=== PATIENT | female | born 1955 | race Caucasian/White ===

== ENCOUNTER → 2016-07-28 | Outpatient (CLI) | payer BC ==
[~2016-07-28] MED LIST: MULTCAP PO; VITA200038 PO; ZOME4INJ IV; [UNRECOGNIZED DRUG - OTHER] PO
--- NOTE | 2016-07-28 09:26 | REPMRS ---
Patient History The patient states she had a clinical breast exam in January 2016. Patient is postmenopausal. Family history of colorectal cancer in maternal grandmother at age 58. Digital Mammo Screening Bilat: July 28, 2016 - Exam #: [id number] Bilateral CC and MLO view(s) were taken. Technologist: Eileen Mcneil, Technologist Prior study comparison: July 26, 2015, bilateral digital mammo screening bilat performed at [facility]. July 22, 2014, bilateral digital mammo screening bilat performed at [facility]. FINDINGS: There are scattered fibroglandular densities. There has been no change in the appearance of the mammogram from the prior studies. There is a mild amount of residual fibroglandular tissue which is fairly symmetric. There is no interval development of dominant mass, architectural distortion, or clustered microcalcification suggestive of malignancy. ASSESSMENT: BI-RADS/ACR category 1 mammogram. Negative. Recommendation Routine screening mammogram in 1 year (for women over age 40). This mammogram was interpreted with the aid of an FDA-approved computer-aided dectection system. Electronically Signed By: Michael Arreguin MD 07/28/16 0926
== END ==
LOC: M RAD 07:53
PROVIDERS: ATTEND Nurse Practitioner Women's Health
DX: Z12.31 Encounter for screening mammogram for malignant neoplasm of breast (principal); Z78.0 Asymptomatic menopausal state

== ENCOUNTER → 2016-08-10 | Outpatient (CLI) | payer BC ==
[~2016-08-10] MED LIST changes: +GASTROGRAFIN SOLUTION 30ML (Q9963) As Ordered ONE; +ISOVUE-370 76% 100ML VIAL (Q9967) As Ordered ONE
--- NOTE | 2016-08-11 05:56 | REP ---
Clinical: Non-small cell lung cancer. Technique: Axial contrast enhanced images from the thoracic inlet to the upper abdomen using 100 ml Isovue 370 intravenous contrast material with coronal and sagittal re-formations. Comparison: 04/03/2016. Findings: Subpleural anterolateral right upper lobe lesion (image 35) currently measures 2.4 cm maximal diameter and previously measured 1.7 cm maximal diameter. Anterior subpleural lesion (image 46) currently measures 1.5 cm maximal diameter and previously measured 0.9 cm maximal diameter. Basilar right lower lobe lesion (image 76) currently measures 1.9 cm diameter and previously measured 1.2 cm diameter. Further similar appearing right-sided subpleural metastatic foci are also identified and are similar or mildly increased in size when compared to prior examination. The left hemithorax is well-aerated and essentially clear without evidence for metastatic lesions. No pleural effusion/reaction. No pneumothorax. Tracheobronchial tree is patent. Mediastinum including heart/pericardium and thoracic aorta appear normal. Musculoskeletal structures are intact without focal osseous abnormality. Limited evaluation of the upper abdomen demonstrates normal bilateral adrenal glands. Impression: Right-sided and predominantly subpleural metastatic foci have mildly increased in size from prior examination as detailed above. Left hemithorax appears well aerated and clear. Signed by Billy Lundy MD 08/11/2016 05:48 A
--- NOTE | 2016-08-11 06:06 | REP ---
Clinical: Non-small cell lung cancer for follow up. Technique: Axial contrast enhanced images from the lung bases to the pubic symphysis using oral and 100 ml Isovue 370 intravenous contrast material with precontrast and delayed images of the abdomen as well as coronal and sagittal re-formations. Comparison: 09/29/2013. Findings: Lung bases demonstrate multiple subpleural metastatic foci measuring up to approximately 2 cm maximal diameter. Visualized heart and pericardium appear normal. Liver, spleen, pancreas, gallbladder, bilateral adrenal glands and kidneys are normal. Marked fecal stasis and constipation noted throughout the colon causing moderate distension. The small bowel is unremarkable. Pelvis demonstrates normal bladder and age-appropriate uterus/adnexa. No pelvic fluid/ascites. No obvious adenopathy. No obvious intra-abdominal mass lesion is appreciated although evaluation is limited. No free air. Vasculature normal skeletal structures demonstrate few scattered sclerotic lesions predominant within multiple vertebral bodies and within the sacrum and left iliac bone consistent with metastatic disease. Impression: 1. Pulmonary and osseous metastatic disease. 2. Marked fecal stasis and constipation causing abdominal distension. Signed by Billy Lundy MD 08/11/2016 05:58 A
== END ==
LOC: M RAD 11:05
PROVIDERS: ATTEND Internal Medicine Medical Oncology
DX: C79.51 Secondary malignant neoplasm of bone (principal); C34.90 Malignant neoplasm of unspecified part of unspecified bronchus or lung
CPT/HCPCS: 71260; 74178; Q9963; Q9967

== ENCOUNTER → 2016-08-15 | Outpatient (REF) | payer BC ==
[~2016-08-15] MED LIST changes: -GASTROGRAFIN SOLUTION 30ML (Q9963) As Ordered ONE; -ISOVUE-370 76% 100ML VIAL (Q9967) As Ordered ONE
[2016-08-15 17:54] LABS: INR 0.91
== END ==
LOC: M LAB REF 16:22
PROVIDERS: ATTEND Internal Medicine Medical Oncology
DX: C34.90 Malignant neoplasm of unspecified part of unspecified bronchus or lung (principal); Z79.899 Other long term (current) drug therapy; C78.01 Secondary malignant neoplasm of right lung; C79.31 Secondary malignant neoplasm of brain; C79.51 Secondary malignant neoplasm of bone; C78.2 Secondary malignant neoplasm of pleura

== ENCOUNTER → 2016-08-16 | Outpatient (CLI) | payer BC ==
[~2016-08-16] MED LIST changes: +LIDOCAINE 1% MDV 20ML VIAL As Ordered ONE
--- NOTE | 2016-08-16 13:52 | REP ---
CHEST X-RAY: Single view. HISTORY: Post CT guided needle biopsy for right upper lobe nodule. Comparison chest x-ray March 30, 2015. FINDINGS: There is some right apical pleural thickening and several nodular densities are seen in the right lung including the biopsy target in the right upper lung zone. There is no evidence of pneumothorax or other complication. IMPRESSION: No complication identified. Multiple right lung nodules seen. Signed by Vidal Gold MD 08/16/2016 06:37 P
--- NOTE | 2016-08-16 16:56 | REP ---
CT GUIDED RIGHT UPPER LOBE LUNG BIOPSY: The procedure was performed under the direct supervision of Dr. Gold. The patient has a history of a 2.4 cm subpleural anterolateral right upper lobe lung lesion seen on a previous CAT scan dated 08/10/2016. The risks and benefits of the procedure were explained to the patient and informed consent was obtained. The right lobe lung lesion was localized using CT guidance. The skin was prepped and draped in a sterile fashion. 1% Lidocaine was used as a local anesthetic. Using CT guidance a 19/20-gauge coaxial needle biopsy system was inserted and advanced into the mass. 7 core biopsy samples were obtained and sent to the lab. The patient tolerated the procedure well and there were no immediate complications. After the appropriate amount of monitored convalescence the patient was discharged from the department. Reviewed by DIANE Herman 08/17/2016 04:33 PEdited and Signed by Vidal Gold MD 08/17/2016 04:51 P
== END ==
LOC: M RADPRO 12:16
PROVIDERS: ATTEND Internal Medicine Medical Oncology
DX: C34.90 Malignant neoplasm of unspecified part of unspecified bronchus or lung (principal); C78.01 Secondary malignant neoplasm of right lung; C79.31 Secondary malignant neoplasm of brain; C78.2 Secondary malignant neoplasm of pleura; C79.51 Secondary malignant neoplasm of bone; K59.00 Constipation, unspecified; R23.3 Spontaneous ecchymoses; Z78.0 Asymptomatic menopausal state; Z92.21 Personal history of antineoplastic chemotherapy; Z92.3 Personal history of irradiation; Z87.891 Personal history of nicotine dependence; Z79.899 Other long term (current) drug therapy

== ENCOUNTER → 2016-08-28 | Outpatient (REF) | payer BC ==
[~2016-08-28] MED LIST changes: -LIDOCAINE 1% MDV 20ML VIAL As Ordered ONE
== END | disposition home or self-care (01) ==
LOC: M LAB REF 09:45
PROVIDERS: ATTEND Internal Medicine Medical Oncology
DX: C78.01 Secondary malignant neoplasm of right lung (principal); C79.31 Secondary malignant neoplasm of brain; C79.51 Secondary malignant neoplasm of bone; C78.2 Secondary malignant neoplasm of pleura; C34.11 Malignant neoplasm of upper lobe, right bronchus or lung

== ENCOUNTER → 2016-09-18 | Outpatient (REF) | payer BC ==
[2016-09-18 14:06] LABS: AMYLASE 32 U/L (25-115)
== END ==
LOC: M LAB REF 13:13
PROVIDERS: ATTEND Internal Medicine Medical Oncology
DX: C34.90 Malignant neoplasm of unspecified part of unspecified bronchus or lung (principal)

== ENCOUNTER → 2016-09-25 | Outpatient (REF) | payer BC ==
[2016-09-25 18:39] LABS: AMYLASE 38 U/L (25-115)
== END ==
LOC: M LAB REF 16:59
PROVIDERS: ATTEND Internal Medicine Medical Oncology
DX: C34.90 Malignant neoplasm of unspecified part of unspecified bronchus or lung (principal)

== ENCOUNTER → 2016-10-02 | Outpatient (REF) | payer BC ==
[2016-10-02 14:20] LABS: AMYLASE 47 U/L (25-115)
== END ==
LOC: M LAB REF 13:20
PROVIDERS: ATTEND Internal Medicine Medical Oncology
DX: C34.90 Malignant neoplasm of unspecified part of unspecified bronchus or lung (principal)

== ENCOUNTER → 2016-10-11 | Outpatient (REF) | payer BC ==
[2016-10-11 16:44] LABS: AMYLASE 45 U/L (25-115)
== END ==
LOC: M LAB REF 16:09
PROVIDERS: ATTEND Internal Medicine Medical Oncology
DX: C34.90 Malignant neoplasm of unspecified part of unspecified bronchus or lung (principal)

== ENCOUNTER → 2016-11-08 | Outpatient (REF) | payer BC | LOC: M LAB REF 16:36 | PROVIDERS: ATTEND Internal Medicine Medical Oncology | DX: C34.90 Malignant neoplasm of unspecified part of unspecified bronchus or lung (principal) ==

== ENCOUNTER → 2016-11-13 | Outpatient (CLI) | payer BC ==
[~2016-11-13] MED LIST changes: +ISOVUE-370 76% 100ML VIAL (Q9967) As Ordered ONE
--- NOTE | 2016-11-14 14:25 | REP ---
Clinical: Non-small cell lung cancer status post chemotherapy for follow-up evaluation. Technique: Axial contrast enhanced images from the thoracic inlet to the upper abdomen using 100 ml Isovue 370 intravenous contrast material with coronal and sagittal re-formations. Comparison: 08/10/2016. Findings: Intraparenchymal and subpleural right-sided metastatic lesions are again identified and essentially unchanged when compared to prior examination. As example, an anterior right upper lobe lesion (image 38) currently measures 20.5 mm maximal diameter and previously measuring 20.5 mm maximal diameter. Smaller right upper lobe lesion (image 44) measures 12.6 cm maximal diameter previously measuring 11 mm maximal diameter. Medial right lower lobe lesion in the superior segment (image 42) measures 18.4 mm maximal diameter and previously measured 16 mm maximal diameter. Two adjacent lesions at the diaphragmatic surface in the right lower lobe (image 77) measure 21 mm maximal diameter and previously measuring 21 mm maximal diameter. Further scattered predominately subpleural metastatic lesions are essentially unchanged. The left hemithorax appears clear and without nodule. Chronic biapical scarring and interstitial changes noted. No pleural effusion. No pneumothorax. Tracheobronchial tree is patent. No significant adenopathy identified. Heart/pericardium and thoracic aorta appear normal. Few subtle sclerotic foci in the osseous structures specifically within right seventh and second ribs concerning for osseous metastatic disease. Impression: 1. Intraparenchymal and subpleural metastatic lesions within the right hemithorax are relatively similar to prior examination in both quantity and size although a few scattered lesions may be slightly increased in diameter. 2. Few scattered see sclerotic osseous metastatic lesions specifically noted in the right 7th and 2nd ribs. Signed by Billy Lundy MD 11/14/2016 02:16 P
== END ==
LOC: M RAD 17:46
PROVIDERS: ATTEND Internal Medicine Medical Oncology
DX: C79.51 Secondary malignant neoplasm of bone (principal); C34.90 Malignant neoplasm of unspecified part of unspecified bronchus or lung
CPT/HCPCS: 71260; Q9967

== ENCOUNTER → 2016-12-06 | Outpatient (REF) | payer BC ==
[~2016-12-06] MED LIST changes: -ISOVUE-370 76% 100ML VIAL (Q9967) As Ordered ONE
== END ==
LOC: M LAB REF 16:54
PROVIDERS: ATTEND Internal Medicine Medical Oncology
DX: C34.90 Malignant neoplasm of unspecified part of unspecified bronchus or lung (principal)

== ENCOUNTER → 2017-01-03 | Outpatient (REF) | payer BC | LOC: M LAB REF 17:44 | PROVIDERS: ATTEND Internal Medicine Medical Oncology | DX: C34.90 Malignant neoplasm of unspecified part of unspecified bronchus or lung (principal) ==

== ENCOUNTER → 2017-01-25 | Outpatient (CLI) | payer BC ==
[~2017-01-25] MED LIST changes: +GASTROGRAFIN SOLUTION 30ML (Q9963) As Ordered ONE; +ISOVUE-370 76% 100ML VIAL (Q9967) As Ordered ONE
--- NOTE | 2017-01-25 12:43 | REP ---
Clinical: Lung cancer for follow up. Technique: Axial contrast enhanced images from the lung bases to the pubic symphysis using oral and 100 ml Isovue 370 intravenous contrast material with precontrast and delayed images of the abdomen as well as coronal and sagittal re-formations. Comparison: 08/10/2016. Findings: Multiple lesions at the right lung base appear more prominent and increased in size compared to prior examination. Visualized heart and pericardium normal. Liver, spleen, pancreas, gallbladder, bilateral adrenal glands and kidneys are normal. The enteric system suggests fecal stasis without evidence for bowel obstruction or acute inflammatory process. Pelvis demonstrates partially collapsed normal bladder and age-appropriate uterus/adnexa. No ascites. No free air. No obvious adenopathy. Abdominal aorta and vasculature appears normal. Musculoskeletal structures demonstrate sclerotic metastatic lesions in few right ribs, L3, L4, sacrum, and left italia pelvis - some of which have increased in conspicuity. Impression: 1. Multiple rim enhancing lesions at the right lung base appear slightly more pronounced than prior examination. 2. Osseous metastatic disease at multiple ribs and vertebral bodies as well as sacrum and pelvis are similar to prior examination, but slightly more pronounced. Specifically, lesion at L3 shows considerably increased sclerosis. Signed by Billy Lundy MD 01/25/2017 12:35 P
--- NOTE | 2017-01-25 12:51 | REP ---
Clinical: Lung cancer for follow up. Technique: Axial contrast enhanced images from the thoracic inlet to the upper abdomen using 100 ml Isovue 370 intravenous contrast material with multiplanar re-formations. Comparison: 11/13/2016. Findings: Innumerable rim enhancing pulmonary nodules and mass lesions involving the right hemithorax appears stable in both number and size. No new lesions are identified and no significant growth is appreciated when compared to prior examinations dated 11/13/2016 and 08/10/2016. The left hemithorax appears well aerated and clear. Chronic interstitial changes are again identified. No new consolidation, pleural effusion or pneumothorax. Tracheobronchial tree is patent. No obvious axillary, hilar, or mediastinal adenopathy. Mediastinum demonstrates normal thoracic aorta, heart and pericardium. Skeletal structures are stable including sclerotic focus involving the anterior right second rib and eighth rib. Impression: 1. Stable appearance to the right-sided pulmonary nodules and mass lesions without significant change from prior examination. 2. Stable sclerotic changes to right 2nd and 8th ribs. 3. No obvious new acute mediastinal or pleuroparenchymal process appreciated. Signed by Billy Lundy MD 01/25/2017 12:43 P
== END ==
LOC: M RAD 09:42
PROVIDERS: ATTEND Internal Medicine Medical Oncology
DX: C34.90 Malignant neoplasm of unspecified part of unspecified bronchus or lung (principal)
CPT/HCPCS: 71260; 74178; Q9963; Q9967

== ENCOUNTER → 2017-01-26 | Outpatient (REF) | payer BC ==
[~2017-01-26] MED LIST changes: -GASTROGRAFIN SOLUTION 30ML (Q9963) As Ordered ONE; -ISOVUE-370 76% 100ML VIAL (Q9967) As Ordered ONE
== END ==
LOC: M SFHCWAGY 11:07
PROVIDERS: ATTEND Nurse Practitioner Women's Health
DX: Z12.4 Encounter for screening for malignant neoplasm of cervix (principal)

== ENCOUNTER → 2017-01-30 | Outpatient (REF) | payer BC | LOC: M LAB REF 16:55 | PROVIDERS: ATTEND Internal Medicine Medical Oncology | DX: C34.90 Malignant neoplasm of unspecified part of unspecified bronchus or lung (principal) ==

== ENCOUNTER → 2017-03-27 | Outpatient (REF) | payer BC | LOC: M LAB REF 17:07 | PROVIDERS: ATTEND Internal Medicine Medical Oncology | DX: C34.90 Malignant neoplasm of unspecified part of unspecified bronchus or lung (principal) ==

== ENCOUNTER → 2017-04-27 | Outpatient (CLI) | payer BC ==
[~2017-04-27] MED LIST changes: +ISOVUE-370 76% 100ML VIAL (Q9967) As Ordered ONE
--- NOTE | 2017-04-27 13:02 | REP ---
CT study of the chest with IV contrast: History lung cancer restaging. The most recent comparison chest CT study is from January 25, 2017. November 13, 2016 CT study is also reviewed. CT contrast dose: 75 mL of intravenous Isovue 370. CT findings: There are stable sclerotic metastatic lesions in the sternum, the right anterior second, and right anterior 8th ribs unchanged. There is a subtle area of sclerosis in the anterior end of the 7th rib which is also unchanged. There is also a sclerotic area in the anterior end of the left 3rd rib which is unchanged. No new bony metastatic lesion is seen. Multiple right-sided pulmonary nodules are seen. Most of these are unchanged when compared with prior study. However, there is a new pleural-based nodular density in the right lower lobe posteriorly visible on image 80 of 116 in series 201 of today's study. This measures 10 mm in greatest diameter. There is a 7 mm pleural-based nodular density in the right middle lobe anteriorly which appears a little larger. There is a 13 mm nodular density in the right upper lobe along the minor fissure on image #43. Previously this measured 11 mm. There is a 21 mm peripheral pleural-based nodule in the right upper lobe on image #37 which measured 19 mm on the January 25, 2017 study. Multiple other pleural-based nodules are seen which are unchanged. No new hilar or mediastinal mass is observed. Visualized liver parenchyma is homogeneous. No splenic or adrenal lesion is observed. No extrathoracic mass or adenopathy is seen. Impression: Multiple predominately pleural-based lung nodules in the right hemithorax. Several of these are slightly larger when compared with the most recent prior study of January 25, 2017. Stable skeletal sclerotic metastatic foci are again seen unchanged. Signed by Vidal Gold MD 04/27/2017 03:51 P
== END ==
LOC: M RAD 10:45
PROVIDERS: ATTEND Internal Medicine Medical Oncology
DX: C34.90 Malignant neoplasm of unspecified part of unspecified bronchus or lung (principal)

== ENCOUNTER → 2017-07-30 | Outpatient (CLI) | payer BC ==
[~2017-07-30] MED LIST changes: +GASTROGRAFIN SOLUTION 30ML (Q9963) As Ordered; +ISOVUE-370 76% 100ML VIAL (Q9967) As Ordered; -ISOVUE-370 76% 100ML VIAL (Q9967) As Ordered ONE; -MULTCAP PO; -VITA200038 PO; -ZOME4INJ IV; -[UNRECOGNIZED DRUG - OTHER] PO
== END ==
LOC: M RAD 09:07
DX: C34.90 Malignant neoplasm of unspecified part of unspecified bronchus or lung (principal)
CPT/HCPCS: Q9963

== ENCOUNTER → 2017-08-03 | Outpatient (CLI) | payer BC | LOC: M RAD 09:09 | DX: Z12.31 Encounter for screening mammogram for malignant neoplasm of breast (principal) | CPT/HCPCS: 77067 ==

== ENCOUNTER → 2017-11-21 | Outpatient (CLI) | payer BC ==
[~2017-11-21] MED LIST changes: -GASTROGRAFIN SOLUTION 30ML (Q9963) As Ordered
== END ==
LOC: M RAD 08:27
DX: C34.90 Malignant neoplasm of unspecified part of unspecified bronchus or lung (principal)
CPT/HCPCS: Q9967

== ENCOUNTER → 2018-02-06 | Outpatient (REF) | payer BC ==
[2018-02-12 14:20] LABS: HPV HYBRID CAPTURE II Negative (Negative)
== END ==
LOC: M SFHCWAGY 14:12
DX: Z01.419 Encounter for gynecological examination (general) (routine) without abnormal findings (principal); Z11.51 Encounter for screening for human papillomavirus (HPV); N95.2 Postmenopausal atrophic vaginitis

== ENCOUNTER → 2018-02-19 | Outpatient (CLI) | payer BC ==
[~2018-02-19] MED LIST changes: +GASTROGRAFIN SOLUTION 30ML (Q9963) As Ordered
== END ==
LOC: M RAD 11:14
DX: C34.90 Malignant neoplasm of unspecified part of unspecified bronchus or lung (principal); C79.51 Secondary malignant neoplasm of bone; C78.2 Secondary malignant neoplasm of pleura
CPT/HCPCS: Q9963

== ENCOUNTER → 2018-05-27 | Outpatient (CLI) | payer BC ==
[~2018-05-27] MED LIST changes: -GASTROGRAFIN SOLUTION 30ML (Q9963) As Ordered
== END ==
LOC: M RAD 10:32
DX: C34.11 Malignant neoplasm of upper lobe, right bronchus or lung (principal); C79.51 Secondary malignant neoplasm of bone
CPT/HCPCS: Q9967

== ENCOUNTER → 2018-07-31 | Outpatient (CLI) | payer BC ==
[~2018-07-31] MED LIST changes: +GASTROGRAFIN SOLUTION 30ML (Q9963) As Ordered ONE; -ISOVUE-370 76% 100ML VIAL (Q9967) As Ordered; +ISOVUE-370 76% 100ML VIAL (Q9967) As Ordered ONE; +MULTCAP PO; +TUMS500C PO; +VITA200038 PO; +XGEVINJ SC; +ZOME4INJ IV; +[UNRECOGNIZED DRUG - CODE] PO; +[UNRECOGNIZED DRUG - OTHER] PO
--- NOTE | 2018-08-01 05:43 | REP ---
Clinical: Non-small cell lung cancer. Technique: Axial contrast enhanced images from the lung bases to the pubic symphysis with coronal and sagittal re-formations using 100 ml Isovue 370 intravenous contrast material. Comparison: 05/27/2018, 02/19/2018 . Findings: Irregular heterogeneous enhancing pleural encasement of the right hemithorax by malignant neoplasm along with scattered right-sided peribronchovascular thickening and nodularity as well as scattered fibroatelectatic changes and small partially loculated malignant pleural effusion are unchanged. The left hemithorax again demonstrates a 1.4 cm infrahilar left lower lobe peribronchial lesion (image 72) which remains unchanged, but new left hilar adenopathy including lymph nodes measuring up to 13.5 mm are now identified. Thoracic aorta, pulmonary vasculature and heart/pericardium appear relatively normal and unaffected. The tracheobronchial tree appears patent and relatively normal. Sclerotic metastatic foci within multiple right ribs, sternum and within multiple thoracic and visualized upper lumbar vertebra appear to have increased. Impression: 1. Malignant changes involving the right hemithorax appear relatively stable along with see single 1.4 cm left lower lobe infrahilar lesion. 2. However, new pathologic appearing left hilar lymph nodes are identified and measure up to 13.5 mm. Increased osseous metastatic load is also suggested. Electronically Signed by Billy Lundy MD 08/01/2018 05:34 A
--- NOTE | 2018-08-01 06:05 | REP ---
Clinical: Non-small cell lung cancer. Technique: Axial contrast enhanced images from the lung bases to the pubic symphysis using oral (per protocol) and 100 ml Isovue 370 intravenous contrast material with delayed images of the abdomen as well as coronal and sagittal re-formations. Comparison: 02/19/2018. Findings: Malignant pleuroparenchymal changes involving the right hemithorax as well as 1.4 cm left lower lobe nodule again identified and essentially stable. Liver, spleen, pancreas, gallbladder, bilateral adrenal glands and kidneys are normal. The enteric system demonstrates fecal stasis without obstruction or acute inflammatory process. Pelvis demonstrates normal bladder and age-appropriate uterus/adnexa. No ascites. No intraperitoneal or retroperitoneal adenopathy. No free air. Abdominal aorta and vasculature appears normal. Extensive sclerotic metastatic osseous lesions are identified involving T12 through L5 as well as involving multiple visualized right sided ribs, sacrum, and bilateral iliac bones which has increased when compared to prior examination. Impression: 1. Increased diffuse sclerotic osseous metastatic disease. 2. No obvious acute abdominopelvic pathology or a metastasis. Specifically, no ascites, adenopathy, focal inflammatory stranding or mass lesion. 3. Stable malignant pleuroparenchymal changes involving the right hemithorax and left lower lobe pulmonary nodule. Electronically Signed by Billy Lundy MD 08/01/2018 05:57 A
== END ==
LOC: M RAD 07:54
PROVIDERS: ATTEND Internal Medicine Medical Oncology
DX: C34.11 Malignant neoplasm of upper lobe, right bronchus or lung (principal); C79.51 Secondary malignant neoplasm of bone; C79.31 Secondary malignant neoplasm of brain; C78.01 Secondary malignant neoplasm of right lung; C78.2 Secondary malignant neoplasm of pleura
CPT/HCPCS: 71260; 74177; Q9963; Q9967

== ENCOUNTER → 2018-08-05 | Outpatient (CLI) | payer BC ==
[~2018-08-05] MED LIST changes: -GASTROGRAFIN SOLUTION 30ML (Q9963) As Ordered ONE; -ISOVUE-370 76% 100ML VIAL (Q9967) As Ordered ONE
--- NOTE | 2018-08-05 11:18 | REPMRS ---
Patient History The patient states she had a clinical breast exam in January 2018.Family history of colorectal cancer at age 58 in maternal grandmother. Digital Mammo Screening Bilat: August 05, 2018 - Exam #: [id number] Bilateral CC and MLO view(s) were taken. Technologist: Miroslava Guthrie, Technologist Prior study comparison: August 03, 2017, bilateral digital mammo screening bilat performed at [facility]. July 28, 2016, bilateral digital mammo screening bilat performed at [facility]. July 26, 2015, bilateral digital mammo screening bilat performed at [facility]. FINDINGS: There are scattered fibroglandular densities. There is a small stable superficial nodule in the medial aspect of the left breast unchanged from multiple prior studies. There has been no change in the appearance of the mammogram from the prior studies. There is a mild amount of scattered fibroglandular density which is fairly symmetric. There is no interval development of dominant mass, architectural distortion, or clustered microcalcification suggestive of malignancy. 3-D tomosynthesis shows no additional findings. Assessment: BI-RADS/ACR category 2 mammogram. Benign finding(s). Recommendation Routine screening mammogram of both breasts in 1 year (for women over age 40). This patient's Lifetime Breast Cancer RIsk is estimated at 8.3 %. This mammogram was interpreted with the aid of an FDA-approved computer-aided dectection system. Electronically Signed By: Guillermo Gold MD 08/05/18 [id number]
== END ==
LOC: M RAD 10:14
PROVIDERS: ATTEND Nurse Practitioner Women's Health
DX: Z12.31 Encounter for screening mammogram for malignant neoplasm of breast (principal); Z80.0 Family history of malignant neoplasm of digestive organs

== ENCOUNTER → 2018-08-07 | Outpatient (CLI) | payer BC ==
--- NOTE | 2018-08-07 14:15 | REP ---
Whole body radionuclide bone scan: History: Stage IV non-small cell lung carcinoma. Comparison whole body radionuclide bone scan study is from August 11, 2015. Technique: 21.8 mCi technetium 99m MDP is injected and standard whole body bone scan imaging was acquired. Scintigraphic findings: Today's radionuclide scintigraphy images demonstrate multifocal rather widespread axial skeletal metastatic sites of increased uptake. These are noted in the cervical, thoracic, lumbar spine and sacrum, bilaterally in the pelvis and hips, as well as in multiple anterior and posterior ribs bilaterally. This represents a fairly dramatic change from the August 11, 2015 prior bone scan. There is uptake in bilateral kidneys and in the urinary bladder. Impression: Findings consistent with widespread multifocal metastatic disease involving the axial skeleton as above with numerous new lesions. Electronically Signed by Vidal Gold MD 08/07/2018 07:40 P
== END ==
LOC: M RAD 09:39
PROVIDERS: ATTEND Internal Medicine Medical Oncology
DX: C34.90 Malignant neoplasm of unspecified part of unspecified bronchus or lung (principal); R07.1 Chest pain on breathing
CPT/HCPCS: 78306; A9503

== ENCOUNTER → 2018-08-09 | Outpatient (CLI) | payer BC ==
--- NOTE | 2018-08-13 07:23 | RADONC ---
RADIATION ONCOLOGY CONSULTATION NOTE DATE: 08/09/2018 CHART #: [id number] DIAGNOSIS: Lung cancer. STAGE: IV, metastatic. ECOG PERFORMANCE STATUS: 0. CONSULTATION NOTE: Ms. 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 The patient is now presenting for consideration of palliative radiation therapy for right rib pain and mid back discomfort. A recent bone scan was undertaken on 08/07/2018 which revealed widespread multifocal metastatic disease including in the areas she is now complaining of pain with. REVIEW OF SYSTEMS: The patient's review of systems is positive for bone pain over the back and right lateral and anterior ribs, but is otherwise noncontributory. She denies nausea, vomiting, fevers, chills, night sweats, diplopia, headaches, anxiety or depression, anorexia, weight loss, visual disturbances, chest pain, urinary or bowel difficulties, bone pain, or neurological problems. PHYSICAL EXAMINATION: The patient is a well-developed, well-nourished , 63-year-old female in no acute distress. HEENT exam is normocephalic, atraumatic. Extraocular movements are intact. There is no palpable cervical, supraclavicular, infraclavicular, axillary, or inguinal lymphadenopathy present. Lungs are clear to auscultation and percussion. Heart has a regular rate and rhythm. Abdomen is benign with no hepatosplenomegaly, masses, or tenderness. Skeletal examination does reveal acute tenderness to pressure over her right lateral ribs as well as over her upper and mid back region. There is no other tenderness to pressure or percussion of the bony skeleton. Extremities reveal no clubbing, cyanosis, or edema. Neurologic exam is grossly intact, as is the remainder of the physical examination. ASSESSMENT: Clearly, the patient is a candidate for external beam radiation therapy and I have so informed her. I have discussed with the patient in detail the potential benefits as well as possible acute and chronic sequelae of external beam radiation therapy. We discussed logistics of treatment planning, simulation and subsequent fractionated daily radiation treatments. I have scheduled the patient for the next available simulation slot and radiation treatments will begin subsequently. The patient is scheduled to go to [place] on February 11 and we will attempt to get her treatments initiated and completed prior to that trip. Thank you for allowing us to participate in the care of this delightful woman. If I could be of any further assistance, please feel free to contact me at anytime. As always warm regards. cc: MD Norah Guo MD
== END ==
LOC: M ONCR 12:58
PROVIDERS: ATTEND Radiology Radiation Oncology
DX: C79.51 Secondary malignant neoplasm of bone (principal); C34.11 Malignant neoplasm of upper lobe, right bronchus or lung

== ENCOUNTER 2018-08-21 10:15 | Outpatient (RCR) | payer BC ==
--- NOTE | 2018-08-13 11:23 | RADONC ---
RADIATION ONCOLOGY SIMULATION NOTE DATE: 08/12/2018 CHART #: [id number] Ms. Vance was taken to the CT scan for CT simulation of her spinal field. CT was accomplished without difficulty or discomfort. Radiation treatment planning is underway and radiation treatments will begin subsequently. An immobilization device was created and will be used throughout the course of treatment. It was created without difficulty or discomfort. I was physically present throughout the course of CT simulation. Electron setup of her rib field will be undertaken once spinal radiation is initiated. We will then treated concomitantly with each area.
--- NOTE | 2018-08-16 09:22 | RADONC ---
RADIATION ONCOLOGY SIMULATION NOTE DATE: 08/15/2018 CHART NUMBER: [id number] SIMULATION NOTE: Ms. Rajiv Byrne was taken to the linear accelerator today for clinical setup of her right rib electron field. Setup was accomplished without difficulty or discomfort. Radiation treatment planning is underway and radiation treatments will begin subsequently. An immobilization device was created and will be used throughout the course of treatment. I was physically present throughout the course of clinical setup simulation.
--- NOTE | 2018-08-19 12:20 | RADONC ---
RADIATION ONCOLOGY PROGRESS NOTE DATE: 08/19/2018 CHART NUMBER: [id number] PROGRESS NOTE: Ms. Vance is presently at a dose of 1200 cGy to her spine and is tolerating treatments quite well at this point with no complaints related to her radiation therapy. She continues to have rib pain. REVIEW OF SYSTEMS: The patient's review of systems is noncontributory. Denies nausea, vomiting, fevers, chills, night sweats, diplopia, headaches, anxiety or depression, anorexia, weight loss, visual disturbances, chest pain, urinary or bowel difficulties, bone pain, or neurological problems. PHYSICAL EXAMINATION: The patient continues to have some tenderness over her ribs to pressure. Her skin is in good condition and the remainder of her physical exam is unchanged. Ms. Vance is tolerating treatments quite well and radiation will continue as scheduled.
== END 2018-08-22 ==
LOC: M ONCR 10:15
PROVIDERS: ATTEND Radiology Radiation Oncology
DX: C79.51 Secondary malignant neoplasm of bone (principal)

== ENCOUNTER 2018-08-29 10:09 | Outpatient (RCR) | payer BC ==
--- NOTE | 2018-08-27 09:51 | RADONC ---
RADIATION ONCOLOGY PROGRESS NOTE DATE: 08/26/2018 CHART NUMBER: [id number] Ms. Vance is presently at a dose of 2100 cGy to her spine and 1200 cGy to her right ribs and is tolerating treatments quite well at this point with no complaints related to her radiation therapy. She is having a marked improvement in her discomfort. REVIEW OF SYSTEMS: The patient's review of systems is noncontributory. She denies nausea, vomiting, fevers, chills, night sweats, diplopia, headaches, anxiety or depression, anorexia, weight loss, visual disturbances, chest pain, urinary or bowel difficulties, bone pain, or neurological problems. PHYSICAL EXAMINATION: The patient's skin is in good condition with no evidence of radiation change present. There is no moist or dry desquamation. The remainder of her physical exam remains unchanged. Ms. Vance is tolerating treatments quite well and radiation will continue as scheduled.
--- NOTE | 2018-08-30 15:59 | RADONC ---
RADIATION ONCOLOGY TREATMENT SUMMARY DATE: 08/29/2018 CHART NUMBER: [id number] DIAGNOSIS: Lung cancer. STAGE: Stage IV, metastatic. ECOG PERFORMANCE STATUS: 0 TREATMENT SUMMARY: Ms. 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 We treated the patient to her spine from the levels of T10 through L4 for a dose of 3000 cGy delivered in 10 fractions of 300 cGy each over 15 elapsed days from 08/14/2018 through 08/29/2018. The patient's spine was treated on a linear accelerator utilizing a 15 MV photon beam via single posterior field prescribed to a depth of 6 cm. In addition, we treated the patient to her anterior right ribs for a dose of 2000 cGy delivered in five fractions of 400 cGy each from 08/20/2018 through 08/28/2018. The patient's ribs were treated on the linear accelerator utilizing a 9 MeV electron beam prescribed to the 90% isodose line via a En Face technique. Ms. Vance tolerated her treatments quite well and actually had a marked improvement in her bone pain. The patient and are leaving for a trip to [place] and will be seen by us again in followup when she returns. cc: MD Norah Guo MD Jason White, MD MTDD
== END 2018-09-19 ==
LOC: M ONCR 10:09
PROVIDERS: ATTEND Radiology Radiation Oncology
DX: C79.51 Secondary malignant neoplasm of bone (principal); C34.90 Malignant neoplasm of unspecified part of unspecified bronchus or lung

== ENCOUNTER → 2018-09-18 | Outpatient (CLI) | payer BC ==
[~2018-09-18] MED LIST changes: +LIDOCAINE 1% MDV 20ML VIAL As Ordered ONE
--- NOTE | 2018-09-18 10:32 | REP ---
PA chest x-ray: Single view. History: CT guided needle biopsy performed on the right. Post biopsy assessment. Comparison study: August 16, 2016. Findings: The left lung is essentially clear. On the right there is extensive somewhat nodular pleural thickening and overall volume loss in the right hemithorax. The previously noted nodular opacities are again seen and generally larger. There is no evidence of pneumothorax. There is abnormal sclerosis in the vertebral body consistent with a skeletal metastatic site. Impression: No complication noted. Electronically Signed by Vidal Gold MD 09/18/2018 03:21 P
--- NOTE | 2018-09-19 08:10 | REP ---
CT-GUIDED RIGHT UPPER LOBE LUNG BIOPSY The procedure was performed under the direct supervision of Dr. Gold. The patient has a history of malignant changes involving the right hemithorax seen on a previous CT scan dated 07/31/2018. The patient had a CT-guided right upper lobe lung biopsy performed on 08/16/2016. The patient is referred for rebiopsy for staging and checking for mutation. The risks and benefits of the procedure were explained to the patient and informed consent was obtained. The mass in the right upper lobe was localized using CT guidance. The skin was prepped and draped in a sterile fashion. 1% lidocaine was used as a local anesthetic. Using CT guidance a 19/20 gauge coaxial needle biopsy system was inserted and advanced into the mass. 10 core biopsy samples were obtained and sent to lab. The patient tolerated the procedure well and there were no immediate complications. After the appropriate amount of monitored convalescence the patient was discharged from the department. Reviewed by DIANE Herman 09/18/2018 03:54 P Electronically Signed by Vidal Gold MD 09/19/2018 08:02 A
== END ==
LOC: M RADPRO 08:13
PROVIDERS: ATTEND Internal Medicine Medical Oncology
DX: C34.11 Malignant neoplasm of upper lobe, right bronchus or lung (principal)

== ENCOUNTER → 2018-10-09 | Outpatient (CLI) | payer BC ==
[~2018-10-09] MED LIST changes: -LIDOCAINE 1% MDV 20ML VIAL As Ordered ONE
--- NOTE | 2018-10-10 10:00 | RADONC ---
RADIATION ONCOLOGY FOLLOWUP NOTE DATE: 10/09/2018 CHART #: [id number] DIAGNOSIS: Lung cancer. STAGE: IV, metastatic. ECOG PERFORMANCE STATUS: 0. FOLLOWUP NOTE: Ms. 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 The patient presents today reporting that she is doing quite well with no complaints at this time related to her radiation therapy or disease. She reports a marked improvement in her back pain. She has no new areas of discomfort. REVIEW OF SYSTEMS: The patient's review of systems is noncontributory. Denies nausea, vomiting, fevers, chills, night sweats, diplopia, headaches, anxiety or depression, anorexia, weight loss, visual disturbances, chest pain, urinary or bowel difficulties, bone pain, or neurological problems. PHYSICAL EXAMINATION: The patient is a well-developed, well-nourished, 63-year-old female in no acute distress. HEENT exam is normocephalic, atraumatic. Extraocular movements are intact. There is no palpable cervical, supraclavicular, infraclavicular, axillary, or inguinal lymphadenopathy present. Lungs are clear to auscultation and percussion. Heart has a regular rate and rhythm. Abdomen is benign with no hepatosplenomegaly, masses, or tenderness. Breast examination reveals no masses or discharge bilaterally. Skeletal examination reveals no tenderness to pressure or percussion of the bony skeleton. Extremities reveal no clubbing, cyanosis, or edema. Neurologic exam is grossly intact, as is the remainder of the physical examination. ASSESSMENT: The patient is clinically stable at this point. Since she is being seen by Dr. Angelo, her medical oncologist, on a monthly basis I have discharged her from my followup except on a p.r.n. basis. cc: MD Norah Guo MD Jason White, MD
== END ==
LOC: M ONCR 13:05
PROVIDERS: ATTEND Radiology Radiation Oncology
DX: C79.51 Secondary malignant neoplasm of bone (principal)

== ENCOUNTER 2018-10-21 11:34 | Inpatient (IN) | payer BC ==
[~2018-10-21] VITALS: Ht 167.6 cm; Wt 62.1 kg
[2018-10-21] MEDS ORDERED: PANTOPRAZOLE 40MG INJ (PROTONIX) (C9113) IV ONE (12:00)
[2018-10-21] MEDS ORDERED: TUMS500C PO ×2 (12:24)
[2018-10-21] MEDS ORDERED: [UNRECOGNIZED DRUG - CODE] PO (12:24)
[2018-10-21] MEDS ORDERED: IBUP200T45 PO (12:24)
[2018-10-21 12:39] LABS: INR 0.96; PROTHROMBIN TIME 12.9 SECONDS (12.1-14.4)
[2018-10-21] MEDS: NS 1,000 ML IV SCH ×2 (14:28→20:16)
[2018-10-21 15:33] LABS: BLOOD UREA NITROGEN 13 MG/DL (7-18); CALCIUM LEVEL 8.9 MG/DL (8.8-10.2); CARBON DIOXIDE LEVEL 26 MEQ/L (21-32); CHLORIDE LEVEL 100 MEQ/L (98-107); CREATININE FOR GFR 0.71 MG/DL (0.55-1.30); GLOMERULAR FILTRATION RATE > 60.0 (>45); GLUCOSE, FASTING 104 MG/DL (70-100); POTASSIUM SERUM 4.6 MEQ/L (3.5-5.1); SODIUM LEVEL 135 MEQ/L (136-145)
--- NOTE | 2018-10-21 15:43 | HPE ---
DATE OF ADMISSION: 10/21/2018 This is a 63-year-old female with past medical history of stage IV lung carcinoma (CA) on chemotherapy being seen by Dr. Angelo, medical oncologist, who presents to the emergency room after having abnormal laboratories at Dr. Angelo' office. The patient was going for a routine visit today when her complete blood count (CBC) showed that she had a hemoglobin of 6.2. The patient never came with any complaints but when she found out what her numbers were, she did mention that she has been more fatigued for the past week and a half, more than her usual state of health but denied any chest pain or shortness of breath. In the emergency room (ER), she was type and crossed and transfused two units of packed red blood cells (PRBCs). She was guaiac positive on examination in Dr. Angelo' office but she denies any black tarry stools or any bloody vomitus and her appetite has been well without any nausea. She denies any subjective feeling of fever, aches or chills, and she will be admitted for further management. PAST MEDICAL HISTORY: Stage IV adenocarcinoma of the lung, on chemotherapy. PAST SURGICAL HISTORY: She has a past surgical history of section and bilateral cataract implants. ALLERGIES: She has no known drug allergies. FAMILY HISTORY: Noncontributory. SOCIAL HISTORY: The patient denies tobacco, alcohol or illicit drugs. MEDICATIONS: She takes at home are as follows: - calcium carbonate 500 mg orally daily - cholecalciferol 2000 units orally daily - denosumab 120 mg subcutaneous every two months - ibrutinib 180 mg orally daily - ibuprofen 200 mg orally twice daily as needed - multivitamin one capsule orally daily REVIEW OF SYSTEMS: Negative for all 10 major systems except for what mentioned in the history of present illness (HPI). VITAL SIGNS: Blood pressure is 142/83, heart rate is 80 and regular, respiratory rate 19, temperature 98.4. Head is normocephalic, atraumatic. NECK: Supple with no jugular venous distention (JVD). LUNGS: Clear to auscultation. S1, S2 audible. No murmurs appreciated. ABDOMEN: Soft, positive bowel sounds. No pedal edema. SKIN: Intact. NEUROLOGIC: The patient is awake, alert, and oriented times three. LABORATORY DATA: Pending. IMPRESSION: 1. Gastrointestinal (GI) bleed. 2. Acute blood loss anemia. PLAN: The patient will be admitted to the medical/surgical floor. We will give two units of packed red blood cells (PRBC) and followup posttransfusion complete blood count (CBC). I will have Dr. Fontenot our gastroenterology physician be placed on consult and we will be awaiting his recommendations. I will start the patient on IV Protonix 40 IV every 12 hours and keep her nothing by mouth for now. We will continue following her care on the medical/surgical floor.
[2018-10-21 15:50] VITALS: BP 138/77
[2018-10-21 22:00] VITALS: BP 127/70
[2018-10-22] MEDS: PANTOPRAZOLE 40MG INJ (PROTONIX) (C9113) IV SCH ×2 (02:27→15:10)
[2018-10-22] MEDS: NS 1,000 ML IV SCH ×3 (04:21→19:32)
[2018-10-22 06:00] VITALS: BP 112/71
[2018-10-22] MEDS ORDERED: GOLYTELY SOLN 4000 ML BTL PO ONE (06:00)
[2018-10-22 06:46] LABS: BASO # 0.1 10^3/uL (0.0-0.2); BASO % 0.7 % (0.0-1.0); EOS # 0.1 10^3/uL (0.0-0.50); EOS % 1.1 % (0.0-3.0); HEMATOCRIT 28.4 % (36.0-47.0); HEMOGLOBIN 8.8 g/dl (12.0-15.5); LYMPH # 0.6 10^3/uL (1.5-4.5); LYMPH % 8.6 % (24.0-44.0); MEAN CORPUSCULAR HEMOGLOBIN 26.4 pg (27.0-33.0); MEAN CORPUSCULAR VOLUME 85.3 fl (80.0-96.0); MONO # 0.7 10^3/uL (0.0-0.8); NEUTROPHILS % 80.2 % (36.0-66.0); PLATELET COUNT, AUTOMATED 537 10^3/uL (150-450); RED BLOOD COUNT 3.33 10^6/uL (4.00-5.40); WHITE BLOOD COUNT 7.4 10^3/uL (4.0-10.0)
[2018-10-22 07:09] LABS: BLOOD UREA NITROGEN 8 MG/DL (7-18); CALCIUM LEVEL 8.3 MG/DL (8.8-10.2); CARBON DIOXIDE LEVEL 26 MEQ/L (21-32); CHLORIDE LEVEL 106 MEQ/L (98-107); CREATININE FOR GFR 0.69 MG/DL (0.55-1.30); GLOMERULAR FILTRATION RATE > 60.0 (>45); GLUCOSE, FASTING 89 MG/DL (70-100); POTASSIUM SERUM 3.5 MEQ/L (3.5-5.1); SODIUM LEVEL 138 MEQ/L (136-145)
--- NOTE | 2018-10-22 09:57 | CR ---
DATE OF CONSULTATION: 10/21/2018 This is a 63-year-old white female with a significant past medical history of stage IV lung cancer for at least the last six years who apparently has been somewhat stable. The patient has had directed treatment for her cancer. She has done fairly well over the years. She has been admitted to [facility] ([facility]) for a sudden drop in her hemoglobin to 6.2 which was picked up by her oncologist, Dr. Norah Angelo. She denies any complaints of melena, hematochezia, or bright red blood per rectum. No apparent hematemesis, abdominal pain, or major weight loss. The patient has had some fatigue over the past 4-6 weeks. The patient has not had any previous gastrointestinal (GI) bleed. Her last colonoscopy was at least 10-15 years ago. The patient denies any dysphagia or heartburn. PAST MEDICAL HISTORY: Positive for stage IV adenocarcinoma of the lung, on treatment. PAST SURGICAL HISTORY: Previous history of (C) section and bilateral cataract implant. ALLERGIES: No apparent allergies. FAMILY HISTORY: Noncontributory to the above problem. SOCIAL HISTORY: Noncontributory. MEDICATIONS: Include: - denosumab 120 mg subcutaneously every two months - ibrutinib 180 mg daily - multivitamins - ibuprofen as needed REVIEW OF SYSTEMS: 10-point review of systems is noncontributory. PHYSICAL EXAMINATION: GENERAL APPEARANCE: A well-developed, thin, white female in no obvious acute distress. Appears stated age. CHEST: Clear to auscultation. CARDIOVASCULAR: Examination showed a regular rhythm. No murmurs or gallops. Normal physiological split, S1, S2. ABDOMEN: Soft, nontender. No masses, guarding, rebound, or hepatosplenomegaly. Bowel sounds positive. EXTREMITIES: No cyanosis, clubbing or edema. Ema's negative. LABORATORY STUDIES: On admission shows a blood count of 13.1 and 40.5 on 07/30/2018. The patient's blood count of 09/23/2018 was 10.7 and 34.7 and her blood count on 10/21/2018 showed a hemoglobin of 6.2 and 20.6. The patient denies any active signs of bleeding. The patient's coagulation showed a normal INR. No imaging studies were performed on this admission. ANALYSIS: Sudden onset of anemia in a patient with metastatic stage IV lung cancer. PLAN: Will be to set the patient up for an upper and lower endoscopy, bowel preparation will have to be ordered, to evaluate for any possible sources. The patient does say that she takes Advil for her pains. The patient is being treated for metastatic cancer to her right ribcage and she was taking Advil for that, probably at least two tablets a day for possibly several months. It is possible that the patient may have a nonsteroidal antiinflammatory drug (NSAID) induced gastropathy or possible ulcer or gastritis which may have caused the patient's sudden onset of bleeding or anemia. The patient is on IV proton pump inhibitor (PPI). The plan will be to set the patient up for an upper esophagogastroduodenoscopy (EGD) and colonoscopy for further evaluation.
[2018-10-22 14:00] VITALS: BP 125/76
--- NOTE | 2018-10-22 16:32 | IPNPDOC ---
Subjective Date Seen The patient was seen on 10/22/18. Subjective Chief Complaint/HPI The patient is a 63-year-old female with a history of metastatic breast cancer was sent out of the hospital after outpatient labs revealed hemoglobin 6.2 with patient reporting fatigue/weakness Events since last encounter Patient reports she is feeling a little better after she received the 2 units of packed RBCs overnight. Reports she has been going to the bathroom quite a bit as she is undergoing prep for colonoscopy tomorrow. Denies any abdominal pain. No chest pain or shortness of breath. No nausea or vomiting. No dizziness or lightheadedness. Still has some fatigue with exertion. Objective Physical Examination General Exam: Positive: Alert, Cooperative, No Acute Distress Eye Exam: Positive: PERRLA Chest Exam: Positive: Clear to auscultation, Normal air movement Heart Exam: Positive: Other (S1, S2 heard, no rubs or gallops.) Abdomen Exam: Positive: Normal bowel sounds, Soft Neuro Exam: Positive: Other (awake, alert, oriented 3, answering questions appropriately.) Psych Exam: Positive: Mental status NL Assessment /Plan Assessment Current Medications Home Med (Med Rec Complete!) ASDIRECTED XX ; Start 10/21/18 at 12:30; Stop 10/21/18 at 12:30; Status DC Pantoprazole Sodium (Protonix) 40 mg Q12H IV Last administered on 10/22/18at 15:10; Start 10/22/18 at 02:00 Sodium Chloride 1,000 ml @ 125 mls/hr Q8H IV Last administered on 10/22/18at 13:00; Start 10/21/18 at 14:00 Acute blood loss anemia suspect secondary to gastrointestinal bleed: -Currently on liquid diet -Plan is for EGD and colonoscopy tomorrow -Patient was seen by gastroenterologyappreciate input -Continue PPI -Recheck hemoglobin in a.m. -Patient is status post 2 unit packed RBCs -Avoid blood thinners DVT prophylaxis: -SCDs Disposition: Anticipate possible discharge home within 24-48 hours once he moglobin stabilizes and pending results of EGD/colonoscopy Plan/VTE VTE Prophylaxis Ordered?: Yes VS, I&O, 24H, Fishbone Vital Signs/I&O Vital Signs Date Time Temp Pulse Resp B/P (MAP) Pulse Ox O2 Delivery O2 Flow Rate FiO2 10/22/18 14:00 98.1 80 18 125/76 (92) 99 I&O- Last 24 Hours up to 6 AM 10/22/18 06:00 Intake Total 1245 ml Output Total 1000 ml Balance 245 ml Laboratory Data 24H LABS Laboratory Tests 2 10/22/18 06:36: Immature Granulocyte % (Auto) 0.4, White Blood Count 7.4, Red Blood Count 3.33L, Hemoglobin 8.8L, Hematocrit 28.4L, Mean Corpuscular Volume 85.3, Mean Corpuscular Hemoglobin 26.4L, Mean Corpuscular Hemoglobin Concent 31.0L, Red Cell Distribution Width 17.2H, Platelet Count 537H, Neutrophils (%) (Auto) 80.2H, Lymphocytes (%) (Auto) 8.6L, Monocytes (%) (Auto) 9.0H, Eosinophils (%) (Auto) 1.1, Basophils (%) (Auto) 0.7, Neutrophils # (Auto) 6.0, Lymphocytes # (Auto) 0.6L, Monocytes # (Auto) 0.7, Eosinophils # (Auto) 0.1, Basophils # (Auto) 0.1, Nucleated Red Blood Cells % (auto) 0.0, Anion Gap 6L, Glomerular Filtration Rate > 60.0, Blood Urea Nitrogen 8, Creatinine 0.69, Sodium Level 138, Potassium Level 3.5#, Chloride Level 106, Carbon Dioxide Level 26, Calcium Level 8.3L CBC/BMP Laboratory Tests 10/22/18 06:36 Red Blood Count 3.33 L, Mean Corpuscular Volume 85.3, Mean Corpuscular Hemoglobin 26.4 L, Mean Corpuscular Hemoglobin Concent 31.0 L, Red Cell Distribution Width 17.2 H, Neutrophils (%) (Auto) 80.2 H, Lymphocytes (%) (Auto) 8.6 L, Monocytes (%) (Auto) 9.0 H, Eosinophils (%) (Auto) 1.1, Basophils (%) (Auto) 0.7, Neutrophils # (Auto) 6.0, Lymphocytes # (Auto) 0.6 L, Monocytes # (Auto) 0.7, Eosinophils # (Auto) 0.1, Basophils # (Auto) 0.1, Calcium Level 8.3 L BRIDGETTE LIM MD Oct 22, 2018 16:32
--- NOTE | 2018-10-22 21:48 | ECGEPIP ---
Stationary ECG Study [facility] - ED Test Date: 2018-10-21 Pat Name: ALISON ERICKSON Department: Room: - Gender: F [employer]: : 1955 Requested By: Rosa Will Order Number: [id number] Reading MD: Galo Marcum Measurements Intervals [place] Rate: 80 P: 19 OK: 148 QRS: 7 QRSD: 94 T: 34 QT: 366 QTc: 422 Interpretive Statements SINUS RHYTHM SIMILAR TO 11/04/14 Electronically Signed On 10-22-2018 21:47:46 EDT by Galo Marcum
[2018-10-22 22:00] VITALS: BP 120/76
[2018-10-23] MEDS: PANTOPRAZOLE 40MG INJ (PROTONIX) (C9113) IV SCH ×2 (01:23→16:05)
[2018-10-23] MEDS: NS 1,000 ML IV SCH ×2 (03:34→11:30)
[2018-10-23 06:00] VITALS: BP 134/82
[2018-10-23 06:04] LABS: BASO % 0.5 % (0.0-1.0); EOS # 0.1 10^3/uL (0.0-0.50); EOS % 1.1 % (0.0-3.0); HEMATOCRIT 27.8 % (36.0-47.0); HEMOGLOBIN 8.6 g/dl (12.0-15.5); LYMPH # 0.8 10^3/uL (1.5-4.5); LYMPH % 10.5 % (24.0-44.0); MEAN CORPUSCULAR HEMOGLOBIN 26.5 pg (27.0-33.0); MEAN CORPUSCULAR HGB CONC 30.9 g/dl (32.0-36.5); MEAN CORPUSCULAR VOLUME 85.8 fl (80.0-96.0); MONO # 0.8 10^3/uL (0.0-0.8); MONO % 9.9 % (0.0-5.0); NEUTROPHILS # 5.9 10^3/uL (1.8-7.7); NEUTROPHILS % 77.6 % (36.0-66.0); PLATELET COUNT, AUTOMATED 487 10^3/uL (150-450); RED BLOOD COUNT 3.24 10^6/uL (4.00-5.40); WHITE BLOOD COUNT 7.6 10^3/uL (4.0-10.0)
[2018-10-23 06:31] LABS: BLOOD UREA NITROGEN 3 MG/DL (7-18); CALCIUM LEVEL 7.4 MG/DL (8.8-10.2); CARBON DIOXIDE LEVEL 25 MEQ/L (21-32); CHLORIDE LEVEL 110 MEQ/L (98-107); CREATININE FOR GFR 0.58 MG/DL (0.55-1.30); GLOMERULAR FILTRATION RATE > 60.0 (>45); GLUCOSE, FASTING 91 MG/DL (70-100); MAGNESIUM LEVEL 2.3 MG/DL (1.8-2.4); POTASSIUM SERUM 3.4 MEQ/L (3.5-5.1); SODIUM LEVEL 141 MEQ/L (136-145)
--- NOTE | 2018-10-23 06:33 | ECGEPIP ---
Stationary ECG Study [facility] Test Date: 2018-10-22 Pat Name: ALISON ERICKSON Department: Room: [place] [address] Gender: F [employer] Consultant: [facility] : 1955 Requested By: JEFF FOSTER Order Number: [id number] Reading MD: Pearl Fuentes Measurements Intervals [place] Rate: 71 P: 26 AK: 154 QRS: 8 QRSD: 94 T: 34 QT: 391 QTc: 428 Interpretive Statements SINUS RHYTHM SLIGHTLY DECREASED VOLTAGE C/W 10/21/18 Electronically Signed On 10-23-2018 6:33:27 EDT by Pearl Fuentes
[2018-10-23] MEDS ORDERED: POTASSIUM CHLORIDE 10 MEQ SR TABLET PO ONE (08:00)
[2018-10-23 14:00] VITALS: BP 134/76
[2018-10-23] MEDS ORDERED: PROPOFOL 200 MG/20 ML VIAL As Ordered ONE (14:49)
[2018-10-23] MEDS ORDERED: LIDOCAINE 2% INJ 100 MG/5 ML SDV (FOR ANES.) As Ordered ONE (14:49)
--- NOTE | 2018-10-23 15:09 | ROOR ---
Patient Name: Joanne Vance Procedure Date: 10/23/2018 2:45 PM Date of : 1955 Age: 63 Room: [facility] Gender: Female Note Status: Finalized Procedure: Upper GI endoscopy + Hemoclips Indications: Acute post hemorrhagic anemia, Gastrointestinal bleeding of unknown origin Providers: Kael Fontenot MD Referring MD: Inocencio Escamilla MD Requesting Provider: Medicines: Monitored Anesthesia Care Complications: No immediate complications. Procedure: Pre-Anesthesia Assessment: - The heart rate, respiratory rate, oxygen saturations, blood pressure, adequacy of pulmonary ventilation, and response to care were monitored throughout the procedure. The Endoscope was introduced through the mouth, and advanced to the second part of duodenum. The upper GI endoscopy was accomplished without difficulty. The patient tolerated the procedure well. Findings: The Z-line was regular and was found 35 cm from the incisors. One non-bleeding cratered gastric ulcer with no stigmata of bleeding was found in the gastric fundus. For hemostasis, three hemostatic clips were successfully placed (MR conditional). There was no bleeding at the end of the procedure. One non-bleeding cratered gastric ulcer was found in the gastric antrum. The exam was otherwise without abnormality. Impression: - Z-line regular, 35 cm from the incisors. - Non-bleeding gastric ulcer with no stigmata of bleeding. Clips (MR conditional) were placed. - Non-bleeding gastric ulcer. - The examination was otherwise normal. - No specimens collected. - The examination was otherwise normal. Recommendation: - Patient has a contact number available for emergencies. The signs and symptoms of potential delayed complications were discussed with the patient. Return to normal activities tomorrow. Written discharge instructions were provided to the patient. - Return patient to [facility] for ongoing care. - Continue present medications. - Return to referring physician. - The findings and recommendations were discussed with the patient's family. Kael Fontenot MD Kael Fontenot MD 10/23/2018 3:09:19 PM Electronically signed by Kael Fontenot MD Number of Addenda: 0 Note Initiated On: 10/23/2018 2:45 PM Estimated Blood Loss: Estimated blood loss: none.
--- NOTE | 2018-10-23 15:27 | ROOR ---
Patient Name: Joanne Vance Procedure Date: 10/23/2018 2:47 PM Date of : 1955 Age: 63 Room: [facility] Gender: Female Note Status: Finalized Procedure: Total Colonoscopy to Cecum Indications: Unexplained iron deficiency anemia Providers: Kael Fontenot MD Referring MD: Inocencio Escamilla MD Requesting Provider: Medicines: Monitored Anesthesia Care Complications: No immediate complications. Procedure: Pre-Anesthesia Assessment: - The heart rate, respiratory rate, oxygen saturations, blood pressure, adequacy of pulmonary ventilation, and response to care were monitored throughout the procedure. The Colonoscope was introduced through the anus and advanced to the cecum, identified by appendiceal orifice and ileocecal valve. The colonoscopy was performed without difficulty. The patient tolerated the procedure well. The quality of the bowel preparation was fair. Findings: The perianal and digital rectal examinations were normal. Non-bleeding internal hemorrhoids were found during retroflexion. The hemorrhoids were small and Grade I (internal hemorrhoids that do not prolapse). A moderate amount of stool was found in the entire colon, precluding visualization. The exam was otherwise without abnormality on direct and retroflexion views. Impression: - Preparation of the colon was fair. - Non-bleeding internal hemorrhoids. - Stool in the entire examined colon. - The examination was otherwise normal on direct and retroflexion views. - No specimens collected. - The exam was otherwise normal to the cecum. Recommendation: - Patient has a contact number available for emergencies. The signs and symptoms of potential delayed complications were discussed with the patient. Return to normal activities tomorrow. Written discharge instructions were provided to the patient. - High fiber diet. - Return patient to [facility] for ongoing care. - Continue present medications. - Repeat colonoscopy in 10 years for screening purposes. - Return to referring physician. - The findings and recommendations were discussed with the patient's family. Kael Fontenot MD Kael Fontenot MD 10/23/2018 3:26:50 PM Electronically signed by Kael Fontenot MD Number of Addenda: 0 Note Initiated On: 10/23/2018 2:47 PM Estimated Blood Loss: Estimated blood loss: none.
[2018-10-23 15:55] VITALS: BP 143/72
[2018-10-23] MEDS ORDERED: PANT40TA3 PO (16:34)
--- NOTE | 2018-10-23 19:10 | DS.PDOC ---
Discharge Summary General Date of Admission Oct 21, 2018 at 13:56 Date of Discharge 10/23/2018 Specialist/Consultants Involve: Kael Fontenot Discharge Summary PROCEDURES PERFORMED DURING STAY: EGD, colonoscopy ADMITTING DIAGNOSES: Gastrointestinal bleed, acute blood loss anemia DISCHARGE DIAGNOSES: Acute blood loss anemia suspected to be secondary to gastrointestinal bleed status post EGD and colonoscopy, Nonbleeding grade 1 internal hemorrhoids, nonbleeding gastric ulcer with no stigmata of bleeding status post placement of clips COMPLICATIONS/CHIEF COMPLAINT: Acute Blood Loss Anemia. HISTORY OF PRESENT ILLNESS: The patient is a 63-year-old female with a previous history of stage IV lung cancer with followed by Dr. Angelo from oncology who on routine lab work was found to have a hemoglobin of 6.2. The patient also had been noticing increasing fatigue. She presented to the hospital for further evaluation and management.. HOSPITAL COURSE: Acute blood loss anemia suspect secondary to gastrointestinal bleed: -The patient was admitted to our facility for further evaluation and management. She was seen in consultation from gastroenterology by Dr. Fontenot. The patient initially was on a liquid diet. The patient underwent EGD and colonoscopy. She was noted to have a single gastric ulcer with no bleeding status post placement of clips. She also had grade 1 internal hemorrhoids that were not bleeding. Patient was started on PPI per GI recommendations. The patient did require 2 units packed RBCs for anemia. Thereafter, high hemoglobin did stabilize. It was 8.8 yesterday and 8.6 today. She has not had any obvious bleeding at this time. The patient is tolerating oral intake. Plan is for the patient was discharged home today. Recheck hemoglobin on Sunday. Outpatient follow-up with her primary care provider in one week and with gastroenterology in 2 weeks. Outpatient follow-up with Dr. Angelo per previous appointment.. DISCHARGE MEDICATIONS: Please see below. ALLERGIES: Please see below. PHYSICAL EXAMINATION ON DISCHARGE: VITAL SIGNS: Please see below. GENERAL: Lying in bed. No distress CARDIOVASCULAR EXAMINATION: S1-S2 heard, no rubs or gallops RESPIRATORY EXAMINATION: Clear to respiration bilateral. No wheezes, no crackles ABDOMINAL EXAMINATION: Soft, nontender NEUROLOGICAL EXAMINATION: Awake, alert, answering questions appropriately LABORATORY DATA: Please see below. ACTIVITY: As tolerated. DIET: Regular DISCHARGE PLAN: Patient will be discharged home today as noted. Outpatient recheck of CBC on Sunday and outpatient follow-up with her primary care provider in one week and with gastroenterology in 2 weeks as well as with Dr. Angelo per previous appointment. DISPOSITION: 01 Home, Self-Care. ITEMS TO FOLLOWUP ON ON OUTPATIENT: 1. CBC on Sunday to monitor anemia DISCHARGE CONDITION: Stable. TIME SPENT ON DISCHARGE: 36 minutes. Vital Signs/I&Os Vital Signs Date Time Temp Pulse Resp B/P (MAP) Pulse Ox O2 Delivery O2 Flow Rate FiO2 10/23/18 15:55 97.1 92 20 143/72 (95) 97 I&O- Last 24 Hours up to 6 AM 10/23/18 06:00 Intake Total 3990 ml Output Total 4300 ml Balance -310 ml Laboratory Data Labs 24H Laboratory Tests 2 10/23/18 05:46: Immature Granulocyte % (Auto) 0.4, White Blood Count 7.6, Red Blood Count 3.24L, Hemoglobin 8.6L, Hematocrit 27.8L, Mean Corpuscular Volume 85.8, Mean Corpuscular Hemoglobin 26.5L, Mean Corpuscular Hemoglobin Concent 30.9L, Red Cell Distribution Width 17.2H, Platelet Count 487H, Neutrophils (%) (Auto) 77.6H, Lymphocytes (%) (Auto) 10.5L, Monocytes (%) (Auto) 9.9H, Eosinophils (%) (Auto) 1.1, Basophils (%) (Auto) 0.5, Neutrophils # (Auto) 5.9, Lymphocytes # (Auto) 0.8L, Monocytes # (Auto) 0.8, Eosinophils # (Auto) 0.1, Basophils # (Auto) 0.0, Nucleated Red Blood Cells % (auto) 0.0, Anion Gap 6L, Glomerular Filtration Rate > 60.0, Blood Urea Nitrogen 3#L, Creatinine 0.58, Sodium Level 141, Potassium Level 3.4L, Chloride Level 110H, Carbon Dioxide Level 25, Calcium Level 7.4L, Phosphorus Level 2.0L, Magnesium Level 2.3 CBC/BMP Laboratory Tests 10/23/18 05:46 Red Blood Count 3.24 L, Mean Corpuscular Volume 85.8, Mean Corpuscular Hemoglobin 26.5 L, Mean Corpuscular Hemoglobin Concent 30.9 L, Red Cell Distribution Width 17.2 H, Neutrophils (%) (Auto) 77.6 H, Lymphocytes (%) (Auto) 10.5 L, Monocytes (%) (Auto) 9.9 H, Eosinophils (%) (Auto) 1.1, Basophils (%) (Auto) 0.5, Neutrophils # (Auto) 5.9, Lymphocytes # (Auto) 0.8 L, Monocytes # (Auto) 0.8, Eosinophils # (Auto) 0.1, Basophils # (Auto) 0.0, Calcium Level 7.4 L Discharge Medications Scheduled (Multivitamins) 1 Cap Cap, 1 CAP PO DAILY, (Reported) Brigatinib (Alunbrig) 180 Mg Tab, 180 MG PO DAILY, (Reported) Calcium Carbonate (Tums) 500 Mg Chw, 500 MG PO DAILY, (Reported) Cholecalciferol (Vitamin D-3) 2,000 Unit Tab, 2,000 UNIT PO DAILY, (Reported) Denosumab Injection (Xgeva) 120 Mg/1.7 Ml Inj, 120 MG SC [id number], (Reported) Pantoprazole Sodium (Pantoprazole Sodium) 40 Mg Tab, 40 MG PO DAILY Scheduled PRN Calcium Carbonate (Tums) 500 Mg Chw, 500 MG PO Q6H PRN for HEARTBURN/INDIGESTION, (Reported) Allergies Coded Allergies: vancomycin (Verified Allergy, Severe, 10/21/18) BRIDGETTE LIM MD Oct 23, 2018 19:07
[2018-10-24] MEDS ORDERED: fentaNYL 100 MCG/2 ML INJECTION (J3010) As Ordered ONE (07:00)
== END 2018-10-23 17:35 | disposition home or self-care (01) | DRG 253 ==
LOC: M ED 11:34 → M ED INP 13:56 → M MSPAV 16:00
PROVIDERS: ADMIT Internal Medicine; ATTEND Internal Medicine
PROC: 30233N1 Transfusion of Nonautologous Red Blood Cells into Peripheral Vein, Percutaneous Approach (ICD-10-PCS; principal; 2018-10-21)
PROC: 0DJD8ZZ Inspection of Lower Intestinal Tract, Via Natural or Artificial Opening Endoscopic (ICD-10-PCS; 2018-10-23)
PROC: 0DJ08ZZ Inspection of Upper Intestinal Tract, Via Natural or Artificial Opening Endoscopic (ICD-10-PCS; 2018-10-23)
PROC: 0W3P8ZZ Control Bleeding in Gastrointestinal Tract, Via Natural or Artificial Opening Endoscopic (ICD-10-PCS; 2018-10-23)
DX: K92.2 Gastrointestinal hemorrhage, unspecified (principal); K25.9 Gastric ulcer, unspecified as acute or chronic, without hemorrhage or perforation; K64.8 Other hemorrhoids; Z85.118 Personal history of other malignant neoplasm of bronchus and lung; Z79.899 Other long term (current) drug therapy; Z88.8 Allergy status to other drugs, medicaments and biological substances; D62 Acute posthemorrhagic anemia

== ENCOUNTER → 2018-11-27 | Outpatient (CLI) | payer BC ==
[~2018-11-27] MED LIST changes: +ACET500T15 PO; +IBUP200T45 PO; +ISOVUE-370 76% 100ML VIAL (Q9967) As Ordered ONE; +PANT40TA3 PO
--- NOTE | 2018-11-29 07:38 | REP ---
Clinical: Stage IV non-small cell lung cancer. Technique: Axial contrast enhanced images from the thoracic inlet to the upper abdomen with coronal and sagittal re-formations using 100 ml Isovue 370 intravenous contrast material. Comparison: 07/31/2018. Findings: The irregular circumferential subpleural heterogeneous enhancing soft tissue involving the right hemithorax appears to be somewhat increased from prior examination and specifically increased areas of peribronchial irregular soft tissue are now identified involving the right lower lung zone. A small complex pleural effusion along the periphery of the right lung base is again identified as well. Subtle increase in mediastinal/right hilar adenopathy is also suggested including subcarinal lymph node now measuring approximately 1.8 cm diameter and previously measuring approximately 1.1 cm maximal diameter. Subtle increase in left hilar adenopathy is also suspected. Evaluation of the left hemithorax demonstrates increased left lower lobe lesion now measuring approximately 1.9 cm maximal diameter (previously measuring 1.4 cm maximal diameter along with subtle scattered left sided partially solid nodules measuring up to approximately 7.5 mm. Thoracic aorta, pulmonary vasculature and heart/pericardium appear relatively normal. Limited upper abdomen demonstrates normal bilateral adrenal glands. Sclerotic changes to the visualized thoracolumbar spine and bilateral ribs have increased as well. Impression: 1. Increasing irregular circumferential soft tissue surrounding the right hemithorax with increased basilar soft tissue and stable small complex right pleural effusion. Increased in associated mediastinal and hilar adenopathy as described above. 2. Left lower lobe lesion increased in size from prior examination and new scattered subtle non solid nodules are identified in the left lung measuring up to approximately 7.5 mm. 3. Increased sclerotic metastases throughout the visualized thoracolumbar spine and bilateral ribs. Electronically Signed by Billy Lundy MD 11/29/2018 07:29 A
== END ==
LOC: M RAD 16:01
PROVIDERS: ATTEND Internal Medicine Medical Oncology
DX: C34.90 Malignant neoplasm of unspecified part of unspecified bronchus or lung (principal); C79.51 Secondary malignant neoplasm of bone; J90 Pleural effusion, not elsewhere classified
CPT/HCPCS: 71260; Q9967

== ENCOUNTER 2018-12-03 10:43 | Inpatient (IN) | payer BC ==
[~2018-12-03] VITALS: Ht 167.6 cm; Wt 59.9 kg
[2018-12-03] VITALS (8 sets, daily range): BP systolic 94–109; BP diastolic 55–60
[~2018-12-03 10:43] MED LIST changes: -ACET500T15 PO; -ISOVUE-370 76% 100ML VIAL (Q9967) As Ordered ONE
[2018-12-03 11:25] LABS: INR 1.01; PROTHROMBIN TIME 13.4 SECONDS (12.1-14.4)
[2018-12-03 11:40] LABS: ALBUMIN 2.7 GM/DL (3.2-5.2); ALT/SGPT 21 U/L (12-78); BILIRUBIN,TOTAL 0.2 MG/DL (0.2-1.0); BLOOD UREA NITROGEN 22 MG/DL (7-18); CALCIUM LEVEL 8.2 MG/DL (8.8-10.2); CARBON DIOXIDE LEVEL 30 MEQ/L (21-32); CHLORIDE LEVEL 100 MEQ/L (98-107); CREATININE FOR GFR 0.58 MG/DL (0.55-1.30); GLOMERULAR FILTRATION RATE > 60.0 (>45); GLUCOSE, FASTING 116 MG/DL (70-100); POTASSIUM SERUM 4.1 MEQ/L (3.5-5.1); SODIUM LEVEL 134 MEQ/L (136-145); TOTAL PROTEIN 6.1 GM/DL (6.4-8.2)
[2018-12-03] MEDS ORDERED: PANTOPRAZOLE 40MG INJ (PROTONIX) (C9113) IV ONE ×2 (11:45→14:30)
[2018-12-03] MEDS ORDERED: ACET500T15 PO (12:45)
[2018-12-03] MEDS ORDERED: PANT40TA3 PO (12:45)
[2018-12-03] MEDS ORDERED: ACETAMINOPHEN 325 MG TAB PO ONE (15:00)
[2018-12-03] MEDS: D5W/0.45% SODIUM CHLORIDE 1,000 ML IV SCH ×2 (15:14→18:45)
--- NOTE | 2018-12-03 15:26 | HPEPDOC ---
General Date of Admission December 03, 2018 at 14:26 Chief Complaint The patient is a 63-year-old female admitted with a reason for visit of Gastroi ntestinal Bleeding. Source: Patient, RN/, Old records History of Present Illness 63 year old female with PMH of intermediate metastatic adenocarcinoma of lung diagnosed 2012 in a never smoker On fourth line palliative brigatinib, Status post palliative radiation to painful right ribs and spine metastases in 2019, Indolent progression on surveillance CTs, GIB thought to be from gastric ulcers in october 2018, iron deficiency presented to the ed on betty advice of Dr Norah Angelo for 2 days of extreme fatigue and weakness and 1 episode of hector last night. There was no associated abdominal pain , nausea or vomiting. Thee was associated exetional SOB when she could hardly make it from couch t bed to bathroom yesterday. No Orthopnea or PND. No chest pain or cough or wheezing. In the ED she was found to have an Hb of 6.5 , she was guaiac positive. She was admitted for acute GIB and acute blood loss anemia. Home Medications Scheduled Brigatinib (Alunbrig) 180 Mg Tab, 180 MG PO DAILY, (Reported) Calcium Carbonate (Tums) 500 Mg Chw, 500 MG PO DAILY, (Reported) Cholecalciferol (Vitamin D3) (Vitamin D3) 2,000 Unit Tab, 2,000 UNIT PO DAILY, (Reported) Denosumab Injection (Xgeva) 120 Mg/1.7 Ml Inj, 120 MG SC [id number], (Reported) Multivitamin (Multivitamins) 1 Cap Cap, 1 CAP PO DAILY, (Reported) Pantoprazole Sodium (Pantoprazole Sodium) 40 Mg Tablet.dr, 40 MG PO DAILY, (Reported) Scheduled PRN Acetaminophen (Acetaminophen) 500 Mg Tablet, 500 MG PO Q6H PRN for PAIN, (Reported) Allergies Coded Allergies: vancomycin (Verified Allergy, Severe, BECOMES VIOLENTLY ILL, NAUSEA/VOMITING. , 12/03/18) Past Medical History Medical History Adenocarcinoma of lung diagnosed 2012 with mets to bones, GIB in october 2018 , Non bleeding gastric ulcers seen in EGD, Iron deficiency with microcytic anemia , Vit D deficiency Surgical History 2 cesarian sections , talc pleurodesis of right malignant effusion , bilateral cataracts Family History Significant Family History: Cancer (bladder cancer mother ), Diabetes (father, ) Social History * Smoker: Denies Alcohol: Denies Drugs: denies A-FIB/CHADSVASC A-FIB History Current/History of A-Fib/PAF?: No Review of Systems Constitutional: Reports: Malaise, Weakness, Fatigue Eyes: Denies: Pain, Vision change ENT: Reports: Head Aches; Denies: Ear Pain, Dysphagia, Sinus Congestion, Post Nasal Drip, Sore Throat Skin: Denies: Rash, Lesions, Breakdown Pulmonary: Reports: Dyspnea; Denies: Cough, Pleuritic Chest Pain Cardiovascular: Reports: Lt Headedness; Denies: Chest Pain, Palpitations, Orthopnea, Paroxysmal Noc. Dyspnea Gastrointestinal: Reports: Melena; Denies: Nausea, Vomiting, Abdominal Pain, Diarrhea, Constipation, Hematochezia Genitourinary: Denies: Dysuria, Frequency, Incontinence, Retention Hematologic: Denies: Bruising, Bleeding Excessively Musculoskeletal: Denies: Neck Pain, Back Pain, Joint Pain, Muscle Pain, Spasms Neurological: Denies: Weakness, Numbness, Change in speech, Confusion Psych: Reports: Mood Normal; Denies: Depression, Memory Issues Physical Examination General Exam: Positive: Alert, Cooperative, No Acute Distress Eye Exam: Positive: PERRLA, Conjunctiva & lids normal, EOMI; Negative: Sclera icteric ENT Exam: Positive: Atraumatic, Mucous membr. moist/pink, Pharynx Normal Neck Exam: Positive: Supple; Negative: JVD, thyromegaly Chest Exam: Positive: Clear to auscultation, Normal air movement Heart Exam: Positive: Rate Normal, Regular Rhythm, Normal S1, Normal S2; Negative: Murmurs, Rubs Telemetry: Positive: No significant arrhythmia Abdomen Exam: Positive: BS Hyperactive, Soft; Negative: Tenderness, Hepatospenomegaly, Mass Extremity Exam: Positive: Normal pulses; Negative: Clubbing, Cyanosis, Edema Skin Exam: Positive: Nl turgor and temperature; Negative: Breakdown, Lesion Neuro Exam: Positive: Normal Gait, Normal Speech, Strength at 5/5 X4 ext, Normal Tone, Reflexes 2+ Psych Exam: Positive: Mental status NL, Mood NL, Oriented x 3 Vital Signs Vital Signs Date Time Temp Pulse Resp B/P (MAP) Pulse Ox O2 Delivery O2 Flow Rate FiO2 12/03/18 14:00 91 106/67 (80) 98 12/03/18 10:55 97.9 18 Room Air Laboratory Data Labs 24H Laboratory Tests 2 12/03/18 11:06: Prothrombin Time 13.4, Prothromb Time International Ratio 1.01, Anion Gap 4L, Glomerular Filtration Rate > 60.0, Blood Urea Nitrogen 22H, Creatinine 0.58, Sodium Level 134L, Potassium Level 4.1, Chloride Level 100, Carbon Dioxide Level 30, Calcium Level 8.2L, Aspartate Amino Transf (AST/SGOT) 30, Alanine Aminotransferase (ALT/SGPT) 21, Alkaline Phosphatase 94, Total Bilirubin 0.2, Total Protein 6.1L, Albumin 2.7L, Albumin/Globulin Ratio 0.79L CBC/BMP Laboratory Tests 12/03/18 11:06 Calcium Level 8.2 L, Aspartate Amino Transf (AST/SGOT) 30, Alanine Aminotransf erase (ALT/SGPT) 21, Alkaline Phosphatase 94, Total Bilirubin 0.2, Total Protein 6.1 L, Albumin 2.7 L Assessment/Plan 63 year old female with PMH of intermediate metastatic adenocarcinoma of lung diagnosed 2012 in a never smoker On fourth line palliative brigatinib, Status post palliative radiation to painful right ribs and spine metastases in 2019, Indolent progression on surveillance CTs, GIB thought to be from gastric ulcers in october 2018, iron deficiency presented to the ed on betty advice of Dr Norah Angelo for 2 days of extreme fatigue and weakness and 1 episode of hector last night. There was no associated abdominal pain , nausea or vomiting. Thee was associated exetional SOB when she could hardly make it from couch t bed to bathroom yesterday. No Orthopnea or PND. No chest pain or cough or wheezing. In the ED she was found to have an Hb of 6.5 , she was guaiac positive. She was admitted for acute GIB and acute blood loss anemia. Acute Gastrointestinal bleeding possibly upper Had EGD and Coloscopy in october 2018 found to have 2 nonbleeding gastric ulcers. one of them had hemostatic clips placed. May be again bleeding from those ulcers. did run out of pantoprazole 2 weeks ago aftr 1 month treatment did not get it renewed from PMD. will give pantoprazole 80 mg then start pantoprazole gtt gastro consult Acute blood loss anemia have ordered 2 units of PRBC will continue to monitor hh q 6 hours and transfuse prn. Severe Iron deficiency anemia due to reccurent GIB will need iron after bleeding stops. Will consider give iv venofer before discharge Adenocarcinoma of lungs with mets to bones follows with Dr Angelo. DVT TEDS and SCD Plan / VTE VTE Prophylaxis Ordered?: Yes KRISTI ROLON MD December 03, 2018 15:26
[2018-12-03] MEDS ORDERED: PROPOFOL 200 MG/20 ML VIAL As Ordered ONE (16:06)
[2018-12-03] MEDS ORDERED: LIDOCAINE 2% INJ 100 MG/5 ML SDV (FOR ANES.) As Ordered ONE (16:06)
[2018-12-03] MEDS ORDERED: MIDAZOLAM INJ 2 MG/2 ML VIAL (J2250) As Ordered ONE (16:07)
[2018-12-03] MEDS ORDERED: ONDANSETRON 4MG/2ML VIAL (J2405) As Ordered ONE ×2 (16:07→17:31)
[2018-12-03] MEDS ORDERED: fentaNYL 100 MCG/2 ML INJECTION (J3010) As Ordered ONE (16:07)
[2018-12-03] MEDS ORDERED: PHENYLephrine HCL 500 MCG/5 ML (100MCG/ML) SYRINGE (J2370) As Ordered ONE (16:44)
[2018-12-03] MEDS ORDERED: ONDANSETRON 4MG/2ML VIAL (J2405) IV PRN (17:15)
[2018-12-03] MEDS ORDERED: LR 1,000 ML IV SCH (17:15)
[2018-12-03] MEDS: PANTOPRAZOLE SODIUM 40 MG in D5W 50 ML IV SCH ×2 (18:03→22:47)
[2018-12-03 19:01] LABS: HEMATOCRIT 17.2 % (36.0-47.0); MEAN CORPUSCULAR HEMOGLOBIN 24.7 pg (27.0-33.0); MEAN CORPUSCULAR HGB CONC 30.8 g/dl (32.0-36.5); PLATELET COUNT, AUTOMATED 306 10^3/uL (150-450); RED BLOOD COUNT 2.15 10^6/uL (4.00-5.40); WHITE BLOOD COUNT 14.7 10^3/uL (4.0-10.0)
[2018-12-03 19:13] LABS: HEMOGLOBIN 5.3 g/dl (12.0-15.5)
--- NOTE | 2018-12-03 19:47 | ROOR ---
Patient Name: Joanne Vance Procedure Date: 12/03/2018 4:30 PM Date of : 1955 Age: 63 Gender: Female Note Status: Finalized Procedure: Upper GI endoscopy Indications: Acute post hemorrhagic anemia Providers: Kanu VILLASEÑOR MD Referring MD: Kael Fontenot MD, 2. Inpatient 2. Inpatient Requesting Provider: Medicines: Monitored Anesthesia Care Complications: No immediate complications. Procedure: Pre-Anesthesia Assessment: - The heart rate, respiratory rate, oxygen saturations, blood pressure, adequacy of pulmonary ventilation, and response to care were monitored throughout the procedure. The Endoscope was introduced through the mouth, and advanced to the second part of duodenum. The upper GI endoscopy was accomplished without difficulty. The patient tolerated the procedure well. Findings: Clotted blood was found in the entire examined stomach. A few 5 mm submucosal papules (nodules) were found in the gastric fundus, in the gastric body and in the gastric antrum. This was biopsied with a cold forceps for histology. The exam was otherwise without abnormality. Impression: - Freshly clotted blood/large clots in the entire stomach precluding adequate visualisation. (evacuation not successful) - Several submucosal centrally eroded/depressed papules (nodules) found in the stomach. Biopsied. - 3 previously placed endoclips seen in fundus/proximal body - The examination was otherwise normal. Recommendation: - Repeat upper endoscopy tomorrow because large blood clots and bloody fluid preclude visualisation. - Use a proton pump inhibitor IV. - Clear liquid diet, Npo after clear liquid bkfast at 6 am. - Transfuse PRBC Kanu Villaseñor MD Kanu VILLASEÑOR MD 12/03/2018 5:02:51 PM Electronically signed by Kanu VILLASEÑOR MD Number of Addenda: 0 Note Initiated On: 12/03/2018 4:30 PM Estimated Blood Loss: Estimated blood loss: none.
[2018-12-04] VITALS (11 sets, daily range): BP systolic 111–144; BP diastolic 61–77
[2018-12-04] MEDS ORDERED: ACETAMINOPHEN TAB 650MG DOSE (2X325MG) PO PRN (01:15)
[2018-12-04] MEDS ORDERED: ACETAMINOPHEN TAB 650MG DOSE (2X325MG) PO ONE (01:15)
[2018-12-04 02:03] LABS: HEMATOCRIT 24.7 % (36.0-47.0)
[2018-12-04 02:05] LABS: HEMOGLOBIN 7.9 g/dl (12.0-15.5)
[2018-12-04] MEDS: PANTOPRAZOLE SODIUM 40 MG in D5W 50 ML IV SCH ×2 (02:50→07:41)
[2018-12-04 05:48] LABS: HEMATOCRIT 24.2 % (36.0-47.0); HEMOGLOBIN 7.9 g/dl (12.0-15.5)
[2018-12-04] MEDS ORDERED: ACETAMINOPHEN 500 MG TAB PO PRN (07:00)
[2018-12-04] MEDS ORDERED: SODIUM CHLORIDE NASAL 0.65% SPRAY BTL (OCEAN) PRN (07:00)
--- NOTE | 2018-12-04 10:27 | IPNPDOC ---
Subjective Date Seen The patient was seen on 12/04/18. Subjective Chief Complaint/HPI The patient complains of headache and pain around the eyes and by the side of the nose. Says this is her sinus pain which has been bothering her since last night. wants nasal saline spray ordered. No fever or chills, no chest pain or sob , no abdominal pain , nausea or vomtiing . Has not had any bowel movements after coming to the hospital. Objective Physical Examination General Exam: Positive: Alert, Cooperative, No Acute Distress Eye Exam: Positive: PERRLA, Conjunctiva & lids normal, EOMI, Other Eye Symptoms (tenderness around the eyes.); Negative: Sclera icteric ENT Exam: Positive: Atraumatic, Mucous membr. moist/pink, Pharynx Normal, Other ENT (sinus tenderness) Neck Exam: Positive: Supple; Negative: JVD, thyromegaly Chest Exam: Positive: Clear to auscultation, Normal air movement Heart Exam: Positive: Rate Normal, Regular Rhythm, Normal S1, Normal S2; Negative: Murmurs, Rubs Telemetry: Positive: No significant arrhythmia Abdomen Exam: Positive: BS Hyperactive, Soft; Negative: Tenderness, Hepatospenomegaly, Mass Extremity Exam: Positive: Normal pulses; Negative: Clubbing, Cyanosis, Edema Skin Exam: Positive: Nl turgor and temperature; Negative: Breakdown, Lesion Neuro Exam: Positive: Normal Gait, Normal Speech, Strength at 5/5 X4 ext, Normal Tone, Reflexes 2+ Psych Exam: Positive: Mental status NL, Mood NL, Oriented x 3 Assessment /Plan Assessment 63 year old female with PMH of intermediate metastatic adenocarcinoma of lung diagnosed 2012 in a never smoker On fourth line palliative brigatinib, Status post palliative radiation to painful right ribs and spine metastases in 2019, Indolent progression on surveillance CTs, GIB thought to be from gastric ulcers in october 2018, iron deficiency presented to the ed on betty advice of Dr Norah Angelo for 2 days of extreme fatigue and weakness and 1 episode of hector last night. There was no associated abdominal pain , nausea or vomiting. Thee was associated exetional SOB when she could hardly make it from couch t bed to bathroom yester day. No Orthopnea or PND. No chest pain or cough or wheezing. In the ED she was found to have an Hb of 6.5 , she was guaiac positive. She was admitted for acute GIB and acute blood loss anemia. Acute Upper Gastrointestinal bleeding EGD on 12/03/18 showed Freshly clotted blood/large clots in the entire stomach precluding adequate visualization. (evacuation not successful) Several submucosal centrally eroded/depressed papules (nodules) found in the stomach. Biopsied. 3 previously placed endoclips seen in fundus/proximal body EGD and Coloscopy in october 2018 found to have 2 nonbleeding gastric ulcers. one of them had hemostatic clips placed. continue pantoprazole gtt Planned for repeat EGD this am. Acute blood loss anemia received 4 units of PRBC will continue to monitor hh q 6 hours and transfuse prn. Severe Iron deficiency anemia due to reccurent GIB will need iron after bleeding stops. Will consider give iv venofer before discharge Adenocarcinoma of lungs with mets to bones follows with Dr Angelo. DVT TEDS and SCD Plan/VTE VTE Prophylaxis Ordered?: Yes VS, I&O, 24H, Fishbone Vital Signs/I&O Vital Signs Date Time Temp Pulse Resp B/P (MAP) Pulse Ox O2 Delivery O2 Flow Rate FiO2 12/04/18 08:00 98.8 91 18 111/63 (79) 93 12/03/18 15:51 Room Air I&O- Last 24 Hours up to 6 AM 12/04/18 06:00 Intake Total 2384 ml Output Total 725 ml Balance 1659 ml Laboratory Data 24H LABS Laboratory Tests 2 12/03/18 11:06: Prothrombin Time 13.4, Prothromb Time International Ratio 1.01, Anion Gap 4L, Glomerular Filtration Rate > 60.0, Blood Urea Nitrogen 22H, Creatinine 0.58, Sodium Level 134L, Potassium Level 4.1, Chloride Level 100, Carbon Dioxide Level 30, Calcium Level 8.2L, Aspartate Amino Transf (AST/SGOT) 30, Alanine Aminotransferase (ALT/SGPT) 21, Alkaline Phosphatase 94, Total Bilirubin 0.2, Total Protein 6.1L, Albumin 2.7L, Albumin/Globulin Ratio 0.79L 12/03/18 18:48: Nucleated Red Blood Cells % (auto) 0.1H CBC/BMP Laboratory Tests 12/03/18 11:06 Calcium Level 8.2 L, Aspartate Amino Transf (AST/SGOT) 30, Alanine Aminotransferase (ALT/SGPT) 21, Alkaline Phosphatase 94, Total Bilirubin 0.2, Total Protein 6.1 L, Albumin 2.7 L 12/03/18 18:48 Red Blood Count 2.15 L, Mean Corpuscular Volume 80.0, Mean Corpuscular Hemoglobin 24.7 L, Mean Corpuscular Hemoglobin Concent 30.8 L, Red Cell Distribution Width 18.8 H 12/04/18 01:54 12/04/18 05:18 KRISTI ROLON MD December 04, 2018 10:27
--- NOTE | 2018-12-04 11:32 | ECGEPIP ---
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
[2018-12-04] MEDS ORDERED: PROPOFOL 200 MG/20 ML VIAL As Ordered ONE (12:08)
[2018-12-04] MEDS ORDERED: MIDAZOLAM INJ 2 MG/2 ML VIAL (J2250) As Ordered ONE (12:08)
[2018-12-04] MEDS ORDERED: ROCURONIUM BROMIDE 50 MG/5 ML VIAL As Ordered ONE (12:08)
[2018-12-04] MEDS ORDERED: SUCCINYLCHOLINE 100 MG/5 ML SYRINGE (J0330) As Ordered ONE (12:08)
[2018-12-04] MEDS ORDERED: LIDOCAINE 2% INJ 100 MG/5 ML SDV (FOR ANES.) As Ordered ONE (12:08)
[2018-12-04] MEDS ORDERED: fentaNYL 100 MCG/2 ML INJECTION (J3010) As Ordered ONE (12:09)
[2018-12-04] MEDS ORDERED: PHENYLephrine HCL 500 MCG/5 ML (100MCG/ML) SYRINGE (J2370) As Ordered ONE (12:25)
[2018-12-04] MEDS ORDERED: dexameTHASONE 4 MG/ML 1ML VIAL (J1100) As Ordered ONE (12:46)
[2018-12-04] MEDS ORDERED: ONDANSETRON 4MG/2ML VIAL (J2405) As Ordered ONE (12:46)
--- NOTE | 2018-12-04 13:15 | ROOR ---
Patient Name: Joanne Vance Procedure Date: 12/04/2018 10:17 AM Date of : 1955 Age: 63 Room: Main OR Gender: Female Note Status: Finalized Procedure: Upper GI endoscopy Indications: Melena, Active gastrointestinal bleeding, Recent gastrointestinal bleeding Providers: Kanu DE ANDA MD Referring MD: Kael Fontenot MD, 2. Inpatient 2. Inpatient, Day Edson Angelo MD Requesting Provider: Medicines: General Anesthesia Complications: No immediate complications. Procedure: Pre-Anesthesia Assessment: - The heart rate, respiratory rate, oxygen saturations, blood pressure, adequacy of pulmonary ventilation, and response to care were monitored throughout the procedure. The Endoscope was introduced through the mouth, and advanced to the second part of duodenum. The upper GI endoscopy was accomplished without difficulty. The patient tolerated the procedure well. Findings: Four 7 to 10 mm submucosal papules (nodules) with no bleeding and stigmata of recent bleeding were found in the gastric fundus, in the gastric body and in the gastric antrum. Biopsies were taken with a cold forceps for histology. For hemostasis, three hemostatic clips were successfully placed. There was no bleeding at the end of the procedure. The exam was otherwise without abnormality. Impression: Stomach:- Four 7-10 mm ulcerated/centrally depressed submucosal nodules found in the stomach. Biopsied and Brushed for cytology Clips were placed. - One of the ulcerated nodules in body of stomach is noted with a red spot, Clips were placed. - The examination was otherwise normal. Recommendation: - Use a proton pump inhibitor PO BID indefinitely. - Use sucralfate tablets 1 gram PO QID indefinitely. - Await pathology results. - depending on the pathology of these nodules, PPI/carafate and endoclips may not be a good solution for recurrent bleeding, as ulceration may well persist and rebleed. Await path--further recs depending on path results. - Full liquid diet today. - Observe patient's clinical course. - Transfuse PRBCs as necessary./monitor H&H Kanu De Anda MD Kanu DE ANDA MD 12/04/2018 1:15:24 PM Electronically signed by Kanu DE ANDA MD Number of Addenda: 0 Note Initiated On: 12/04/2018 10:17 AM Estimated Blood Loss: Estimated blood loss: none.
[2018-12-04 14:56] LABS: BASO % 0.2 % (0.0-1.0); EOS % 0.1 % (0.0-3.0); HEMATOCRIT 25.2 % (36.0-47.0); HEMOGLOBIN 8.1 g/dl (12.0-15.5); LYMPH # 0.3 10^3/uL (1.5-4.5); LYMPH % 1.5 % (24.0-44.0); MEAN CORPUSCULAR HEMOGLOBIN 26.1 pg (27.0-33.0); MEAN CORPUSCULAR HGB CONC 32.1 g/dl (32.0-36.5); MEAN CORPUSCULAR VOLUME 81.3 fl (80.0-96.0); MONO # 1.1 10^3/uL (0.0-0.8); NEUTROPHILS # 20.5 10^3/uL (1.8-7.7); NEUTROPHILS % 91.9 % (36.0-66.0); PLATELET COUNT, AUTOMATED 289 10^3/uL (150-450); WHITE BLOOD COUNT 22.4 10^3/uL (4.0-10.0)
[2018-12-04] MEDS: D5W/0.45% SODIUM CHLORIDE 1,000 ML IV SCH (14:58)
[2018-12-04] MEDS ORDERED: LR 1,000 ML IV SCH (15:00)
[2018-12-04] MEDS ORDERED: NORCO, ANEXSIA 5/325MG TABLET (HYDROcodone/ACETAMINOPHEN) PO PRN (15:00)
[2018-12-04] MEDS ORDERED: ONDANSETRON 4MG/2ML VIAL (J2405) IV PRN (15:00)
[2018-12-04 15:15] LABS: BLOOD UREA NITROGEN 17 MG/DL (7-18); CARBON DIOXIDE LEVEL 29 MEQ/L (21-32); CHLORIDE LEVEL 100 MEQ/L (98-107); CREATININE FOR GFR 0.49 MG/DL (0.55-1.30); GLOMERULAR FILTRATION RATE > 60.0 (>45); GLUCOSE, FASTING 129 MG/DL (70-100); POTASSIUM SERUM 3.9 MEQ/L (3.5-5.1); SODIUM LEVEL 132 MEQ/L (136-145)
[2018-12-04] MEDS ORDERED: SLF 3 ML SYR IV PRN (15:45)
[2018-12-04] MEDS: SUCRALFATE 1 GM TAB PO SCH ×2 (17:24→20:09)
[2018-12-04] MEDS: OMEPRAZOLE 20 MG CAP PO SCH (20:09)
[2018-12-04] MEDS: SLF 3 ML SYR IV SCH (21:28)
[2018-12-05] VITALS: BP 121/62
[2018-12-05 00:14] LABS: HEMATOCRIT 27.2 % (36.0-47.0)
[2018-12-05 04:00] VITALS: BP 116/63
[2018-12-05] MEDS: SLF 3 ML SYR IV SCH (05:25)
[2018-12-05 05:34] LABS: BASO % 0.2 % (0.0-1.0); EOS % 0.1 % (0.0-3.0); HEMATOCRIT 26.6 % (36.0-47.0); HEMOGLOBIN 8.9 g/dl (12.0-15.5); LYMPH # 0.6 10^3/uL (1.5-4.5); LYMPH % 3.1 % (24.0-44.0); MEAN CORPUSCULAR HGB CONC 33.5 g/dl (32.0-36.5); MEAN CORPUSCULAR VOLUME 80.6 fl (80.0-96.0); MONO # 1.3 10^3/uL (0.0-0.8); MONO % 7.6 % (0.0-5.0); NEUTROPHILS # 15.5 10^3/uL (1.8-7.7); NEUTROPHILS % 88.3 % (36.0-66.0); PLATELET COUNT, AUTOMATED 279 10^3/uL (150-450); WHITE BLOOD COUNT 17.6 10^3/uL (4.0-10.0)
[2018-12-05 05:54] LABS: BLOOD UREA NITROGEN 10 MG/DL (7-18); CALCIUM LEVEL 7.7 MG/DL (8.8-10.2); CARBON DIOXIDE LEVEL 27 MEQ/L (21-32); CHLORIDE LEVEL 102 MEQ/L (98-107); CREATININE FOR GFR 0.41 MG/DL (0.55-1.30); GLOMERULAR FILTRATION RATE > 60.0 (>45); GLUCOSE, FASTING 92 MG/DL (70-100); POTASSIUM SERUM 3.6 MEQ/L (3.5-5.1); SODIUM LEVEL 133 MEQ/L (136-145)
[2018-12-05 08:00] VITALS: BP 113/64
[2018-12-05] MEDS: SUCRALFATE 1 GM TAB PO SCH (09:32)
[2018-12-05] MEDS: OMEPRAZOLE 20 MG CAP PO SCH (09:32)
[2018-12-05] MEDS ORDERED: SUCR1TA PO (10:27)
[2018-12-05] MEDS ORDERED: OMEP-218 PO (10:27)
--- NOTE | 2018-12-05 23:35 | DS.PDOC ---
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 HISTORY OF PRESENT ILLNESS: See History and physical HOSPITAL COURSE: 63 year old female with PMH of intermediate metastatic adenocarcinoma of lung diagnosed 2013 in a never smoker On fourth line palliative brigatinib, Status post palliative radiation to painful right ribs and spine metastases in 2018, Indolent progression on surveillance CTs, GIB thou ght to be from gastric ulcers in october 2018, iron deficiency presented to the ed on the advice of Dr Norah Angelo for 2 days of extreme fatigue and weakness and 1 episode of hector last night. There was no associated abdominal pain , nausea or vomiting. Thee was associated exertional SOB when she could hardly make it from couch t bed to bathroom yesterday. No Orthopnea or PND. No chest pain or cough or wheezing. In the ED she was found to have an Hb of 6.5 , she was guaiac positive. She was admitted for acute GIB and acute blood loss anemia. Acute Upper Gastrointestinal bleeding EGD on 12/03/18 showed Freshly clotted blood/large clots in the entire stomach precluding adequate visualization. (evacuation not successful) Several submucosal centrally eroded/depressed papules (nodules) found in the stomach. Biopsied. 3 previously placed endoclips seen in fundus/proximal body EGD on 11/20/18 : Stomach:- Four 7-10 mm ulcerated/centrally depressed submucosal nodules found in the stomach. Biopsied and Brushed for cytology Clips were placed. One of the ulcerated nodules in body of stomach is noted with a red spot, Clips were placed. The examination was otherwise normal. Pathology from the gastric nodule biopsies show metastatic adenocarcinoma from a lung primary. continue pantoprazole gtt, sucralfate follow up Dr Villaseñor and Dr Angelo. Acute blood loss anemia received 4 units of PRBC Severe Iron deficiency anemia due to recurrent GIB will need iron after bleeding stops. scheduled for Venofer as outpatient Metastatic Adenocarcinoma of lungs with mets to bones follows with Dr Angelo. DISCHARGE MEDICATIONS: Please see below. ALLERGIES: Please see below. PHYSICAL EXAMINATION ON DISCHARGE: VITAL SIGNS: Please see below. General Exam: Positive: Alert, Cooperative, No Acute Distress Eye Exam: Positive: PERRLA, Conjunctiva & lids normal, EOMI, Other Eye Symptoms (tenderness around the eyes.); Negative: Sclera icteric ENT Exam: Positive: Atraumatic, Mucous membr. moist/pink, Pharynx Normal, Other ENT (sinus tenderness) Neck Exam: Positive: Supple; Negative: JVD, thyromegaly Chest Exam: Positive: Clear to auscultation, Normal air movement Heart Exam: Positive: Rate Normal, Regular Rhythm, Normal S1, Normal S2; Negative: Murmurs, Rubs Telemetry: Positive: No significant arrhythmia Abdomen Exam: Positive: BS Hyperactive, Soft; Negative: Tenderness, Hepatospenomegaly, Mass Extremity Exam: Positive: Normal pulses; Negative: Clubbing, Cyanosis, Edema Skin Exam: Positive: Nl turgor and temperature; Negative: Breakdown, Lesion Neuro Exam: Positive: Normal Gait, Normal Speech, Strength at 5/5 X4 ext, Normal Tone, Reflexes 2+ Psych Exam: Positive: Mental status NL, Mood NL, Oriented x 3 LABORATORY DATA: Please see below PROGNOSIS: Guarded. ACTIVITY: [As tolerated]. DIET: Soft diet DISPOSITION: Home, Self-Care. DISCHARGE INSTRUCTIONS: Follow up DR Angelo in 1 week Follow up PMScuot in [address] Villaseñor in 3 to 4 weeks. DISCHARGE CONDITION: [Stable]. TIME SPENT ON DISCHARGE: 40 minutes. Vital Signs/I&Os Vital Signs Date Time Temp Pulse Resp B/P (MAP) Pulse Ox O2 Delivery O2 Flow Rate FiO2 12/05/18 08:00 98.9 88 16 113/64 (80) 96 12/04/18 14:05 2.0 12/03/18 15:51 Room Air I&O- Last 24 Hours up to 6 AM 12/05/18 06:00 Intake Total 1745 ml Output Total 1600 ml Balance 145 ml Laboratory Data Labs 24H Laboratory Tests 2 12/05/18 05:20: Immature Granulocyte % (Auto) 0.7, White Blood Count 17.6H, Red Blood Count 3.30L, Hemoglobin 8.9L, Hematocrit 26.6L, Mean Corpuscular Volume 80.6, Mean Corpuscular Hemoglobin 27.0, Mean Corpuscular Hemoglobin Concent 33.5, Red Cell Distribution Width 17.0H, Platelet Count 279, Neutrophils (%) (Auto) 88.3H, Lymphocytes (%) (Auto) 3.1L, Monocytes (%) (Auto) 7.6H, Eosinophils (%) (Auto) 0.1, Basophils (%) (Auto) 0.2, Neutrophils # (Auto) 15.5H, Lymphocytes # (Auto) 0.6L, Monocytes # (Auto) 1.3H, Eosinophils # (Auto) 0.0, Basophils # (Auto) 0.0, Nucleated Red Blood Cells % (auto) 0.1H, Anion Gap 4L, Glomerular Filtration Rate > 60.0, Blood Urea Nitrogen 10, Creatinine 0.41L, Sodium Level 133L, Potassium Level 3.6, Chloride Level 102, Carbon Dioxide Level 27, Calcium Level 7.7L CBC/BMP Laboratory Tests 12/04/18 23:42 12/05/18 05:20 Red Blood Count 3.30 L, Mean Corpuscular Volume 80.6, Mean Corpuscular Hemoglobin 27.0, Mean Corpuscular Hemoglobin Concent 33.5, Red Cell Distribution Width 17.0 H, Neutrophils (%) (Auto) 88.3 H, Lymphocytes (%) (Auto) 3.1 L, Monocytes (%) (Auto) 7.6 H, Eosinophils (%) (Auto) 0.1, Basophils (%) (Auto) 0.2, Neutrophils # (Auto) 15.5 H, Lymphocytes # (Auto) 0.6 L, Monocytes # (Auto) 1.3 H, Eosinophils # (Auto) 0.0, Basophils # (Auto) 0.0, Calcium Level 7.7 L Discharge Medications Scheduled Calcium Carbonate (Tums) 500 Mg Chw, 500 MG PO DAILY, (Reported) Cholecalciferol (Vitamin D3) (Vitamin D3) 2,000 Unit Tab, 2,000 UNIT PO DAILY, (Reported) Denosumab Injection (Xgeva) 120 Mg/1.7 Ml Inj, 120 MG SC [id number], (Reported) Dexamethasone (Decadron) 4 Mg Tablet, 4 MG PO BID Lorlatinib (Lorbrena) 100 Mg Tablet, 100 MG PO DAILY Swallow tablets whole Multivitamin (Multivitamins) 1 Cap Cap, 1 CAP PO DAILY, (Reported) Omeprazole (Omeprazole) 20 Mg Capsule.dr, 40 MG PO BID Sucralfate (Sucralfate) 1 Gm Tablet, 1 GM PO ACHS Scheduled PRN Acetaminophen (Acetaminophen) 500 Mg Tablet, 500 MG PO Q6H PRN for PAIN, (Reported) Allergies Coded Allergies: vancomycin (Verified Allergy, Severe, BECOMES VIOLENTLY ILL, NAUSEA/VOMITING. , 12/03/18) KRISTI ROLON MD December 05, 2018 23:35
[2018-12-06] MEDS ORDERED: AUGM875T28 PO (08:44)
[2018-12-06] MEDS ORDERED: DECA4TAB PO (12:20)
[2018-12-12] MEDS ORDERED: [UNRECOGNIZED DRUG - CODE] PO ×2 (16:46→16:47)
== END 2018-12-05 13:15 | disposition home or self-care (01) | DRG 241 ==
LOC: M ED 10:43 → M ED INP 14:26 → M PCU 17:51
PROVIDERS: ADMIT Internal Medicine Nephrology; ATTEND Internal Medicine Nephrology
PROC: 30233N1 Transfusion of Nonautologous Red Blood Cells into Peripheral Vein, Percutaneous Approach (ICD-10-PCS; 2018-12-03)
PROC: 0DB68ZX Excision of Stomach, Via Natural or Artificial Opening Endoscopic, Diagnostic (ICD-10-PCS; principal; 2018-12-03 15:28)
PROC: 0W3P8ZZ Control Bleeding in Gastrointestinal Tract, Via Natural or Artificial Opening Endoscopic (ICD-10-PCS; 2018-12-04)
PROC: 0DB68ZX Excision of Stomach, Via Natural or Artificial Opening Endoscopic, Diagnostic (ICD-10-PCS; 2018-12-04)
DX: K25.0 Acute gastric ulcer with hemorrhage (principal); C77.2 Secondary and unspecified malignant neoplasm of intra-abdominal lymph nodes; C79.51 Secondary malignant neoplasm of bone; C34.90 Malignant neoplasm of unspecified part of unspecified bronchus or lung; Z79.899 Other long term (current) drug therapy; Z88.8 Allergy status to other drugs, medicaments and biological substances; E55.9 Vitamin D deficiency, unspecified; D62 Acute posthemorrhagic anemia

== ENCOUNTER → 2018-12-06 | Outpatient (CLI) | payer BC ==
[~2018-12-06] MED LIST changes: +ACET500T15 PO; +AUGM875T28 PO; +DECA4TAB PO; +ISOVUE-370 76% 100ML VIAL (Q9967) As Ordered ONE; +OMEP-218 PO; +SUCR1TA PO; +[UNRECOGNIZED DRUG - CODE] PO
--- NOTE | 2018-12-06 11:46 | REP ---
CT Head with contrast History: Left eye pain Areas of decreased attenuation are present in the periventricular white matter. This represents small-vessel ischemic disease. There is no intraparenchymal hemorrhage or midline shift. There are two 4 mm enhancing nodules in the right and left cerebellum. There is a 3 mm enhancing nodule in the left frontal lobe. There is a 3 mm enhancing nodule in the posterior right parietal lobe. The ventricular system and cortical sulci are dilated consistent with minimal volume loss. There is no extracerebral collection. A 1 cm extraconal ring-enhancing mass is present in the posterior medial left orbit. This abuts the left optic nerve and globe. A 5 mm extracoronal enhancing nodule is present in the medial right orbit. The visualized sinuses are clear. Impression 1. There are small metastatic lesions to the 4 mm in size in the left frontal lobe, right parietal lobe and bilateral cerebellum. 2. There is a 1 cm extracoronal ring enhancing mass in the posteromedial left orbit. There is a 5 mm extracoronal enhancing nodule in the medial right orbit. Electronically Signed by Dieudonne Galdamez MD 12/06/2018 11:38 A
--- NOTE | 2018-12-06 12:50 | REP ---
MAXILLOFACIAL CT WITH CONTRAST: HISTORY: Left eye pain. CONTRAST: Isovue 370, 75 mL. The sinuses are clear. The osteomeatal units are patent. The middle and inferior nasal turbinates are partially paradoxical. There is mild deviation of the nasal septum to the right. A spur is present arising from the right side of the nasal septum. The cribriform plate, medial crum of the orbits, and optica canals are intact. The carotid canals form a segment of the posterolateral crum. A ring enhancing extraconal mass is present in the posteromedial left orbit. The mass measures 1 cm in width. There is inferomedial displacement of the left medial rectus muscle. The mass abuts the left optic nerve and posteromedial aspect of the left globe. A small 5 mm enhancing extraconal mass is present in the medial right orbit. There is no mass effect on the right optic nerve or globe. IMPRESSION: 1. There is no acute or chronic sinusitis. 2. There is a 1 cm extraconal ring enhancing mass in the posteromedial left orbit consistent with a metastasis. This abuts the left optic nerve and posteromedial aspect of the left globe. There is a small 5 mm extraconal enhancing metastasis in the medial right orbit. There is no mass effect on the right optic nerve or globe. Electronically Signed by Dieudonne Galdamez MD 12/06/2018 12:53 P
--- NOTE | 2018-12-06 12:57 | REP ---
CT pulmonary angiogram with IV contrast: History: Left eye pain. New onset shortness of breath. Metastatic non-small cell lung carcinoma. Comparison CT study November 27, 2018. CT contrast dose: 75 mL of intravenous Isovue [address] findings: There is a new small left pleural effusion. There is extensive pleuroparenchymal disease in the right hemithorax. There are some increased areas of parenchymal opacification in the right upper lobe posteriorly which may be infiltrate and in the posterior aspect of the right lower lobe when compared to the study done 1 week ago. Extensive pleural metastatic nodularity is seen in the right hemithorax. There is extensive chronic opacification and volume loss in the right lower lobe. There is a metastatic 19 mm nodule in the left lower lobe peribronchovascular distribution. This it is essentially unchanged. There are other very small sub-centimeter nodules unchanged in the left lower lobe. There is no CT evidence of pulmonary embolus. Thoracic aorta enhances homogeneously and is normal in course and caliber. On bone window settings, there is multifocal blastic skeletal metastatic disease and multiple cervical, thoracic, and upper lumbar vertebral body levels. There is blastic metastatic disease in the body of the sternum and in the medial head of the left clavicle. There are sclerotic changes in multiple ribs. The skeletal metastatic disease appears unchanged from the recent prior study of November 27, 2018. Impression: There is no evidence of pulmonary embolus. There is a new small left pleural effusion. There are new areas of parenchymal opacification in the right upper lobe and posteriorly in the right lower lobe which may be infiltrate. Electronically Signed by Vidal Gold MD 12/06/2018 06:25 P
== END ==
LOC: M RAD 09:47
PROVIDERS: ATTEND Internal Medicine Medical Oncology
DX: C34.11 Malignant neoplasm of upper lobe, right bronchus or lung (principal)
CPT/HCPCS: 70460; 70487; 71275; Q9967

== ENCOUNTER 2018-12-18 13:44 | Outpatient (RCR) | payer BC ==
--- NOTE | 2018-12-07 00:28 | RADONC ---
RADIATION ONCOLOGY SIMULATION NOTE DATE: 12/06/2018 The patient has a diagnosis of adenocarcinoma of the lung, widely metastatic but with a new metastatic lesion in the left intraorbital area pushing on the left optic nerve and causing a minimal amount of discomfort in the left orbit. The patient was placed in a supine position on the simulator table and an immobilization device was constructed to allow daily accuracy of potential treatments to be given. Images were taken at 3 mm intervals through the head area for future treatment planning. The patient tolerated both the immobilization device (mask) as well as CT scan well with no untoward side effects. I was present during the entire course of the simulation. The images captured will be contoured for tumor volume as well as normal structures, and a treatment plan will be potentially generated. As the patient tolerated the procedure well, she was released to home without any untoward issues. KYMBERLY
--- NOTE | 2018-12-18 07:49 | RADONC ---
RADIATION ONCOLOGY PROGRESS NOTE DATE: 12/17/2018 CHART NUMBER: [id number] Ms. Vance is presently at a dose of 1250 cGy to her left orbit and is tolerating treatments quite well at this point with no complaints related to her radiation therapy. She is having no eye pain or discomfort. The patient's review of systems is noncontributory. She denies nausea, vomiting, fevers, chills, night sweats, diplopia, headaches, anxiety or depression, anorexia, weight loss, visual disturbances, chest pain, urinary or bowel difficulties, bone pain, or neurological problems. PHYSICAL EXAMINATION: The patient's facial contour is excellent and within normal limits. There is no orbital swelling. Her extraocular movements are intact. There is no irritation of the globe or the orbit. Her skin is in excellent condition with no evidence of radiation change present. The patient is basically asymptomatic and doing exceedingly well, having tolerated treatments quite well. I have given her a Decadron taper schedule which we will be undertaking slowly over the next few weeks. The patient is scheduled for completion of treatment tomorrow.
[~2018-12-18 13:44] MED LIST changes: -ISOVUE-370 76% 100ML VIAL (Q9967) As Ordered ONE
--- NOTE | 2018-12-19 07:34 | RADONC ---
RADIATION ONCOLOGY TREATMENT SUMMARY DATE: 12/18/2018 CHART NUMBER: [id number] DIAGNOSIS: Lung cancer. STAGE: Stage IV, metastatic. ECOG PERFORMANCE STATUS: 0. TREATMENT SUMMARY: Ms. Vance is a very pleasant 64-year-old white female with the diagnosis of metastatic mucinous adenocarcinoma of lung who presented to us for consideration of palliative radiation therapy to her left orbit. We treated the patient to her left orbit for a total dose of 1500 cGy delivered in six fractions of 250 cGy each over eight elapsed days from 12/10/2018 through 12/18/2018. The patient's orbit was treated on a linear accelerator utilizing a 6 MV photon beam via 3-D conformal technique with wedge pair. Ms. Vance tolerated her treatments extremely well with no complaints related to her radiation therapy. Her orbital edema was totally resolved on steroids and her vision was unchanged. There was no sign of irritation of the eye, and she was asymptomatic. I have scheduled the patient to see me again in 1 month for further followup. She will also continue be followed by her other physicians as well. I have given this patient a Decadron taper schedule to be tapered over the next few weeks. She has been instructed to call my office if I could be of any assistance in the meantime. She will also continue her close followup with her medical oncologist, Dr. Angelo. cc: MD Norah Guo MD Jason White, MD
== END 2018-12-20 ==
LOC: M ONCR 13:44
PROVIDERS: ATTEND Radiology Radiation Oncology
DX: C79.51 Secondary malignant neoplasm of bone (principal); C79.31 Secondary malignant neoplasm of brain; C77.2 Secondary and unspecified malignant neoplasm of intra-abdominal lymph nodes; C34.11 Malignant neoplasm of upper lobe, right bronchus or lung

== ENCOUNTER → 2018-12-24 | Outpatient (CLI) | payer BC ==
--- NOTE | 2018-12-24 21:03 | ECGEPIP ---
[facility] Test Date: 2018-12-24 Pat Name: ALISON ERICKSON Department: Room: - Gender: Female Operations Specialist: RF : [id number] Requested By: Norah Sandhu Order Number: [id number] Reading MD: Thomas Jones Measurements Intervals [place] Rate: 95 P: 36 RI: 138 QRS: 19 QRSD: 88 T: 57 QT: 326 QTc: 411 Interpretive Statements SINUS RHYTHM Slightly low voltage with persistent S waves V5 and V6 and small inferior Q waves; body habitus versus pulmonary disease. No significant change from 12/03/18. Electronically Signed on 12-24-2018 21:02:47 EDT by Thomas Jones
== END ==
LOC: M EKG 15:25
PROVIDERS: ATTEND Internal Medicine Medical Oncology
DX: D50.9 Iron deficiency anemia, unspecified (principal)

== ENCOUNTER → 2019-01-15 | Outpatient (CLI) | payer BC ==
[~2019-01-15] MED LIST changes: +HYDR12.55 PO; +OMEP10CASR PO
--- NOTE | 2019-01-16 08:18 | RADONC ---
RADIATION ONCOLOGY FOLLOWUP VISIT DATE OF SERVICE: 01/15/2019 CHART NUMBER: [id number] ECOG PERFORMANCE STATUS: 0 DIAGNOSIS: Adenocarcinoma, lung ALK mutation positive, PD-L1 0, with evidence of bone, brain, lung, and gastric metastases. Ms. Vance with adenocarcinoma, lung ALK mutation positive, PD-L1 0, with evidence of bone, brain, lung, and gastric metastasis returns today for a followup visit. We last treated her orbital mass in this clinic for a total of 1500 cGy administered in 6 fractions. Her treatments were completed on 12/18/2018 and she has since been tapered from her dexamethasone and initiated fifth line palliative treatments with lorlatinib 100 mg daily. She has been tolerating her systemic treatments reasonably well and returns today for a followup visit. She is now approximately 1 month status post radiation therapy to the left orbit. REVIEW OF SYSTEMS: The patient denies any nausea, vomiting, headaches, diplopia, or visual defects. Her energy level is such that she is able to maintain most day-to-day activities without any alteration of her lifestyle. Skin irritation is denied. EXAMINATION FINDINGS: Skin within the irradiated volume looks normal. There is no palpable peripheral lymphadenopathy. Lungs are clear. Heart: Regular. The remainder of the physical examination is unchanged. IMPRESSION Doing well status post completion of left orbital radiotherapy with no progression of her ptosis and no progressive visual field deterioration. PLAN: We would like to see her on a p.r.n. basis and she was instructed to return to her referring physicians as per their directions and instructions. cc: MD Norah Guo MD Gerald Weinstein, MD Jason White, MD MTDD
== END ==
LOC: M ONCR 10:04
PROVIDERS: ATTEND Radiology Radiation Oncology
DX: Z08 Encounter for follow-up examination after completed treatment for malignant neoplasm (principal); C34.11 Malignant neoplasm of upper lobe, right bronchus or lung; C77.2 Secondary and unspecified malignant neoplasm of intra-abdominal lymph nodes; C79.51 Secondary malignant neoplasm of bone; C79.31 Secondary malignant neoplasm of brain; C34.90 Malignant neoplasm of unspecified part of unspecified bronchus or lung

== ENCOUNTER 2019-02-04 15:40 | Inpatient (IN) | payer MEDICARE, BC ==
[~2019-02-04] VITALS: Ht 167.6 cm; Wt 63.0 kg
[2019-02-04] MEDS ORDERED: methylPREDNISolone INJ 125 MG/2 ML VIAL (J2930) IV ONE (16:30)
[2019-02-04] MEDS ORDERED: IPRATROPIUM 0.5MG/ALBUTEROL 2.5MG INH SOL UD 3ML (DUONEB)(J7620) NEB ONE (16:30)
[2019-02-04] MEDS ORDERED: ALBUTEROL SULFATE 2.5 MG/0.5 ML INH NEB SOLN INH ONE (16:30)
[2019-02-04 16:34] LABS: BASO # 0.1 10^3/uL (0.0-0.2); BASO % 0.8 % (0.0-1.0); EOS # 0.3 10^3/uL (0.0-0.50); EOS % 2.9 % (0.0-3.0); HEMATOCRIT 38.6 % (36.0-47.0); LYMPH # 0.9 10^3/uL (1.5-4.5); LYMPH % 10.4 % (24.0-44.0); MEAN CORPUSCULAR HGB CONC 31.1 g/dl (32.0-36.5); MEAN CORPUSCULAR VOLUME 83.7 fl (80.0-96.0); MONO # 1.2 10^3/uL (0.0-0.8); MONO % 13.7 % (0.0-5.0); NEUTROPHILS # 6.1 10^3/uL (1.8-7.7); NEUTROPHILS % 71.6 % (36.0-66.0); PLATELET COUNT, AUTOMATED 401 10^3/uL (150-450); RED BLOOD COUNT 4.61 10^6/uL (4.00-5.40); WHITE BLOOD COUNT 8.5 10^3/uL (4.0-10.0)
[2019-02-04 16:52] LABS: ALBUMIN 2.7 GM/DL (3.2-5.2); ALT/SGPT 25 U/L (12-78); BILIRUBIN,DIRECT < 0.1 MG/DL (0.0-0.2); BILIRUBIN,TOTAL 0.1 MG/DL (0.2-1.0); BLOOD UREA NITROGEN 10 MG/DL (7-18); CALCIUM LEVEL 8.1 MG/DL (8.8-10.2); CARBON DIOXIDE LEVEL 32 MEQ/L (21-32); CHLORIDE LEVEL 85 MEQ/L (98-107); CK-MB VALUE MASS 2.3 NG/ML (<3.6); CPK CREATINE PHOSPHOKINASE 65 U/L (26-192); CREATININE FOR GFR 0.53 MG/DL (0.55-1.30); GLOMERULAR FILTRATION RATE > 60.0 (>45); GLUCOSE, FASTING 97 MG/DL (70-100); MB/CK RELATIVE INDEX 3.54 (< OR =4); NT-PRO BNP 250 PG/ML (<125); POTASSIUM SERUM 3.6 MEQ/L (3.5-5.1); SODIUM LEVEL 124 MEQ/L (136-145); THYROXINE (T4) 14.1 UG/DL (4.5-12.0); TOTAL PROTEIN 6.2 GM/DL (6.4-8.2); TROPONIN I < 0.02 NG/ML (< 0.10)
--- NOTE | 2019-02-04 16:53 | REP ---
Portable chest, 04:25 p.m., single AP view with the patient upright: Comparisons are 09/18/2018 and 03/30/2015. There is chronic effacement of the right costophrenic angle, unchanged. The nodular opacities identified in the right lung on 09/18/2018 are less apparent on the current study. There is diffuse volume loss in the right hemithorax and air. Chronic fibrotic changes inferiorly in the right lung. All of these findings are unchanged from 09/18/2018. There appears to be a new 3.9 cm nodular density above the left hemidiaphragm as an interval change. There is a new left upper lobe nodular density peripherally measuring 1.4 cm. Cardiac size appears normal. The phillip, mediastinum, skeletal structures are unchanged. Impression: The nodular densities identified recently in the right lung are less apparent. Chronic pleural parenchymal changes are again noted inferiorly in the right hemithorax. New nodular densities in the left lung are identified as an interval change. Electronically Signed by Michael Garg MD 02/04/2019 04:45 P
[2019-02-04] MEDS ORDERED: HYDR12.55 PO (17:21)
[2019-02-04] MEDS ORDERED: OMEP-218 PO (17:23)
[2019-02-04] MEDS ORDERED: [UNRECOGNIZED DRUG - CODE] PO (17:23)
[2019-02-04] MEDS ORDERED: ISOVUE-370 76% 100ML VIAL (Q9967) As Ordered ONE (17:33)
--- NOTE | 2019-02-04 18:20 | REPVR ---
EXAM: CT Angiography Chest With Contrast EXAM DATE/TIME: 02/04/2019 5:45 PM CLINICAL HISTORY: 64 years old, female; Shortness of breath; Additional info: SOB. History of non-small cell lung cancer per prior report. TECHNIQUE: Imaging protocol: Axial computed tomographic angiography images of the chest with intravenous contrast using CT angiography protocol. Coronal and sagittal reformatted images were created and reviewed. 3D rendering: MIP reconstructed images were created and reviewed. Radiation optimization: All CT scans at this facility use at least one of these dose optimization techniques: automated exposure control; mA and/or kV adjustment per patient size (includes targeted exams where dose is matched to clinical indication); or iterative reconstruction. Contrast material: ISOVUE 370; Contrast volume: 75 ml; Contrast route: IV; COMPARISON: CT ANGIO CHEST 12/06/2018 10:29 AM FINDINGS: Limitations: Detail limited by motion artifacts. Pulmonary arteries: No pulmonary embolism. Left lower lobe pulmonary arteries are suboptimally assessed due to artifacts. Aorta: No aortic aneurysm. No aortic dissection. Lungs: Small right and moderate to large left pleural effusions with adjacent atelectasis and/or infiltrates. New patchy infiltrates in the left upper lobe with a small area of consolidation. An anterior pleural-based mass in the right upper lung (series 402, image 34) is slightly smaller than on the prior study. Similar upper medial right pleural based mass (image 67). Similar extensive pleural-parenchymal disease throughout the remainder of the right lung, which could be due to a neoplastic and/or infectious process. Pleural space: See Lungs findings. No pneumothorax. Heart: No cardiomegaly. No pericardial effusion. Lymph nodes: Unremarkable. No enlarged lymph nodes. Bones/joints: Extensive diffuse sclerotic bone metastases have slightly progressed. No acute fracture or dislocation. Soft tissues: Unremarkable. IMPRESSION: 1. No pulmonary embolism. 2. Small right and moderate to large left pleural effusions with adjacent atelectasis and/or infiltrates. 3. New patchy infiltrates in the left upper lobe with a small area of consolidation. 4. Decreased pleural-based right upper lung mass. Similar medial pleural-based right upper lung mass. Similar extensive pleural-parenchymal disease throughout the remainder of the right lung. 5. Slight interval progression of diffuse bone metastases. Electronically signed by: Vito Parisi On 02/04/2019 18:20:03 PM
[2019-02-04] MEDS ORDERED: PIPERACILLIN/TAZOBACTAM SOD 4.5 GM in D5W MINI-BAG PLUS 50 ML IV ONE (18:45)
[2019-02-04 18:46] LABS: OSMOLALITY SERUM 259 MOSM/KG (280-301)
[2019-02-04 19:10] LABS: FREE T4 1.08 NG/DL (0.76-1.46)
[2019-02-04] MEDS ORDERED: ACETAMINOPHEN TAB 650MG DOSE (2X325MG) PO PRN (19:15)
--- NOTE | 2019-02-04 19:26 | HPEPDOC ---
General Date of Admission Feb 04, 2019 at 18:56 Date of Service: Feb 04, 2019 Primary Care Physician: EYAD MAGALLANES M.D. 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 Source: Patient, RN/MD Exam Limitations: No limitations Timing/Duration: Day(s) Severity: Moderate History of Present Illness Patient is a 64-year-old female, presenting to the emergency room on account of worsening shortness of breath. Patient has a past medical history most significant for stage IV lung cancer with metastasis to brain, stoma, bone, I. She status post radiation therapy. Patient was recently started on Lorbrena, and states he started noticing some shortness of breath, which was intermittent initially. In the past couple of days that has gotten worse and she called oncologist office and was advised to come to the emergency room for further evaluation and management. Of note, patient was recently admitted and discharged from this facility 2 months ago during which time she was treated for GI bleed and had surgical intervention. Presenting oxygenation was 88% in the emergency room, this improved to 94% on 2 L oxygen. Laboratory data was abnormal for sodium level of 124, which was new. CTA completed to evaluate for pulmonary emboli was negative, but showed left upper lobe patchy infiltrate with consolidation. There were also small right and moderate to large left pleural effusion with atelectasis. Patient, however, denied any chills, fever, chest pain, generalized malaise, other than shortness of breath. She also complained of bilateral lower extremity swelling for which she doubled up on her dose of HCTZ. She attended a class at the [facility] this morning without any issues. Home Medications Scheduled Calcium Carbonate (Tums) 500 Mg Chw, 1,000 MG PO DAILY, (Reported) Cholecalciferol (Vitamin D3) (Vitamin D3) 2,000 Unit Tab, 2,000 UNIT PO DAILY, (Reported) Denosumab Injection (Xgeva) 120 Mg/1.7 Ml Inj, 120 MG SC [id number], (Reported) PATIENT STATES THAT SHE RECEIVED LAST INJECTION THE FIRST WEEK IN NOVEMBER AND IS DUE FOR NEXT INJECTION THE FIRST WEEK IN FEBRUARY Lorlatinib (Lorbrena) 100 Mg Tablet, 100 MG PO QHS, (Reported) Multivitamin (Multivitamins) 1 Cap Cap, 1 CAP PO DAILY, (Reported) Omeprazole (Omeprazole) 20 Mg Capsule.dr, 20 MG PO BID, (Reported) Scheduled PRN Acetaminophen (Acetaminophen) 500 Mg Tablet, 500 MG PO Q6H PRN for PAIN, (Reported) Hydrochlorothiazide (Hydrochlorothiazide) 12.5 Mg Tablet, 25 MG PO DAILY PRN for EDEMA, (Reported) Allergies Coded Allergies: vancomycin (Verified Allergy, Severe, BECOMES VIOLENTLY ILL, NAUSEA/VOMITING. , 12/03/18) Past Medical History Medical History Iron deficiency anemia Stage IV lung cancer with metastasis to brain, stoma, bones, eyes GI bleed Surgical History Cataracts [place] pleurodesis Family History Father: Diabetes mellitus Mother: Bladder cancer Social History Denies tobacco, alcohol, polysubstance abuse A-FIB/CHADSVASC A-FIB History Current/History of A-Fib/PAF?: No Current PO Anticoag Therapy: No Review of Systems Other systems A 10 point pertinent review of systems was completed, negative except as stated in the history of presenting illness. Physical Examination Other physical findings GENERAL: NAD SKIN : Warm, dry intact HEENT: Atraumatic, normocephalic, PERRL, moist mucous membrane CARDIOVASCULAR: Regular rate and rhythm, S1S2, no JVD, BLE 3+ edema, distal pulses + and palpable RESP: CTAB, no accessory muscle use noted ABDOMEN: BS+ non distended non tender MS: no joint deformities NEURO: Alert and oriented x 3, CN2-12 grossly intact PSYCH: no anxiety or agitation, appropriate mood and affect. Vital Signs Vital Signs Date Time Temp Pulse Resp B/P (MAP) Pulse Ox O2 Delivery O2 Flow Rate FiO2 02/04/19 18:55 92 145/72 (96) 94 02/04/19 16:20 Room Air 02/04/19 15:41 98.4 26 Laboratory Data Labs 24H Laboratory Tests 2 02/04/19 16:10: Anion Gap 7L, Glomerular Filtration Rate > 60.0, Osmolality 259L, Lactic Acid Level 0.6, Calcium Level 8.1L, Aspartate Amino Transf (AST/SGOT) 20, Alanine Aminotransferase (ALT/SGPT) 25, Alkaline Phosphatase 67, Total Bilirubin 0.1L, Direct Bilirubin < 0.1, Total Creatine Kinase 65, Creatine Kinase MB 2.3, Creatine Kinase MB Relative Index 3.54, Troponin I < 0.02, NL-Idk-M-Type Natriuretic Peptide 250H, Total Protein 6.2L, Albumin 2.7L, Albumin/Globulin Ratio 0.77L, Thyroid Stimulating Hormone (TSH) 3.100, Free Thyroxine 1.08, Thyroxine (T4) 14.1H 02/04/19 16:11: Immature Granulocyte % (Auto) 0.6, White Blood Count 8.5, Red Blood Count 4.61, Hemoglobin 12.0, Hematocrit 38.6, Mean Corpuscular Volume 83.7, Mean Corpuscular Hemoglobin 26.0L, Mean Corpuscular Hemoglobin Concent 31.1L, Red Cell Distribution Width 21.1H, Platelet Count 401, Neutrophils (%) (Auto) 71.6H, Lymphocytes (%) (Auto) 10.4L, Monocytes (%) (Auto) 13.7H, Eosinophils (%) (Auto) 2.9, Basophils (%) (Auto) 0.8, Neutrophils # (Auto) 6.1, Lymphocytes # (Auto) 0.9L, Monocytes # (Auto) 1.2H, Eosinophils # (Auto) 0.3, Basophils # (Auto) 0.1, Nucleated Red Blood Cells % (auto) 0.0 02/04/19 17:09: POC pH (Misc Panel) 7.421, POC Base Excess (Misc Panel) 2.0, POC Saturated Percent O2 (Misc) 96, POC pO2 (Misc Panel) 78.0L, POC pCO2 (Misc Panel) 41.2, POC HCO3 (Misc Panel) 26.8H, POC Total CO2 (Misc Panel) 28.0H CBC/BMP Laboratory Tests 02/04/19 16:10 02/04/19 16:11 Red Blood Count 4.61, Mean Corpuscular Volume 83.7, Mean Corpuscular Hemoglobin 26.0 L, Mean Corpuscular Hemoglobin Concent 31.1 L, Red Cell Distribution Width 21.1 H, Neutrophils (%) (Auto) 71.6 H, Lymphocytes (%) (Auto) 10.4 L, Monocytes (%) (Auto) 13.7 H, Eosinophils (%) (Auto) 2.9, Basophils (%) (Auto) 0.8, Neutrophils # (Auto) 6.1, Lymphocytes # (Auto) 0.9 L, Monocytes # (Auto) 1.2 H, Eosinophils # (Auto) 0.3, Basophils # (Auto) 0.1 Microbiology Microbiology 02/04/19 Blood Culture, Received Pending 02/04/19 Blood Culture, Received Pending Assessment/Plan Healthcare acquired pneumonia -With patchy lung infiltrates and consolidation in the patient recently admitted and discharged less than 90 days -Started on Zosyn in the emergency room, add linezolid -Supplemental oxygen and monitoring to keep saturation greater than 94% -Scheduled bronchodilator therapy and also as needed Lung cancer, stage IV -With metastasis to bone, eyes, brain, stomach, -Management by oncology and started on new regimen with Lorbrena -Consult oncology for evaluation and input Hyponatremia -Sodium levels 124 on admit -New for patient, with underlying lung cancer and brain metastasis -Possibly due to increased dosing of HCTZ. -Fluid restriction, hold HCTZ -Given underlying pleural effusions and significant bilateral lower extremity edema, will not start on IV fluids DVT prophylaxis -Antiembolism stockings with Lovenox daily Advanced care planning -CODE STATUS is full resuscitation Plan / VTE VTE Prophylaxis Ordered?: Yes Plan Plan ADDENDUM: patient seen and examined. Cased discussed with CUT OUT WORKER and agree with documentation for history, exam, assesesment and plan. In addition, at the time of my exam: patient was in NAD, AAOx3, present at bedside, HRRR, LCTA with diminished BS at right base, no audible rhonchi, no wheeze; ext 1+ edema bilaterally; Patient states she started HCTZ on 01/22/19 (12.5mg) and then increased to 25mg on 02/02/19 without improvement to her edema. This probably contributes to her hyponatremia. Code status discussed with patient and - FULL CODE. ELY HERNANDEZ Feb 04, 2019 19:26 RONNIE HERNANDES DO Feb 04, 2019 21:12
[2019-02-04] MEDS: IPRATROPIUM 0.5MG/ALBUTEROL 2.5MG INH SOL UD 3ML (DUONEB)(J7620) NEB SCH (20:00)
[2019-02-04] MEDS ORDERED: DENOSUMAB (XGEVA) 120MG/1.7ML VIAL (J0897 PER 1MG) (FOR ONCOLOGY) SC SCH (20:00)
[2019-02-04] MEDS: LINEZOLID 600 MG in APPROPRIATE DILUENT 1 EA IV SCH (21:00)
[2019-02-04] MEDS: ENOXAPARIN 40 MG/0.4 ML SYRINGE (J1650) SC SCH (21:48)
[2019-02-05] MEDS: PIPERACILLIN/TAZOBACTAM SOD 4.5 GM in D5W MINI-BAG PLUS 50 ML IV SCH ×4 (04:19→20:11)
[2019-02-05 07:11] LABS: HEMATOCRIT 36.5 % (36.0-47.0); HEMOGLOBIN 11.2 g/dl (12.0-15.5); MEAN CORPUSCULAR HEMOGLOBIN 25.6 pg (27.0-33.0); MEAN CORPUSCULAR HGB CONC 30.7 g/dl (32.0-36.5); MEAN CORPUSCULAR VOLUME 83.3 fl (80.0-96.0); PLATELET COUNT, AUTOMATED 372 10^3/uL (150-450); RED BLOOD COUNT 4.38 10^6/uL (4.00-5.40); WHITE BLOOD COUNT 6.2 10^3/uL (4.0-10.0)
[2019-02-05 08:00] VITALS: BP 138/82
[2019-02-05 08:15] LABS: ALBUMIN 2.4 GM/DL (3.2-5.2); ALT/SGPT 20 U/L (12-78); BILIRUBIN,TOTAL 0.1 MG/DL (0.2-1.0); BLOOD UREA NITROGEN 8 MG/DL (7-18); CALCIUM LEVEL 8.5 MG/DL (8.8-10.2); CARBON DIOXIDE LEVEL 34 MEQ/L (21-32); CHLORIDE LEVEL 94 MEQ/L (98-107); CREATININE FOR GFR 0.55 MG/DL (0.55-1.30); GLOMERULAR FILTRATION RATE > 60.0 (>45); GLUCOSE, FASTING 93 MG/DL (70-100); SODIUM LEVEL 132 MEQ/L (136-145); TOTAL PROTEIN 6.1 GM/DL (6.4-8.2)
[2019-02-05] MEDS: VITAMIN D 1,000 INTERNATIONAL UNITS TABLET PO SCH (08:25)
[2019-02-05] MEDS: CALCIUM CARBONATE 500 MG CHEW U/D PO SCH (08:25)
[2019-02-05] MEDS: IPRATROPIUM 0.5MG/ALBUTEROL 2.5MG INH SOL UD 3ML (DUONEB)(J7620) NEB SCH ×4 (08:50→20:45)
--- NOTE | 2019-02-05 09:06 | ECGEPIP ---
[facility] - ED Test Date: 2019-02-04 Pat Name: ALISON ERICKSON Department: Room: - Gender: Female Supervisor Sample Preparation: TC : 1955 Requested By: Rosa Will Order Number: [id number] Reading MD: Rosa Will Measurements Intervals [place] Rate: 83 P: 24 NV: 156 QRS: 12 QRSD: 92 T: 41 QT: 361 QTc: 426 Interpretive Statements SINUS RHYTHM POSSIBLE RIGHT VENTRICULAR CONDUCTION DELAY SIMILAR 12/24/18 Electronically Signed on 02-05-2019 9:06:18 EDT by Rosa Will
[2019-02-05] MEDS: LINEZOLID 600 MG in APPROPRIATE DILUENT 1 EA IV SCH ×2 (10:39→21:31)
[2019-02-05 12:00] VITALS: BP 136/90
[2019-02-05 18:00] VITALS: BP 130/66
[2019-02-05] MEDS: ENOXAPARIN 40 MG/0.4 ML SYRINGE (J1650) SC SCH (21:34)
[2019-02-05 22:00] VITALS: BP 126/93
--- NOTE | 2019-02-05 23:17 | IPNPDOC ---
Text Note Date of Service The patient was seen on 02/05/19. NOTE Pt was seen and examined at bedside. She denies any dyspnea at rest or tachypnea. Was active the day prior to admission. Pt is concerned about LE e marcia, and her antiacid medications. otherwise is in no acute distress. denies any pain or motor weakness. PHE VS please see below General AAOx3 NAD HEENT JILLIAN EOMI neck supple no icterus CVS S1 S2 RRR Lung clear bilat no wheezing no rales Abdomen soft NT ND Ext: 2 plus LE edema no tenderness no cyanosis Psych mood and affect appropriate Vital Signs Date Time Temp Pulse Resp B/P (MAP) Pulse Ox O2 Delivery O2 Flow Rate FiO2 02/05/19 22:00 97.6 89 20 126/93 (104) 98 2.0 02/05/19 22:00 2.0 97 02/05/19 18:00 98.9 89 20 130/66 (87) 95 2.0 02/05/19 13:00 2.0 95 02/05/19 12:00 98.0 50 22 136/90 (105) 91 2.0 02/05/19 10:14 2.0 95 02/05/19 08:00 98.6 89 16 138/82 (100) 99 2.0 02/05/19 05:00 83 14 115/66 (82) 94 Nasal Cannula 2.0 02/05/19 04:45 83 14 114/64 (81) 96 Nasal Cannula 2.0 02/05/19 04:30 84 14 110/65 (80) 95 Nasal Cannula 2.0 02/05/19 04:15 86 14 111/64 (80) 95 Nasal Cannula 2.0 02/05/19 04:00 84 14 101/62 (75) 96 Nasal Cannula 2.0 02/05/19 03:45 83 14 110/66 (81) 97 Nasal Cannula 2.0 02/05/19 03:30 84 14 110/67 (81) 94 Nasal Cannula 2.0 02/05/19 03:15 82 14 118/75 (89) 97 Nasal Cannula 2.0 02/05/19 03:02 152/81 (104) 02/05/19 03:00 91 14 94 Nasal Cannula 2.0 02/05/19 02:45 84 14 111/66 (81) 94 Nasal Cannula 2.0 02/05/19 02:30 84 14 111/65 (80) 94 Nasal Cannula 2.0 02/05/19 02:15 84 14 112/66 (81) 94 Nasal Cannula 2.0 02/05/19 02:00 87 14 114/68 (83) 94 Nasal Cannula 2.0 02/05/19 01:45 87 14 113/69 (84) 94 Nasal Cannula 2.0 02/05/19 01:30 92 14 117/70 (86) 94 Nasal Cannula 2.0 02/05/19 01:15 88 14 113/67 (82) 94 Nasal Cannula 2.0 02/05/19 01:00 91 14 127/77 (94) 94 Nasal Cannula 2.0 02/05/19 00:45 89 14 127/75 (92) 94 Nasal Cannula 2.0 02/05/19 00:30 87 14 132/86 (101) 93 Nasal Cannula 2.0 02/05/19 00:00 88 14 125/71 (89) 94 Nasal Cannula 2.0 02/04/19 23:45 90 14 131/73 (92) 94 Nasal Cannula 2.0 02/04/19 23:30 90 14 125/69 (87) 94 Nasal Cannula 2.0 Intake & Output 02/05/19 06:00 Intake Total 100 ml Balance 100 ml Laboratory Tests 02/05/19 06:48: White Blood Count 6.2, Red Blood Count 4.38, Hemoglobin 11.2L, Hematocrit 36.5, Mean Corpuscular Volume 83.3, Mean Corpuscular Hemoglobin 25.6L, Mean Corpuscular Hemoglobin Concent 30.7L, Red Cell Distribution Width 21.1H, P latelet Count 372, Nucleated Red Blood Cells % (auto) 0.0, Blood Urea Nitrogen 8, Creatinine 0.55, Sodium Level 132#L, Potassium Level 4.0, Chloride Level 94L, Carbon Dioxide Level 34H, Calcium Level 8.5L, Aspartate Amino Transf (AST/SGOT) 17, Alanine Aminotransferase (ALT/SGPT) 20, Alkaline Phosphatase 51, Total Bilirubin 0.1L, Total Protein 6.1L, Albumin 2.4L, Anion Gap 4L, Glomerular Filtration Rate > 60.0, Fasting Glucose 93, Albumin/Globulin Ratio 0.65L 02/05/19 09:51: Urine Random Osmolality 234L, Urine Random Creatinine 35.0, Urine Random Sodium 23 Current Medications Medications (Trade) Dose Ordered Sig/Forest Route PRN Reason Start Time Stop Time Status Last Admin Dose Admin Acetaminophen (Tylenol Tab) 650 mg Q4H PRN PO PAIN OR FEVER 02/04/19 19:15 02/05/19 20:21 650 MG Albuterol/ Ipratropium (Duoneb (Ipr 0.5mg/Alb 2.5mg)) 3 ml RQID NEB 02/04/19 20:00 02/05/19 20:45 3 ML Calcium Carbonate (Tums) 1,000 mg DAILY PO 02/05/19 09:00 02/05/19 08:25 1,000 MG Enoxaparin Sodium (Lovenox) 40 mg DAILY@2100 SC 02/04/19 21:00 02/05/19 21:34 40 MG Linezolid 600 mg/ IV Miscellaneous Supplies 300 ml @ 150 mls/hr Q12H IV 02/04/19 21:00 02/05/19 21:31 150 MLS/HR Piperacillin Sod/ Tazobactam Sod 4.5 gm/Dextrose 50 ml @ 50 mls/hr Q6H IV 02/05/19 02:00 02/05/19 20:11 50 MLS/HR Vitamin D (Vitamin D) 2,000 units DAILY PO 02/05/19 09:00 02/05/19 08:25 2,000 UNITS Healthcare acquired pneumonia, likely gram negative organism and MRSA in view of Hx of ca and immunosuppression -With patchy lung infiltrates and consolidation in the patient recently admitted and discharged less than 90 days -Started on Zosyn in the emergency room, add linezolid -Supplemental oxygen and monitoring to keep saturation greater than 94% -Scheduled bronchodilator therapy and also as needed Lung cancer, stage IV -With metastasis to bone, eyes, brain, stomach, -Management by oncology and started on new regimen with Hugh -Consult oncology for evaluation and input Hyponatremia -Sodium levels 124 on admit today has improved -New for patient, with underlying lung cancer and brain metastasis -Possibly due to increased dosing of HCTZ. -Fluid restriction, hold HCTZ -Given underlying pleural effusions and significant bilateral lower extremity edema, will not start on IV fluids DVT prophylaxis -Antiembolism stockings with Lovenox daily Advanced care planning -CODE STATUS is full resuscitation VS,Fishbone, I+O VS, Fishbone, I+O Laboratory Tests 02/05/19 06:48 Red Blood Count 4.38, Mean Corpuscular Volume 83.3, Mean Corpuscular Hemoglobin 25.6 L, Mean Corpuscular Hemoglobin Concent 30.7 L, Red Cell Distribution Width 21.1 H, Calcium Level 8.5 L, Aspartate Amino Transf (AST/SGOT) 17, Alanine Amino transferase (ALT/SGPT) 20, Alkaline Phosphatase 51, Total Bilirubin 0.1 L, Total Protein 6.1 L, Albumin 2.4 L Vital Signs Date Time Temp Pulse Resp B/P (MAP) Pulse Ox O2 Delivery O2 Flow Rate FiO2 02/05/19 22:00 97.6 89 20 126/93 (104) 98 2.0 02/05/19 22:00 97 02/05/19 05:00 Nasal Cannula I&O- Last 24 Hours up to 6 AM 02/05/19 06:00 Intake Total 100 ml Balance 100 ml LUIS JOHNSON MD Feb 05, 2019 23:17
[2019-02-06 02:00] VITALS: BP 125/81
[2019-02-06] MEDS: PIPERACILLIN/TAZOBACTAM SOD 4.5 GM in D5W MINI-BAG PLUS 50 ML IV SCH ×4 (02:09→20:17)
[2019-02-06 06:00] VITALS: BP 121/78
[2019-02-06] MEDS: IPRATROPIUM 0.5MG/ALBUTEROL 2.5MG INH SOL UD 3ML (DUONEB)(J7620) NEB SCH ×4 (08:09→20:26)
[2019-02-06] MEDS: VITAMIN D 1,000 INTERNATIONAL UNITS TABLET PO SCH (08:22)
[2019-02-06] MEDS: CALCIUM CARBONATE 500 MG CHEW U/D PO SCH (08:22)
--- NOTE | 2019-02-06 08:47 | ECHO ---
DATE OF SERVICE: 02/05/2019 REFERRING PROVIDER: AMANDA Ureña PATIENT CONSULTATION: Dr. Miguel Angel Patel PATIENT LOCATION: Room 4225 REASON FOR ECHOCARDIOGRAM: Shortness of breath. 2D MEASUREMENTS: IVS: 1.1 cm LV: 3.6 cm LVPW: 1.0 cm LA: 2.4 cm Aorta: 2.8 cm IVC: 2.2 cm DOPPLER MEASUREMENTS: Peak velocity across the aortic valve: 1.7 m/s Peak velocity across the LVOT: 1.3 m/s Peak gradient across the aortic valve: 11 mmHg Mean gradient across the aortic valve: 7 mmHg Mitral E: 1.1 Mitral A: 0.98 with a ratio of 1.1 2D COMMENTS: 1. Technically limited study due to poor acoustic window secondary to lung interference. 2. Normal left ventricular size, wall thickness with a normal global left ventricular systolic function. The left ventricle is hypokinetic with an estimated left ventricular systolic ejection of 65-70%. 3. Normal left atrium. The right atrium and right ventricle appeared to be normal in limited views. 4. Normal aortic root. 5. Trace pericardial effusion noted in limited views, no evidence of cardiac tamponade. Pleural effusion also noted. 6. Mildly calcified aortic valve with minimally restricted leaflet motion. No mitral valve, tricuspid valve. The pulmonic valve and proximal pulmonary artery branches were not well visualized. 7. The inferior vena cava was dilated, central venous pressure is most likely limited. Doppler, no significant valvular abnormalities detected. Abnormal relaxation pattern was noted across the mitral valve leaflets. IMPRESSION: 1. Technically limited study due to poor acoustic window secondary to lung interference. 2. Normal global left ventricular systolic function with a hyperdynamic left ventricle. Assessment of the left ventricular diastolic function appeared to be normal. 3. Aortic valve sclerosis with trivial aortic stenosis but no aortic regurgitation. 4. Trace pericardial effusion noted in limited views. Pleural effusion was noted. I recommend a chest CT for further evaluation of the pericardial/pleural effusion.
[2019-02-06 09:37] LABS: HEMATOCRIT 36.9 % (36.0-47.0); HEMOGLOBIN 11.2 g/dl (12.0-15.5); MEAN CORPUSCULAR HEMOGLOBIN 25.3 pg (27.0-33.0); MEAN CORPUSCULAR HGB CONC 30.4 g/dl (32.0-36.5); MEAN CORPUSCULAR VOLUME 83.3 fl (80.0-96.0); PLATELET COUNT, AUTOMATED 403 10^3/uL (150-450); RED BLOOD COUNT 4.43 10^6/uL (4.00-5.40); WHITE BLOOD COUNT 7.3 10^3/uL (4.0-10.0)
[2019-02-06] MEDS: LINEZOLID 600 MG in APPROPRIATE DILUENT 1 EA IV SCH ×2 (09:55→21:32)
[2019-02-06 10:06] LABS: BLOOD UREA NITROGEN 7 MG/DL (7-18); CALCIUM LEVEL 8.6 MG/DL (8.8-10.2); CARBON DIOXIDE LEVEL 32 MEQ/L (21-32); CHLORIDE LEVEL 99 MEQ/L (98-107); CREATININE FOR GFR 0.63 MG/DL (0.55-1.30); GLOMERULAR FILTRATION RATE > 60.0 (>45); GLUCOSE, FASTING 94 MG/DL (70-100); POTASSIUM SERUM 3.6 MEQ/L (3.5-5.1); SODIUM LEVEL 137 MEQ/L (136-145)
[2019-02-06] MEDS ORDERED: FUROSEMIDE 40 MG/4 ML VIAL (J1940) IV ONE (11:00)
[2019-02-06] MEDS: OMEPRAZOLE 20 MG CAP PO SCH ×2 (11:51→21:23)
[2019-02-06 14:00] VITALS: BP 106/65
--- NOTE | 2019-02-06 19:56 | IPNPDOC ---
Text Note Date of Service The patient was seen on 02/06/19. NOTE Pt was seen and examined at bedside. Pt generally feels improved today. Continues to have LE edema. Na is within normal limits. PHE: VS: please see below General: AAOx3 NAD HEENT: JILLIAN EOMI neck supple no icterus CVS: S1 S2 RRR Lung: clear bilat no wheezing no rales Abdomen: soft NT ND Ext: 2 plus LE edema no tenderness no cyanosis Psych: mood and affect appropriate Vital Signs Date Time Temp Pulse Resp B/P (MAP) Pulse Ox O2 Delivery O2 Flow Rate FiO2 02/06/19 14:00 98.2 94 24 106/65 (79) 100 02/06/19 08:00 2.0 96 02/06/19 06:00 97.8 81 20 121/78 (92) 91 2.0 02/06/19 02:00 97.6 89 20 125/81 (96) 94 2.0 02/05/19 22:00 97.6 89 20 126/93 (104) 98 2.0 02/05/19 22:00 2.0 97 Intake & Output 02/06/19 06:00 Intake Total 2040 ml Output Total 400 ml Balance 1640 ml Laboratory Tests 02/06/19 09:13: White Blood Count 7.3, Red Blood Count 4.43, Hemoglobin 11.2L, Hematocrit 36.9, Mean Corpuscular Volume 83.3, Mean Corpuscular Hemoglobin 25.3L, Mean Co rpuscular Hemoglobin Concent 30.4L, Red Cell Distribution Width 21.8H, Platelet Count 403, Nucleated Red Blood Cells % (auto) 0.0, Blood Urea Nitrogen 7, Creatinine 0.63, Sodium Level 137, Potassium Level 3.6, Chloride Level 99, Carbon Dioxide Level 32, Calcium Level 8.6L, Anion Gap 6L, Glomerular Filtration Rate > 60.0, Fasting Glucose 94 Current Medications Medications (Trade) Dose Ordered Sig/Forest Route PRN Reason Start Time Stop Time Status Last Admin Dose Admin Acetaminophen (Tylenol Tab) 650 mg Q4H PRN PO PAIN OR FEVER 02/04/19 19:15 02/05/19 20:21 650 MG Albuterol/ Ipratropium (Duoneb (Ipr 0.5mg/Alb 2.5mg)) 3 ml RQID NEB 02/04/19 20:00 02/06/19 15:08 3 ML Calcium Carbonate (Tums) 1,000 mg DAILY PO 02/05/19 09:00 02/06/19 08:22 1,000 MG Enoxaparin Sodium (Lovenox) 40 mg DAILY@2100 SC 02/04/19 21:00 02/05/19 21:34 40 MG Linezolid 600 mg/ IV Miscellaneous Supplies 300 ml @ 150 mls/hr Q12H IV 02/04/19 21:00 02/06/19 09:55 150 MLS/HR Omeprazole (PriLOSEC) 20 mg BID PO 02/06/19 09:00 02/06/19 11:51 20 MG Piperacillin Sod/ Tazobactam Sod 4.5 gm/Dextrose 50 ml @ 50 mls/hr Q6H IV 02/05/19 02:00 02/06/19 15:46 50 MLS/HR Vitamin D (Vitamin D) 2,000 units DAILY PO 02/05/19 09:00 02/06/19 08:22 2,000 UNITS Healthcare acquired pneumonia, likely gram negative organism and MRSA in view of Hx of ca and immunosuppression -With patchy lung infiltrates and consolidation in the patient recently admitted and discharged less than 90 days -Cont Zosyn and linezolid -Supplemental oxygen and monitoring to keep saturation greater than 94% -Scheduled bronchodilator therapy and also as needed Lung cancer, stage IV -With metastasis to bone, eyes, brain, stomach, -Management by oncology and started on new regimen with Hugh -Consult oncology for evaluation and input Hyponatremia,resolved -New for patient, with underlying lung cancer and brain metastasis -Possibly due to increased dosing of HCTZ versus SIADH -Fluid restriction, hold HCTZ LE edema responded to lasix DVT prophylaxis -Antiembolism stockings with Lovenox daily Advanced care planning -CODE STATUS is full resuscitation VS,Prasadbone, I+O VS, Fishbone, I+O Laboratory Tests 02/06/19 09:13 Red Blood Count 4.43, Mean Corpuscular Volume 83.3, Mean Corpuscular Hemoglobin 25.3 L, Mean Corpuscular Hemoglobin Concent 30.4 L, Red Cell Distribution Width 21.8 H, Calcium Level 8.6 L Vital Signs Date Time Temp Pulse Resp B/P (MAP) Pulse Ox O2 Delivery O2 Flow Rate FiO2 02/06/19 14:00 98.2 94 24 106/65 (79) 100 02/06/19 08:00 2.0 96 02/05/19 05:00 Nasal Cannula I&O- Last 24 Hours up to 6 AM 02/06/19 06:00 Intake Total 2040 ml Output Total 400 ml Balance 1640 ml LUIS JOHNSON MD Feb 06, 2019 19:56
[2019-02-06] MEDS: ENOXAPARIN 40 MG/0.4 ML SYRINGE (J1650) SC SCH (21:23)
[2019-02-06 22:00] VITALS: BP 128/81
[2019-02-07] MEDS: PIPERACILLIN/TAZOBACTAM SOD 4.5 GM in D5W MINI-BAG PLUS 50 ML IV SCH ×4 (02:14→20:09)
[2019-02-07 06:00] VITALS: BP 102/60
[2019-02-07 06:22] LABS: HEMATOCRIT 35.8 % (36.0-47.0); HEMOGLOBIN 10.5 g/dl (12.0-15.5); MEAN CORPUSCULAR HEMOGLOBIN 24.6 pg (27.0-33.0); MEAN CORPUSCULAR HGB CONC 29.3 g/dl (32.0-36.5); MEAN CORPUSCULAR VOLUME 83.8 fl (80.0-96.0); PLATELET COUNT, AUTOMATED 381 10^3/uL (150-450); RED BLOOD COUNT 4.27 10^6/uL (4.00-5.40); WHITE BLOOD COUNT 7.1 10^3/uL (4.0-10.0)
[2019-02-07 06:43] LABS: BLOOD UREA NITROGEN 8 MG/DL (7-18); CALCIUM LEVEL 8.1 MG/DL (8.8-10.2); CARBON DIOXIDE LEVEL 35 MEQ/L (21-32); CHLORIDE LEVEL 99 MEQ/L (98-107); CREATININE FOR GFR 0.59 MG/DL (0.55-1.30); GLOMERULAR FILTRATION RATE > 60.0 (>45); GLUCOSE, FASTING 87 MG/DL (70-100); POTASSIUM SERUM 3.8 MEQ/L (3.5-5.1); SODIUM LEVEL 137 MEQ/L (136-145)
[2019-02-07] MEDS: IPRATROPIUM 0.5MG/ALBUTEROL 2.5MG INH SOL UD 3ML (DUONEB)(J7620) NEB SCH ×4 (07:10→19:44)
[2019-02-07] MEDS: OMEPRAZOLE 20 MG CAP PO SCH ×2 (08:28→20:09)
[2019-02-07] MEDS: CALCIUM CARBONATE 500 MG CHEW U/D PO SCH (08:28)
[2019-02-07] MEDS: VITAMIN D 1,000 INTERNATIONAL UNITS TABLET PO SCH (08:28)
[2019-02-07] MEDS: LINEZOLID 600 MG in APPROPRIATE DILUENT 1 EA IV SCH ×2 (10:15→21:33)
[2019-02-07] MEDS: FUROSEMIDE 40 MG TAB PO SCH (11:58)
[2019-02-07 14:00] VITALS: BP 121/78
[2019-02-07] MEDS: ENOXAPARIN 40 MG/0.4 ML SYRINGE (J1650) SC SCH (20:10)
[2019-02-07 22:00] VITALS: BP 113/80
--- NOTE | 2019-02-07 23:01 | IPNPDOC ---
Text Note Date of Service The patient was seen on 02/07/19. NOTE Pt was seen and examined at bedside. remains clinically stable. continues to have LE edema improved comparing to prior. Denies any headache, dyspnea or palpitations. PHE: VS: please see below General: AAOx3 NAD HEENT: JILLIAN EOMI neck supple no icterus CVS: S1 S2 RRR Lung: clear bilat no wheezing no rales Abdomen: soft NT ND Ext: 2 plus LE edema no tenderness no cyanosis Psych: mood and affect appropriate Vital Signs Date Time Temp Pulse Resp B/P (MAP) Pulse Ox O2 Delivery O2 Flow Rate FiO2 02/07/19 22:00 97.6 91 16 113/80 (91) 95 02/07/19 14:00 97.7 97 19 121/78 (92) 94 02/07/19 09:00 02/07/19 06:00 97.8 82 20 102/60 (74) 96 2.0 Intake & Output 02/07/19 06:00 Intake Total 1686 ml Output Total 3325 ml Balance -1639 ml Laboratory Tests 02/07/19 05:30: White Blood Count 7.1, Red Blood Count 4.27, Hemoglobin 10.5L, Hematocrit 35.8L, Mean Corpuscular Volume 83.8, Mean Corpuscular Hemoglobin 24.6L, Mean Corpuscular Hemoglobin Concent 29.3L, Red Cell Distribution Width 21.9H, Platelet Count 381, Nucleated Red Blood Cells % (auto) 0.0, Blood Urea Nitrogen 8, Creatinine 0.59, Sodium Level 137, Potassium Level 3.8, Chloride Level 99, Carbon Dioxide Level 35H, Calcium Level 8.1L, Anion Gap 3L, Glomerular Filtration Rate > 60.0, Fasting Glucose 87 Current Medications Medications (Trade) Dose Ordered Sig/Forest Route PRN Reason Start Time Stop Time Status Last Admin Dose Admin Acetaminophen (Tylenol Tab) 650 mg Q4H PRN PO PAIN OR FEVER 02/04/19 19:15 02/05/19 20:21 650 MG Albuterol/ Ipratropium (Duoneb (Ipr 0.5mg/Alb 2.5mg)) 3 ml RQID NEB 02/04/19 20:00 02/07/19 19:44 3 ML Calcium Carbonate (Tums) 1,000 mg DAILY PO 02/05/19 09:00 02/07/19 08:28 1,000 MG Enoxaparin Sodium (Lovenox) 40 mg DAILY@2100 SC 02/04/19 21:00 02/07/19 20:10 40 MG Furosemide (Lasix) 40 mg DAILY PO 02/07/19 09:00 02/07/19 11:58 40 MG Linezolid 600 mg/ IV Miscellaneous Supplies 300 ml @ 150 mls/hr Q12H IV 02/04/19 21:00 02/07/19 21:33 150 MLS/HR Omeprazole (PriLOSEC) 20 mg BID PO 02/06/19 09:00 02/07/19 20:09 20 MG Piperacillin Sod/ Tazobactam Sod 4.5 gm/Dextrose 50 ml @ 50 mls/hr Q6H IV 02/05/19 02:00 02/07/19 20:09 50 MLS/HR Vitamin D (Vitamin D) 2,000 units DAILY PO 02/05/19 09:00 02/07/19 08:28 2,000 UNITS Healthcare acquired pneumonia, likely gram negative organism and MRSA in view of Hx of ca and immunosuppression -With patchy lung infiltrates and consolidation in the patient recently admitted and discharged less than 90 days -Cont Zosyn and linezolid -Supplemental oxygen and monitoring to keep saturation greater than 92% -Scheduled bronchodilator therapy and also as needed Lung cancer, stage IV -With metastasis to bone, eyes, brain, stomach, -Management by oncology and started on new regimen with Hugh -Consult oncology for evaluation and input Hyponatremia,resolved -New for patient, with underlying lung cancer and brain metastasis -Possibly due to increased dosing of HCTZ versus SIADH -Fluid restriction, hold HCTZ LE edema responded to lasix DVT prophylaxis -Antiembolism stockings with Lovenox daily Advanced care planning -CODE STATUS is full resuscitation VS,Fishbone, I+O VS, Fishbone, I+O Laboratory Tests 02/07/19 05:30 Red Blood Count 4.27, Mean Corpuscular Volume 83.8, Mean Corpuscular Hemoglobin 24.6 L, Mean Corpuscular Hemoglobin Concent 29.3 L, Red Cell Distribution Width 21.9 H, Calcium Level 8.1 L Vital Signs Date Time Temp Pulse Resp B/P (MAP) Pulse Ox O2 Delivery O2 Flow Rate FiO2 02/07/19 22:00 97.6 91 16 113/80 (91) 95 02/07/19 09:00 02/07/19 06:00 2.0 02/05/19 05:00 Nasal Cannula I&O- Last 24 Hours up to 6 AM 02/07/19 06:00 Intake Total 1686 ml Output Total 3325 ml Balance -1639 ml LUIS JOHNSON MD Feb 07, 2019 23:01
[2019-02-08] MEDS: PIPERACILLIN/TAZOBACTAM SOD 4.5 GM in D5W MINI-BAG PLUS 50 ML IV SCH ×2 (01:28→07:53)
[2019-02-08 06:00] VITALS: BP_SYST 130; BP_SYST 144; BP_DIAS 73; BP_DIAS 80
[2019-02-08] MEDS: IPRATROPIUM 0.5MG/ALBUTEROL 2.5MG INH SOL UD 3ML (DUONEB)(J7620) NEB SCH ×2 (07:28→11:27)
[2019-02-08] MEDS: VITAMIN D 1,000 INTERNATIONAL UNITS TABLET PO SCH (07:54)
[2019-02-08] MEDS: OMEPRAZOLE 20 MG CAP PO SCH (07:54)
[2019-02-08] MEDS: FUROSEMIDE 40 MG TAB PO SCH (07:54)
[2019-02-08] MEDS: CALCIUM CARBONATE 500 MG CHEW U/D PO SCH (07:54)
[2019-02-08] MEDS: LINEZOLID 600 MG in APPROPRIATE DILUENT 1 EA IV SCH (10:30)
[2019-02-08] MEDS ORDERED: LEVA1TAB2 PO (11:50)
[2019-02-08] MEDS ORDERED: LASI20TA3 PO (11:51)
--- NOTE | 2019-02-09 06:00 | DS.PDOC ---
Discharge Summary General Date of Admission Feb 04, 2019 at 18:56 Date of Discharge Feb 08, 2019 Discharge Summary PROCEDURES PERFORMED DURING STAY: [None]. 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 HISTORY OF PRESENT ILLNESS: As recorded in the H&P: Patient is a 64-year-old female, presenting to the emergency room on account of worsening shortness of breath. Patient has a past medical history most significant for stage IV lung cancer with metastasis to brain, stoma, bone, I. She status post radiation therapy. Patient was recently started on Lorbrena, and states he started noticing some shortness of breath, which was intermittent initially. In the past couple of days that has gotten worse and she called oncologist office and was advised to come to the emergency room for further evaluation and management. Of note, patient was recently admitted and discharged from this facility 2 months ago during which time she was treated for GI bleed and had surgical intervention. Presenting oxygenation was 88% in the emergency room, this improved to 94% on 2 L oxygen. Laboratory data was abnormal for sodium level of 124, which was new. CTA completed to evaluate for pulmonary emboli was negative, but showed left upper lobe patchy infiltrate with consolidation. There were also small right and moderate to large left pleural effusion with atelectasis. Patient, however, denied any chills, fever, chest pain, generalized malaise, other than shortness of breath. She also complained of bilateral lower extremity swelling for which she doubled up on her dose of HCTZ. She attended a class at the [facility] this morning without any issues. HOSPITAL COURSE: Pt was admitted to [facility] on 02/04 with above presentation. She received broad spectrum IV antibiotics for diagnosis of pneumonia, IV lasix for LE edema and continued home medications. Pt initially received O2 via 2lit NC which further titrated off with normal PaO2 in room air. Pt is currently clinically optimized to dc home resuming her scheduled oncology appointments as outpatient. Healthcare acquired pneumonia, likely gram negative organism and MRSA in view of Hx of ca and immunosuppression With patchy lung infiltrates and consolidation in the patient recently admitted and discharged less than 90 days, on Zosyn and linezolid, Supplemental oxygen and monitoring to keep saturation greater than 92%, Scheduled bronchodilator therapy and also as needed Lung cancer, stage IV With metastasis to bone, eyes, brain, stomach, Management by oncology and started on new regimen with Lorbrena Hyponatremia,resolved New for patient, with underlying lung cancer and brain metastasis ,Possibly due to increased dosing of HCTZ versus SIADH ,Fluid restriction, hold HCTZ LE edema responded to lasix DVT prophylaxis Antiembolism stockings with Lovenox daily DISCHARGE MEDICATIONS: Please see below. ALLERGIES: Please see below. PHYSICAL EXAMINATION ON DISCHARGE: VITAL SIGNS: Please see below. General: AAOx3 NAD HEENT: JILLIAN EOMI neck supple no icterus CVS: S1 S2 RRR Lung: clear bilat no wheezing no rales Abdomen: soft NT ND Ext: 2 plus LE edema no tenderness no cyanosis Psych: mood and affect appropriate LABORATORY DATA: Please see below. IMAGING: EXAM DATE/TIME: 02/04/2019 5:45 PM CLINICAL HISTORY: 64 years old, female; Shortness of breath; Additional info: SOB. History of non-small cell lung cancer per prior report. TECHNIQUE: Imaging protocol: Axial computed tomographic angiography images of the chest with intravenous contrast using CT angiography protocol. Coronal and sagittal reformatted images were created and reviewed. 3D rendering: MIP reconstructed images were created and reviewed. Radiation optimization: All CT scans at this facility use at least one of these dose optimization techniques: automated exposure control; mA and/or kV adjustment per patient size (includes targeted exams where dose is matched to clinical indication); or iterative reconstruction. Contrast material: ISOVUE 370; Contrast volume: 75 ml; Contrast route: IV; COMPARISON: CT ANGIO CHEST 12/06/2018 10:29 AM FINDINGS: Limitations: Detail limited by motion artifacts. Pulmonary arteries: No pulmonary embolism. Left lower lobe pulmonary arteries are suboptimally assessed due to artifacts. Aorta: No aortic aneurysm. No aortic dissection. Lungs: Small right and moderate to large left pleural effusions with adjacent atelectasis and/or infiltrates. New patchy infiltrates in the left upper lobe with a small area of consolidation. An anterior pleural-based mass in the right upper lung (series 402, image 34) is slightly smaller than on the prior study. Similar upper medial right pleural based mass (image 67). Similar extensive pleural-parenchymal disease throughout the remainder of the right lung, which could be due to a neoplastic and/or infectious process. Pleural space: See Lungs findings. No pneumothorax. Heart: No cardiomegaly. No pericardial effusion. Lymph nodes: Unremarkable. No enlarged lymph nodes. Bones/joints: Extensive diffuse sclerotic bone metastases have slightly progressed. No acute fracture or dislocation. Soft tissues: Unremarkable. IMPRESSION: 1. No pulmonary embolism. 2. Small right and moderate to large left pleural effusions with adjacent atelectasis and/or infiltrates. 3. New patchy infiltrates in the left upper lobe with a small area of consolidation. 4. Decreased pleural-based right upper lung mass. Similar medial pleural-based right upper lung mass. Similar extensive pleural-parenchymal disease throughout the remainder of the right lung. 5. Slight interval progression of diffuse bone metastases. PROGNOSIS:Guarded ACTIVITY: [As tolerated]. DIET: As tolerated DISCHARGE PLAN: DISPOSITION: 01 Home, Self-Care. DISCHARGE INSTRUCTIONS: 1.return to ED with worsening shortness of breath, chest pain or syncope ITEMS TO FOLLOWUP ON ON OUTPATIENT: 1. Oncology appointment as per previous schedule DISCHARGE CONDITION: optimized for dc TIME SPENT ON DISCHARGE: 40 minutes. Vital Signs/I&Os Vital Signs Date Time Temp Pulse Resp B/P (MAP) Pulse Ox O2 Delivery O2 Flow Rate FiO2 02/08/19 06:00 98.3 81 17 130/80 (97) 89 02/07/19 09:00 02/07/19 06:00 2.0 02/05/19 05:00 Nasal Cannula I&O- Last 24 Hours up to 6 AM 02/09/19 06:00 Intake Total 890 ml Balance 890 ml Microbiology Microbiology 02/04/19 Blood Culture - Preliminary, Resulted No Growth after 72 hours. All specime... 02/04/19 Blood Culture - Preliminary, Resulted No Growth after 72 hours. All specime... Discharge Medications Scheduled Calcium Carbonate (Tums) 500 Mg Chw, 1,000 MG PO DAILY, (Reported) Cholecalciferol (Vitamin D3) (Vitamin D3) 2,000 Unit Tab, 2,000 UNIT PO DAILY, (Reported) Denosumab Injection (Xgeva) 120 Mg/1.7 Ml Inj, 120 MG SC [id number], (Reported) PATIENT STATES THAT SHE RECEIVED LAST INJECTION THE FIRST WEEK IN NOVEMBER AND IS DUE FOR NEXT INJECTION THE FIRST WEEK IN FEBRUARY Furosemide (Lasix) 20 Mg Tablet, 20 MG PO DAILY Levofloxacin (Levaquin) 500 Mg Tablet, 500 MG PO DAILY Lorlatinib (Lorbrena) 100 Mg Tablet, 100 MG PO QHS, (Reported) Multivitamin (Multivitamins) 1 Cap Cap, 1 CAP PO DAILY, (Reported) Omeprazole (Omeprazole) 20 Mg Capsule.dr, 20 MG PO BID, (Reported) Scheduled PRN Acetaminophen (Acetaminophen) 500 Mg Tablet, 500 MG PO Q6H PRN for PAIN, (Repor susan) Allergies Coded Allergies: vancomycin (Verified Allergy, Severe, BECOMES VIOLENTLY ILL, NAUSEA/VOMITING. , 12/03/18) LUIS JOHNSON MD Feb 09, 2019 06:00
[2019-02-11] MEDS ORDERED: [UNRECOGNIZED DRUG - CODE] PO (14:10)
== END 2019-02-08 13:37 | disposition home or self-care (01) | DRG 178 ==
LOC: M ED 15:40 → M ED INP 18:56 → M MSPAV 02-05 12:18
PROVIDERS: ADMIT Family Medicine; ATTEND Hospitalist
DX: J15.6 Pneumonia due to other Gram-negative bacteria (principal); C79.31 Secondary malignant neoplasm of brain; C34.11 Malignant neoplasm of upper lobe, right bronchus or lung; C79.51 Secondary malignant neoplasm of bone; E87.1 Hypo-osmolality and hyponatremia; J15.212 Pneumonia due to Methicillin resistant Staphylococcus aureus; Z92.3 Personal history of irradiation; Z88.1 Allergy status to other antibiotic agents; Z79.899 Other long term (current) drug therapy; D50.9 Iron deficiency anemia, unspecified; Z98.49 Cataract extraction status, unspecified eye; Y95 Nosocomial condition

== ENCOUNTER → 2019-02-11 | Outpatient (REF) | payer MEDICARE, BC ==
[~2019-02-11] MED LIST changes: +LASI20TA3 PO; +LEVA1TAB2 PO; +[UNRECOGNIZED DRUG - CODE] PO
[2019-02-11 15:50] LABS: CHOLESTEROL RISK RATIO 3.795 (<5)
== END ==
LOC: M LAB REF 15:17
PROVIDERS: ATTEND Nurse Practitioner Adult Health
DX: E78.5 Hyperlipidemia, unspecified (principal); E00.1 Congenital iodine-deficiency syndrome, myxedematous type

== ENCOUNTER 2019-02-24 10:24 | Emergency (ER) | payer MEDICARE, BC ==
[~2019-02-24] VITALS: Ht 167.6 cm; Wt 61.4 kg
[2019-02-24 11:53] LABS: BASO # 0.1 10^3/uL (0.0-0.2); EOS # 0.3 10^3/uL (0.0-0.50); HEMATOCRIT 43.5 % (36.0-47.0); HEMOGLOBIN 13.4 g/dl (12.0-15.5); LYMPH # 1.1 10^3/uL (1.5-4.5); LYMPH % 12.3 % (24.0-44.0); MEAN CORPUSCULAR HEMOGLOBIN 25.4 pg (27.0-33.0); MEAN CORPUSCULAR HGB CONC 30.8 g/dl (32.0-36.5); MEAN CORPUSCULAR VOLUME 82.5 fl (80.0-96.0); MONO # 0.8 10^3/uL (0.0-0.8); NEUTROPHILS # 6.4 10^3/uL (1.8-7.7); NEUTROPHILS % 74.5 % (36.0-66.0); PLATELET COUNT, AUTOMATED 424 10^3/uL (150-450); RED BLOOD COUNT 5.27 10^6/uL (4.00-5.40); WHITE BLOOD COUNT 8.6 10^3/uL (4.0-10.0)
[2019-02-24 12:20] LABS: BLOOD UREA NITROGEN 8 MG/DL (7-18); CALCIUM LEVEL 9.3 MG/DL (8.8-10.2); CARBON DIOXIDE LEVEL 31 MEQ/L (21-32); CHLORIDE LEVEL 98 MEQ/L (98-107); CPK CREATINE PHOSPHOKINASE 53 U/L (26-192); CREATININE FOR GFR 0.55 MG/DL (0.55-1.30); GLOMERULAR FILTRATION RATE > 60.0 (>45); GLUCOSE, FASTING 96 MG/DL (70-100); MB/CK RELATIVE INDEX 3.77 (< OR =4); NT-PRO BNP 201 PG/ML (<125); POTASSIUM SERUM 4.6 MEQ/L (3.5-5.1); SODIUM LEVEL 134 MEQ/L (136-145); TROPONIN I < 0.02 NG/ML (< 0.10)
--- NOTE | 2019-02-24 12:23 | REP ---
CHEST, SINGLE VIEW: Single view of the chest is performed and compared to a prior study of 02/04/2019. There are bilateral pleuroparenchymal opacities again identified, right greater than left. The findings are essentially stable compared to a prior study. The heart and mediastinum are unchanged. IMPRESSION: Stable bilateral pleural and parenchymal opacities compared to 02/04/2019. Electronically Signed by Michael Arreguin MD 02/26/2019 07:45 A
[2019-02-24 12:45] VITALS: O2SAT 94
[2019-02-24 12:53] VITALS: BP 143/88
--- NOTE | 2019-02-24 14:51 | REP ---
CT CHEST WITHOUT IV CONTRAST: CT chest performed without IV contrast. Sagittal and coronal reconstruction images are performed. Comparison made with prior CT 02/04/2019. Diffuse right sided pleural thickening is unchanged. Scattered parenchymal opacities on the right, primarily inferiorly in the right lung, are also stable. There is a moderate to large left pleural effusion which has decreased in size since the prior study. Scattered mild patchy atelectasis/infiltrate in the left lung has also improved. The heart and mediastinum are grossly unchanged. Visualized upper abdominal structures are grossly unchanged. Diffuse skeletal metastases are again noted. IMPRESSION: No change in right sided pleural and parenchymal opacities. Compared to prior study of 02/04/2019 the moderate to large left effusion has decreased in size and there is also improvement of scattered patchy atelectasis/infiltrate in the left lung. Electronically Signed by Michael Arreguin MD 02/26/2019 07:50 A
--- NOTE | 2019-02-24 20:01 | ECGEPIP ---
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
[2019-03-05] MEDS ORDERED: LASI20TA3 PO (10:56)
[2019-03-05] MEDS ORDERED: [UNRECOGNIZED DRUG - CODE] PO ×2 (10:56→13:12)
[2019-03-06] MEDS ORDERED: [UNRECOGNIZED DRUG - CODE] PO (12:53)
== END 2019-02-24 14:38 | disposition home or self-care (01) ==
LOC: M ED 10:24
DX: C34.90 Malignant neoplasm of unspecified part of unspecified bronchus or lung (principal); R60.0 Localized edema; J90 Pleural effusion, not elsewhere classified; R09.02 Hypoxemia; Z79.899 Other long term (current) drug therapy; Z88.1 Allergy status to other antibiotic agents

== ENCOUNTER → 2019-02-25 | Outpatient (REF) | payer MEDICARE | LOC: M SFHCWAGY 15:29 | PROVIDERS: ATTEND Nurse Practitioner Women's Health | DX: Z12.4 Encounter for screening for malignant neoplasm of cervix (principal); N95.2 Postmenopausal atrophic vaginitis ==

== ENCOUNTER → 2019-03-10 | Outpatient (CLI) | payer MEDICARE, BC ==
[~2019-03-10] MED LIST changes: +GASTROGRAFIN SOLUTION 30ML (Q9963) As Ordered ONE; +ISOVUE-370 76% 100ML VIAL (Q9967) As Ordered ONE
--- NOTE | 2019-03-11 08:17 | REP ---
REASON FOR EXAM: Nonsmall cell lung carcinoma. All prior chest CTs were reviewed the latest of which is dated 02/24/2019. CONTRAST: 100 mL Isovue 370. The mediastinum and pulmonary phillip are unchanged from the latest prior. The right posterior mediastinal mass is also unchanged. The pleural effusions left greater than right are unchanged. The pleural based masses seen on the right are unchanged from the latest prior. The imaged upper abdomen and imaged osseous structures are unchanged from the last prior. Evaluation of the lung [place] shows scattered asymmetric opacities some with air bronchograms on the right status quo. No new lung field abnormalities have developed since the latest prior. IMPRESSION: There has been no significant change with findings as described above. Electronically Signed by Fransisco Chirinos DO 03/11/2019 11:25 A
--- NOTE | 2019-03-11 08:20 | REP ---
REASON: Non-small cell lung carcinoma. COMPARISON: 07/31/2018, the latest prior. CONTRAST: 100 mL Isovue-370. The liver, gallbladder, spleen, pancreas, adrenal glands, and kidneys are unchanged. The abdominal aorta and para-aortic regions are unchanged. The bowel loops and their mesenteries are unchanged. No intra-abdominal or intrapelvic mass or adenopathy has developed. No free fluid or free air is seen in the abdomen or pelvis. Lung window technique throughout the exam shows diffuse skeletal blastic metastasis, which has worsened. IMPRESSION: 1. No acute intra-abdominal or intrapelvic disease with findings as described above. 2. Worsened blastic skeletal metastasis. Electronically Signed by Fransisco Chirinos DO 03/11/2019 11:25 A
== END ==
LOC: M RAD 11:35
PROVIDERS: ATTEND Internal Medicine Medical Oncology
DX: C34.11 Malignant neoplasm of upper lobe, right bronchus or lung (principal); C79.51 Secondary malignant neoplasm of bone; C79.31 Secondary malignant neoplasm of brain
CPT/HCPCS: 71260; 74177; Q9963; Q9967

== ENCOUNTER → 2019-03-19 | Outpatient (CLI) | payer MEDICARE ==
[~2019-03-19] MED LIST changes: +ALPR0.25 PO; +ATIV1TAB10 PO; +CLAR10CA3 PO; +FOLI0.4T2 PO; +FOLI400T PO; -GASTROGRAFIN SOLUTION 30ML (Q9963) As Ordered ONE; -ISOVUE-370 76% 100ML VIAL (Q9967) As Ordered ONE; +LEVO750T13 PO; +ONDA8TAB8 PO; +PROC10TA4 PO; +XANA0.25 PO
[2019-03-19 15:45] VITALS: BP 117/81
--- NOTE | 2019-03-19 17:04 | REP ---
Chest x-ray: Two views. History: Post left thoracentesis. Comparison chest x-ray February 24, 2019. Findings: There is slight blunting of the posterior pleural angles bilaterally and the lateral pleural angles bilaterally. On the left the subpulmonic effusion is improved. There is no evidence of pneumothorax. On the right, there is some apical pleural thickening unchanged. Left perihilar plate-like atelectasis is seen. Atelectatic changes are noted in the right lower lobe. The right hemithorax is less well inflated than the left as on previous study. There are multiple sclerotic skeletal metastatic foci. There is no evidence of pneumothorax. Electronically Signed by Vidal Gold MD 03/19/2019 07:23 P
--- NOTE | 2019-03-19 19:32 | REP ---
ULTRASOUND GUIDED LEFT THORACENTESIS The procedure was performed under the direct supervision of Dr. Gold. The risks and benefits of the procedure were explained to the patient and informed consent was obtained. The left pleural effusion was localized using ultrasound guidance. The skin was prepped and draped in a sterile fashion. 1% lidocaine was used as a local anesthetic. An 8-Latvian multi side-hole catheter was inserted using trocar technique. 850 ml of pink colored fluid was withdrawn and sent to lab for analysis. The patient tolerated the procedure well and there were no immediate complications. After the appropriate amount of monitored convalescence the patient was discharged from the department. Reviewed by DIANE Herman 03/19/2019 05:03 P Electronically Signed by Vidal Gold MD 03/19/2019 07:23 P
== END ==
LOC: M IRPRO 12:35
PROVIDERS: ATTEND Internal Medicine Medical Oncology
DX: C34.11 Malignant neoplasm of upper lobe, right bronchus or lung (principal); J98.11 Atelectasis; J91.8 Pleural effusion in other conditions classified elsewhere; R06.00 Dyspnea, unspecified

== ENCOUNTER → 2019-03-27 | Outpatient (CLI) | payer MEDICARE ==
[~2019-03-27] MED LIST changes: +ALPR0.25; -ALPR0.25 PO; -CLAR10CA3 PO; -FOLI0.4T2 PO
--- NOTE | 2019-03-27 15:08 | REP ---
Clinical: Lung cancer. Technique: PA and lateral. Comparison: November 24, 2018. Findings: Bilateral pleuroparenchymal changes (right greater than left) including suspected superimposed infiltrates and small left pleural effusion are suggested. Impression: Chronic bilateral pleuroparenchymal changes with suspected superimposed basilar opacity and left pleural effusion. Electronically Signed by Billy Lundy MD 03/27/2019 03:00 P
== END ==
LOC: M RAD 14:39
PROVIDERS: ATTEND Internal Medicine Medical Oncology
DX: J90 Pleural effusion, not elsewhere classified (principal)

== ENCOUNTER 2019-04-01 14:47 | Emergency (ER) | payer MEDICARE, BC ==
[~2019-04-01] VITALS: Ht 167.6 cm; Wt 61.4 kg
[~2019-04-01 14:47] MED LIST changes: -ALPR0.25; -FOLI400T PO; -LEVO750T13 PO; -ONDA8TAB8 PO; -PROC10TA4 PO; -XANA0.25 PO
[2019-04-01] MEDS ORDERED: FOLI400T PO (14:57)
[2019-04-01] MEDS ORDERED: ALPR0.25 PO (14:57)
[2019-04-01] MEDS ORDERED: IPRATROPIUM 0.5MG/ALBUTEROL 2.5MG INH SOL UD 3ML (DUONEB)(J7620) NEB ONE (15:15)
[2019-04-01 15:52] LABS: BASO # 0.1 10^3/uL (0.0-0.2); BASO % 0.9 % (0.0-1.0); EOS # 0.1 10^3/uL (0.0-0.5); EOS % 1.1 % (0.0-3.0); HEMATOCRIT 44.2 % (36.0-47.0); LYMPH # 0.4 10^3/uL (1.5-5.0); LYMPH % 5.1 % (24.0-44.0); MEAN CORPUSCULAR HEMOGLOBIN 25.6 pg (27.0-33.0); MEAN CORPUSCULAR HGB CONC 31.7 g/dl (32.0-36.5); MONO # 0.8 10^3/uL (0.0-0.8); MONO % 9.4 % (0.0-5.0); NEUTROPHILS # 7.1 10^3/uL (1.5-8.5); NEUTROPHILS % 83.1 % (36.0-66.0); PLATELET COUNT, AUTOMATED 353 10^3/uL (150-450); RED BLOOD COUNT 5.46 10^6/uL (4.00-5.40); VENOUS BASE EXCESS 2.4 (-2.0-2.0); VENOUS HCO3 30.2 MEQ/L (23.0-27.0); VENOUS O2 SATURATION 62.9 % (60.0-80.0); VENOUS PARTIAL PRESSURE CO2 60.4 mmHg (38.0-50.0); VENOUS PARTIAL PRESSURE O2 36.6 mmHg (30.0-50.0); VENOUS PH 7.317 UNITS (7.330-7.430); VENOUS STANDARD HCO3 25.6 MEQ/L; VENOUS TOTAL CO2 32.1 MEQ/L (24.0-28.0); WHITE BLOOD COUNT 8.5 10^3/uL (4.0-10.0)
[2019-04-01 16:05] LABS: INR 1.01
[2019-04-01] MEDS ORDERED: NS 1,000 ML IV SCH (16:30)
[2019-04-01 16:32] LABS: ALBUMIN 3.3 GM/DL (3.2-5.2); ALT/SGPT 21 U/L (12-78); BILIRUBIN,DIRECT 0.1 MG/DL (0.0-0.2); BILIRUBIN,TOTAL 0.3 MG/DL (0.2-1.0); BLOOD UREA NITROGEN 9 MG/DL (7-18); CALCIUM LEVEL 9.1 MG/DL (8.8-10.2); CARBON DIOXIDE LEVEL 35 MEQ/L (21-32); CHLORIDE LEVEL 93 MEQ/L (98-107); CK-MB VALUE MASS 2.6 NG/ML (<3.6); CPK CREATINE PHOSPHOKINASE 50 U/L (26-192); CREATININE FOR GFR 0.58 MG/DL (0.55-1.30); GLOMERULAR FILTRATION RATE > 60.0 (>45); GLUCOSE, FASTING 94 MG/DL (70-100); POTASSIUM SERUM 4.2 MEQ/L (3.5-5.1); SODIUM LEVEL 132 MEQ/L (136-145); TOTAL PROTEIN 6.7 GM/DL (6.4-8.2); TROPONIN I < 0.02 NG/ML (< 0.10)
[2019-04-01] MEDS ORDERED: ISOVUE-370 76% 100ML VIAL (Q9967) As Ordered ONE (16:41)
--- NOTE | 2019-04-01 17:35 | REP ---
CHEST, TWO VIEWS: Two views of the chest are performed. Comparison is made with prior study of 03/27/2019 as well as multiple other prior studies dating back to 02/24/2019. There are bilateral pleural and parenchymal opacities, right greater than left. These have remained stable since the prior studies. The heart and mediastinum are unchanged. IMPRESSION: Stable exam. Electronically Signed by Michael Arreguin MD 04/02/2019 04:58 P
--- NOTE | 2019-04-01 18:22 | REPVR ---
EXAM: CT Angiography Chest With Contrast EXAM DATE/TIME: 04/01/2019 5:09 PM CLINICAL HISTORY: 64 years old, female; Chest pain; Prior surgery; Additional info: R/O pe TECHNIQUE: Imaging protocol: Computed tomographic angiography of the chest with intravenous contrast. 3D rendering: MIP reconstructed images were created and reviewed. Radiation optimization: All CT scans at this facility use at least one of these dose optimization techniques: automated exposure control; mA and/or kV adjustment per patient size (includes targeted exams where dose is matched to clinical indication); or iterative reconstruction. Contrast material: ISOVUE 370; Contrast volume: 75 ml; Contrast route: IV; COMPARISON: CT ANGIO CHEST 02/04/2019 5:44 PM FINDINGS: Pulmonary arteries: There are no filling defects in the pulmonary arterial tree to suggest a pulmonary embolus. Aorta: Unremarkable. No aortic aneurysm. No aortic dissection. Lungs: Multifocal consolidations with air bronchograms in the right lung are worse in the right lower lobe compared to the right upper lobe. They are unchanged. Volume loss in the right hemithorax with shift of mediastinal structures to the right. Pleural space: No pneumothorax. Small right pleural effusion is 1.0 cm in depth. Moderate/large left pleural effusion is 5.8 cm in depth. Pleural-based mass at the postero-medial aspect of the right upper lobe is 5.0 x 5.0 x 2.1 cm. Heart: Heart size is normal. Mediastinum: The trachea is displaced 2.0 cm to the right. Stomach and bowel: There are surgical kennedy attached to the wall of the proximal stomach. Lymph nodes: Unremarkable. No enlarged lymph nodes. Bones/joints: Numerous osteoblastic skeletal metastases are not significantly changed. Soft tissues: Unremarkable. Other findings: Volume loss in the right hemithorax. Included upper abdominal structures appear normal. IMPRESSION: 1. No pulmonary embolus. 2. No significant change as compared to the last chest CT 8 weeks ago. 3. Multifocal consolidations with air bronchograms in the right lung are worse in the right lower lobe compared to the right upper lobe. 4. Small right pleural effusion is 1.0 cm in depth. Moderate/large left pleural effusion is 5.8 cm in depth. It is unchanged. 5. Numerous osteoblastic skeletal metastases are not significantly changed. 6. Pleural-based mass at the postero-medial aspect of the right upper lobe is 5.0 x 5.0 x 2.1 cm. Electronically signed by: Rashid Ornelas On 04/01/2019 18:21:53 PM
[2019-04-01 19:00] VITALS: BP 156/93
--- NOTE | 2019-04-01 19:30 | ECGEPIP ---
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
[2019-04-02] MEDS ORDERED: XANA0.25 PO (15:23)
[2019-04-02] MEDS ORDERED: LEVO750T13 PO (15:47)
[2019-04-07] MEDS ORDERED: ONDA8TAB8 PO (09:58)
[2019-04-07] MEDS ORDERED: PROC10TA4 PO (09:58)
--- NOTE | 2019-04-08 13:28 | ED PDOC ---
Post-Departure Follow-Up dr hector faxed formal report of cta chest for fu Trupti Glaser MD Apr 08, 2019 13:28
[2019-04-16] MEDS ORDERED: TRAM50TA2 PO (14:29)
== END 2019-04-01 19:39 | disposition home or self-care (01) ==
LOC: M ED 14:47
DX: J90 Pleural effusion, not elsewhere classified (principal); C34.90 Malignant neoplasm of unspecified part of unspecified bronchus or lung; Z88.1 Allergy status to other antibiotic agents; Z87.891 Personal history of nicotine dependence
CPT/HCPCS: 36415; 71046; 71275; 80048; 80076; 82550; 82553; 82803; 84484; 85025; 85610; 93005; 93041; 94640; 96360; 96361; 99285; Q9967

== ENCOUNTER → 2019-04-03 | Outpatient (CLI) | payer MEDICARE, BC ==
[~2019-04-03] MED LIST changes: +ALPR0.25 PO; +CLAR10CA3 PO; +FOLI0.4T2 PO; +FOLI400T PO; +LEVO750T13 PO; +LIDOCAINE 1% MDV 20ML VIAL As Ordered ONE; +ONDA8TAB8 PO; +PROC10TA4 PO; +XANA0.25 PO
[2019-04-03 13:05] VITALS: BP 123/81
--- NOTE | 2019-04-03 13:47 | REP ---
CHEST, TWO VIEWS: Two views of the chest performed status post thoracentesis. There is no pneumothorax. Chronic interstitial opacities are seen on the left. There are extensive pleural and parenchymal opacities again seen on the right, which are stable. Electronically Signed by Michael Arreguin MD 04/03/2019 02:12 P
--- NOTE | 2019-04-03 17:01 | REP ---
ULTRASOUND GUIDED LEFT THORACENTESIS The procedure was performed under the direct supervision of Dr. Arreguin. The risks and benefits of the procedure were explained to the patient and informed consent was obtained. The left pleural effusion was localized using ultrasound guidance. The skin was prepped and draped in a sterile fashion. 1% lidocaine was used as a local anesthetic. An 8-Romanian multi side-hole catheter was inserted using trocar technique. 1265 ml of cloudy yellow fluid was withdrawn and discarded. The patient tolerated the procedure well and there were no immediate complications. After the appropriate amount of monitored convalescence the patient was discharged from the department. Reviewed by DIANE Herman 04/03/2019 03:09 P Electronically Signed by Michael Arreguin MD 04/03/2019 04:53 P
== END ==
LOC: M IRPRO 11:08
DX: J90 Pleural effusion, not elsewhere classified (principal)

== ENCOUNTER 2019-04-10 11:59 | Inpatient (IN) | payer MEDICARE ==
[~2019-04-10] VITALS: Ht 167.6 cm; Wt 56.0 kg
[~2019-04-10 11:59] MED LIST changes: -CLAR10CA3 PO; -FOLI0.4T2 PO; -LIDOCAINE 1% MDV 20ML VIAL As Ordered ONE
--- NOTE | 2019-04-10 12:43 | REP ---
CHEST, PORTABLE: AP portable view of the chest is performed and compared to prior studies dating back to 02/24/2019. There is diffuse pleural and parenchymal opacity on the right which appears essentially stable. There is mild streaky opacity in the left lung base which is stable. The heart and mediastinum are unchanged. IMPRESSION: Essentially stable exam. Electronically Signed by Michael Arreguin MD 04/10/2019 05:38 P
[2019-04-10 13:08] LABS: HEMATOCRIT 45.3 % (36.0-47.0); HEMOGLOBIN 14.1 g/dl (12.0-15.5); MEAN CORPUSCULAR HEMOGLOBIN 26.3 pg (27.0-33.0); MEAN CORPUSCULAR HGB CONC 31.1 g/dl (32.0-36.5); MEAN CORPUSCULAR VOLUME 84.5 fl (80.0-96.0); PLATELET COUNT, AUTOMATED 310 10^3/uL (150-450); RED BLOOD COUNT 5.36 10^6/uL (4.00-5.40)
[2019-04-10 13:09] LABS: WHITE BLOOD COUNT 42.1 10^3/uL (4.0-10.0)
[2019-04-10 13:25] LABS: EOSINOPHILS 1 % (0-3); LYMPHOCYTES 1 % (16-44); MONOCYTES 2 % (0-5); NEUTROPHILS 95 % (28-66); PLATELET ESTIMATE NORMAL (NORMAL); PROTHROMBIN TIME 12.9 SECONDS (11.8-14.0)
[2019-04-10 13:52] LABS: ALBUMIN 3.2 GM/DL (3.2-5.2); ALT/SGPT 17 U/L (12-78); BILIRUBIN,DIRECT 0.1 MG/DL (0.0-0.2); BILIRUBIN,TOTAL 0.5 MG/DL (0.2-1.0); BLOOD UREA NITROGEN 10 MG/DL (7-18); CALCIUM LEVEL 8.8 MG/DL (8.8-10.2); CARBON DIOXIDE LEVEL 31 MEQ/L (21-32); CHLORIDE LEVEL 93 MEQ/L (98-107); CK-MB VALUE MASS 2.2 NG/ML (<3.6); CPK CREATINE PHOSPHOKINASE 39 U/L (26-192); CREATININE FOR GFR 0.47 MG/DL (0.55-1.30); GLOMERULAR FILTRATION RATE > 60.0 (>45); GLUCOSE, FASTING 80 MG/DL (70-100); MB/CK RELATIVE INDEX 5.64 (< OR =4); NT-PRO BNP 887 PG/ML (<125); POTASSIUM SERUM 4.2 MEQ/L (3.5-5.1); SODIUM LEVEL 133 MEQ/L (136-145); TOTAL PROTEIN 6.1 GM/DL (6.4-8.2); TROPONIN I < 0.02 NG/ML (< 0.10)
[2019-04-10] MEDS ORDERED: ONDANSETRON 4MG/2ML VIAL (J2405) IV ONE (14:00)
[2019-04-10] MEDS ORDERED: ISOVUE-370 76% 100ML VIAL (Q9967) As Ordered ONE (14:16)
[2019-04-10] MEDS ORDERED: FOLI0.4T2 PO (14:44)
[2019-04-10] MEDS ORDERED: CLAR10CA3 PO (14:44)
--- NOTE | 2019-04-10 14:55 | REP ---
CT of the chest with IV contrast, CT pulmonary angiography protocol: Comparison is 04/01/2019. Clinical history states lung carcinoma. There are no emboli in the pulmonary trunk or central pulmonary arteries. There are no emboli in the pulmonary lobe or segment branches. There is a large left pleural effusion and a small right pleural effusion. This is unchanged. There is an anterolateral paraspinal mass on the right extending into the subcarinal zone. This is unchanged. There is a right upper lobe infiltrate that has worsened. There is an infiltrate in the lingula that has worsened. The thoracic aorta is unremarkable. Cardiac size is normal. There is no pericardial effusion. Multiple blastic skeletal metastases are again identified. Volume loss in the left hemithorax is again identified, unchanged. Impression: There are no pulmonary emboli. There are bilateral pleural effusions as described, unchanged. There are focal zones of pleural thickening on the right, unchanged. The right upper lobe infiltrate has worsened. The infiltrate in the lingula has worsened. The paraspinal mass extending into the subcarinal zone is unchanged. Multiple blastic skeletal metastases are again identified. Electronically Signed by Michael Garg MD 04/10/2019 02:46 P
[2019-04-10] MEDS ORDERED: ONDANSETRON 4 MG ORAL DISINTEGRATING TAB (Q0162 PER 1MG) PO PRN (16:30)
[2019-04-10] MEDS ORDERED: PROCHLORPERAZINE 5 MG TAB (S0183) PO PRN (16:30)
[2019-04-10] MEDS: FOLIC ACID 1 MG TAB PO ONE ×2 (16:30→18:47)
[2019-04-10] MEDS ORDERED: PIPERACILLIN/TAZOBACTAM SOD 3.375 GM in D5W MINI-BAG PLUS 50 ML IV ONE (16:45)
[2019-04-10] MEDS ORDERED: IPRATROPIUM 0.5MG/ALBUTEROL 2.5MG INH SOL UD 3ML (DUONEB)(J7620) NEB ONE (17:00)
[2019-04-10 19:03] VITALS: BP 149/80
[2019-04-10] MEDS: DOXYCYCLINE HYCLATE 100 MG in D5W MINI-BAG PLUS 100 ML IV SCH (20:11)
[2019-04-10] MEDS: DOCUSATE SODIUM 100 MG CAP PO SCH (20:11)
[2019-04-10] MEDS: ALPRAZolam 0.25 MG TAB PO PRN (20:18)
--- NOTE | 2019-04-10 21:41 | ECGEPIP ---
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
--- NOTE | 2019-04-10 21:50 | HPEPDOC ---
[facility] Medical History & Physical Date of Admission Apr 10, 2019 Date of Service: Apr 10, 2019 History and Physical CHIEF COMPLAINT: [large pleural effusion] HISTORY OF PRESENT ILLNESS: Patient is a 64 yo f with hx of lung cancer who has multiple episodes of pleural effusion s/p thoracocentesis and pleurodesis on the right who presented to the ed for sob. CT scan shows large left sided pleural effusion. Patient said she has been coughing as well, but denied fever, chills, and chest pain. PAST MEDICAL HISTORY: lung cancer Allergies vancomycin (Verified Allergy, Severe, BECOMES VIOLENTLY ILL, NAUSEA/VOMITING. , 12/03/18) Past Medical History Medical History Iron deficiency anemia Stage IV lung cancer with metastasis to brain, stoma, bones, eyes GI bleed Surgical History Cataracts Talc pleurodesis Family History Father: Diabetes mellitus Mother: Bladder cancer Social History Denies tobacco, alcohol, polysubstance abuse ROS - all 10 point review of system is negative except for whats listed in HPI Physical exam Gen: NAD, thin appearing , HEENT: normocephalic, atraumatic, no discharge from ears or nose, no oropharyngeal erythema or exudate, neck is supple, no lymphadenopathy, trachea midline CVS: RRR, normal S1n S2, no murmur, rubs, or gallops, no edema, no jvd Resp: b/l wheezes, no rhonchi, or crackles Abd : soft nontender, normal bowel sounds, no rebound tenderness or guarding MSK: no swelling, full range of motion, strength 5/5 Neuro: AOAx3, no confusion, no focal deficit Psych: normal mood and affect, good judgment Assessment and plan Large Pleural effusion //PNA -IR guided biopsy for tomorrow -allergic to vanco -start doxy and zosyn for now -f/u sputum cx and bacterial ag Vital Signs Vital Signs Date Time Temp Pulse Resp B/P (MAP) Pulse Ox O2 Delivery O2 Flow Rate FiO2 04/10/19 13:45 145/81 (102) 04/10/19 13:44 104 93 Nasal Cannula 2.0 04/10/19 12:56 92 04/10/19 11:59 98.7 18 Laboratory Data Labs 24H Laboratory Tests 2 04/10/19 12:52: Immature Granulocyte % (Auto) , White Blood Count 42.1*H, Red Blood Count 5.36, Hemoglobin 14.1, Hematocrit 45.3, Mean Corpuscular Volume 84.5, Mean Corpuscular Hemoglobin 26.3L, Mean Corpuscular Hemoglobin Concent 31.1L, Red Cell Distribution Width 19.2H, Platelet Count 310, Neutrophils # (Auto) , Nucleated Red Blood Cells % (auto) 0.0, Neutrophils 95H, Band Neutrophils 1, Lymphocytes (Manual) 1L, Monocytes (Manual) 2, Eosinophils (Manual) 1, Platelet Estimate NORMAL, Red Blood Cell Morphology NORMAL, Prothrombin Time 12.9, Prothromb Time International Ratio 1.00, Anion Gap 9, Glomerular Filtration Rate > 60.0, Lactic Acid Level 1.3, Calcium Level 8.8, Aspartate Amino Transf (AST/SGOT) 12, Alanine Aminotransferase (ALT/SGPT) 17, Alkaline Phosphatase 106, Total Bilirubin 0.5, Direct Bilirubin 0.1, Total Creatine Kinase 39, Creatine Kinase MB 2.2, Creatine Kinase MB Relative Index 5.64H, Troponin I < 0.02, XJ-Npz-H-Type Natriuretic Peptide 887H, Total Protein 6.1L, Albumin 3.2, Albumin/Globulin Ratio 1.10, Thyroid Stimulating Hormone (TSH) 1.060 CBC/BMP Laboratory Tests 04/10/19 12:52 Red Blood Count 5.36, Mean Corpuscular Volume 84.5, Mean Corpuscular Hemoglobin 26.3 L, Mean Corpuscular Hemoglobin Concent 31.1 L, Red Cell Distribution Width 19.2 H, Neutrophils # (Auto) Microbiology Microbiology 04/10/19 Blood Culture, Received Pending 04/10/19 Blood Culture, Received Pending Home Medications Scheduled Calcium Carbonate (Tums) 500 Mg Chw, 500 MG PO DAILY Cholecalciferol (Vitamin D3) (Vitamin D3) 2,000 Unit Tab, 2,000 UNIT PO DAILY Denosumab Injection (Xgeva) 120 Mg/1.7 Ml Inj, 120 MG SC [id number] Folic Acid (Folic Acid) 0.4 Mg Tablet, 0.8 MG PO DAILY Multivitamin (Multivitamins) 1 Cap Cap, 1 CAP PO DAILY Omeprazole (Omeprazole) 20 Mg Capsule.dr, 20 MG PO BID Scheduled PRN Acetaminophen (Acetaminophen) 500 Mg Tablet, 500 MG PO Q6H PRN for PAIN Alprazolam (Alprazolam) 0.25 Mg Tablet, 0.25 MG PO BID PRN for ANXIETY Loratadine (Claritin) 10 Mg Capsule, 10 MG PO DAILY PRN for ALLERGIES Ondansetron (Ondansetron Odt) 8 Mg Tab.rapdis, 8 MG PO Q6H PRN for NAUSEA Take one tab by mouth every 6 hours as needed for nausea Prochlorperazine Maleate (Prochlorperazine Maleate) 10 Mg Tablet, 10 MG PO Q8HP PRN for NAUSEA Take one tab by mouth every 8 hours as needed for nausea Allergies Coded Allergies: vancomycin (Verified Allergy, Severe, BECOMES VIOLENTLY ILL, NAUSEA/VOMITING. , 12/03/18) A-FIB/CHADSVASC A-FIB History Current/History of A-Fib/PAF?: No Current PO Anticoag Therapy: No Age/Risk Factor Scoring CHADSVASC: CHADSVASC Response (Comments) Value Age Risk Factor Age 65-74 years old 1 Gender Risk Factor Female 1 Hx of CHF No 0 Hx of HTN No 0 Hx of Stroke/TIA/or VTE No 0 Hx of Diabetes No 0 Hx of Vascular Disease No 0 Total 2 Treatment Treatment ordered: NONE Reason Anticoagulant not given: Not indicated/[id number] DORINDA BRITO MD Apr 10, 2019 16:40
[2019-04-10] MEDS: ACETAMINOPHEN TAB 650MG DOSE (2X325MG) PO PRN (23:06)
[2019-04-11] VITALS (10 sets, daily range): BP systolic 115–152; BP diastolic 64–86
[2019-04-11] MEDS: ACETAMINOPHEN TAB 650MG DOSE (2X325MG) PO PRN (03:17)
[2019-04-11] MEDS: LORATADINE 10 MG TAB PO PRN (03:17)
[2019-04-11 05:39] LABS: HEMATOCRIT 42.4 % (36.0-47.0); HEMOGLOBIN 13.2 g/dl (12.0-15.5); MEAN CORPUSCULAR HEMOGLOBIN 25.5 pg (27.0-33.0); MEAN CORPUSCULAR HGB CONC 31.1 g/dl (32.0-36.5); PLATELET COUNT, AUTOMATED 298 10^3/uL (150-450); RED BLOOD COUNT 5.17 10^6/uL (4.00-5.40)
[2019-04-11 05:44] LABS: WHITE BLOOD COUNT 46.1 10^3/uL (4.0-10.0)
[2019-04-11 05:59] LABS: BLOOD UREA NITROGEN 7 MG/DL (7-18); CALCIUM LEVEL 8.2 MG/DL (8.8-10.2); CARBON DIOXIDE LEVEL 30 MEQ/L (21-32); CHLORIDE LEVEL 92 MEQ/L (98-107); CREATININE FOR GFR 0.41 MG/DL (0.55-1.30); GLOMERULAR FILTRATION RATE > 60.0 (>45); GLUCOSE, FASTING 87 MG/DL (70-100); POTASSIUM SERUM 4.2 MEQ/L (3.5-5.1); SODIUM LEVEL 128 MEQ/L (136-145)
[2019-04-11] MEDS: CALCIUM CARBONATE 500 MG CHEW U/D PO SCH (08:29)
[2019-04-11] MEDS: DOCUSATE SODIUM 100 MG CAP PO SCH ×2 (08:29→21:14)
[2019-04-11] MEDS: DOXYCYCLINE HYCLATE 100 MG in D5W MINI-BAG PLUS 100 ML IV SCH ×2 (08:30→21:37)
[2019-04-11] MEDS: VITAMIN D 1,000 INTERNATIONAL UNITS TABLET PO SCH (08:31)
[2019-04-11] MEDS ORDERED: SLF 3 ML SYR IV PRN (09:00)
[2019-04-11] MEDS ORDERED: MULTIVITAMINS/MINERALS THERAP 1 TAB PO ONE (09:00)
[2019-04-11] MEDS ORDERED: OMEPRAZOLE 20 MG CAP PO ONE (09:00)
--- NOTE | 2019-04-11 11:52 | REP ---
CHEST, TWO VIEWS: Two views of the chest are performed and compared to prior study 04/10/2019. The patient is status post left thoracentesis. There is no pneumothorax. There is mild blunting of the left costophrenic angle. This has improved. Mild parenchymal opacities in the left lung are stable. Pleural and parenchymal opacities in the right lung are stable. IMPRESSION: No pneumothorax status post left thoracentesis. Electronically Signed by Michael Arreguin MD 04/11/2019 06:44 P
[2019-04-11] MEDS ORDERED: CEFTAROLINE FOSAMIL 600 MG in D5W MINI-BAG PLUS 50 ML IV SCH (12:00)
[2019-04-11 14:12] LABS: BLOOD UREA NITROGEN 8 MG/DL (7-18); CALCIUM LEVEL 8.4 MG/DL (8.8-10.2); CARBON DIOXIDE LEVEL 30 MEQ/L (21-32); CHLORIDE LEVEL 91 MEQ/L (98-107); CREATININE FOR GFR 0.38 MG/DL (0.55-1.30); GLOMERULAR FILTRATION RATE > 60.0 (>45); GLUCOSE, FASTING 105 MG/DL (70-100); SODIUM LEVEL 130 MEQ/L (136-145)
[2019-04-11 14:20] LABS: OSMOLALITY SERUM 264 MOSM/KG (280-301)
[2019-04-11] MEDS: SLF 3 ML SYR IV SCH ×2 (14:23→21:15)
[2019-04-11 16:42] LABS: OSMOLALITY URINE 387 MOSM/KG (500-800)
[2019-04-11 16:48] LABS: SODIUM,RANDOM URINE 59 MEQ/L
--- NOTE | 2019-04-11 17:30 | REP ---
ULTRASOUND GUIDED LEFT THORACENTESIS The procedure was performed under the direct supervision of Dr. Arreguin. The risks and benefits of the procedure were explained to the patient and informed consent was obtained. The left pleural effusion was localized using ultrasound guidance. The skin was prepped and draped in a sterile fashion. 1% lidocaine was used as a local anesthetic. An 8-Kiswahili multi side-hole catheter was inserted using trocar technique. 1350 ml of cloudy yellow fluid was withdrawn and sent to the lab for analysis. The patient tolerated the procedure well and there were no immediate complications. After the appropriate amount of monitored convalescence the patient was discharged from the department. Electronically Signed by DIANE Herman 04/11/2019 01:39 P Electronically Signed by Michael Arreguin MD 04/11/2019 05:22 P
--- NOTE | 2019-04-11 19:18 | IPNPDOC ---
Text Note Date of Service The patient was seen on 04/11/19. NOTE CODE STATUS: Patient is FULL CODE SUBJECTIVE: Patient was admitted overnight for shortness of breath the setting of a large left-sided pleural effusion secondary to stage IV metastatic lung cancer. She presented one week ago for the same complaint and was tending to follow-up with Dr. Milligan this week for consideration of possible pleurodesis placement as this has happened 2-3 times in the last month. She denies any fevers, chills, productive cough. She admits to pleurisy and difficulty taking a full breath. OBJECTIVE: PHYSICAL EXAM: Vitals: (see below) General: Frail appearing female who appears older than stated age in mild distress sitting upright in bed. HEENT: Normocephalic, atraumatic. Bitemporal wasting. EOMI. No scleral icterus. Moist mucous membranes. No pharyngeal erythema or uvular deviation. Neck: No JVD, lymphadenopathy, or thyromegaly. Cardiac: Tachycardia rate regular rhythm, Normal S1 and S2, No murmurs, gallops, rubs. Pulm: Breath sounds diminished bilaterally. Crackles present in bilateral lower lobes, left greater than right. No wheezing or rhonchi. Abd: Bowel Sounds present. Abdomen is soft, non-tender, non-distended. Ext: No edema or cyanosis Neuro: No focal neuro deficits LABORATORY DATA, MICROBIOLOGY: Please see below. IMAGING STUDIES: 04/10/19 chest x-ray: There is diffuse pleural and parenchymal opacity on the right which appears essentially stable. There is mild streaky opacity in the left lung base which is stable. Essentially stable exam. 04/10/19 CT angiogram: There are no pulmonary emboli. There are bilateral pleural effusions as described, unchanged. There are focal zones of pleural thickening on the right, unchanged. The right upper lobe infiltrate has worsened. The infiltrate in the lingula has worsened. The paraspinal mass extending into the subcarinal zone is unchanged. Multiple blastic skeletal metastases are again identified. 04/11/19 chest biopsy: No pneumothorax status post left thoracentesis 04/11/19 thoracentesis ultrasound: 1350 mL of cloudy yellow fluid was withdrawn and sent to lab for analysis ASSESSMENT AND PLAN: #. Pleural effusion secondary to metastatic lung disease Plan is for patient to go down to interventional radiology this morning and have her pleural effusion drained. Dr. Milligan has been consulted with thoracic surgery and will see the patient tomorrow as he is not available today for consideration of possible placement of a Pleurx catheter. Patient is status post left-sided thoracentesis with 1.3 L taken off today. #. Right upper lobe infiltrate Readings on CT angiogram suspicious for possible pneumonia. We'll cover empirically with ceftaroline and doxycycline for the time being until blood cultures are returned as negative. MRSA negative, will continue with ceftriaxone pending results blood culture results. #. 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 Patient of Dr. Angelo who is currently being treated with carboplatin /pemetrexed/Pemberlizumab with denosumab every 3 months #. Hyponatremia -Patient has had this during prior admissions, based on low serum osmolality and somewhat elevated urine sodium it is possible the patient may have a mild form of SIADH although in the setting of her pulmonary edema it may just be due to her low effective circulating volume resulting in an apparent reduction in sodium. We will hold her fluids for the time being as she is stable and see what her AM labs show tomorrow morning. #. Leukocytosis Likely secondary to the Neupogen she received this past Sunday. We'll continue to monitor. DVT prophylaxis: Millie Harper DISPOSITION: pending Dr. Milligan's evaluation, hopefully tomorrow. VS,Prasadbone, I+O VS, Fishbone, I+O Laboratory Tests 04/11/19 05:17 Red Blood Count 5.17, Mean Corpuscular Volume 82.0, Mean Corpuscular Hemoglobin 25.5 L, Mean Corpuscular Hemoglobin Concent 31.1 L, Red Cell Distribution Width 18.7 H, Calcium Level 8.2 L 04/11/19 13:45 Calcium Level 8.4 L Vital Signs Date Time Temp Pulse Resp B/P (MAP) Pulse Ox O2 Delivery O2 Flow Rate FiO2 04/11/19 17:40 98.6 105 18 123/76 (92) 94 04/11/19 15:15 Room Air 04/11/19 14:07 2.0 04/10/19 12:56 92 I&O- Last 24 Hours up to 6 AM 04/11/19 06:00 Intake Total 660 ml Output Total 350 ml Balance 310 ml GME ATTESTATION GME ATTESTATION I saw and evaluated the patient. I agree with the findings and plan of care as documented in the above note SUSANNE TYSON DO Apr 11, 2019 19:18 ROGERIO REINOSO MD Apr 14, 2019 14:15
[2019-04-11] MEDS ORDERED: cefTRIAXone SOD 1 GM in D5W MINI-BAG PLUS 50 ML IV SCH (20:00)
[2019-04-11] MEDS ORDERED: ONDANSETRON 4MG/2ML VIAL (J2405) IV PRN (21:00)
[2019-04-11] MEDS: ALPRAZolam 0.25 MG TAB PO PRN (21:14)
[2019-04-11] MEDS: NYSTATIN 500,000 U/5 ML SUSP UDC PO SCH (21:14)
[2019-04-11 22:32] LABS: BLOOD UREA NITROGEN 7 MG/DL (7-18); CALCIUM LEVEL 8.4 MG/DL (8.8-10.2); CARBON DIOXIDE LEVEL 33 MEQ/L (21-32); CHLORIDE LEVEL 90 MEQ/L (98-107); CREATININE FOR GFR 0.46 MG/DL (0.55-1.30); GLOMERULAR FILTRATION RATE > 60.0 (>45); GLUCOSE, FASTING 90 MG/DL (70-100); POTASSIUM SERUM 4.2 MEQ/L (3.5-5.1); SODIUM LEVEL 129 MEQ/L (136-145)
[2019-04-12] VITALS: BP 120/70
[2019-04-12] MEDS: LORATADINE 10 MG TAB PO PRN (03:58)
[2019-04-12 04:00] VITALS: BP 126/73
[2019-04-12] MEDS: SLF 3 ML SYR IV SCH (05:45)
[2019-04-12 06:15] LABS: BLOOD UREA NITROGEN 6 MG/DL (7-18); CALCIUM LEVEL 8.1 MG/DL (8.8-10.2); CARBON DIOXIDE LEVEL 31 MEQ/L (21-32); CHLORIDE LEVEL 93 MEQ/L (98-107); CREATININE FOR GFR 0.47 MG/DL (0.55-1.30); GLOMERULAR FILTRATION RATE > 60.0 (>45); GLUCOSE, FASTING 85 MG/DL (70-100); POTASSIUM SERUM 4.3 MEQ/L (3.5-5.1); SODIUM LEVEL 132 MEQ/L (136-145)
[2019-04-12 07:53] LABS: HEMATOCRIT 42.8 % (36.0-47.0); HEMOGLOBIN 13.5 g/dl (12.0-15.5); MEAN CORPUSCULAR HEMOGLOBIN 26.1 pg (27.0-33.0); MEAN CORPUSCULAR HGB CONC 31.5 g/dl (32.0-36.5); MEAN CORPUSCULAR VOLUME 82.8 fl (80.0-96.0); PLATELET COUNT, AUTOMATED 275 10^3/uL (150-450); RED BLOOD COUNT 5.17 10^6/uL (4.00-5.40)
[2019-04-12 07:57] LABS: WHITE BLOOD COUNT 39.5 10^3/uL (4.0-10.0)
[2019-04-12 08:00] VITALS: BP 109/71
--- NOTE | 2019-04-12 08:10 | CR ---
DATE OF CONSULTATION: 04/11/2019 The patient seen at the request of the hospitalist service and Dr. Angelo for recurrent pleural effusion. HISTORY OF PRESENT ILLNESS: The patient is now a 64-year-old white female who I first treated in 2013 for a recurrent right pleural effusion with a talc pleurodesis. She is known to have widely metastatic adenocarcinoma, ALK positive and PD-L1 negative. She has been on oral therapy until a week ago. Her most recent story starts about 2 months ago when she started to become short of breath. At that time, she was admitted to the hospital, where she was treated for a pneumonia. Was noted to have a left pleural effusion. She responded to her course of treatment with both antibiotics and diuretics. However, she returned by 03/19/2019 with a significant left pleural effusion, which was drained of 800 mL. She again reappeared approximately 2 weeks later on 04/03/2019, again with increasing shortness of breath, where she was drained of approximately 1200 mL. Today, over the last 2 days, she has become more progressively and increasingly short of breath. I was asked to place a PleurX catheter, but I was unavailable this morning; and, therefore, I asked that she once again be drained with a thoracentesis. About 1350 mL of fluid was removed. She, therefore, looks to be recurring every 1-1/2 to 2 weeks. Her shortness of breath is so severe that she is short of breath at rest. She does have a cough but with white sputum production. She has vague right-sided chest discomfort but no left-sided chest pain. Since her chemotherapy, she has lost her appetite. She does not know if she has lost weight at this point in time but probably has. There is no dysphagia. There has been no fever, chills, or sweats. Her past medical history is significant for ocular metastases along with bone metastases and probable gastrointestinal (GI) metastases. She was admitted to the hospital in October of this year with a GI bleed. There was suspicion that the gastric mucosa had malignant disease, and a deep biopsy showed metastatic adenocarcinoma consistent with the lung primary of biopsy gastric nodules. These were ulcerated and were probably causing her GI bleed. PAST MEDICAL HISTORY: The above metastatic carcinoma, iron-deficiency anemia for which she has received iron infusions. SURGICAL HISTORY: Cataracts, (C) section, and the above talc pleurodesis in 2014. HABITS: Does not smoke, drink, or indulge in illicit drugs. ALLERGIES: VANCOMYCIN. MEDICATIONS AT HOME: - calcium carbonate; i.e., Tums - vitamin D3 - Xgeva (denosumab) - folic acid - multivitamins - omeprazole REVIEW OF SYSTEMS: CONSTITUTIONAL: See history of present illness (HPI) with above probable weight loss secondary to decreased appetite secondary to her chemotherapy. EYES: Without diplopia. Without amaurosis fugax. NOSE: . MOUTH: Has her own teeth. Complains of a burning in her tongue which she ascribes to a side effect of chemotherapy. CARDIAC: Without palpitations, tachycardias, prior myocardial infarctions. PULMONARY: See HPI. GASTROINTESTINAL (GI): See HPI. Presently with nausea but no vomiting. Without diarrhea, constipation, melena, or hematachezia, or hematemesis. GENITOURINARY (): Without dysuria or hematuria. ENDOCRINE: Without diabetes. Without thyroid disease. NEUROLOGIC: Without paresthesias, paralyses, or prior seizures. PSYCHIATRIC: Without pathological anxieties, depressions, or psychoses. PHYSICAL EXAMINATION: VITAL SIGNS: Temperature is 97.6, with a heart rate of 102 in a sinus rhythm, respiratory rate of 18 without the use of accessory muscles, who is 95% saturated now on room air. It should be noted that the physical examination has been after her pleuracentesis this morning. EYES: Pupils equal, round, and reactive to light. Extraocular movements intact. Sclerae anicteric. NOSE: Without deformity. MOUTH: Shows her mucous membranes to be pink and moist. Lips and commissures without lesions. There looks to be thrush exudate on the back of her tongue. NECK: Is supple. There is no jugular venous distention, no subcutaneous emphysema. Trachea is midline. There is no lymphadenopathy or thyromegaly. There is no supra- or infraclavicular lymphadenopathy. LUNGS: Show decreased breath sounds on the right side with coarse crackles and rales on the left side, most of which clear with coughing. Percussion note is full to the diaphragm on the left and is dull at the right base. CARDIAC EXAMINATION: Is without murmurs, clicks, gallops, or rubs. I cannot feel his point of maximal impulse (PMI). S1 and S2 are normal. ABDOMEN: Is soft, nontender. Bowel sounds are positive. There is no hepatomegaly, no costovertebral angle (CVA) tenderness. EXTREMITIES: Show no pretibial edema. No calf tenderness. No differential swelling of the upper extremities. SKIN: Is warm, dry, and perfused without cyanosis or mottling, including that of the nail beds and the knees. NEUROLOGICAL: Shows II-XII intact, along with gross motor and gross sensation intact. Gait is not tested. PSYCHIATRIC: Shows her to be awake and alert and oriented times three with appropriate mood and affect and conversational. Her white count today is 46.1 after a dose of white cell stimulant with a white count on 04/07/2019 being 8.6. Hemoglobin and hematocrit are 13.2 and 42.4, respectively, with a platelet count of 298. Differential on 04/07/2019 when her white count was 8.6 showed 80% neutrophils, 9% lymphocytes, and no monocytes. Her chemistries today show sodium 130 with a BUN and creatinine of 8 and 0.38, a glucose of 105, a calcium of 8.4. Her albumin on 04/10/2019 yesterday was 3.2. AST and ALT are normal as of yesterday's laboratories. Her prothrombin time (PT)/international normalized ratio (INR) are 12.9 and 1.0, respectively. None of the fluid has undergone chemistry or hematologic testing. The cell block, however, from 03/19/2019 shows abnormal cells, which are TTF1 positive consistent with metastatic adenocarcinoma of the lung primary. Chest x-ray taken on 04/03/2019 showed an absence of left pleural effusion. However, by 04/10/2019, a portable chest x-ray showed an increasing effusion, although it was marginal on the left side. No lateral chest x-ray was obtained. However, CT angiography of her chest that same day showed a moderate to large left pleural effusion. The right lung has radiation changes. There is no pericardial effusion. IMPRESSION: 1. Widely metastatic adenocarcinoma, ALK positive, PD-L1 negative. 2. Recurrent malignant pleural effusions on the left side. 3. Prior history of hyponatremia. 4. History of gastrointestinal bleeding from ulcerated metastatic mucosal implants. 5. Prior pneumonias. 6. Radiation pneumonitis. 7. Iron-deficiency anemia. 8. Thrush. PLAN AND DISCUSSION: As noted above, as I was not available this morning, she underwent a repeat thoracentesis with the above results. I will, therefore, await for the pleural effusion to return, which probably would be within 7-10 days. I will see her in the office on Sunday with another chest x-ray and evaluate her symptomatically. Once I have an adequate target to place the PleurX catheter, we will proceed as an outpatient. I will ask the nursing staff to make an appointment for her for Sunday. Will also check a chest x-ray tomorrow. I will treat her thrush with nystatin. The oral Zofran paradoxically makes her nauseous and has a very foul taste to her, and I will, therefore, change it to intravenous (IV) Zofran so long as she is in the hospital and encourage by mouth intake.
[2019-04-12] MEDS: DOCUSATE SODIUM 100 MG CAP PO SCH (09:00)
[2019-04-12] MEDS: CALCIUM CARBONATE 500 MG CHEW U/D PO SCH (09:00)
[2019-04-12] MEDS: VITAMIN D 1,000 INTERNATIONAL UNITS TABLET PO SCH (09:00)
[2019-04-12] MEDS: DOXYCYCLINE HYCLATE 100 MG in D5W MINI-BAG PLUS 100 ML IV SCH (09:00)
[2019-04-12] MEDS: NYSTATIN 500,000 U/5 ML SUSP UDC PO SCH (09:40)
--- NOTE | 2019-04-12 09:51 | REP ---
CHEST, TWO VIEWS: Two views of the chest are performed and compared to prior studies, most recently 04/11/2019. Diffuse pleural and parenchymal opacity on the right remains unchanged. The heart and mediastinum are unchanged. Minimal scattered parenchymal opacities on the left are unchanged. There is a small amount of fluid in the posterior costophrenic sulcus on the lateral view. IMPRESSION: Essentially stable exam. Electronically Signed by Michael Arreguin MD 04/13/2019 05:48 P
--- NOTE | 2019-04-12 16:17 | DS.PDOC ---
Discharge Summary General Date of Admission Apr 10, 2019 at 16:21 Date of Discharge 04/12/19 Primary Care Physician: EYAD MAGALLANES M.D. Attending Physician: ROGERIO REINOSO MD Specialist/Consultants Involve: Usama Milligan M.D. Discharge Summary PROCEDURES PERFORMED DURING STAY: thoracentesis . ADMITTING/DISCHARGE DIAGNOSES: Left-sided pleural effusion secondary to metastatic lung disease Chronic right-sided pleural effusion Stage IV lung cancer with metastases to brain, eyes, bone Hyponatremia secondary to SIADH Leukocytosis status post Neupogen infusion COMPLICATIONS/CHIEF COMPLAINT: Shortness of breath HISTORY OF PRESENT ILLNESS/HOSPITAL COURSE: 64-year-old female admitted on 04/09/19 with shortness of breath. Imaging showed large left-sided pleural effusion likely secondary to stage IV metastatic lung cancer. CT also showed evidence of possible infiltrate at and given the patient's elevated white blood count she was empirically started on broad-spectrum antibiotics however during her stay she developed no additional signs or symptoms of pneumonia. She presented the week prior to this admission for the same complaint and was intending to follow-up with Dr. Milligan for consideration of possible pleurodesis placement as this has happened 2-3 times in the last month. She underwent thoracentesis through interventional radiology on 04/11 with 1.3 L of fluid drained off and dramatic relief of her shortness of breath symptoms. Dr. Milligan was consulted on 04/11/19 and agreed with plan for thoracentesis and wanted to follow up with chest x-ray the following day. Chest x-ray the next day showed resolution of the pleural effusion on the left side and he schedule patient for a follow-up visit on 04/14 at 0930. Blood cultures X2 or negative. Preliminary sputum culture of poor quality and demonstrated many epithelial cells with few organisms. Ascitic fluid culture showing many RBCs, few to WBCs, no organisms seen. DISCHARGE MEDICATIONS: Please see below. ALLERGIES: Please see below. Vitals: (see below) General: No acute distress, laying comfortably in bed. HEENT: Normocephalic, atraumatic. Bitemporal wasting. EOMI. No scleral icterus. Cardiac: RRR, Normal S1 and S2, No murmurs, gallops, rubs. Pulm: Clear to auscultation b/l. Symmetric thorax. Crackles present in right lower lobe. No wheezes, rhonchi. Abd: Bowel Sounds present. Abdomen is soft, non-tender, non-distended. Ext: No edema or cyanosis Skin: No skin changes Neuro: No focal neuro deficits Psych: Appropriate affect LABORATORY DATA: Please see below. IMAGIN04/10/19 chest x-ray: There is diffuse pleural and parenchymal opacity on the right which appears essentially stable. There is mild streaky opacity in the left lung base which is stable. Essentially stable exam. 04/10/19 CT angiogram: There are no pulmonary emboli. There are bilateral pleural effusions as described, unchanged. There are focal zones of pleural thickening on the right, unchanged. The right upper lobe infiltrate has worsened. The infiltrate in the lingula has worsened. The paraspinal mass extending into the subcarinal zone is unchanged. Multiple blastic skeletal metastases are again identified. 04/11/19 chest biopsy: No pneumothorax status post left thoracentesis 04/11/19 thoracentesis ultrasound: 1350 mL of cloudy yellow fluid was withdrawn and sent to lab for analysis 04/12/19 chest x-ray: Essentially stable exam PROGNOSIS: Poor ACTIVITY: [As tolerated]. DIET: As tolerated DISCHARGE PLAN: Discharge home DISCHARGE INSTRUCTIONS: 1. Follow-up with Dr. Milligan on Sunday at 09 for repeat x-ray and consideration of left-sided Pleurx catheter. DISCHARGE CONDITION: [Stable]. TIME SPENT ON DISCHARGE: Greater than 30 minutes. Vital Signs/I&Os Vital Signs Date Time Temp Pulse Resp B/P (MAP) Pulse Ox O2 Delivery O2 Flow Rate FiO2 04/12/19 08:00 96.8 118 18 109/71 (84) 91 04/11/19 15:15 Room Air 04/11/19 14:07 2.0 04/10/19 12:56 92 I&O- Last 24 Hours up to 6 AM 04/12/19 05:59 Intake Total 986 ml Output Total 2150 ml Balance -1164 ml Laboratory Data Labs 24H Laboratory Tests 2 04/11/19 16:13: Urine Random Osmolality 387L, Urine Random Sodium 59, Methicillin-Resist S.aureus DNA PCR NOT DETECTED 04/11/19 22:00: Anion Gap 6L, Glomerular Filtration Rate > 60.0, Blood Urea Nitrogen 7, Creatinine 0.46L, Sodium Level 129L, Potassium Level 4.2, Chloride Level 90L, Carbon Dioxide Level 33H, Calcium Level 8.4L 04/12/19 05:46: Anion Gap 8, Glomerular Filtration Rate > 60.0, Blood Urea Nitrogen 6L, Creat inine 0.47L, Sodium Level 132L, Potassium Level 4.3, Chloride Level 93L, Carbon Dioxide Level 31, Calcium Level 8.1L, Nucleated Red Blood Cells % (auto) 0.0 CBC/BMP Laboratory Tests 04/11/19 22:00 Calcium Level 8.4 L 04/12/19 05:46 Calcium Level 8.1 L, Red Blood Count 5.17, Mean Corpuscular Volume 82.8, Mean Corpuscular Hemoglobin 26.1 L, Mean Corpuscular Hemoglobin Concent 31.5 L, Red Cell Distribution Width 18.6 H Microbiology Microbiology 04/10/19 Blood Culture - Preliminary, Resulted No Growth after 48 hours. All Specime... 04/10/19 Blood Culture - Preliminary, Resulted No Growth after 48 hours. All Specime... 04/11/19 Gram Stain - Final, Resulted 04/11/19 Body Fluid Culture, Resulted Pending 04/11/19 Anaerobic Culture, Resulted Pending 04/10/19 Gram Stain - Final, Complete 04/10/19 Sputum Culture - Final, Complete Discharge Medications Scheduled Calcium Carbonate (Tums) 500 Mg Chw, 500 MG PO DAILY, (Reported) Cholecalciferol (Vitamin D3) (Vitamin D3) 2,000 Unit Tab, 2,000 UNIT PO DAILY, (Reported) Denosumab Injection (Xgeva) 120 Mg/1.7 Ml Inj, 120 MG SC [id number], (Reported) Folic Acid (Folic Acid) 0.4 Mg Tablet, 0.8 MG PO DAILY, (Reported) Multivitamin (Multivitamins) 1 Cap Cap, 1 CAP PO DAILY, (Reported) Omeprazole (Omeprazole) 20 Mg Capsule.dr, 20 MG PO BID, (Reported) Scheduled PRN Acetaminophen (Acetaminophen) 500 Mg Tablet, 500 MG PO Q6H PRN for PAIN, (Reported) Alprazolam (Alprazolam) 0.25 Mg Tablet, 0.25 MG PO BID PRN for ANXIETY, (Reported) Loratadine (Claritin) 10 Mg Capsule, 10 MG PO DAILY PRN for ALLERGIES, (Reported) Ondansetron (Ondansetron Odt) 8 Mg Tab.rapdis, 8 MG PO Q6H PRN for NAUSEA Take one tab by mouth every 6 hours as needed for nausea Prochlorperazine Maleate (Prochlorperazine Maleate) 10 Mg Tablet, 10 MG PO Q8HP PRN for NAUSEA Take one tab by mouth every 8 hours as needed for nausea Allergies Coded Allergies: vancomycin (Verified Allergy, Severe, BECOMES VIOLENTLY ILL, NAUSEA/VOMITING. , 12/03/18) GME ATTESTATION GME ATTESTATION I saw and evaluated the patient. I agree with the findings and plan of care as documented in the documenters note. I spent 45 minutes coordinating this patient's discharge. SUSANNE TYSON DO Apr 12, 2019 16:17 ROGERIO REINOSO MD Apr 14, 2019 14:06
[2019-04-14 14:39] LABS: BODY FLUID CULTURE Not Indicated (.); LEGIONELLA ANTIGEN URINE Negative (Negative); ORGANISM ID Not indicated. (.); SPECIMEN SOURCE Urine (.); URINE STREP PNEUMONIAE ANTIGEN Negative (Negative)
== END 2019-04-12 10:41 | disposition home or self-care (01) | DRG 180 ==
LOC: M ED 11:59 → M ED INP 16:21 → M PCU 18:30
PROVIDERS: ADMIT Internal Medicine; ATTEND Internal Medicine
PROC: 0W9B3ZZ Drainage of Left Pleural Cavity, Percutaneous Approach (ICD-10-PCS; principal; 2019-04-11 11:00)
DX: C34.90 Malignant neoplasm of unspecified part of unspecified bronchus or lung (principal); J18.9 Pneumonia, unspecified organism; J91.0 Malignant pleural effusion; E87.1 Hypo-osmolality and hyponatremia; C79.31 Secondary malignant neoplasm of brain; C79.51 Secondary malignant neoplasm of bone; E23.2 Diabetes insipidus; C79.49 Secondary malignant neoplasm of other parts of nervous system; B37.0 Candidal stomatitis; D72.829 Elevated white blood cell count, unspecified; Z79.899 Other long term (current) drug therapy; Z88.8 Allergy status to other drugs, medicaments and biological substances; D50.9 Iron deficiency anemia, unspecified

== ENCOUNTER → 2019-04-14 | Outpatient (CLI) | payer MEDICARE ==
[~2019-04-14] MED LIST changes: +CLAR10CA3 PO; +FOLI0.4T2 PO; +TRAM50TA2 PO
--- NOTE | 2019-04-14 10:19 | REP ---
CHEST, TWO VIEWS: Two views of the chest are performed and compared with a prior study of 04/12/2019. Pleural and parenchymal opacities on the right are unchanged. Minimal left parenchymal opacities are stable. Heart and mediastinum are unchanged. IMPRESSION: Stable exam. Electronically Signed by Michael Arreguin MD 04/15/2019 09:52 A
== END ==
LOC: M SMT 09:36
PROVIDERS: ATTEND Thoracic Surgery (Cardiothoracic Vascular Surgery)
DX: J90 Pleural effusion, not elsewhere classified (principal)

== ENCOUNTER → 2019-04-22 | Outpatient (CLI) | payer MEDICARE ==
--- NOTE | 2019-04-22 17:24 | REP ---
Chest x-ray: Two views. History: Malignant neoplasm of the right lung. Pleural effusion. Comparison chest x-ray: April 14, 2019. Findings: Right apical pleural thickening is again noted. There is blunting of the right lateral and both posterior pleural angles. Some fissural thickening is seen on lateral film. Findings are essentially unchanged from April 14, 2019. There is a area of linear fibrosis in the left upper perihilar region which is unchanged. Cardiomediastinal silhouette is unchanged. There are fairly extensive sclerotic changes in the skeleton consistent with metastatic skeletal disease, blastic type. There are endoscopic marker clips in the left upper quadrant as on the earlier film. Impression: Extensive pleuroparenchymal changes on the right slight blunting on the left unchanged from April 14, 2019. Electronically Signed by Vidal Gold MD 04/23/2019 07:43 A
== END ==
LOC: M SMT 14:02
PROVIDERS: ATTEND Thoracic Surgery (Cardiothoracic Vascular Surgery)
DX: C34.91 Malignant neoplasm of unspecified part of right bronchus or lung (principal)

== ENCOUNTER → 2019-05-02 | Outpatient (CLI) | payer MEDICARE ==
[~2019-05-02] MED LIST changes: +LIDOCAINE 1% MDV 20ML VIAL As Ordered ONE; +MIDAZOLAM INJ 2 MG/2 ML VIAL (J2250) As Ordered ONE; +ceFAZolin 1GM INJ (J0690 PER 500MG) As Ordered ONE; +diphenhydrAMINE INJ 50MG/ML VIAL (J1200) As Ordered ONE; +fentaNYL 100 MCG/2 ML INJECTION (J3010) As Ordered ONE
--- NOTE | 2019-05-02 13:26 | IRHP ---
[facility] IR Pre-Procedure H & P General Date of Service: May 02, 2019 Procedure: Same Day Surgery Interval History and Physical I have seen the patient and reviewed last H & P performed within 30 days. There is no significant interval change. History of Present Illness Chief Complaint The patient is a 64-year-old female admitted with a reason for visit of Chemo Treatment. PRE-PROCEDURE DIAGNOSIS: lung ca HEART: normal rate. LUNGS: normal breathing at rest. ASA Classification ASA Classification: II-Mild systemic disease Mallampati Score: I NPO: Yes Problems with prior sedation: No Obstructive Sleep Apnea: No Plan moderate sedation Allergies Coded Allergies: vancomycin (Verified Allergy, Severe, BECOMES VIOLENTLY ILL, NAUSEA/VOMITING. , 12/03/18) Home Medications Scheduled Calcium Carbonate (Tums), 500 MG PO DAILY, (Reported) Cholecalciferol (Vitamin D3) (Vitamin D3), 2,000 UNIT PO DAILY, (Reported) Denosumab Injection (Xgeva), 120 MG SC [id number], (Reported) Folic Acid (Folic Acid), 0.8 MG PO DAILY, (Reported) Multivitamin (Multivitamins), 1 CAP PO DAILY, (Reported) Omeprazole (Omeprazole), 20 MG PO BID, (Reported) Scheduled PRN Acetaminophen (Acetaminophen), 500 MG PO Q6H PRN for PAIN, (Reported) Alprazolam (Alprazolam), 0.25 MG PO BID PRN for ANXIETY, (Reported) Loratadine (Claritin), 10 MG PO DAILY PRN for ALLERGIES, (Reported) Ondansetron (Ondansetron Odt), 8 MG PO Q6H PRN for NAUSEA Prochlorperazine Maleate (Prochlorperazine Maleate), 10 MG PO Q8HP PRN for NAUSEA Tramadol HCl (Tramadol HCl), 50 MG PO DAILY PRN for pain VS, I&O, 24H, Prasadbonnisha Vital Signs/I&O Vital Signs Date Time Temp Pulse Resp B/P (MAP) Pulse Ox O2 Delivery O2 Flow Rate FiO2 05/02/19 12:56 98.6 108 16 92 Laboratory Data 24H LABS Laboratory Tests 2 05/05/19 09:30: Lab Scanned Report LAB OTHER NANCIE RG MD May 02, 2019 13:26
--- NOTE | 2019-05-02 15:24 | REP ---
IR Ultrasound and fluoroscopy-guided port placement. IR Ultrasound of the neck. IR Moderate sedation. Clinical information: Lung cancer. Physician: Dr. Agee. Procedure: The patient was advised of the benefits, risks, and alternatives of the procedure and informed consent was obtained. A time-out was performed with verification of the patient's name, MRN, site of procedure and type of procedure to be performed. The patient was positioned in the supine position on the angiographic table. The site was prepped and draped in the usual sterile fashion. Moderate sedation was performed by the physician including the presence of an independent trained observer who assisted and monitored the patient's level of consciousness and physiologic status. Following the administration of fentanyl and Versed , the physician spent 45 minutes of continuous face to face time with the patient. Ultrasound of the neck reveals a patent and compressible right internal jugular vein. A irrigation tax assessor collector radiograph reveals consolidation in the lungs. The neck and anterior chest wall were anesthetized with lidocaine. The right internal jugular vein was accessed using a microintroducer needle under ultrasound guidance, via a lateral approach. An 018 wire was advanced into the superior vena cava, the needle was removed and a microsheath was placed. An Amplatz wire was then passed into the inferior vena cava. An incision at the internal jugular vein access site and anterior chest wall were made using a scalpel. An incision was made at the anterior chest wall. A small pocket was created using a combination of blunt and sharp dissection. A tunneling device was then used to pass the catheter from the pocket to the neck puncture site. An 8-[employer] [place] [employer] Smart power port was then positioned in the pocket. The catheter was then measured and cut. The introducer sheath was exchanged for a peel-away sheath. The catheter was passed through the peel-away sheath into the internal jugular vein and the peel-away sheath was removed. The port tip was positioned at the cavoatrial junction. The port was then accessed with a Pompa needle. The port flushes and aspirates well. The puncture site in the neck was closed. The chest wall incision was then closed with 2-0 Vicryl and 4-0 Monocryl. Glue and Steri-Strips were applied. A sterile dressing was then applied. The patient tolerated the procedure well and was returned to the PRU in stable condition. Estimated blood loss: <5 ml. Complications: None. Conclusion: 1. Successful placement of an 8-[place] [employer] Smart power port via the right internal jugular vein. The port is ready for immediate use. 2. Patient to follow up in IR clinic in 2 weeks. Thank you for this referral. Electronically Signed by Sandra Agee MD 05/02/2019 03:22 P
[2019-05-02 17:05] VITALS: BP 110/62
== END ==
LOC: M IRPRO 11:57
PROVIDERS: ATTEND Internal Medicine Medical Oncology
DX: C34.90 Malignant neoplasm of unspecified part of unspecified bronchus or lung (principal)

== ENCOUNTER 2019-05-05 10:16 | Inpatient (IN) | payer MEDICARE ==
[2019-05-05] VITALS (12 sets, daily range): BP systolic 109–152; BP diastolic 67–88
[~2019-05-05] VITALS: Ht 167.6 cm; Wt 56.1 kg
[~2019-05-05 10:16] MED LIST changes: +SODIUM CHLORIDE 0.9% INJ 10 ML SYR IV SCH
[2019-05-05] MEDS ORDERED: ISOVUE-370 76% 100ML VIAL (Q9967) As Ordered ONE (10:30)
[2019-05-05] MEDS ORDERED: KCL 20MEQ IN D5/NS 1000ML 1,000 ML IV SCH (11:02)
[2019-05-05] MEDS ORDERED: FLUMAZENIL 0.5 MG/5 ML VIAL As Ordered ONE (11:08)
[2019-05-05] MEDS ORDERED: MIDAZOLAM INJ 2 MG/2 ML VIAL (J2250) As Ordered ONE (11:09)
[2019-05-05] MEDS ORDERED: LIDOCAINE 1% MDV 20ML VIAL As Ordered ONE (11:10)
[2019-05-05] MEDS ORDERED: LEVALBUTEROL 1.25 MG/0.5 ML CONCENTRATE NEB NEB PRN (11:15)
[2019-05-05] MEDS ORDERED: ONDANSETRON 4MG/2ML VIAL (J2405) IV PRN (11:15)
[2019-05-05] MEDS ORDERED: ACETAMINOPHEN TAB 650MG DOSE (2X325MG) PO PRN (11:15)
[2019-05-05] MEDS ORDERED: PERCOCET 5MG/325MG TAB PO PRN (11:15)
[2019-05-05] MEDS ORDERED: BISACODYL 10 MG SUPP PR PRN (11:15)
[2019-05-05] MEDS ORDERED: NORCO, ANEXSIA 5/325MG TABLET (HYDROcodone/ACETAMINOPHEN) PO PRN (11:15)
[2019-05-05] MEDS ORDERED: ceFAZolin SOD 1 GM in D5W MINI-BAG PLUS 50 ML IV ONE (11:15)
[2019-05-05] MEDS ORDERED: ceFAZolin 1GM INJ (J0690 PER 500MG) As Ordered ONE (11:16)
[2019-05-05] MEDS ORDERED: MUPIROCIN 2% OINT 22 GM TUBE TOP ONE (11:19)
[2019-05-05] MEDS ORDERED: MIDAZOLAM INJ 2 MG/2 ML VIAL (J2250) IV ONE ×2 (11:44→11:50)
[2019-05-05] MEDS ORDERED: LIDOCAINE 1% MDV 20ML VIAL SC ONE ×2 (11:50→11:52)
--- NOTE | 2019-05-05 12:02 | REP ---
CT PULMONARY ANGIOGRAM: With IV contrast. HISTORY: Shortness of breath. COMPARISON STUDIES: Comparison CT ANGIO study April 10, 2019. CONTRAST DOSE: 75 mL of Isovue [address] TECHNIQUE: Helical scanning is acquired and overlapping 1.5 mm and contiguous 3 mm axial images are reformatted. In addition, maximum intensity projection and multiplanar re-formation images are generated in sagittal and coronal imaging projections. CT PULMONARY ANGIOGRAPHIC FINDINGS: There is good opacification of the pulmonary arterial tree. There is no CT evidence of pulmonary embolism. Thoracic aorta shows no evidence of aneurysm or dissection. The left vertebral artery takes a direct aortic origin which is a normal variant. There is a moderate left pleural effusion, which it is unchanged from April 10, 2019. There is small right pleural effusion with heterogeneous visceral and parietal pleural enhancement on the right side suggestive of neoplastic involvement. There is extensive volume loss in the right lung. There is collapse and consolidation in the right lower lobe. The right lung parenchymal changes are stable when compared with April 10 2019 prior study. There are blastic skeletal metastatic lesions extensively. No pericardial effusion is seen. IMPRESSION: Moderate left pleural effusion unchanged. Extensive enhancing pleural thickening throughout the right chest. Volume loss right hemithorax with collapse and consolidation right lower lobe unchanged from April 10, 2019. There is no CT evidence of pulmonary embolus. Electronically Signed by Vidal Gold MD 05/05/2019 01:53 P
[2019-05-05] MEDS: PERCOCET 5MG/325MG TAB PO PRN ×2 (12:47→18:20)
--- NOTE | 2019-05-05 12:54 | REP ---
Chest x-ray: Single view. History: Pleural effusion. Comparison study: 9:12 a.m. film May 05, 2019. Findings: A PleurX catheter has been inserted and the left pleural space. There is no evidence of pneumothorax. Nodular pleural thickening is again noted on the right with volume loss in the right hemithorax. A right-sided Clwuhw-[id number]-Ccrh catheter is seen along with monitoring electrodes. Impression: Left-sided Pleurx catheter in place. No evidence of pneumothorax. Electronically Signed by Vidal Gold MD 05/05/2019 01:56 P
--- NOTE | 2019-05-05 12:58 | RO ---
DATE OF PROCEDURE: 05/05/2019 PREPROCEDURE DIAGNOSIS: Left pleural effusion. POSTPROCEDURE DIAGNOSIS: Left pleural effusion. PROCEDURE: Insertion of left PleurX catheter. FINDINGS: The PleurX catheter drained 1400 mL of chylous fluid. It was sent for the requisite studies of chemistries, hematologies, cytologies and bacteriologies. SURGEON: Usama Milligan MD TOPOLOGY PROFESSOR: ANESTHESIA: PROCEDURE: Under satisfactory moderate sedation, achieved with 3 mg of Versed, the patient was prepped and draped in the usual sterile fashion. An entrance site was chosen and the explorer needle was placed into the pleural effusion. The wire was then threaded over a needle. Catheter tract was marked and was infiltrated with 1% lidocaine. Two incisions were made, one in the entrance and one in the exit sites. A tunnel was created between the entrance and exit sites and the catheter pulled through and positioned. The entrance site was dilated and a Peel-Away introducer placed. The PleurX catheter was then placed into the Peel-Away introducer and properly positioned. The catheter was secured to the chest and to the abdominal pain wall by use of a #3-0 silk suture and the entrance site was closed with running #4-0 Monocryl subcuticular suture. 1400 mL chylous fluid was then drained. The patient tolerated the procedure well and a chest x-ray is pending.
[2019-05-05] MEDS ORDERED: SODIUM CHLORIDE 0.9% INJ 10 ML SYR IV PRN (13:15)
[2019-05-05 13:19] LABS: ALBUMIN 3.1 GM/DL (3.2-5.2); ALT/SGPT 18 U/L (12-78); BILIRUBIN,TOTAL 0.5 MG/DL (0.2-1.0); BLOOD UREA NITROGEN 7 MG/DL (7-18); CALCIUM LEVEL 8.3 MG/DL (8.8-10.2); CARBON DIOXIDE LEVEL 33 MEQ/L (21-32); CHLORIDE LEVEL 95 MEQ/L (98-107); CHOLESTEROL LEVEL 218 MG/DL (< 200); CPK CREATINE PHOSPHOKINASE 33 U/L (26-192); CREATININE FOR GFR 0.45 MG/DL (0.55-1.30); GLOMERULAR FILTRATION RATE > 60.0 (>45); GLUCOSE, FASTING 83 MG/DL (70-100); LDH LACTATE DEHYDROGENASE 262 U/L (84-246); PHOSPHORUS LEVEL 3.5 MG/DL (2.5-4.9); POTASSIUM SERUM 4.5 MEQ/L (3.5-5.1); SODIUM LEVEL 132 MEQ/L (136-145); TOTAL PROTEIN 6.1 GM/DL (6.4-8.2); TRIGLYCERIDES LEVEL 84 MG/DL (<150)
[2019-05-05 13:23] LABS: PH BODY FLUID 7.623 UNITS (NOT ESTABLISHED); SOURCE, BODY FLUID pH PLEURAL
[2019-05-05] MEDS: MOM 30ML SUSPENSION UDC PO SCH (13:24)
[2019-05-05] MEDS: DOCUSATE SODIUM 100 MG CAP PO SCH ×2 (13:24→20:09)
[2019-05-05] MEDS: PANTOPRAZOLE 40MG TAB (PROTONIX) PO SCH (13:24)
[2019-05-05 13:52] LABS: AMYLASE, BODY FLUID 17 U/L (NOT ESTABLISHED); CHOLESTEROL, BODY FLUID < 50 MG/DL (NOT ESTABLISHED); LDH, BODY FLUID 96 U/L (NOT ESTABLISHED); SOURCE, BODY FLUID ALBUMIN PLEURAL; SOURCE, BODY FLUID AMYLASE PLEURAL; SOURCE, BODY FLUID CHOL PLEURAL; SOURCE, BODY FLUID GLUCOSE PLEURAL; SOURCE, BODY FLUID LDH PLEURAL; SOURCE, BODY FLUID TOT PROTEIN PLEURAL; SOURCE, BODY FLUID TRIG PLEURAL; TOTAL PROTEIN, BODY FLUID 3.4 G/DL (NOT ESTABLISHED); TRIGLYCERIDE, BODY FLUID 497 MG/DL (NOT ESTABLISHED)
[2019-05-05] MEDS: LEVALBUTEROL 1.25 MG/0.5 ML CONCENTRATE NEB NEB SCH ×2 (14:00→20:05)
[2019-05-05 14:03] LABS: APPEARANCE, BODY FLUID TURBID (CLEAR); SOURCE, BODY FLUID PLEURAL
[2019-05-05 14:09] LABS: HEMATOCRIT 40.7 % (36.0-47.0); HEMOGLOBIN 12.5 g/dl (12.0-15.5); MEAN CORPUSCULAR HEMOGLOBIN 26.3 pg (27.0-33.0); MEAN CORPUSCULAR HGB CONC 30.7 g/dl (32.0-36.5); MEAN CORPUSCULAR VOLUME 85.5 fl (80.0-96.0); PLATELET COUNT, AUTOMATED 169 10^3/uL (150-450); RED BLOOD COUNT 4.76 10^6/uL (4.00-5.40)
[2019-05-05 14:54] LABS: ATYPICAL LYMPH 3 % (0-5); METAMYELOCYTES 1 % (0-0); MONOCYTES 2 % (0-5); NEUTROPHILS 72 % (28-66)
[2019-05-05 14:55] LABS: ANISOCYTOSIS 3+; POIKILOCYTOSIS 1+
[2019-05-05 14:56] LABS: HYPOCHROMASIA 1+; OVALOCYTES 2+
[2019-05-05 14:57] LABS: PLATELET ESTIMATE DECREASED (NORMAL)
[2019-05-05] MEDS: KETOROLAC 30 MG/ML VIAL (J1885) IV SCH ×2 (15:08→20:10)
[2019-05-05] MEDS: HEPARIN SOD (PORCINE) 5000 UNITS/ML VIAL SC SCH (20:09)
[2019-05-06] VITALS: BP 116/68
[2019-05-06] MEDS: LEVALBUTEROL 1.25 MG/0.5 ML CONCENTRATE NEB NEB SCH ×3 (02:21→13:10)
[2019-05-06] MEDS: KETOROLAC 30 MG/ML VIAL (J1885) IV SCH ×2 (02:23→08:45)
[2019-05-06 04:00] VITALS: BP 119/68
[2019-05-06] MEDS ORDERED: ALPRAZolam 0.25 MG TAB PO PRN (05:30)
[2019-05-06 08:00] VITALS: BP 134/71
[2019-05-06] MEDS: DOCUSATE SODIUM 100 MG CAP PO SCH (08:54)
[2019-05-06] MEDS: MOM 30ML SUSPENSION UDC PO SCH (08:55)
[2019-05-06] MEDS: HEPARIN SOD (PORCINE) 5000 UNITS/ML VIAL SC SCH (08:55)
[2019-05-06] MEDS: PANTOPRAZOLE 40MG TAB (PROTONIX) PO SCH (08:55)
--- NOTE | 2019-05-06 09:07 | REP ---
Two-view chest: 05/06/2019. Comparison: Yesterday. Findings: Right-sided Port-A-Cath is unchanged in position. Prominent mediastinal markings, fibrotic changes and right pleural effusion are unchanged. There is minimal blunting of the left costophrenic angle. Diffuse osseous metastases are redemonstrated. There is no pneumothorax. Impression: No significant increase size of the pleural effusions. Study is essentially stable compared to yesterday. Electronically Signed by Brandon Hunter DO 05/06/2019 08:58 A
[2019-05-06 12:00] VITALS: BP 140/79
--- NOTE | 2019-05-06 14:00 | DSES ---
DATE OF ADMISSION: 05/05/2019 DATE OF DISCHARGE: 05/06/2019 DISCHARGE DIAGNOSES: 1. 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 2. Malignant pleural effusion left side. 3. Shortness of breath. 4. Respiratory failure and hypoxia. 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 She was found to have left pleural effusion about 3 weeks ago, which was drained and found to be malignant. She has been followed and she has become more progressively short of breath. Notably her chest x-ray did not show recurrence of her left pleural effusion. Upon presentation to the office yesterday in rather acute distress with progressive shortness of breath a CAT scan was undertaken, which showed a large pleural effusion on the left side. She was therefore admitted to the hospital as soon as possible, where she underwent placement of a PleurX catheter, which drained 1400 mL. This morning she was drained of 650 mL. Final pathology is still pending. Chemistries showed her to have a pH of 7.63 with an LDH of 96 and a corresponding serum LDH of 262. Glucose was 121. It was therefore a normal glycemic transudative effusion. She had 263 white cells of which 56% were lymphocytes and 43% neutrophils. This is probably no doubt a continuation of her malginancy. However, it was noted that the pleural fluid drained yesterday was quite white and turbid, and her fluid triglycerides came back at 497 with a corresponding serum triglyceride of 84. This therefore makes it a chylous effusion. She is being discharged today on her home medications, which include: - Tylenol 500 mg every 6 hours as needed, pain - Xanax 0.25 mg twice a day as needed, anxiety - calcium carbonate 500 mg every day - folic acid 0.8 mg every day - Claritin 10 mg every day as needed - vitamins one capsule every day - omeprazole 20 mg twice a day - ondansetron 8 mg as needed, nausea every 6 hours - tramadol 50 mg as needed, pain, every day Her chest x-ray shows her lung fully expanded to the chest wall on the left side with a sharp costophrenic angle. Her white count yesterday was 30.0 secondary to Neulasta with a hemoglobin and hematocrit of 12.5 and 40.7 and a platelet count of 169. BUN and creatinine are 7 and 0.45. She is mildly hyponatremic at 132. I will see her back in the office in 1 week with a chest x-ray. I have encouraged her to eat well as the drainage, which she is instructed to do every 3 days, will nutritionally deplete her. I will observe the extent of the chylous nature of the effusion over the next few weeks. 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 This is the first time that her pleural fluid has been noted to be chylous.
[2019-05-07] MEDS ORDERED: FLUBLOK(EGG FREE)(QUAD)INFLUENZA VACC 0.5ML SYRINGE (90682)18YRS&OLDER IM ONE (09:00)
== END 2019-05-06 13:52 | disposition home or self-care (01) | DRG 180 ==
LOC: M RAD 10:16 → M PCU 11:10
PROVIDERS: ADMIT Thoracic Surgery (Cardiothoracic Vascular Surgery); ATTEND Thoracic Surgery (Cardiothoracic Vascular Surgery)
PROC: 0W9B30Z Drainage of Left Pleural Cavity with Drainage Device, Percutaneous Approach (ICD-10-PCS; principal; 2019-05-05)
DX: C34.91 Malignant neoplasm of unspecified part of right bronchus or lung (principal); J96.91 Respiratory failure, unspecified with hypoxia; J91.0 Malignant pleural effusion; C79.31 Secondary malignant neoplasm of brain; C78.2 Secondary malignant neoplasm of pleura; C78.89 Secondary malignant neoplasm of other digestive organs; C79.89 Secondary malignant neoplasm of other specified sites; C79.51 Secondary malignant neoplasm of bone; Z79.899 Other long term (current) drug therapy

== ENCOUNTER → 2019-05-05 | Outpatient (CLI) | payer MEDICARE ==
[~2019-05-05] MED LIST changes: -LIDOCAINE 1% MDV 20ML VIAL As Ordered ONE; -MIDAZOLAM INJ 2 MG/2 ML VIAL (J2250) As Ordered ONE; -ceFAZolin 1GM INJ (J0690 PER 500MG) As Ordered ONE; -diphenhydrAMINE INJ 50MG/ML VIAL (J1200) As Ordered ONE; -fentaNYL 100 MCG/2 ML INJECTION (J3010) As Ordered ONE
--- NOTE | 2019-05-05 09:50 | REP ---
Chest x-ray: Two views. History: Malignant neoplasm, pleural effusion. Comparison chest x-ray: April 22, 2019. Findings: A right-sided Aipzkj-A-Nguu catheter is seen in place with its tip in the expected location of the superior vena cava. There is pleural thickening on the right consistent with pleural fluid and pleural disease. There is volume loss in the right hemithorax as before. There is slight blunting of the pleural angles on the left indicating small left effusion. There are scattered fairly widespread sclerotic skeletal metastatic disease changes. There is a little more pleural thickening on the right laterally. The radiographic findings are otherwise essentially unchanged from the April 22, 2019 prior study. Electronically Signed by Vidal Gold MD 05/05/2019 01:48 P
== END ==
LOC: M SMT 09:02
PROVIDERS: ATTEND Thoracic Surgery (Cardiothoracic Vascular Surgery)
DX: C34.91 Malignant neoplasm of unspecified part of right bronchus or lung (principal); J91.0 Malignant pleural effusion

== ENCOUNTER → 2019-05-14 | Outpatient (CLI) | payer MEDICARE ==
[~2019-05-14] MED LIST changes: +GASTROGRAFIN SOLUTION 30ML (Q9963) As Ordered ONE; +ISOVUE-370 76% 100ML VIAL (Q9967) As Ordered ONE; -SODIUM CHLORIDE 0.9% INJ 10 ML SYR IV SCH
--- NOTE | 2019-05-14 14:09 | REP ---
REASON: Non-small cell carcinoma of the lung. All priors were reviewed, the latest 05/05/2019. CONTRAST: 100 mL Isovue 370. There is bulky subcarinal adenopathy. This is unchanged from the latest prior 05/05/2019. There are prominent bilateral hilar lymph nodes in conjunction with bilateral hilar adenopathy and again, stable from the latest prior. There are bilateral pleural effusions, left greater than right. There is a chest tube in the left hemithorax draining the effusion. The amount of effusion has decreased on the left, unchanged on the right. There is no pericardial effusion. Bone window technique throughout the exam shows diffuse widespread skeletal blastic lesions consistent with metastasis. Evaluation of the lung dalton show numerable asymmetric densities scattered about bilaterally with nodularity and seen on the right in particular and in a fashion completely unchanged from the latest prior. IMPRESSION: Marked abnormalities as described. Electronically Signed by Fransisco Chirinos DO 05/14/2019 04:30 P
--- NOTE | 2019-05-14 15:32 | REP ---
REASON: History of lung carcinoma. The latest prior for comparison is 03/10/2019 with older priors reviewed as well. CONTRAST: 100 mL Isovue 370. For description of the lung bases and associated findings please refer to the CT examination of the chest report made same day. The liver, gallbladder, spleen, pancreas, adrenal glands, and kidneys are unchanged. The abdominal aorta and paraaortic regions are unchanged. No intra-abdominal mass or adenopathy has developed. There is no free fluid or free air. The bowel loops and their mesenteries are within normal limits. CT PELVIS: There is no pelvic mass or adenopathy. The bowel loops and their mesenteries are within normal limits. There is no evidence of free fluid or free air. Bone window technique throughout the exam again shows diffuse skeletal blastic metastasis. IMPRESSION: No acute intra-abdominal or intrapelvic disease. Findings as described above. Electronically Signed by Fransisco Chirinos DO 05/14/2019 04:30 P
== END ==
LOC: M RAD 07:54
PROVIDERS: ATTEND Internal Medicine Medical Oncology
DX: C34.90 Malignant neoplasm of unspecified part of unspecified bronchus or lung (principal)
CPT/HCPCS: 71260; 74177; Q9963; Q9967

== ENCOUNTER → 2019-05-20 | Outpatient (POV) | payer MEDICARE ==
[~2019-05-20] VITALS: Ht 167.6 cm; Wt 54.5 kg
[~2019-05-20] MED LIST changes: -GASTROGRAFIN SOLUTION 30ML (Q9963) As Ordered ONE; -ISOVUE-370 76% 100ML VIAL (Q9967) As Ordered ONE
[2019-05-20 11:25] VITALS: BP 123/75
--- NOTE | 2019-05-20 11:53 | IRPN ---
[facility] IR Progress Note IR Progress Note DATE: May 20, 2019 FOLLOW-UP: 2 weeks status post right chest wall port placement. Patient doing well. No fevers or chills. No pain or discharge at site. Port functioning without any issues. ON EXAMINATION: Right chest wall port site almost healed. Last part of dissolvable stitch still dissolving. No tenderness, no redness no discharge. IMPRESSION: Doing well status post port placement. No further follow-up scheduled unless initiated by patient or infusion. Thank you for this referral Allergies Coded Allergies: vancomycin (Verified Adverse Reaction, Severe, BECOMES VIOLENTLY ILL, NAUSEA/VOMITING. , 05/05/19) VS,Fishbone, I+O VS, Fishbone, I+O Vital Signs Date Time Temp Pulse Resp B/P (MAP) Pulse Ox O2 Delivery O2 Flow Rate FiO2 05/20/19 11:25 98.4 87 18 123/75 (91) 92 Room Air NANCIE RG MD May 20, 2019 11:53
== END ==
LOC: M IRPOV 10:57
PROVIDERS: ATTEND Radiology Diagnostic Radiology
DX: Z45.2 Encounter for adjustment and management of vascular access device (principal)

== ENCOUNTER → 2019-07-07 | Outpatient (CLI) | payer MEDICARE ==
[~2019-07-07] MED LIST changes: +GASTROGRAFIN SOLUTION 30ML (Q9963) As Ordered ONE; +ISOVUE-370 76% 100ML VIAL (Q9967) As Ordered ONE
--- NOTE | 2019-07-07 12:20 | REP ---
CT CHEST WITH IV CONTRAST: TECHNIQUE: Axial contrast enhanced images from the thoracic inlet to the upper abdomen using 100 mL Isovue 370 intravenous contrast material with multiplanar reformations. COMPARISON: 05/14/2019 Right subcarinal adenopathy is unchanged. Several small left hilar lymph nodes are stable. Diffuse pleural-based soft tissue opacities on the right with adjacent scattered parenchymal opacities primarily inferiorly, are note definitely changed. There is a very small left pleural effusion with a pleural drainage catheter in place. The size of the effusion has decreased since the prior study. Several small left axillary lymph nodes are visualized, mildly decreased in size compared to the prior exam. No pericardial effusion is seen. Visualized osseous structures again demonstrate multiple blastic metastatic lesions. IMPRESSION: No change in the right subcarinal adenopathy as well as several small left hilar lymph nodes. Slight decrease in size of left axillary adenopathy. No change in diffuse pleural-based soft tissue opacity right hemithorax and adjacent right lung parenchymal opacities. Decreased left pleural fluid with pleural drainage catheter in place. Electronically Signed by Michael Arreguin MD 07/08/2019 04:07 P
--- NOTE | 2019-07-07 12:23 | REP ---
CT ABDOMEN AND PELVIS WITH IV AND CONTRAST: TECHNIQUE: Axial contrast enhanced images from the lung bases to the pubic symphysis using 100 mL Isovue 370 intravenous contrast material with multiplanar reformations. COMPARISON: 05/14/2019 The liver demonstrates no mass. Spleen, adrenals, pancreas, and kidneys are unremarkable. There is no hydronephrosis. Abdominal aorta is normal in caliber with no aneurysm. No adenopathy is seen in the abdomen or pelvis. There is no free air or free fluid. No bowel wall thickening is seen. No pelvic mass is seen. Urinary bladder is not well distended. Multiple blastic skeletal metastases are again noted. IMPRESSION: Diffuse skeletal metastases. No new abnormalities in the abdomen or pelvis. No adenopathy. Electronically Signed by Michael Arreguin MD 07/08/2019 04:07 P
== END ==
LOC: M RAD 09:30
PROVIDERS: ATTEND Internal Medicine Medical Oncology
DX: C34.01 Malignant neoplasm of right main bronchus (principal)
CPT/HCPCS: 71260; 74177; Q9963; Q9967

== ENCOUNTER → 2019-09-19 | Outpatient (CLI) | payer MEDICARE ==
[~2019-09-19] MED LIST changes: -GASTROGRAFIN SOLUTION 30ML (Q9963) As Ordered ONE; -ISOVUE-370 76% 100ML VIAL (Q9967) As Ordered ONE
--- NOTE | 2019-09-19 15:25 | RADONC ---
RADIATION ONCOLOGY DATE: 09/19/2019 CHART NUMBER: [id number] DIAGNOSIS: Lung cancer. STAGE: IV, metastatic. ECOG PERFORMANCE STATUS: 0 Ms. Vance is a very pleasant 64-year-old white female who is well-known to our department and has been treated to multiple sites for metastatic adenocarcinoma of the lung who is presenting to us today at her request for consultation regarding the possibility of palliative radiation therapy, perhaps to her right hip region and perhaps to her right scapular region. The patient presents today reporting that generally she is doing quite well. She says right now she is not having any pain and that her general discomfort in the scapular region as well as the hip has been getting better over the past week. Nonetheless, the patient has requested an urgent consultation to be done immediately and has come in during a blizzard to be seen. At this time, no new scans have been undertaken and indeed the patient's last CT scans were done on 07/07/2019. They did reveal multiple blastic skeletal metastasis. We are now 2-1/2 months later. The patient is not reporting any significant pain or discomfort. She is continuing with her systemic therapy and indeed is scheduled for another round of chemotherapy on Sunday. REVIEW OF SYSTEMS: The patient's review of systems is largely noncontributory except for some occasional discomfort in the right scapular region and perhaps the right hip area. She reports that she has had plenty of energy and indeed exercises on a stationary bicycle in her house 25 minutes every day. Considering she is a long history of cancer dating back to early 2012 with a diagnosis of metastatic adenocarcinoma with a lung primary done on 11/05/2013. She is also now 5 years post completion of whole brain radiation therapy for brain metastasis and doing quite well. Again the patient's review of systems noncontributory. She denies nausea, vomiting, fevers, chills, night sweats, diplopia, headaches, anxiety or depression, anorexia, weight loss, visual disturbances, chest pain, urinary or bowel difficulties, bone pain, or neurological problems. PHYSICAL EXAMINATION: Physical examination was deferred at this time. ASSESSMENT: I informed the patient at this point, I am not fully understanding why she is here and we need to do a little more work up before we discuss any palliative treatment. I have ordered a bone scan to be undertaken and we are scheduling her for a re-consultation following the bone scan. In the meantime, the patient reports that she is feeling better with her systemic treatment and is being seen diligently with her medical oncologist, Dr. Norah Angelo. Indeed she is scheduled to be seen on Sunday for systemic therapy. I let the patient know that I prefer not to treat unnecessarily and lower this patient's bone marrow reserves. Indeed, if there is just a tiny amount of minimal pain in the scapula, this is not a weightbearing bone and I prefer not to treat it unless it becomes more symptomatic to her. Again I await the results of her bone scan and re-evaluation following that. Thank you for allowing us to participate in the care of this very pleasant woman. I will keep you informed of any new developments as they occur. Once again explained to the patient that I could have ordered the bone scan or Dr. Angelo could have ordered the bone scan before she came in, in such severe weather during the blizzard. cc: Norah Angelo MD
== END ==
LOC: M ONCR 09:58
PROVIDERS: ATTEND Radiology Radiation Oncology
DX: C34.90 Malignant neoplasm of unspecified part of unspecified bronchus or lung (principal); C79.51 Secondary malignant neoplasm of bone

== ENCOUNTER → 2019-09-24 | Outpatient (CLI) | payer MEDICARE ==
[~2019-09-24] MED LIST changes: +GABA-1171 PO
--- NOTE | 2019-09-24 14:32 | REP ---
Whole body radionuclide bone scan: History: Metastatic bone cancer. Restaging. Non-small cell lung carcinoma. Comparison bone scan study is from August 07, 2018. Technique: 22.0 mCi technetium 99m MDP is injected. Standard whole body bone scan imaging was acquired. Scintigraphic findings: A widespread pattern of skeletal metastatic disease is again seen. Multiple lesions have enlarged and they are generally more avid. There are numerous new lesions consistent with progressive skeletal metastatic disease. Among the larger areas of increased uptake are lesions in the intertrochanteric femur on the left, the femoral head on the right, the acetabular regions bilaterally, the upper sacrum, L5, and the right humeral head. There is a new lesion in the lower sternum and there are multiple rib lesions. There is uptake in bilateral kidneys and in the urinary bladder. Impression: Progressive skeletal metastatic pattern involving the axial skeleton as noted in detail above. Electronically Signed by Vidal Gold MD 09/24/2019 02:36 P
== END ==
LOC: M RAD 09:34
PROVIDERS: ATTEND Radiology Radiation Oncology
DX: C79.51 Secondary malignant neoplasm of bone (principal); C34.91 Malignant neoplasm of unspecified part of right bronchus or lung; C79.31 Secondary malignant neoplasm of brain

== ENCOUNTER → 2019-09-26 | Outpatient (CLI) | payer MEDICARE ==
[~2019-09-26] MED LIST changes: +GASTROGRAFIN SOLUTION 30ML (Q9963) As Ordered ONE; +ISOVUE-370 76% 100ML VIAL (Q9967) As Ordered ONE
--- NOTE | 2019-09-26 16:15 | REPVR ---
PROCEDURE INFORMATION: Exam: CT Chest With Contrast Exam date and time: 09/26/2019 3:14 PM Age: 64 years old Clinical indication: Condition or disease; Lung condition and disease; Cancer of the lung; Right; Unspecified; Additional info: Restaging lung cancer TECHNIQUE: Imaging protocol: Computed tomography of the chest with intravenous contrast. Coronal and sagittal reformats were created and reviewed. Radiation optimization: All CT scans at this facility use at least one of these dose optimization techniques: automated exposure control; mA and/or kV adjustment per patient size (includes targeted exams where dose is matched to clinical indication); or iterative reconstruction. Contrast material: ISOVUE 370; Contrast volume: 100 ml; Contrast route: IV; COMPARISON: CT Chest with contrast 07/07/2019 11:03 AM FINDINGS: Tubes, catheters and devices: Right chest ported venous catheter is present with its catheter tip terminating in the superior vena cava. The indwelling left pleural drainage catheter remains present. Thyroid: Unremarkable as visualized. Lungs: The degree of diffuse right lung volume loss is not significantly changed. Multifocal consolidative opacities of the right lung most pronounced at the right lower lobe and right middle lobe are not significantly changed. Mild increased interlobular septal thickening of the left lung. Multiple nonspecific subcentimeter solid and ground-glass nodules of the left lung are unchanged, possibly metastases. Pleural space: Small low-attenuation left pleural effusion is mildly increased. There is diffuse right pleural thickening and multifocal soft tissue nodularity the majority of which does not appear significantly changed. As an example, a right costal pleural nodule at the right upper lobe measures 13 mm (series 201, image 36). One of the pleural based nodules of the anterior right upper lobe has enlarged currently measuring 29 x 18 mm (series 204, image 38) and previously measuring 24 x 12 mm. Small diffuse right pleural fluid amongst the pleural thickening is unchanged. Some high attenuation material (calcific attenuation) present within the right pleural space mostly at the lateral costophrenic angle is unchanged, possibly from prior pleurodesis. No pneumothorax. Heart: Heart size is within normal limits. No significant pericardial effusion. Mediastinum: No abnormal esophageal dilation. Pulmonary arteries: Unchanged dilation of the main pulmonary arterial trunk measuring 3.3 cm in diameter. Aorta: No thoracic aortic aneurysm. Lymph nodes: Stable subcarinal adenopathy measuring 13 mm in short axis. Stable subcentimeter bilateral hilar lymph nodes. Interval decreased size of small subcentimeter left axillary lymph nodes. Bones/joints: Unchanged widespread osteoblastic metastases throughout the visualized skeleton. Soft tissues: Unremarkable. IMPRESSION: 1. Increased right upper lobe pleural based 2.9 cm nodule, suspicious for progression of neoplasm. The numerous other right pleural nodules consistent with metastases appear stable, however. 2. Stable right lung volume loss and multifocal right lung consolidations. 3. Increased left lung interstitial thickening may represent interstitial pulmonary edema. Lymphangitic spread of tumor within the left lung is not excluded. Multiple nonspecific small left lung nodules are unchanged, possibly metastases. 4. Mildly increased small left pleural effusion. Indwelling left pleural drainage catheter. 5. Stable subcarinal adenopathy. Decreased left axillary adenopathy. 6. Unchanged widespread osteoblastic skeletal metastases. 7. Please see the contemporaneously performed 09/26/[address] report for additional findings. Electronically signed by: Stevie Guzman On 09/26/2019 16:15:37 PM
--- NOTE | 2019-09-26 16:36 | REPVR ---
PROCEDURE INFORMATION: Exam: CT Abdomen And Pelvis With Contrast Exam date and time: 09/26/2019 3:14 PM Age: 64 years old Clinical indication: Condition or disease; Cancer; Other: Lung; Additional info: Restaging lung cancer TECHNIQUE: Imaging protocol: Computed tomography of the abdomen and pelvis with intravenous contrast. Coronal and sagittal reformats were created and reviewed. Radiation optimization: All CT scans at this facility use at least one of these dose optimization techniques: automated exposure control; mA and/or kV adjustment per patient size (includes targeted exams where dose is matched to clinical indication); or iterative reconstruction. Contrast material: ISOVUE 370; Contrast volume: 100 ml; Contrast route: IV; COMPARISON: CT ABD PELVIS WITH CONTRAST 07/07/2019 11:03 AM FINDINGS: Liver: Unremarkable. Gallbladder and bile ducts: The gallbladder is unremarkable. No intrahepatic or extrahepatic bile duct dilation. Pancreas: Unremarkable. Spleen: Unremarkable. Adrenals: Unremarkable. Kidneys and ureters: The bilateral kidneys are unremarkable. No abnormal ureteral dilation. Stomach and bowel: Linear high attenuation structures consistent with surgical material are again present within the stomach along the gastric fundus wall. Colonic diverticula are present without evidence of acute diverticulitis. Large colonic stool burden. No evidence of large bowel obstruction. No evidence of small bowel inflammation or obstruction. Appendix: The appendix is not identified with certainty. Intraperitoneal space: No free intraperitoneal fluid. No pneumoperitoneum. Vasculature: No abdominal aortic aneurysm. Lymph nodes: No enlarged lymph nodes. Bladder: The urinary bladder is unremarkable. Reproductive: The uterus and adenexa are unremarkable. Bones/joints: Unchanged widespread osteoblastic metastases throughout the visualized skeleton. Soft tissues: Unremarkable. IMPRESSION: 1. Unchanged widespread osteoblastic skeletal metastases. 2. Please see the contemporaneously performed 09/26/[address] report for additional findings. Electronically signed by: Stevie Guzman On 09/26/2019 16:35:58 PM
== END ==
LOC: M RAD 13:05
PROVIDERS: ATTEND Internal Medicine Medical Oncology
DX: C34.91 Malignant neoplasm of unspecified part of right bronchus or lung (principal)
CPT/HCPCS: 71260; 74177; J1642; Q9963; Q9967

== ENCOUNTER → 2019-09-30 | Outpatient (CLI) | payer MEDICARE ==
[~2019-09-30] MED LIST changes: -GASTROGRAFIN SOLUTION 30ML (Q9963) As Ordered ONE; -ISOVUE-370 76% 100ML VIAL (Q9967) As Ordered ONE; +PROHANCE 279.3MG/ML 15ML VIAL (A9576) As Ordered ONE
--- NOTE | 2019-09-30 22:29 | REPVR ---
PROCEDURE INFORMATION: Exam: MR Head Without and With Contrast Exam date and time: 09/30/2019 8:56 PM Age: 64 years old Clinical indication: Pain; Headache not specified; Patient HX: HX brain mets increased h/a; Additional info: Brain mets, progressive headaches TECHNIQUE: Imaging protocol: MR of the head without and with intravenous contrast. Contrast material: PROHANCE; Contrast volume: 11 ml; Contrast route: PORT; COMPARISON: MRI-Brain W/O FOLL BY WITH 04/24/2016 5:23 PM FINDINGS: Brain: There are multiple round and linear areas of bright signal intensity within the deep white matter along the ventricles and also involving the corpus callosum. Scattered small round areas of bright signal intensity noted through the white matter as well, and this has progressed since 2016. This could be related to chronic ischemic change. Demyelination is also a consideration however the diagnosis of MS is usually reserved for those under 40 years of age unless a prior history. Other causes of demyelination include lupus, collagen vascular disease and Lukencephalopathy which can be seen with viral etiology, chemotherapy, and many other etiologies. There is no evidence of abnormal enhancement within the brain. However, there is an oval area of low signal intensity within the right cerebellum which is not seen in 2016 and could be the result of hemosiderin from old blood or a area of vascular malformation. I would recommend a CT scan with bolus intravenous contrast to further evaluate this area. Brainstem: The brainstem is normal in size and the suprasellar and para type medial region appears within the range of normal. Ventricles: Normal. No ventriculomegaly. Bones/joints: Unremarkable. Soft tissues: Unremarkable. Sinuses: Normal as visualized. No acute sinusitis. Mastoid air cells: Normal as visualized. No mastoid effusion. Orbits: Unremarkable. IMPRESSION: 1. Bright signal intensity through the corpus callosum with linear areas of bright signal intensity along the ventricles in the deep white matter. This is increased since 2016 and may be related to demyelination with considerations listed above. 2. Prominent low signal intensity area right cerebellum could be the result hemosiderin from old blood or a vascular malformation and recommend CT scan with bolus intravenous contrast for further evaluation of this. This cannot be identified on the examination of 2016. Electronically signed by: Darren Burnette On 09/30/2019 22:29:37 PM
--- NOTE | 2019-09-30 22:45 | REPVR ---
PROCEDURE INFORMATION: Exam: MR Orbit Without and With Contrast Exam date and time: 09/30/2019 8:56 PM Age: 64 years old Clinical indication: Pain; Headache; Type not specified; Patient HX: HX brain mets increased h/a; Additional info: Brain mets, progressive headaches TECHNIQUE: Imaging protocol: MR Orbit was performed without and with intravenous contrast. 3D rendering: MIP and/or 3D reconstructed images were created by the technologist. Contrast material: PROHANCE; Contrast volume: 11 ml; Contrast route: PORT; COMPARISON: CT Maxillofacial with contrast 12/06/2018 10:29 AM FINDINGS: Orbits: On the CT examination of 12/06/2018 there was 1.2 cm round lesion along the medial rectus muscle on the left. This is no longer identified. The optic nerves appear symmetric. Sinuses: Paranasal sinuses appear clear. The orbits appear symmetric. Soft tissues: Unremarkable. IMPRESSION: The previous round mass lesion at the medial rectus on the left seen on the CT examination of 12/06/2018 is no longer identified. This may be a metastatic lesion that responded to chemotherapy. Electronically signed by: Darren Burnette On 09/30/2019 22:44:53 PM
== END ==
LOC: M RAD 18:20
PROVIDERS: ATTEND Internal Medicine Medical Oncology
DX: C79.31 Secondary malignant neoplasm of brain (principal); R51 Headache

== ENCOUNTER → 2019-10-01 | Outpatient (CLI) | payer MEDICARE ==
[~2019-10-01] MED LIST changes: -PROHANCE 279.3MG/ML 15ML VIAL (A9576) As Ordered ONE
--- NOTE | 2019-10-02 09:20 | RADONC ---
RADIATION ONCOLOGY FOLLOWUP NOTE: DATE: 10/01/2019 CHART NUMBER: [id number] DIAGNOSIS: Lung cancer. STAGE: Widely metastatic. ECOG PERFORMANCE STATUS: 0 Ms Vance is a very pleasant 64-year-old white female who is well-known to our department and has been treated to multiple sites for metastatic adenocarcinoma of lung in the past. I saw her on 09/19/2019 for consultation regarding the possibilities of radiation therapy to her right hip and perhaps to her right scapular region. Since that time, the patient has had a bone scan done on 09/24/2019 which did show some progressive skeletal metastasis. This was then compared with the previous bone scan of August 07, 2018. In addition, the patient had an MRI of the brain and orbits undertaken on 09/30/2019. The previous round lesion in the medial rectus muscle of the left orbit from 12/06/2018 was no longer seen. In addition, there were no was no evidence of metastatic disease to the brain. The patient presents today reporting that she is having no pain and actually is feeling quite well. She reports that she continues to remain active and us her exercise bicycle. The patient's review of systems is positive for some vague left eye symptoms for which she will be seeing Dr. Muro. It is also positive for some episodic grade 1 out of 10 and discomfort in the scapular region but is otherwise noncontributory. The patient denies nausea, vomiting, fevers, chills, night sweats, diplopia, headaches, anxiety or depression, anorexia, weight loss, visual disturbances, chest pain, urinary or bowel difficulties, bone pain, or neurological problems. PHYSICAL EXAMINATION: Physical examination was deferred at this point. The patient basically came in to discuss her MRI and bone scan findings. ASSESSMENT: The patient is clinically doing well at this time. Clearly there is no evidence of brain metastasis, which was of my greatest concern. The brain already has changes secondary to her various treatments and further radiation would be quite damaging. Fortunately, we do not need to consider this at this time as there is no evidence of metastatic disease to the brain or indeed to the orbit which was previously treated. The bone scan continues to show bony metastasis which have progressed when compared to 1 year and 2 months ago. They are not causing this patient any significant symptoms at this time. Indeed, she appears to be doing quite well. In light of that I explained to the patient, of course we can treat most of the bones in her body to alleviate any pain. Since she is having no pain, I would prefer not to treat various bones unnecessarily as they might decrease her bone marrow reserve and therefore decrease her ability to tolerate systemic therapy which is necessary to extend her life. The patient is being followed and managed closely by her medical oncologist who is doing an excellent job, Dr. Norah Angelo MD and I will defer to her expertise. In light of this I have discharge this patient from our followup except on a p.r.n. basis. The patient her have my cell phone number as well as office number and I have made clear that we are more than happy to see them at anytime if we could provide them with any information or be of any assistance whatsoever. I also made clear that should the pain develop, we will evaluate that for possible treatment if indicated with radiation. cc: MD KYMBERLY Price
== END ==
LOC: M ONCR 10:28
PROVIDERS: ATTEND Radiology Radiation Oncology
DX: C34.90 Malignant neoplasm of unspecified part of unspecified bronchus or lung (principal); C79.31 Secondary malignant neoplasm of brain

== ENCOUNTER → 2019-11-21 | Outpatient (CLI) | payer MEDICARE ==
[~2019-11-21] MED LIST changes: +DEME300T8 PO
--- NOTE | 2019-11-21 15:20 | REP ---
CHEST X-RAY: TWO VIEWS. HISTORY: Stage IV non-small cell lung carcinoma. Comparison chest x-ray, May 06, 2019. Comparison chest CT images, September 26, 2019. FINDINGS: There is a right-sided Zzmcec-B-Wquy catheter again noted. A left-sided Pleurx catheter is seen in place with slight blunting of the left lateral pleural angle and the left posterior pleural angle. There is blunting of the right lateral and posterior pleural angles as well consistent with a small quantity of right pleural fluid. There is pleural thickening at the right apex essentially unchanged from prior study. There are linear fibrotic band-like opacities in the left mid lung field and right base. No definite infiltrate is seen. There are widespread blastic lesions throughout the skeleton consistent with skeletal metastases. This pattern is essentially unchanged as well. IMPRESSION: Extensive pleural thickening on the right with blunting of the right lateral and posterior pleural angles, essentially unchanged. Pleurx catheter again noted on the left. Scattered areas of bilateral parenchymal fibrosis again seen. Widespread blastic skeletal metastatic disease again noted. Cwwarl-X-Recq catheter in place. No new pulmonary parenchymal infiltrate or other opacity. Electronically Signed by Vidal Gold MD 11/21/2019 04:19 P
== END ==
LOC: M RAD 14:25
PROVIDERS: ATTEND Internal Medicine Medical Oncology
DX: C34.90 Malignant neoplasm of unspecified part of unspecified bronchus or lung (principal); C79.51 Secondary malignant neoplasm of bone; Z95.828 Presence of other vascular implants and grafts

== ENCOUNTER → 2019-11-26 | Outpatient (CLI) | payer MEDICARE ==
[~2019-11-26] MED LIST changes: +PROHANCE 279.3MG/ML 15ML VIAL As Ordered ONE
--- NOTE | 2019-11-26 14:31 | REP ---
MRI STUDY BRAIN AND SELLA TURCICA WITHOUT AND WITH IV GADOLINIUM: HISTORY: Stage IV adenocarcinoma of the lung. New onset hyponatremia. Comparison MRI study of the brain is from September 30, 2019. Comparison CT study December 06, 2018. TECHNIQUE: Axial, coronal and sagittal imaging planes utilized. T1- and T2-weighted scans were included in the usual fashion. Gadolinium enhancement dose is 6 mL of intravenous ProHance. Post contrast dynamic imaging of the sella turcica is acquired in addition to postcontrast whole brain images. MRI FINDINGS: Craniocervical junction and upper cervical cord are unremarkable. No bony calvarial lesion is appreciated. No evidence of extra-axial fluid collection is seen. On T2-weighted scans, there are small foci of low T2 signal in the right inferior cerebellum and left mid cerebellar hemisphere unchanged from the September 30, [address] exam from Dec 06 2018 showed foci of metastatic contrast enhancement in these two locations. No new intracranial mass lesion is seen. Postcontrast images show enhancement in normal vasculature. No abnormal parenchymal enhancement is seen. Dynamically acquired and standard post contrast thin sections through the sella turcica show no evidence of sellar or parasellar mass lesion. The pituitary gland measures 3 mm in vertical height. The stalk of the pituitary gland is in the midline and enhances normally. Optic chiasm and suprasellar cistern are unremarkable. Small vessel atherosclerotic changes are again seen in the periventricular white matter bilaterally. No orbital abnormality is appreciated on today's MR images. IMPRESSION: Stable chronic changes. No abnormal intracranial contrast enhancement to suggest new metastasis. Electronically Signed by Vidal Gold MD 11/26/2019 03:20 P
== END ==
LOC: M RAD 09:24
PROVIDERS: ATTEND Internal Medicine Medical Oncology
DX: E87.1 Hypo-osmolality and hyponatremia (principal); C34.90 Malignant neoplasm of unspecified part of unspecified bronchus or lung
CPT/HCPCS: 70553; A9576; J1642

== ENCOUNTER → 2019-12-08 | Outpatient (CLI) | payer MEDICARE ==
[~2019-12-08] MED LIST changes: +OXYC-517 PO; -PROHANCE 279.3MG/ML 15ML VIAL As Ordered ONE
--- NOTE | 2019-12-11 13:37 | RADONC ---
RADIATION ONCOLOGY CONSULTATION NOTE DATE: 12/08/2019 CHART NUMBER: [id number] DIAGNOSIS: Lung cancer. STAGE: IV, widely metastatic. 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 Over the next several years, she has been treated to her brain as well as to her thoracic lumbar spine from the levels of T10 through L4, and to her right ribs in addition to her left orbit. She is well known to our department. The patient has been managed by medical oncology and apparently has been seen on multiple occasions over the past 2 weeks. There are medical oncology notes by her medical oncologist, Dr. Norah Angelo, dating back over the last couple of weeks starting on November 20 reporting 40 and 30 minute [id number] visits for various issues. Her most recent visit there was on 12/01/2019, and apparently at that time the patient had no pain over her right scapula. The patient had contacted Dr. Angelo and insisted that she see me today for what she is saying is excruciating pain over her right shoulder/scapular region. I did not have any of her information available to me at the time, but the patient insisted on being seen immediately this morning for an urgent consultation while she was seeing Dr. Angelo, her medical oncologist. As far as radiographic studies go, the patient had a bone scan on September 24, 2019, which showed multiple bony metastasis throughout the skeleton. There is a small area of uptake in the lower portion of the right scapula noted. On September 26, [address] scan of the chest done, which showed an increased right upper lobe pleural based 2.9 cm nodule suspicious for progressive neoplasm. There was increase in the left interstitial thickening, which was thought to represent pulmonary edema or lymphangitic spread. There was a mild increase in the left pleural effusion. The skeletal metastasis seemed unchanged. Basically most of the right lung seemed unchanged. A repeat angio CT scan of the chest was done on 11/21/2019 and continued to show pulmonary metastasis and extensive chronic bibasilar curvilinear densities with abnormal right pleural irregular thickening and mass densities, which was unchanged when compared to September 25, 2009, or possibly slightly increased. I personally reviewed CT scan and compared it to her previous CT scans going back to July 07, 2019. I do not see any notable significant changes. An MRI of the brain was also done on 11/26/2019 and showed no evidence of new metastasis. The patient reports that she was fine until 5 days or so ago, while on Sunday afternoon she suddenly had right upper back pain, which she attributes to the scapula. She says it is not related at all to breathing and she can take deep breaths without an issue. She claims that it happens when she is sitting up and has difficulty laying on her right back. Once again, she reported no pain on Sunday last week but said this suddenly developed on Sunday. I had difficulty fully assessing the location of this pain. On physical examination, I applied pressure to various spots of the scapula and back and elicited no tenderness. Per the questioning at a telephone call later in the afternoon the patient to state that the pain is perhaps deeper underneath the scapula. Since the patient came in on an urgent basis, I did not have time to do a full thorough history and physical and therefore the review of systems and other sections I will defer to her medical oncologist who is also seeing the patient for. Please see the medical oncology notes with regards to those issues. ASSESSMENT: At this time, I am unsure as to the source of this patient's discomfort. All of her radiographic studies were done literally 14 days before the onset of this pain. I am not sure if the pain is coming from the pleural based masses, which is possible, although they appear stable on x-ray for the past 6 months, or if it is coming from the scapula. When looking closely at the CT scan I am not seeing any fractures or serious bone erosion in the scapular area. Since I am not able to elicit tenderness, I tend to doubt that this is coming from the small scapular lesion, which appears to be one of the least of her worries when looking at the bone scan. I suspect something else is going on at this time. I explained to the patient during my telephone conversation with her this afternoon that at this time I do not have anything specific to aim at in order to treat. If we try and treat the pleural based nodules we will significantly affect the patient's right lung and cause her further difficulty with discomfort upon swallowing. The area may be treatable. At this time, I will be ordering pulmonary functions to see whether or not she can tolerate radiation to the pleural based chest wall densities. In addition, I am ordering an MRI of the upper thoracic spine to see whether or not there has been some disease progression in the cervical or thoracic spine. Indeed on bone scan those areas have significant uptake. Further recommendations will be made pending those results. MTDD
== END ==
LOC: M ONCR 10:57
PROVIDERS: ATTEND Radiology Radiation Oncology
DX: C34.90 Malignant neoplasm of unspecified part of unspecified bronchus or lung (principal); C79.51 Secondary malignant neoplasm of bone

== ENCOUNTER → 2019-12-16 | Outpatient (CLI) | payer MEDICARE ==
[~2019-12-16] MED LIST changes: +PROHANCE 279.3MG/ML 15ML VIAL As Ordered ONE
--- NOTE | 2019-12-17 00:41 | REP ---
MRI CERVICAL SPINE WITHOUT AND WITH IV CONTRAST: HISTORY: Restage bone cancer. Comparison radionuclide bone scan 09/24/2019. Comparison is made with chest CT studies from 09/26/2019 and 11/21/2019. These studies have shown widespread skeletal metastatic disease, which is blastic or sclerotic. There is no comparison cervical spine imaging. TECHNIQUE: Sagittal and axial T1- and T2-weighted scans are acquired in the usual fashion with and without fat saturation. Sequences include spin echo, turbo spin-echo, and STIR imaging sequences. Gadolinium enhancement dose is 11 mL of intravenous ProHance. MRI FINDINGS: There are multifocal low T1-, low T2-weighted metastatic foci in the visualized skeleton. These include foci in each cervical vertebrae and in each of the visualized upper thoracic vertebrae. There is a lesion in the left side of the clivus at the skull base. The largest vertebral body lesion is at the C7 vertebral body, where low T1 and low T2 signal intensity involves most of the vertebral body anteriorly and the right pedicle. There are two large foci in T2. Lesions are seen in the posterior aspect of C2 and C3. Spinous process involvement is seen at C3 and C4. Normal signal intensity is seen throughout the lamina at the C3 level. There is laminar involvement on the right at C4. There is a lesion in the right lamina at T1. There is no evidence of soft tissue epidural extension or vertebral collapse at any of these levels. There is a central focal disc protrusion at C5-6, which effaces the ventral subarachnoid space and contacts the ventral margin of the cord. There is no cervical cord compression visible, however. No abnormal intramedullary cord signal is appreciated. No abnormal contrast enhancement is seen. There is mild diffuse disc bulging at C4-C5. There is a tiny left posterior disc protrusion at C6-C7. IMPRESSION: 1. There is widespread skeletal metastatic disease showing homogeneous low T1 and low T2 signal intensity without apparent contrast enhancement, consistent with blastic skeletal metastatic disease. 2. There is no evidence of epidural or paravertebral soft tissue extension. 3. There are degenerative spondylosis changes including a small left paracentral disc herniation at C5-6, diffuse disc bulging at C4-5, and a small left posterior disc protrusion at C6-7. Electronically Signed by Vidal Gold MD 12/17/2019 08:19 A
--- NOTE | 2019-12-17 00:48 | REP ---
MRI LUMBAR SPINE WITHOUT AND WITH IV CONTRAST: HISTORY: Restage metastatic bone cancer. Comparison CT study of the chest 11/21/2019. Comparison bone scan 09/24/2019. TECHNIQUE: Sagittal and axial T1- and T2-weighted scans are acquired in the usual fashion with and without fat saturation. Sequences include spin echo, turbo spin-echo, and STIR imaging sequences. 11 mL of intravenous ProHance is administered. MRI FINDINGS: Thoracic vertebral body heights are preserved. Alignment is normal. There is widespread skeletal metastatic disease. The metastases are characterized by very low T1 and low T2 signal intensity, consistent with the radiographic appearance of sclerotic/blastic metastatic foci. The largest lesions in the anterior vertebral column involve L1, T12, T9, T8, T7, T6, T5, and T4. No fracture or collapse is seen. There are multifocal posterior element lesions. Similar to the pattern in the cervical spine, there is no evidence of paravertebral or intraspinal soft tissue extension. There are pleural-based soft tissue metastases in the right pleural space. There is a left pleural drainage catheter noted. No thoracic cord compression is seen. There is a tiny left paracentral focal disc protrusion at the T8-9 disc level, which effaces the left ventral subarachnoid space but does not compress the cord. No other thoracic disc protrusion is seen. Contrast images show no abnormal contrast enhancement in the skeletal metastatic sites. There is some contrast enhancement in the pleural nodularity on the right. There are sclerotic rib lesions in the visualized posterior rib cage, as well. IMPRESSION: Widespread blastic skeletal metastatic pattern. No epidural disease seen. There is a left paracentral small focal disc protrusion at the T8-9 disc level. No cord compressive lesion is appreciated. Electronically Signed by Vidal Gold MD 12/17/2019 08:19 A
== END ==
LOC: M RAD 12:39
PROVIDERS: ATTEND Radiology Radiation Oncology
DX: C79.51 Secondary malignant neoplasm of bone (principal); M47.812 Spondylosis without myelopathy or radiculopathy, cervical region; M50.222 Other cervical disc displacement at C5-C6 level; M50.223 Other cervical disc displacement at C6-C7 level; M50.221 Other cervical disc displacement at C4-C5 level
CPT/HCPCS: 72156; 72157; A9576; J1642

== ENCOUNTER 2019-12-19 11:22 | Emergency (ER) | payer MEDICARE ==
[~2019-12-19] VITALS: Ht 167.6 cm; Wt 56.9 kg
[~2019-12-19 11:22] MED LIST changes: -PROHANCE 279.3MG/ML 15ML VIAL As Ordered ONE
[2019-12-19 12:23] LABS: VENOUS BASE EXCESS 6.6 (-2.0-2.0); VENOUS HCO3 33.3 MEQ/L (23.0-27.0); VENOUS O2 SATURATION 80.9 % (60.0-80.0); VENOUS PARTIAL PRESSURE CO2 56.3 mmHg (38.0-50.0); VENOUS PARTIAL PRESSURE O2 46.9 mmHg (30.0-50.0); VENOUS STANDARD HCO3 30.1 MEQ/L
[2019-12-19 12:26] LABS: BASO % 0.2 % (0.0-1.0); EOS % 0.1 % (0.0-3.0); HEMATOCRIT 39.6 % (36.0-47.0); HEMOGLOBIN 12.9 g/dl (12.0-15.5); LYMPH # 0.4 10^3/uL (1.5-5.0); LYMPH % 2.7 % (24.0-44.0); MEAN CORPUSCULAR HEMOGLOBIN 28.4 pg (27.0-33.0); MEAN CORPUSCULAR HGB CONC 32.6 g/dl (32.0-36.5); MEAN CORPUSCULAR VOLUME 87.2 fl (80.0-96.0); MONO # 1.5 10^3/uL (0.0-0.8); MONO % 10.6 % (0.0-5.0); NEUTROPHILS % 85.7 % (36.0-66.0); PLATELET COUNT, AUTOMATED 323 10^3/uL (150-450); RED BLOOD COUNT 4.54 10^6/uL (4.00-5.40)
[2019-12-19 13:00] LABS: ALT/SGPT 23 U/L (12-78); BILIRUBIN,DIRECT 0.2 MG/DL (0.0-0.2); BILIRUBIN,TOTAL 0.5 MG/DL (0.2-1.0); BLOOD UREA NITROGEN 13 MG/DL (7-18); CARBON DIOXIDE LEVEL 32 MEQ/L (21-32); CHLORIDE LEVEL 90 MEQ/L (98-107); CK-MB VALUE MASS 3.9 NG/ML (<3.6); CPK CREATINE PHOSPHOKINASE 79 U/L (26-192); CREATININE FOR GFR 0.43 MG/DL (0.55-1.30); GLOMERULAR FILTRATION RATE > 60.0 (>45); GLUCOSE, FASTING 96 MG/DL (70-100); MB/CK RELATIVE INDEX 4.94 (< OR =4); POTASSIUM SERUM 4.2 MEQ/L (3.5-5.1); SODIUM LEVEL 131 MEQ/L (136-145); TOTAL PROTEIN 5.9 GM/DL (6.4-8.2); TROPONIN I 0.15 NG/ML (< 0.10)
[2019-12-19 13:30] VITALS: BP 131/88
--- NOTE | 2019-12-19 13:35 | REP ---
CT BRAIN WITHOUT CONTRAST: HISTORY: Neurologic symptoms. Lung carcinoma. Comparison brain CT study December 06, 2018. CT FINDINGS: Digital preliminary [place] radiograph is unremarkable. On bone window settings, there is an area of sclerosis at the skull base involving the left lateral foramen magnum wall and the base the occipital bone. This is consistent with a blastic skeletal metastatic focus. No lytic lesion is seen. The sclerosis extends into the occipital condyle on the left. No other skeletal calvarial lesion is seen. On soft tissue window settings, there is mild generalized volume loss. No intracranial mass lesion is seen. There is no evidence of intracranial hemorrhage, acute infarction, extra-axial fluid collection, or midline shift. There is small vessel atherosclerotic change in the periventricular white matter of the parietal lobes bilaterally unchanged from comparison CT study. IMPRESSION: No intracranial mass lesion is evident. There is generalized volume loss and some small vessel change. There is a sclerotic skeletal metastasis involving the left side of the skull base and occipital condyle. No evidence of intracranial extension. No evidence of acute infarction or hemorrhage. Electronically Signed by Vidal Gold MD 12/19/2019 01:43 P
[2019-12-19] MEDS ORDERED: SODIUM CHLORIDE 0.9% INJ 10 ML SYR IV PRN (14:30)
--- NOTE | 2019-12-19 15:23 | REP ---
PORTABLE CHEST X-RAY: Sitting AP view. HISTORY: Altered mental status. Non-small cell lung carcinoma stage IV. COMPARISON STUDY: November 21, 2019. FINDINGS: There is a left-sided PleurX catheter noted in place. There is nodular pleural thickening on the right again noted unchanged. A right-sided [id number] catheter is seen. There is widespread blastic skeletal metastatic disease noted unchanged. No new infiltrate is appreciated. Interstitial markings are somewhat prominent diffusely. Mild cardiomegaly is observed. IMPRESSION: Extensive pleuroparenchymal nodular changes on the right, unchanged. Widespread blastic skeletal metastatic disease again noted. There is mild blunting of the left lateral pleural angle with PleurX catheter in place. No new infiltrate is seen. Mild cardiomegaly unchanged. Electronically Signed by Vidal Gold MD 12/19/2019 04:08 P
--- NOTE | 2019-12-20 00:09 | ECGEPIP ---
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
[2019-12-20] MEDS ORDERED: SODIUM CHLORIDE 0.9% INJ 10 ML SYR IV SCH (09:00)
[2019-12-21 16:33] LABS: OSMOLALITY SERUM 258 mOsmol/kg (280-301)
--- NOTE | 2019-12-22 12:23 | ED PDOC ---
Post-Departure Follow-Up dr hector faxed formal report of ct head and cxr for fu. pt left ama. Trupti Glaser MD Dec 22, 2019 12:23
[2020-01-05] MEDS ORDERED: VITAD1000T PO (11:21)
== END 2019-12-19 15:24 | disposition left against medical advice (07) ==
LOC: M ED 11:22
DX: G45.9 Transient cerebral ischemic attack, unspecified (principal); R74.8 Abnormal levels of other serum enzymes; C34.90 Malignant neoplasm of unspecified part of unspecified bronchus or lung; C79.2 Secondary malignant neoplasm of skin; Z88.1 Allergy status to other antibiotic agents; Z79.899 Other long term (current) drug therapy; Z79.891 Long term (current) use of opiate analgesic

== ENCOUNTER 2020-01-07 13:59 | Outpatient (RCR) | payer MEDICARE ==
--- NOTE | 2019-12-24 14:57 | RADONC ---
RADIATION ONCOLOGY PROGRESS NOTE DATE: 12/17/2019 CHART NUMBER: [id number] PROGRESS NOTE: Ms. Vance underwent the MRIs of her cervical and thoracic spine yesterday afternoon and I came in early this morning to review the reports as well as the images. Apparently, there are multiple vertebral body metastases, including the largest one in the C7 vertebral body, which involves most of the vertebral body and the right pedicle. Of note, the patient's shoulder pain is on the right side. She also has metastases at C3 and C4 as well as C2 and C3. There are also lesions at T4, T5, T6, T8, T9, and T12 as well as L1. We previously treated the lower thoracic/lumbar region but we can give palliative radiation therapy to the upper area. Once again, I believe that this is the source of the patient's discomfort. The pain she reports it is positional in nature. It happens when she lays on her right side or sits up at a certain angle. This would lead me to believe more likely that this is from the spine rather than the lung itself especially since the pain is not related to deep inspiration or expiration. I called the patient this morning and discussed these findings with her. I am scheduling her now for CT simulation and initiation of treatment. She is in agreement with this. I did discuss with the patient the potential benefits as well as possible acute and chronic sequelae of external beam radiation therapy. We discussed logistics of treatment planning, simulation and subsequent fractionated daily radiation treatments. The patient has had radiation to the spine in the past and this time is more likely to have a sore throat and some esophagitis rather than intestinal issues. Once again, I am scheduling her for CT simulation. Radiation will begin subsequently. Keytruda issues will be discussed with her medical neurologist, Dr. Norah Angelo.
--- NOTE | 2020-01-02 06:58 | RADONC ---
RADIATION ONCOLOGY PROGRESS NOTE DATE: 12/29/2019 CHART #: [id number] Ms. Vance is presently at a dose of 900 cGy to her cervical and thoracic spine and is tolerating treatments quite well at this point with no complaints related to radiation therapy. She has no change in her shoulder pain. REVIEW OF SYSTEMS: The patient's review of systems is positive for continued shoulder pain but is otherwise noncontributory. Denies nausea, vomiting, fevers, chills, night sweats, diplopia, headaches, anxiety or depression, anorexia, weight loss, visual disturbances, chest pain, urinary or bowel difficulties, bone pain, or neurological problems. PHYSICAL EXAMINATION: The patient's skin is in good condition with no evidence of moist or dry desquamation. The remainder of her physical exam remains unchanged. Ms. Vance is tolerating treatments quite well and radiation will continue as scheduled.
--- NOTE | 2020-01-07 12:34 | RADONC ---
RADIATION ONCOLOGY PROGRESS NOTE DATE OF SERVICE: 01/05/2020 CHART NUMBER: [id number]. PROGRESS NOTE: Ms. Vance is presently at a dose of 2400 cGy to her spine and is tolerating treatments quite well at this point with no complaints related to her radiation therapy. She reports complete resolution in her shoulder pain. REVIEW OF SYSTEMS: The patient's review of systems is noncontributory. She denies nausea, vomiting, fevers, chills, night sweats, diplopia, headaches, anxiety or depression, anorexia, weight loss, visual disturbances, chest pain, urinary or bowel difficulties, bone pain, or neurological problems. PHYSICAL EXAMINATION: The patient's skin is in good condition with no evidence of moist or dry desquamation. The remainder of her physical exam remains unchanged. Ms. Vance is tolerating treatments quite well with an absolutely excellent result in resolution of her pain. Radiation will continue as scheduled.
[~2020-01-07 13:59] MED LIST changes: +VITAD1000T PO
--- NOTE | 2020-01-09 16:50 | RADONC ---
RADIATION ONCOLOGY TREATMENT SUMMARY DATE: 01/07/2020 CHART NUMBER: [id number] DIAGNOSIS: Lung cancer. STAGE: IV, widely metastatic. ECOG PERFORMANCE STATUS: 1 TREATMENT SUMMARY: Ms. Vance is a 64-year-old white female with the diagnosis of a long history of mucinous adenocarcinoma of the lung going back to 2012 who presented to me complaining of shoulder pain. We treated the patient to her spine from the levels of C3 to T7 for a total dose of 3000 cGy delivered in 10 fractions of 300 cGy each over 13 elapsed days from 12/25/2019 through 01/07/2020. The patient's spine was treated on a linear accelerator utilizing a 10 MV photon beam. Ms. Vance tolerated her treatments quite well and was able complete therapy as prescribed without interruption. She noticed a total resolution of her shoulder and neck pain. The patient is scheduled see me again in 1 month for further followup. She will also continue to be followed by her other physicians as well. cc: Norah Angelo MD
[2020-02-09] MEDS ORDERED: DEME300T8 PO (15:28)
== END 2020-01-20 ==
LOC: M ONCR 13:59
PROVIDERS: ATTEND Radiology Radiation Oncology
DX: C79.51 Secondary malignant neoplasm of bone (principal); C34.11 Malignant neoplasm of upper lobe, right bronchus or lung

== ENCOUNTER → 2020-01-09 | Outpatient (CLI) | payer MEDICARE ==
[~2020-01-09] MED LIST changes: +D31000TA2 PO; +DEXA4TA PO; +E-Z-GAS II EFFERVESCENT PACKET (SODIUM BICARB./CITRIC ACID/SIMETHICONE) As Ordered ONE; +E-Z-HD 98% w/w 340GM SUSP BTL As Ordered ONE; +E-Z-PAQUE 96% w/w SUSP 176GM BTL As Ordered ONE; -FOLI0.4T2 PO; +FOLI400T5 PO; +MULT1CHW29 PO; +PANT40TA29 PO; -PANT40TA3 PO; -VITAD1000T PO
--- NOTE | 2020-01-09 17:50 | REP ---
Esophagram The procedure was performed under the direct supervision of Dr. Gold. The images were reviewed with Dr. Gold. A single view PA chest x-ray is submitted as a director of strategic sales film. There is no change compared to a previous chest x-ray performed on 12/19/2019. Liquid barium and gas producing granules were given in the erect position as well as liquid barium in the prone oblique positions in order to perform a double contrast esophagram examination. During the oral and pharyngeal stages of deglutition there is aspiration. There is an anterior cervical esophageal web at the C5 level. Esophageal transport is prompt and efficient. In the mid esophagus there is mucosal irregularity which may represent esophagitis. There is no mucosal ring or hiatal hernia. Gastroesophageal reflux is not demonstrated on this examination. Impression: 1. There is aspiration. 2. There is an anterior cervical esophageal web at the C5 level. 3. There is mucosal irregularity mid esophagus which may represent esophagitis. Impression: 1.6 minutes of fluoro time was utilized for this procedure. Electronically Signed by DIANE Herman 01/09/2020 04:01 P Electronically Signed by Vidal Gold MD 01/09/2020 05:39 P
== END ==
LOC: M RAD 07:35
PROVIDERS: ATTEND Internal Medicine Gastroenterology
DX: R13.10 Dysphagia, unspecified (principal); Q39.4 Esophageal web

== ENCOUNTER → 2020-01-16 | Outpatient (CLI) | payer MEDICARE ==
[~2020-01-16] MED LIST changes: -D31000TA2 PO; -DEXA4TA PO; -E-Z-GAS II EFFERVESCENT PACKET (SODIUM BICARB./CITRIC ACID/SIMETHICONE) As Ordered ONE; -E-Z-HD 98% w/w 340GM SUSP BTL As Ordered ONE; -E-Z-PAQUE 96% w/w SUSP 176GM BTL As Ordered ONE; +FOLI0.4T2 PO; -FOLI400T5 PO; -MULT1CHW29 PO; -PANT40TA29 PO; +PANT40TA3 PO; +VITAD1000T PO
== END ==
LOC: M LABSMTC 09:46
PROVIDERS: ATTEND Anesthesiology
DX: Z11.59 Encounter for screening for other viral diseases (principal); Z03.89 Encounter for observation for other suspected diseases and conditions ruled out
CPT/HCPCS: C9803; U0003

== ENCOUNTER 2020-01-19 08:02 | Day surgery (SDC) | payer MEDICARE ==
[~2020-01-19] VITALS: Ht 167.6 cm; Wt 52.5 kg
[~2020-01-19 08:02] MED LIST changes: +D31000TA2 PO; -FOLI0.4T2 PO; +FOLI400T5 PO; +PANT40TA29 PO; -PANT40TA3 PO; -VITAD1000T PO
[2020-01-19] MEDS ORDERED: ceFAZolin SOD 2 GM in IV 1 EA IV ONE (08:15)
[2020-01-19] MEDS ORDERED: MUPIROCIN 2% OINT 22 GM TUBE TOP ONE (08:15)
[2020-01-19] MEDS ORDERED: NS 1,000 ML IV ONE (08:30)
[2020-01-19] MEDS ORDERED: BUPIVACAINE LIPOSOME/PF 1.3% 20ML VIAL (13.3MG/ML)(EXPAREL)(C9290 PER1MG) As Ordered ONE (08:49)
[2020-01-19] MEDS ORDERED: MIDAZOLAM INJ 2MG/2ML VIAL (J2250 PER 1MG) IV ONE (10:00)
[2020-01-19 10:10] VITALS: BP 133/86
--- NOTE | 2020-01-21 13:52 | RO ---
DATE OF PROCEDURE: 01/19/2020 PREPROCEDURE DIAGNOSIS: Retained PleurX catheter. No longer needed. POSTPROCEDURE DIAGNOSIS: Retained PleurX catheter. No longer needed. PROCEDURE: Removal of PleurX catheter with moderate sedation. SURGEON: Dr. Usama Milligan WILDLIFE REFUGE MANAGER: ANESTHESIA: DESCRIPTION OF PROCEDURE: Under satisfactory moderate sedation achieved with 2 mg of Versed, the patient was prepped and draped in the usual sterile fashion. The proposed incision site was infiltrated with Exparel. Incision was made over the palpable filling collar. Incision was carried down to the filling collar which was released of adhesive tissue. Once releasing the collar, the PleurX catheter came out without difficulty. The incision was closed with running #3-0 Vicryl suture for the subcutaneous tissue and running #4-0 Monopril subcuticular suture for the skin. The patient tolerated the procedure well and left the operating room in satisfactory condition for the recovery room.
[2020-02-09] MEDS ORDERED: DEME300T8 PO (15:28)
[2020-03-24] MEDS ORDERED: DEXA4TA PO (10:04)
== END 2020-01-19 10:18 | disposition home or self-care (01) ==
LOC: M OPP 08:02
PROVIDERS: ATTEND Thoracic Surgery (Cardiothoracic Vascular Surgery)
DX: C34.90 Malignant neoplasm of unspecified part of unspecified bronchus or lung (principal); J91.0 Malignant pleural effusion
CPT/HCPCS: 32552; C9290; J0690; J2250

== ENCOUNTER → 2020-01-29 | Outpatient (CLI) | payer MEDICARE ==
[~2020-01-29] MED LIST changes: +DEXA4TA PO; +MULT1CHW29 PO
--- NOTE | 2020-01-29 11:24 | REPPI ---
REASON FOR EXAM: Followup status post malignant effusion. COMPARISON: The latest prior 12/19/2019 Mediport device tip is unchanged remaining in the superior vena cava. Abnormal right lung opacities with costophrenic angle and cardiophrenic angle blunting status quo. Right upper lobe mass status quo. Chronic left basilar changes stable No new abnormal opacities seem to have developed. The cardiomediastinal silhouette is unchanged. The osseous structures are unchanged. IMPRESSION: Stable-appearing chronic changes. Correlate clinically to rule out the possibility of acute disease superimposed on chronic change. Electronically Signed by Fransisco Chirinos DO 01/29/2020 04:55 P
== END ==
LOC: M PLAIMG 09:36
PROVIDERS: ATTEND Thoracic Surgery (Cardiothoracic Vascular Surgery)
DX: C34.91 Malignant neoplasm of unspecified part of right bronchus or lung (principal); J91.0 Malignant pleural effusion

== ENCOUNTER → 2020-02-11 | Outpatient (CLI) | payer MEDICARE | LOC: M ONCR 14:05 | PROVIDERS: ATTEND Radiology Radiation Oncology | DX: C79.51 Secondary malignant neoplasm of bone (principal); C79.49 Secondary malignant neoplasm of other parts of nervous system ==

== ENCOUNTER → 2020-02-24 | Outpatient (CLI) | payer MEDICARE ==
[~2020-02-24] MED LIST changes: +GASTROGRAFIN SOLUTION 30ML (Q9963) As Ordered ONE; +ISOVUE-370 76% 100ML VIAL As Ordered ONE
== END ==
LOC: M RAD 14:30
PROVIDERS: ATTEND Internal Medicine Medical Oncology
DX: C34.90 Malignant neoplasm of unspecified part of unspecified bronchus or lung (principal)
CPT/HCPCS: 71260; 74177; J1642; Q9963; Q9967

== ENCOUNTER → 2020-02-27 | Outpatient (REF) | payer MEDICARE ==
[~2020-02-27] MED LIST changes: -GASTROGRAFIN SOLUTION 30ML (Q9963) As Ordered ONE; -ISOVUE-370 76% 100ML VIAL As Ordered ONE
== END ==
LOC: M SFHCWAGY 09:58
PROVIDERS: ATTEND Nurse Practitioner Women's Health
DX: Z12.4 Encounter for screening for malignant neoplasm of cervix (principal)
CPT/HCPCS: G0101; G0123

== ENCOUNTER → 2020-03-24 11:00 | Outpatient (RCR) | payer BC, MEDICARE ==
[2018-04-24 13:24] VITALS: BP 124/78
[2018-04-24 13:30] LABS: HEMATOCRIT 41.4 % (37.0-51.0); HEMOGLOBIN 13.7 g/dl (12.0-18.0); MEAN CORPUSCULAR HEMOGLOBIN 31.1 pg (26.0-32.0); MEAN CORPUSCULAR HGB CONC 33.1 g/dl (31.0-36.0); MEAN CORPUSCULAR VOLUME 93.8 fl (80.0-97.0); NEUTROPHILS # 5.3 10^3/uL (2.0-7.8); NEUTROPHILS % 68.4 % (37.0-92.0); RED BLOOD COUNT 4.41 10^6/uL (4.2-6.3); WHITE BLOOD COUNT 7.7 10^3/uL (4.1-10.9)
[2018-04-24 13:39] LABS: ALBUMIN 4.4 GM/DL (3.5-5.2); BLOOD UREA NITROGEN 10 MG/DL (6-20); CALCIUM LEVEL 9.6 MG/DL (8.5-10.2); CARBON DIOXIDE LEVEL 31.8 MEQ/L (23-31); CHLORIDE LEVEL 97 MMOL/L (98-107); CREATININE FOR GFR 0.83 MG/DL (0.60-1.10); GLOMERULAR FILTRATION RATE > 60.0 (>45); GLUCOSE, FASTING 113 MG/DL (70-105); POTASSIUM SERUM 4.1 MMOL/L (3.5-5.1); SODIUM LEVEL 135.8 MMOL/L (136-145); TOTAL PROTEIN 6.9 GM/DL (6.4-8.3)
[2018-05-29 13:57] LABS: HEMATOCRIT 40.9 % (37.0-51.0); HEMOGLOBIN 13.5 g/dl (12.0-18.0); LYMPH % 20.7 % (10.0-58.5); MEAN CORPUSCULAR HEMOGLOBIN 30.5 pg (26.0-32.0); MEAN CORPUSCULAR VOLUME 92.4 fl (80.0-97.0); NEUTROPHILS # 6.6 10^3/uL (2.0-7.8); NEUTROPHILS % 71.2 % (37.0-92.0); RED BLOOD COUNT 4.43 10^6/uL (4.2-6.3); WHITE BLOOD COUNT 9.2 10^3/uL (4.1-10.9)
[2018-05-29 14:01] VITALS: BP 124/78
[2018-05-29 14:09] LABS: ALBUMIN 4.4 GM/DL (3.5-5.2); BLOOD UREA NITROGEN 9 MG/DL (6-20); CARBON DIOXIDE LEVEL 32 MEQ/L (23-31); CHLORIDE LEVEL 94 MMOL/L (98-107); CREATININE FOR GFR 0.95 MG/DL (0.60-1.10); GLOMERULAR FILTRATION RATE > 60.0 (>45); GLUCOSE, FASTING 103 MG/DL (70-105); POTASSIUM SERUM 3.8 MMOL/L (3.5-5.1); SODIUM LEVEL 132 MMOL/L (136-145); TOTAL PROTEIN 7.1 GM/DL (6.4-8.3)
--- NOTE | 2018-06-02 18:47 | MEDONC ---
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 Status post gamma radiation and currently on forth line treatment with brigatinib for indolent progressive disease. Followed closely by Eugene Hunter MD at [facility]. TREATMENT HISTORY: Please see 03/21/2018 note for detailed history. CURRENT THERAPY: brigatinib 180 mg by mouth daily begun August 2016/ denosumab 121 mg subcutaneous every 4 weeks begun January 2015. INTERVAL HISTORY: Joanne had restaging scans 05/27/2018. These show in the chest extensive multifocal nodular pleural encasement of the right lung thought essentially unchanged versus January 2018. One area in the upper lung on the right has increased from 24 to 29 mm since January; otherwise the right lung was thought to be overall stable. One area noted in the left lower lobe a peribronchovascular nodule measures 14 mm versus previous 12 mm and three tiny but new soft tissue nodules in the left lower lobe peripherally were seen and a 3 mm nodule in the left upper lobe might be slightly larger. (These last two items were not discussed with her during the visit but the above were). We discussed at length what was noted to be sclerotic metastatic disease in the axial skeleton. The size of some particular vertebral lesions had increased: A previously 8 mm vertebral body lesion now 16 mm, multiple sclerotic rib lesions unchanged; a right inferior sternal lesion unchanged; L1 vertebral body contained a new sclerotic lesion in the left pedicle. A previously noted, L1 sclerotic area right of midline has enlarged from 7 mm to 16 mm and on T12 there is a new 5 mm sclerotic lesion to the right of midline at T12. This was read as gradually progressive pleuroparenchymal and osseous metastatic disease. In the abdomen and pelvis there was no significant findings. I discussed these results with Joanne and her family and also reviewed images, I was unable to provide a good view of the vertebral lesions in question, but it was easy to see the pleural parenchymal lesions, particularly the right pleural soft tissue areas of which are difficult to distinguish as progressing at all and were read is stable.. Naturally Joanne would like to know what Dr. Eugene Hunter says, before our meeting i had already placed a call to him yesterday, I had not heard back, and I have already faxed the result of her CAT scans to him. Will discuss with Dr. Hunter the findings and his current recommendations. It emerges that lorlatinib is now just FDA approved. Symptomatically Joanne feels great. She has no new symptoms. She is very busy with family. Her blood pressure remained stable. She has a done by a manual cuff. It has been a little while since she has had an echocardiogram and this may need to be renewed. REVIEW OF SYSTEMS: As noted above is negative. PHYSICAL EXAMINATION: Weight 64 kg, stable, temperature 97.8, blood pressure 124/78, heart rate 74, respiratory 18, O2 sat 99%. Patient is a well-groomed, normal weight, youthful middle aged woman in no distress. Respiratory: Clear lungs to auscultation. Some slight dry crackles heard in the mid lung dalton bilaterally, difficult to reproduce, good air movement throughout. No basilar rales. No wheezes. Cardiac: S1-S2 regular rate and rhythm. No murmur or gallop. Abdomen: Nondistended, nontender, no palpable hepatosplenomegaly or mass. Extremities: No edema. Lymph nodes: No palpable axillary adenopathy. No supraclavicular or axillary adenopathy. LABORATORY DATA: CBC normal. CMP notable for sodium 132, chloride 94, bicarb 32. Remainder completely normal. IMAGING STUDIES: As discussed. IMPRESSION: Joanne Vance is a 63-year-old woman with ALK mutation positive PD-L1 tumor mutation burden intermediate adenocarcinoma of lung stage IV, diagnosed in 2013 with de eliezer metastatic disease involving right malignant pleural effusion and asymptomatic intracranial metastases. She has a never smoker. She received gamma radiation to brain metastases. She is currently on forth line treatment with brigatinib with indolent progressive disease in the pleura pulmonary parenchyma and bones. On current CTs there is evidence of some enlarging and slight small new sites in the bone as well as in what appears to be the left lower lobe of the lung, in the lung the lesions are a few millimeters in size, in one case one has gone from 12 to 14 mm in the right lung. The pleural based nodularity is mostly stable. She is asymptomatic. ECOG performance status 0. At the time of the visit we made a plan for me to discuss the case with Dr. Hunter when he responded and we consider sending the CT images to Dr. Hunter. However, Dr. Hunter called me at the end of the day, we discussed current findings. He feels very strongly that barring new symptoms, any change in performance status, and with these indolent small changes he would recommend continuing on current brigatinib, no change in dose, continuing on denosumab but beginning to space out the dosing schedule. Joanne has been on denosumab monthly for 3 years and to avoid ONJ type complications he is recommending beginning to space out by 2 months initially than 3 months and keeping at every 3 to 4 months interval. She was also previously treated with Zometa stopped for renal insufficiency. PLAN: 1. I will convey the above discussion with Dr. Hunter to Joanne including his recommendation that there is no active need for him to review the images, he had not yet received a copy of the CT, but I will make sure that it has been faxed to him for review. 2. We will continue Joanne on denosumab but at a slower/longer interval so we will schedule her to have this again in 2 months. I can continue monthly visits for physical exam versus switching her to an every 2-month visit depending on her comfort level. She has had a superb quality of life with good response to brigatinib and very slow progression. Lorlatinib has now been approved, but Dr. Hunter specifically recommended against switching to this at this juncture. We will repeat restaging scans in 3 months. 1. Change next denosumab to 2 months from now. 2. I will contact Joanne with the above results and discussion and at that point we will make the decision of the next interval for office visit and physical exam. 3. At Dr. Hunter's recommendation will get another EKG to keep track of QT interval and/or look for any bradycardia. Electronically Signed by Norah Angelo MD 06/04/2018 06:19 P DD: Norah Angelo MD 05/29/2018 05:59 P DT: tj 06/02/2018 06:24 P CC: MD Inocencio Guo MD
[2018-07-30 13:19] VITALS: BP 140/90
[2018-07-30 14:08] LABS: HEMATOCRIT 40.5 % (36.0-47.0); HEMOGLOBIN 13.1 g/dl (12.0-15.5); LYMPH % 15.4 % (24.0-44.0); MEAN CORPUSCULAR HEMOGLOBIN 30.1 pg (27.0-33.0); MEAN CORPUSCULAR HGB CONC 32.3 g/dl (32.0-36.5); NEUTROPHILS # 7.6 10^3/uL (1.8-7.7); NEUTROPHILS % 77.6 % (36.0-66.0); RED BLOOD COUNT 4.35 10^6/uL (4.00-5.40); WHITE BLOOD COUNT 9.8 10^3/uL (4.0-10.0)
--- NOTE | 2018-07-30 14:17 | MEDONC ---
MEDICAL ONCOLOGY URGENT VISIT: DATE OF SERVICE: 07/30/2018 DIAGNOSIS: Alk mutation positive PDL 1 low, oligometastatic adenocarcinoma of the lung stage 4 diagnosed 2012 in a never smoker presenting initially with right malignant pleural effusion and asymptomatic cranial metastases status-post right thoracentesis, followed by gamma radiation. Currently on fourth line treatment with brigatinib for indolent progressive disease followed by Eugene Hunter MD at [facility], the primary director of her care. TREATMENT HISTORY: Please see the 03/21/2018 note. CURRENT THERAPY: Brigatanib 180 mg daily begun August 2016. Denosumab 120 mg every 4 weeks begun January 2015. As of 2019 will adopt an every 3 month interval based on extended prior history with bisphosphonates and rankl inhibitors. INTERVAL HISTORY: Joanne was scheduled for a routine followup today but appointment was rescheduled due to scheduling issues on our side but she called early this morning complaining of progressive or right pleuritic pain extending from the right lateral axillary line area forward around the ribs to the center supraumbilical area. She denies new shortness of breath, cough, orthopnea, hemoptysis or midline back pain. She has had no leg cramping, swelling, palpitations, or other chest pain. She denies a presence of a rash and denies exquisite tenderness to light tough but she can not tolerate wearing her bra. PHYSICAL EXAMINATION: Weight 63 kg, temperature 98, blood pressure 140/90, heart rate 82, respiratory 16, oxygen saturation 98%. Patient is a tall slender well groomed middle aged woman in no distress. Respiratory, generally decreased medical dir breath sounds throughout the right lung dalton. No basilar rales or rhonchi. No dullness to percussion. Clear to auscultation with good air movement throughout the left lung dalton anteriorly and posteriorly. No pretracheal stridor. Cardiac, S1, S2 regular rate and rhythm. Regular rate and rhythm 1/6 systolic murmur. Abdomen soft and nontender. No organomegaly. No masses. Extremities no edema. Lymph nodes, no submandibular cervical supraclavicular or axillary adenopathy bilaterally. LABS: CBC, CMP, CEA to be drawn. IMPRESSION: Joanne Vance is a 63-year-old diagnosed with de eliezer metastatic ALK mutation lung adenocarcinoma in 2012 treated initially for malignant right pleural effusion and asymptomatic intracranial metastases. Has been treated with multiple targeted agents. Currently on fourth line treatment with Brigatanib with generally indolent progressive disease now for the last year and a half on serial CTs every 3 months, most recently in May. Her ECOG performance has been 0. She has a new right pleuritic thoracic pain in what is also a dermatomal distribution around her right T4 dermatomal area. No point tenderness to percussion on exam. No midline back pain, no arm numbness and no rash present. Unfortunately suspicion has to be for progressive recurrent disease causing symptoms. PLAN: 1. CT chest, abdomen and pelvis with by mouth and IV contrast. 2. Bone scan. 3. Followup morning with Joanne and contact her urgently for any urgent new findings that require immediately to be addressed. 4. Should all scans be negative my suspicion would be for a zoster pain syndrome possibly emergence of rash. We would watch closely for this and treat immediately if a rash appears. Electronically Signed by Norah Angelo MD 07/30/2018 05:15 P DD: Norah Angelo MD 07/30/2018 01:42 P DT: edy 07/30/2018 01:48 P CC: MD Inocencio Guo MD
[2018-07-30 14:25] LABS: ALBUMIN 4.6 GM/DL (3.5-5.2); BLOOD UREA NITROGEN 12 MG/DL (6-20); CALCIUM LEVEL 9.9 MG/DL (8.5-10.2); CARBON DIOXIDE LEVEL 29 MEQ/L (23-31); CHLORIDE LEVEL 95 MMOL/L (98-107); CREATININE FOR GFR 0.78 MG/DL (0.60-1.10); GLOMERULAR FILTRATION RATE > 60.0 (>45); GLUCOSE, FASTING 111 MG/DL (70-105); POTASSIUM SERUM 3.5 MMOL/L (3.5-5.1); SODIUM LEVEL 134 MMOL/L (136-145); TOTAL PROTEIN 7.4 GM/DL (6.4-8.3)
[2018-08-01 11:17] VITALS: BP 124/82
--- NOTE | 2018-08-01 16:28 | MEDONC ---
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 Currently on forth line treatment brigatinib for indolent progressive disease. Followed by Dr. Eugene Hunter at [facility] TREATMENT HISTORY: Please see 03/21/2018 note. CURRENT THERAPY: Brigatinib 180 mg daily begun August 2016. Denosumab 120 mg every 4 weeks January 2015 and as of August 2018 will adopt an every 3-month regimen. INTERVAL HISTORY: I saw Joanne 2 days ago for new right pleuritic / upper mid lateral thoracic anterior chest pain in a kind of T4-T6 dermatomal distribution with no other clinical findings. She has now had restaging CTs of chest, abdomen and pelvis and has a bone scan scheduled for next week. A CEA is 315. This has not been followed frequently in her prior in 2017 was 69, and 2016 19. She has had indolent progressive disease but largely asymptomatic with ECOG zero. The scans from yesterday show no change in abdomen and pelvis but in the chest, there is what appears to be newly enlarged left hilar lymph node along with what appear to be a stable right hemithorax pleural-based multiple nodular changes. A single 1.4 cm left lower lobe infrahilar lesion is seen and 13.5 mm left hilar lymph node. This scan is also read as having increased osseous metastatic load suggested. I reviewed the images with Joanne. She was startled to learn of left sided findings. She has had a predominately right lung abnormalities which is true, this it would be new and suggestive of contralateral progression. Other than they had discomfort in the right rib which is preventing her from wearing her brassiere for example, she has no other new musculoskeletal findings and brief neurologic evaluation today she has no flexor extensor, upper extremity weakness. No numbness, tingling, no difficulty with finger flexion extension strength, no asymmetry. No sensory discrepancies, no shoulder weakness. IMPRESSION: Indolent progressive ALK mutation positive adenocarcinoma of lung with dominant right lung findings including right upper lobe dominant right pleural based mass multiple pleural-based masses throughout the right hemithorax, what appeared to be new small left infrahilar and hilar foci possible progression of bony disease versus sclerotic changes in an otherwise well ECOG performance status zero never smoker 63-year-old woman now almost 6 years out from initial diagnosis. CEA has risen correspondingly with disease progression seen on serial CTs. PLAN: I suggested that Joanne that we obtain in addition to the bone scan a PET scan to assess for the level of hypermetabolic uptake at various sites. She had a PET originally in 2012 showing the original dominant right upper lobe pleural-based mass and a few other right lung areas. Should there be finding on bone scan correlating with the pain palliative radiation would be in order. If however, her pain is pleuritic purely in nature due to the pleural based disease and if there is and/or the apparent bone progression correlates with very hypermetabolic foci on had this may be a moment when Dr. Hunter will want to direct a change of therapy. She would like me to have a copy all reports to Dr. Mcmahon of course discussed case with him. Time statement total of 45 minutes was spent [id number] with the patient. More than 50% involving discussion of results, rationale for PET scan possible responses to findings on CT scan clarifying all of the findings currently, answering all the patient's and family's questions. Electronically Signed by Norah Angelo MD 08/05/2018 03:35 P DD: Norah Angelo MD 08/01/2018 03:42 P DT: edy 08/01/2018 04:04 P CC: MD Inocencio Guo MD
[2018-08-08 13:19] VITALS: BP 116/64
--- NOTE | 2018-08-09 12:44 | MEDONC ---
MEDICAL ONCOLOGY FOLLOWUP DATE OF SERVICE: 08/08/2018 DIAGNOSIS: ALK mutation positive, PD-L1 metastatic adenocarcinoma of lung diagnosed in 2012, never smoker, now on forth line palliative treatment with brigatinib. Status post right thoracentesis with pleurodesis and gamma radiation to brain metastases. Also followed by Eugene Hunter MD [facility]. TREATMENT HISTORY: Please see 03/21/2018 note line. [facility] testing 09/01/2016 on a right lung biopsy positive for ALK EML4-ALK fusion (variant IIIA/B) T5393F, MAP2K4 R281, SMAD for loss, TP53 V272M; tumor mutation burden intermediate; 6 mutation/Mb. CURRENT THERAPY: Brigatinib 180 mg daily begun August 2016. Denosumab 120 mg every 4 weeks January 2015 - May 2018; as of August 2018 we will adopt every 3-month regimen at Dr. Hunter's recommendation. INTERVAL HISTORY: Joanne has now had CT chest, abdomen and pelvis and bone scan working up for recent new right thoracic pain in a band-like fashion from front to back involving the right approximate 8th rib area. She is quite fatigued. Had some back discomfort was for the bone scan yesterday. The chest, abdomen and pelvis CTs were reviewed on her last visit and show gradual consistent progression and now small new left hilar and mediastinal lymphadenopathy. Bone scan compared to one prior 3 years ago, shows significant extensive new progression. This includes rib areas and notably in approximately the same area she is experiencing some discomfort. Today her midline back hurts, but she thinks it is really due to lying in an uncomfortable position for the bone scan not sleeping well last night. She is looks quite uncomfortable and says she is dehydrated from simply being up all night and not eating enough today. I spoke with Dr. Hunetr about the recent progression seen on CAT scans and the current plan. His recommendation was to use clinical judgment regarding Joanne's performance status. She has had gradual progression over about a year and half on every 3 months CTs but very maintained an ECOG performance status 0. She and I have talked about palliative radiation to the right rib area which could easily be done. She is willing to see Dr. Gates about this. Dr. Hunter suggested, if it appears she is really developing symptoms from her progression considering change to lorlatinib. I will fax him the bone scan results. Today Joanne asked about clinical trials, but Dr. Hunter had signaled there not any active clinical trials that would be appropriate instead of lorlatinib at that this point. He did suggest strongly that a new biopsy be obtained and NGS testing be redone with [facility] now 2 years later and in light of the progression. Joanne is willing to do this but wants to wait until she returns from a trip in August. IMPRESSION: Metastatic ALK mutation positive, PD-L1 low, intermediate tumor mutation burden adenocarcinoma of lung dominantly involving the right lung with pleural based lesions and a few parenchymal lesions now with some progression in the left mediastinum and hilar area, significant bone progression over several years on brigatinib and denosumab. ECOG performance status 0 until recently when right rib thoracic pain has begun to bother Joanne prompting these scans. Extensive discussion held today, over the phone with Dr. Hunter, and additionally with Dr. Gates about recommended next steps. Joanne agreed to the plan outlined below. PLAN: 1. Continue brigatinib. 2. Radiation oncology consult tomorrow at 1:00 p.m. for consideration of palliative radiation. 3. Bone scan results will be sent to Dr. Hunter. 4. Joanne would like to hold off until after her return from vacation in August for right lung biopsy for tissue for repeat [facility] testing. I have discussed this case with Dr. Gold of interventional and also e-mailed with Augusto Henriquez of pathology to form the plan. 5. Denosumab first week of August with stat CMP that day. 6. I will see Joanne in early September for office visit, history and physical, followup of biopsy, CBC, stat CMP, and CEA. TIME STATMENT: 35 minutes spent face to face with patient more than 50% involved in counseling regarding scan results, [facility] specialist's recommendations, timing of next scans, as outlined above. Electronically Signed by Norah Angelo MD 08/09/2018 02:51 P DD: oNrah Angelo MD 08/08/2018 05:22 P DT: tj 08/09/2018 11:42 A CC: MD Inocencio Guo MD
[2018-08-26 11:31] LABS: INR 0.98; PROTHROMBIN TIME 13.1 SECONDS (12.1-14.4)
[2018-08-26 11:32] LABS: PARTIAL THROMBOPLASTIN TIME 36.1 SECONDS (25.4-37.6)
[2018-08-26 11:49] LABS: ALBUMIN 4.1 GM/DL (3.5-5.2); BLOOD UREA NITROGEN 11 MG/DL (6-20); CALCIUM LEVEL 9.1 MG/DL (8.5-10.2); CARBON DIOXIDE LEVEL 30 MEQ/L (23-31); CHLORIDE LEVEL 99 MMOL/L (98-107); CREATININE FOR GFR 0.79 MG/DL (0.60-1.10); GLOMERULAR FILTRATION RATE > 60.0 (>45); GLUCOSE, FASTING 97 MG/DL (70-105); SODIUM LEVEL 135 MMOL/L (136-145); TOTAL PROTEIN 6.7 GM/DL (6.4-8.3)
[2018-09-23 13:36] VITALS: BP 124/80
[2018-09-23 13:40] LABS: ALBUMIN 4.3 GM/DL (3.5-5.2); BLOOD UREA NITROGEN 9 MG/DL (6-20); CALCIUM LEVEL 9.7 MG/DL (8.5-10.2); CARBON DIOXIDE LEVEL 28 MEQ/L (23-31); CHLORIDE LEVEL 97 MMOL/L (98-107); CREATININE FOR GFR 0.67 MG/DL (0.60-1.10); GLOMERULAR FILTRATION RATE > 60.0 (>45); GLUCOSE, FASTING 129 MG/DL (70-105); POTASSIUM SERUM 3.9 MMOL/L (3.5-5.1); SODIUM LEVEL 135 MMOL/L (136-145); TOTAL PROTEIN 7.4 GM/DL (6.4-8.3)
[2018-09-23 13:41] LABS: BASO # 0.1 10^3/uL (0.0-0.2); BASO % 0.6 % (0.0-1.0); EOS # 0.1 10^3/uL (0.0-0.50); EOS % 0.9 % (0.0-3.0); HEMATOCRIT 34.7 % (36.0-47.0); HEMOGLOBIN 10.7 g/dl (12.0-15.5); LYMPH # 0.7 10^3/uL (1.5-4.5); LYMPH % 8.3 % (24.0-44.0); MEAN CORPUSCULAR HEMOGLOBIN 26.4 pg (27.0-33.0); MEAN CORPUSCULAR HGB CONC 30.8 g/dl (32.0-36.5); MEAN CORPUSCULAR VOLUME 85.7 fl (80.0-96.0); MONO # 0.7 10^3/uL (0.0-0.8); MONO % 8.3 % (0.0-5.0); NEUTROPHILS # 6.6 10^3/uL (1.8-7.7); NEUTROPHILS % 81.3 % (36.0-66.0); PLATELET COUNT, AUTOMATED 388 10^3/uL (150-450); RED BLOOD COUNT 4.05 10^6/uL (4.00-5.40); WHITE BLOOD COUNT 8.2 10^3/uL (4.0-10.0)
--- NOTE | 2018-09-24 12:05 | MEDONC ---
MEDICAL ONCOLOGY FOLLOW-UP DATE OF SERVICE: 09/23/2018 DIAGNOSIS: ALK mutation positive, PD-L1 low metastatic adenocarcinoma of lung diagnosed in 2012 in a never smoker. Now on fourth line palliative treatment with brigatinib. Status post right thoracentesis with pleurodesis, gamma radiation to intracranial metastases, and now recently status post palliative radiation to T10-L4, and right anterior ribs. Followed also by home inch Eugene Hunter MD at [facility]. TREATMENT HISTORY: See 03/21/2018 note. In addition, T10-L4 3000 cGy, right anterior rib 400 cGy 08/14/2018 - 08/29/2018. CURRENT THERAPY: Brigatinib 180 mg daily begun August 2016. Denosumab 120 mg q. 3 months as of 2018, next due in November, originally started January 2015. INTERIM HISTORY: Joanne is feeling much better after radiation. She did not think it would help, but it has made a big difference. She has no more pain. She and her Jonatan brought some mino gifts. These were absolutely delightful, a photograph and stained glass, Caduceus. Joanne has a little bit of fatigue since her radiation but is bouncing back she says. REVIEW OF SYSTEMS: In addition to pertinent positives and negatives above, the remainder of 12 system review is negative. PHYSICAL EXAMINATION: Weight 62 kg, temperature 98, blood pressure 124/80, heart rate 79, respiratory 20, O2 sat 98%. The patient is a very pleasant well-groomed youthful middle aged woman in no distress noted. RESPIRATORY: Clear to auscultation bilaterally throughout the lung [place]. No rhonchi, wheezes, rales or rubs. CARDIAC: S1-S2 regular rate and rhythm. No murmur. No gallop. ABDOMEN: Soft, nontender, nondistended, no hepatosplenomegaly or mass. EXTREMITIES: No edema. LYMPH NODES: No submandibular, cervical, supraclavicular or axillary adenopathy bilaterally. LABORATORY DATA: WBC 8.2, hemoglobin 10.7, hematocrit 34.7, platelets 388. Sodium 135, remainder of electrolytes unremarkable. Most recent CEA July 2018 315. 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 She is on fourth line palliative treatment with brigatinib with slowly progressive disease, primarily involving the right lung pleura and on most recent CTs new left hilar and mediastinal low volume metastases. Clinically extremely well. ECOG performance status 0. She just completed radiation for painful right pleuritic and rib pain. The radiation involved T10 through L4 and right ribs. She is feeling much, much better. She does have new anemia, not lifetime new, but recent new, her hemoglobin having gone from 13 to 10 between July and September. We will watch this closely but reviewing her labs overall she has had ups and downs. PLAN: 1. After extensive discussion we decided to postpone restaging CTs by one month into November instead of October, which would give her a little more free time than she has had recently. Joanne knows to call with any new issues. 2. Return in 1 month for CBC, CMP, CEA, history and physical. 3. In November she will be due for denosumab, restaging CTs, usual labs. 4. Provisionally we discussed starting the lorlatinib; she just had a repeat biopsy of right pleuritic areas for repeat NGS testing. We will forward these results to Dr. Hunter when they appear. Electronically Signed by Norah Angelo MD 09/25/2018 06:15 P DD: Norah Angelo MD 09/23/2018 04:35 P DT: kalen 09/24/2018 11:30 A CC: MD Michael Guo MD Jason White, MD
[2018-10-21 10:00] VITALS: BP 128/76
[2018-10-21 10:06] LABS: HEMATOCRIT 20.6 % (36.0-47.0); LYMPH % 18.7 % (24.0-44.0); MEAN CORPUSCULAR HEMOGLOBIN 25.9 pg (27.0-33.0); MEAN CORPUSCULAR HGB CONC 30.1 g/dl (32.0-36.5); MEAN CORPUSCULAR VOLUME 86.2 fl (80.0-96.0); NEUTROPHILS # 5.9 10^3/uL (1.8-7.7); NEUTROPHILS % 71.5 % (36.0-66.0); RED BLOOD COUNT 2.39 10^6/uL (4.00-5.40); WHITE BLOOD COUNT 8.3 10^3/uL (4.0-10.0)
[2018-10-21 10:08] LABS: HEMOGLOBIN 6.2 g/dl (12.0-15.5)
[2018-10-21 11:05] LABS: BLOOD UREA NITROGEN 12 MG/DL (6-20); CARBON DIOXIDE LEVEL 27 MEQ/L (23-31); CHLORIDE LEVEL 99 MMOL/L (98-107); CREATININE FOR GFR 0.81 MG/DL (0.60-1.10); GLOMERULAR FILTRATION RATE > 60.0 (>45); GLUCOSE, FASTING 112 MG/DL (70-105); SODIUM LEVEL 136 MMOL/L (135-145); TOTAL PROTEIN 6.3 GM/DL (6.4-8.3)
--- NOTE | 2018-10-21 12:29 | MEDONC ---
MEDICAL ONCOLOGY FOLLOWUP DATE OF SERVICE: 10/21/2018 DIAGNOSIS ALK mutation positive, PD-L1 low, tumor mutation burden intermediate metastatic adenocarcinoma of lung diagnosed 2012, never smoker. On forth line palliative treatment with brigatinib. Currently completing palliative radiation to painful right rib and spine metastases. Indolent progression on surveillance CT. Also followed by by Eugene Hunter MD [facility] [place] TREATMENT HISTORY: Please see 03/21/2018 note and in addition, T10-L4 3000 cGy, right anterior rib 400 cGy 08/14/2018 - 08/29/2018. CURRENT THERAPY: Brigatinib 180 mg daily begun August 2016. Denosumab 120 mg q. 3 months. Next due in November 2018, originally started January 2015. INTERVAL HISTORY: Joanne has had 2 weeks of profound fatigue, last week finding it hard to move just from chair to bed, this week having a little more energy, hemoglobin/hematocrit are abruptly low today at 6.2 and 20.6, respectively. She denies rectal bleeding or melanoma, but acknowledges "darker stool." She has had shortness of breath with exertion, some burning, tingling pain in the right anterior rib area where there was radiation but no new abrupt resting shortness of breath, occasional dry cough, no hemoptysis. REVIEW OF SYSTEMS: Pertinent positives and negatives above. In addition, the patient denies palpitations, falls, syncope. Remainder of 12 system review negative. PHYSICAL EXAMINATION: Weight 61 kg, temperature 96.7, blood pressure 128/76, heart rate 85, respiratory 18, O2 sat 99%. The patient is drawn appearing, fatigued appearing. Respiratory: Clear lungs to auscultation bilaterally, anterior and posterior. Cardiac: S1, S2 regular rate. No murmur. No gallop. Abdomen: Soft, nontender, nondistended. No hepatosplenomegaly or mass. Extremities: No edema. Lymph nodes: No submandibular, cervical, supraclavicular or axillary adenopathy bilaterally. Rectal exam: No blood externally, dark soft stool in vault, no palpable rectal mass. No blood on glove. FOB positive. LABORATORY DATA: WBC 8.3, hemoglobin 6.2, hematocrit 20.6, platelets 746, MCV 86. Electrolytes, liver functions normal. Most recent CEA 303. IMPRESSION: 1. Acute GI bleed. Based on positive FOB, 4 units RBC drop over 4 weeks. 2. Possible multifactorial component to anemia, including spinal radiation effect on marrow suppression. 3. Joanne agreed to immediate admission to the emergency room for further evaluation. I spoke with Dr. Francois's charge nurse. She was wheeled by wheelchair directly to the ER. Prior to her leaving, I answered her and Jonatan's questions about what might happen, including upper and lower endoscopy. I explained until proven otherwise, she has probably got an acute GI bleed explaining her new anemia and fatigue and endoscopy is needed for diagnosis and treatment. 4. Ordinarily Joanne will return in one month for CBC, stat CMP, CEA, denosumab, clinical exam . Electronically Signed by Norah Angelo MD 10/21/2018 04:25 P DD: Norah Angelo MD 10/21/2018 11:45 A DT: [email or web address] 10/21/2018 11:57 A CC: Inocencio Escamilla MD
[2018-11-22 10:19] LABS: HEMATOCRIT 31.3 % (36.0-47.0); HEMOGLOBIN 9.5 g/dl (12.0-15.5); LYMPH % 14.7 % (24.0-44.0); MEAN CORPUSCULAR HEMOGLOBIN 23.6 pg (27.0-33.0); MEAN CORPUSCULAR HGB CONC 30.4 g/dl (32.0-36.5); MEAN CORPUSCULAR VOLUME 77.8 fl (80.0-96.0); NEUTROPHILS # 5.9 10^3/uL (1.8-7.7); NEUTROPHILS % 76.7 % (36.0-66.0); RED BLOOD COUNT 4.02 10^6/uL (4.00-5.40); WHITE BLOOD COUNT 7.7 10^3/uL (4.0-10.0)
[2018-11-22 10:20] VITALS: BP 134/81
[2018-11-22 10:31] LABS: ALBUMIN 4.1 GM/DL (3.5-5.2); BLOOD UREA NITROGEN 7 MG/DL (6-20); CALCIUM LEVEL 9.4 MG/DL (8.5-10.2); CARBON DIOXIDE LEVEL 28 MEQ/L (23-31); CHLORIDE LEVEL 99 MMOL/L (98-107); CREATININE FOR GFR 0.74 MG/DL (0.60-1.10); GLOMERULAR FILTRATION RATE > 60.0 (>45); GLUCOSE, FASTING 103 MG/DL (70-105); POTASSIUM SERUM 3.6 MMOL/L (3.5-5.1); SODIUM LEVEL 135 MMOL/L (135-145); TOTAL PROTEIN 7.1 GM/DL (6.4-8.3)
[2018-11-22 11:04] LABS: PERCENT SATURATION 7.2 % (13.2-45.0)
--- NOTE | 2018-11-23 08:04 | MEDONC ---
MEDICAL ONCOLOGY FOLLOWUP DATE OF SERVICE: 11/22/2018 DIAGNOSIS: 1. 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 On fourth line palliative brigatinib. Status post palliative radiation to painful right ribs and spine metastases in 2019. Indolent progression on surveillance CTs approximately every 3 months. Followed by Eugene Hunter MD. [facility]. 2. Recent GI bleed related to bleeding gastric ulcers status post upper endoscopy clipping, 3 units RBC transfusion, stable hemoglobin currently approximately 9. New microcytosis. Improved symptoms. TREATMENT HISTORY: Please see 03/21/2018 note. T10-L4 3000 cGy, right anterior rib 400 cGy radiation 08/14/2018 - 08/29/2018. CURRENT THERAPY: Brigatinib 180 mg daily begun August 2016. Denosumab 120 mg q. 3 months - next due today. INTERVAL HISTORY: Joanne was hospitalized with GI bleed last month with hemoglobin 6 on a visit here and urgently taken to inpatient. She received transfusions and endoscopy. She was diagnosed with ulcer, completed a month of pantoprazole. She is feeling much better. Hemoglobin/hematocrit today are 9.5/31 respectively. MCV notably 77, down from 85. Joanne says her energy is much better. She denies any new chest pain, cough or any new or overwhelming fatigue or any black stool. She is not currently taking oral iron other than in her multivitamin. We talked about need for iron studies and possible need for iron supplementation either orally or IV. We will talk it over after we have results. REVIEW OF SYSTEMS: Pertinent positives and negatives as above. Remainder of 12 system review negative. PHYSICAL EXAMINATION: Weight 59 kg, temperature 98.4, blood pressure 134/81, heart rate 94, respiratory 20, O2 sat 98%. The patient is tall well-groomed woman in no distress. Respiratory: Clear lungs to auscultation bilaterally anteriorly and posteriorly. No wheezes. No rales. Cardiac: S1 and S2, regular rate and rhythm. No murmur. No gallop. Abdomen: Soft, nontender, nondistended. No hepatosplenomegaly or mass. Extremities: No edema. Lymph Nodes: No submandibular, cervical, supraclavicular, axillary adenopathy bilaterally. LABORATORY DATA: WBC 7.7, hemoglobin 9.5, hematocrit 31 and platelets 503. MCV 78. Electrolytes, liver functions normal. IMPRESSION: Alk mutation positive PD-L1 low, TMB intermediate adenocarcinoma of lung in 2012 in a never smoker on fourth line treatment with brigatinib. Indolent progression on surveillance CTs. ECOG performance status zero. Recent GI bleed with persistent now microcytic anemia, but corrected appropriately after transfusions. Suspect iron deficiency. PLAN: 1. Iron, ferritin, TIBC. I will follow up with Joanne by phone. Will either start her on oral or IV iron as needed. 2. CT chest with contrast restaging. 3. Joanne had a new biopsy in August for which I have not yet seen the [facility] results. Will obtain these and send them to Dr. Hunter and discuss. 4. Denosumab today. 5. Return to clinic 4 weeks. CBC, CMP and office visit. Electronically Signed by Norah Angelo MD 11/25/2018 05:05 P DD: Norah Angelo MD 11/22/2018 11:12 A DT: le 11/23/2018 07:39 A CC: MD Inocencio Guo MD
[2018-12-03 10:26] LABS: HEMATOCRIT 21.6 % (36.0-47.0); LYMPH % 8.7 % (24.0-44.0); MEAN CORPUSCULAR HEMOGLOBIN 23.6 pg (27.0-33.0); MEAN CORPUSCULAR HGB CONC 30.1 g/dl (32.0-36.5); MEAN CORPUSCULAR VOLUME 78.1 fl (80.0-96.0); NEUTROPHILS # 12.2 10^3/uL (1.8-7.7); NEUTROPHILS % 86.8 % (36.0-66.0); RED BLOOD COUNT 2.76 10^6/uL (4.00-5.40); WHITE BLOOD COUNT 14.1 10^3/uL (4.0-10.0)
[2018-12-03 10:27] LABS: HEMOGLOBIN 6.5 g/dl (12.0-15.5)
[2018-12-06 08:38] VITALS: BP 130/78
[2018-12-06 08:49] LABS: HEMATOCRIT 31.4 % (36.0-47.0); HEMOGLOBIN 9.9 g/dl (12.0-15.5); LYMPH % 9.1 % (24.0-44.0); MEAN CORPUSCULAR HEMOGLOBIN 27.4 pg (27.0-33.0); MEAN CORPUSCULAR HGB CONC 31.5 g/dl (32.0-36.5); MEAN CORPUSCULAR VOLUME 86.9 fl (80.0-96.0); NEUTROPHILS # 13.3 10^3/uL (1.8-7.7); NEUTROPHILS % 87.4 % (36.0-66.0); RED BLOOD COUNT 3.61 10^6/uL (4.00-5.40); WHITE BLOOD COUNT 15.2 10^3/uL (4.0-10.0)
--- NOTE | 2018-12-06 09:37 | MEDONC ---
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 TREATMENT HISTORY: Please see prior notes. INTERVAL HISTORY: Joanne was discharged from hospital yesterday after a second major Hct drop, found to have GI bleed, with gastric biopsy now showing adenocarcinoma consistent with her lung primary. Pending Omniseq results, Dr. Braswell her oncologist at [facility] recommended switch from Brigatinib to Lorlatinib. However, today Joanne, who returns for iron infusion because of prior GI bleed, has new shortness of breath, hypoxia, and left periorbital edema. She has intact and symmetric muscle movement involving the forehead and periorbital muscles. She O2 sat is 92%. Concerned for pulmonary embolism we obtained stat chest CT angio, and for intracranial mets head and maxillofacial CT. Unfortunately thtese confirm disease progression in the right lung, new left lung pleural effusion, and a 1 cm enhancing left orbital mass pressing the eye globe forward and threatening optic nerve. A smaller right orbital mass is present without edema, and several small intracranial mets also present. Joanne expresses a sense of being overwhelmed and not wanting to continue with cancer treatment. She is upset by having to take many pills. She is not suprirsed by the new findings. She is accompanied by her , Jonatan today. We discussed in order of priority possible diagnostic interventions: palliative radiation for the left orbit to prevent blindness and refractory pain (she acknowledges headache); low dose desamethazone to prevent intraorbital edema; continue sucralfate to prevent GI bleed and as prophylaxis on dexamethasone, pain medication as tolerated for headache. The effusion is fairly small and thoracentesis probably not feasible. We discussed palliation and hospice care. Joanne is open to the plan outlined but wants to receive iron and wants to discuss with her family further. IMPRESSION: Metastatic ALK mutation positive lung cancer with progression on fourth line palliative Brigatinib with new gastric metastasis causing GI bleeding, new symptomatic left orbit mass, right orbit mass, new small asymptomatic intracranial mets (s/p prior whole brain RT), lung progression, new left pleural effusion. . PLAN: 1. Immediate radiation oncology evaluation for palliative RT . 2. Provisionally, hospice referral 3. dexamethasone 4 mg bid 4. Joanne plans to return next week for iron; she'll be here for radiation, tentatively planned to start IMRT early in week. 5. Discuss case with hospice, need to balance risk of ocular progression and need for palliative RT with pulmonary and GI symptom control. Prognosis very poor TIME STATEMETN: 40 minutes [id number] with the patient , more than 50% involving counseling, reviewing results and making plan as outlined in detail above. Electronically Signed by Norah Angelo MD 12/06/2018 03:05 P DD: Norah Angelo MD 12/06/2018 09:09 A DT: romana 12/06/2018 09:20 A CC:
[2018-12-12 15:02] VITALS: BP 132/76
[2018-12-12 15:31] LABS: HEMATOCRIT 30.1 % (36.0-47.0); HEMOGLOBIN 9.8 g/dl (12.0-15.5); LYMPH % 7.2 % (24.0-44.0); MEAN CORPUSCULAR HEMOGLOBIN 27.8 pg (27.0-33.0); MEAN CORPUSCULAR HGB CONC 32.6 g/dl (32.0-36.5); MEAN CORPUSCULAR VOLUME 85.2 fl (80.0-96.0); NEUTROPHILS # 11.8 10^3/uL (1.8-7.7); NEUTROPHILS % 88.1 % (36.0-66.0); RED BLOOD COUNT 3.53 10^6/uL (4.00-5.40); WHITE BLOOD COUNT 13.4 10^3/uL (4.0-10.0)
--- NOTE | 2018-12-13 12:02 | MEDONC ---
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 October 2012 - December 2014. Crizotinib/zoledronic acid. December 2014 - March 2016. Ceritinib stopped bone progression but well tolerated. March 2016 - August 2015. Alectinib ultimately stopped for grade 4 constipation, anasarca and disease progression. Denosumab January 2015 - present. Foundation testing 07/2016 with PD-L1 low expression (20%) tumor mutation burden intermediate (6 mutations/megabite). Other not immediately actionable findings. August 2016 - October 2018. Brigatinib 180 mg daily with denosumab 120 mg q. 4 weeks stopped for lung, intracranial and gastric progression with recurrent GI bleed requiring hospitalization, multiple transfusions and finding of new left eye proptosis with 1 cm left orbital and small subcentimeter right orbital metastases. CURRENT THERAPY Palliative IMRT to left orbit. Dexamethasone 4 mg b.i.d. begun 12/06/2018. Joanne had elected for hospice care as of last week, but today says she wishes to reverse this and consider lorlatinib. INTERVAL HISTORY Joanne feels much better. She started radiation, the dexamethasone helped, her headache is gone. Her CBC today shows stable hemoglobin/hematocrit. No evidence of recurrent bleed. Her energy is good. She is busy doing errands with her family. She would like to try the lorlatinib. I counseled regarding the potential for a recurrent GI bleed due to gastric metastases, the risk of progression in the right orbit and need for additional radiation with the risk of blindness secondary to the radiation; there are also small punctate subcentimeter intracranial metastases seen on last week's brain MRI in a previously radiated field (she received radiation at initial presentation in 2012). Joanne has been adamant about quality of life and I emphasized the risk of progression on lorlatinib will be high given the new more aggressive behavior of her tumor now spreading outside the thorax into 'sanctuary' sites. She nevertheless wants to start the lorlatinib and is feeling very good with a good performance status currently. IMPRESSION Refractory recurrent metastatic ALK mutation positive adenocarcinoma of the lung now with a recurrent intracranial disease involving both orbits, symptomatic on the left, responding well to dexamethasone and radiation; gastric mets status post two abrupt crit drops requiring hospitalization and multiple transfusions, endoscopy not revealing active bleeds but evidence of prior and biopsy confirming metastatic lung cancer; new left pleural effusion and progressive disease involving the right thorax quite diffusely involving the pleura. ECOG performance status 0/1. PLAN 1. Continue dexamethasone 4 mg b.i.d. until radiation completed. At that point she can go down to 1 tablet daily for week followed by 1 tablet every other day for week and taper off barring new symptoms. 2. We're expediting lorlatinib prescription: 100 mg daily dispense 30, refill x 11, to [id number]. 3. Joanne has become iron deficient from her prior GI bleed. I recommended she proceed with previous plan for iron sucrose , total of five 100 mg infusions. If at any point short she wants to stop, that is okay, but once these recent transfusions have "worn off" her body, lacking a good iron store may be unable to compensate and she may quickly develop anemia again. She is willing to at least give it a try and we scheduled her to begin this next week along with a CBC and an office visit with me to make sure she has not had another hematocrit drop. At that point I will start scheduling her usual monthly followup. Time statement: 40 minutes [id number] with the patient and her family, more than 50% involved in discussing treatment options, counseling, holding off on hospice care, dexamethasone taper, need for iron, reviewing or lorlatinib, adverse reactions including but not limited to risk of edema, peripheral neuropathy, cognitive dysfunction, hypercholesterolemia, diarrhea, constipation. Electronically Signed by Norah Angelo MD 12/17/2018 08:08 A DD: Norah Angelo MD 12/12/2018 05:14 P DT: [email or web address] 12/13/2018 11:34 A CC: MD Kael Guo MD Jason White, MD
[2018-12-20 12:01] VITALS: BP 141/80
[2018-12-20 12:10] LABS: HEMATOCRIT 34.9 % (36.0-47.0); HEMOGLOBIN 11.1 g/dl (12.0-15.5); LYMPH % 6.7 % (24.0-44.0); MEAN CORPUSCULAR HEMOGLOBIN 26.2 pg (27.0-33.0); MEAN CORPUSCULAR HGB CONC 31.8 g/dl (32.0-36.5); MEAN CORPUSCULAR VOLUME 82.4 fl (80.0-96.0); NEUTROPHILS # 12.8 10^3/uL (1.8-7.7); NEUTROPHILS % 85.6 % (36.0-66.0); RED BLOOD COUNT 4.24 10^6/uL (4.00-5.40); WHITE BLOOD COUNT 14.9 10^3/uL (4.0-10.0)
[2018-12-20 15:36] VITALS: BP 118/70
--- NOTE | 2018-12-22 11:30 | MEDONC ---
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 CURRENT THERAPY: Dexamethasone taper per Dr. Gates's recommendations. Taper should complete in approximately 10-14 days. Lorlatinib 100 mg p.o. daily begun 12/18/2018. Today I am instructing Joanne to take a 1/2 tablet for the duration of her dexamethasone taper due to risk of concurrent CYP3A/ inducer. Joanne had already begun the Lorlatinib prior to today's visit. REVIEW OF SYSTEMS: Joanne denies any new headache, visual disturbance, visual blurring, pain in her left eye. Her appetite is good. She is eating well. She has no constipation. No diarrhea. She is using sucralfate tablets until she switches over to a liquid form as GI bleed prophylaxis. She has had no new weakness or fatigue. Remainder of 12 system review negative. Physical exam deferred. Vital signs: Weight 59.7 kg, temperature 97.8, blood pressure 141/80, heart rate 80, respiratory 22, O2 sat 97%. LABORATORY DATA: WBC 14.9, hemoglobin 11, hematocrit 35, platelets 641, MCV 82. IMPRESSION: Refractory recurrent ALK mutation positive, PD-L1 negative, tumor mutation burden intermediate adenocarcinoma of lung with bone, brain, lung and gastric metastases now on fifth line treatment with Lorlatinib after progressing through Brigatinib. Progression heralded by GI bleed and finding of gastric metastasis, headache and finding of left and right orbital metastases status post left orbital radiation. Iron deficiency secondary to GI losses status post multiple transfusions. PLAN: 1. Continue dexamethasone taper. 2. Decrease Lorlatinib to 50 mg until dexamethasone completed, then resume 100 mg. 3. 2-week interval CBC, CMP as monitoring on first month of Lorlatinib. 4. Begin iron sucrose infusion today 200 mg IV weekly for 5 weeks. The patient may decline as she wishes. 5. Return to clinic 4 weeks CBC, CMP. 6. EKG at baseline on Lorlatinib. Time statement: 30 minutes [id number] with the patient more than 50% involving counseling and discussing the items detailed above. Electronically Signed by Norah Angelo MD 12/23/2018 05:09 P DD: Norah Angelo MD 12/20/2018 01:27 P DT: [place] 12/22/2018 11:14 A CC: MD Michael Guo MD Gerald Weinstein, MD Jason White, MD
[2018-12-27 08:45] VITALS: BP 123/76
[2018-12-27 08:51] LABS: HEMATOCRIT 35.3 % (36.0-47.0); HEMOGLOBIN 10.9 g/dl (12.0-15.5); LYMPH % 10.2 % (24.0-44.0); MEAN CORPUSCULAR HEMOGLOBIN 25.6 pg (27.0-33.0); MEAN CORPUSCULAR HGB CONC 30.9 g/dl (32.0-36.5); MEAN CORPUSCULAR VOLUME 82.8 fl (80.0-96.0); NEUTROPHILS # 8.8 10^3/uL (1.8-7.7); NEUTROPHILS % 80.8 % (36.0-66.0); RED BLOOD COUNT 4.26 10^6/uL (4.00-5.40); WHITE BLOOD COUNT 10.9 10^3/uL (4.0-10.0)
[2018-12-27 09:31] LABS: ALBUMIN 3.8 GM/DL (3.5-5.2); BLOOD UREA NITROGEN 10 MG/DL (6-20); CARBON DIOXIDE LEVEL 29 MEQ/L (23-31); CHLORIDE LEVEL 99 MMOL/L (98-107); GLOMERULAR FILTRATION RATE > 60.0 (>45); GLUCOSE, FASTING 78 MG/DL (70-105); POTASSIUM SERUM 3.6 MMOL/L (3.5-5.1); SODIUM LEVEL 134 MMOL/L (135-145)
[2018-12-27 09:33] LABS: CALCIUM LEVEL 8.2 MG/DL (8.5-10.2)
[2018-12-27 11:13] VITALS: BP 117/78
[2019-01-03 08:45] VITALS: BP 117/72
[2019-01-03 09:00] LABS: HEMATOCRIT 37.1 % (36.0-47.0); HEMOGLOBIN 11.4 g/dl (12.0-15.5); MEAN CORPUSCULAR HEMOGLOBIN 25.4 pg (27.0-33.0); MEAN CORPUSCULAR HGB CONC 30.7 g/dl (32.0-36.5); MEAN CORPUSCULAR VOLUME 82.8 fl (80.0-96.0); NEUTROPHILS # 6.5 10^3/uL (1.8-7.7); NEUTROPHILS % 78.1 % (36.0-66.0); RED BLOOD COUNT 4.48 10^6/uL (4.00-5.40); WHITE BLOOD COUNT 8.3 10^3/uL (4.0-10.0)
[2019-01-03 09:21] LABS: ALBUMIN 3.7 GM/DL (3.5-5.2); BLOOD UREA NITROGEN 13 MG/DL (6-20); CALCIUM LEVEL 8.9 MG/DL (8.5-10.2); CARBON DIOXIDE LEVEL 28 MEQ/L (23-31); CHLORIDE LEVEL 101 MMOL/L (98-107); CREATININE FOR GFR 0.85 MG/DL (0.60-1.10); GLOMERULAR FILTRATION RATE > 60.0 (>45); GLUCOSE, FASTING 84 MG/DL (70-105); POTASSIUM SERUM 3.2 MMOL/L (3.5-5.1); SODIUM LEVEL 136 MMOL/L (135-145); TOTAL PROTEIN 6.3 GM/DL (6.4-8.3)
[2019-01-03 11:12] VITALS: BP 107/73
[2019-01-10 08:40] VITALS: BP 126/79
[2019-01-10 10:45] VITALS: BP 114/72
[2019-01-17 09:02] VITALS: BP 118/78
[2019-01-17 09:05] LABS: HEMATOCRIT 37.1 % (36.0-47.0); HEMOGLOBIN 11.6 g/dl (12.0-15.5); LYMPH % 16.5 % (24.0-44.0); MEAN CORPUSCULAR HEMOGLOBIN 25.3 pg (27.0-33.0); MEAN CORPUSCULAR HGB CONC 31.3 g/dl (32.0-36.5); MEAN CORPUSCULAR VOLUME 80.9 fl (80.0-96.0); NEUTROPHILS # 6.2 10^3/uL (1.8-7.7); NEUTROPHILS % 72.5 % (36.0-66.0); RED BLOOD COUNT 4.59 10^6/uL (4.00-5.40); WHITE BLOOD COUNT 8.6 10^3/uL (4.0-10.0)
[2019-01-17 09:43] LABS: ALBUMIN 3.5 GM/DL (3.5-5.2); BLOOD UREA NITROGEN 9 MG/DL (6-20); CARBON DIOXIDE LEVEL 27 MEQ/L (23-31); CHLORIDE LEVEL 104 MMOL/L (98-107); CREATININE FOR GFR 0.64 MG/DL (0.60-1.10); GLOMERULAR FILTRATION RATE > 60.0 (>45); GLUCOSE, FASTING 92 MG/DL (70-105); SODIUM LEVEL 137 MMOL/L (135-145); TOTAL PROTEIN 6.5 GM/DL (6.4-8.3)
[2019-01-17 11:38] VITALS: BP 107/72
[2019-01-21 09:17] VITALS: BP 131/87
--- NOTE | 2019-01-23 13:07 | MEDONC ---
MEDICAL ONCOLOGY FOLLOWUP DATE OF SERVICE: 01/21/2019 DIAGNOSIS: Refractory recurrent ALK mutation positive adenocarcinoma of lung, PD-L1 zero, tumor mutation burden intermediate with bone, brain, lung, and gastric metastases and recent symptomatic progression (November 2018) involving GI bleed from gastric focus, left orbital mass causing proptosis, asymptomatic right orbital mass. Now status post left orbital RT with good response and on fifth line palliative treatment with lorlatinib 100 mg daily begun 12/18/2018. CURRENT THERAPY: Completely tapered off dexamethasone. lorlatinib 100 mg daily (day 1 cycle one 12/18/2018); 2 week period on 50 mg during dexamethasone treatment and radiation, now back on 100 mg. INTERVAL HISTORY: Joanne feels she is doing well. She speaks in shorter sentences and takes a deep breath after them but says her exercise tolerance is actually improved. She is walking longer and longer distances, has more energy. She denies any new overwhelming fatigue. She does have a cough, nonproductive. She denies any new headache. REVIEW OF SYSTEMS: In addition to pertinent positives and negatives above, Joanne has some pedal edema she would like some diuretic for. It is mild but bothersome. She denies leg asymmetry or cramping, new chest pain, or palpitations. No new nausea or vomiting. Constipation is under control. She denies any sudden onset shortness of breath or new musculoskeletal pain. Remainder of 12 system review negative. PHYSICAL EXAMINATION: Temperature 97, weight 61.5 kg, blood pressure 131/87, heart rate 96, respiratory rate 18, O2 sat 95%. The patient is a tall well-groomed youthful older woman in no distress. Respiratory: Coarse decreased breath sounds in the upper lung field, quiet. Decreased breath sounds in the right lower lung field. Left lung field with good air movement throughout. No wheezes or rales. Cardiac: S1, S2, regular rate and rhythm. No murmur. No gallop. Abdomen is soft, nontender, nondistended, no hepatosplenomegaly or mass. Extremities: 1+ pitting pedal edema bilaterally to the ankles. No redness, heat, or tenderness. No calf or thigh edema. LABS: See labs from 01/17/2019. WBC 8.6, hemoglobin 11, hematocrit 37, platelets 504. Sodium 137. Remainder of electrolytes and liver functions are normal. CEA 72 down from 170. IMPRESSION: Refractory recurrent ALK mutation positive, PD-L1 negative, TMB intermediate adenocarcinoma of lung with bone, brain, lung, gastric metastases on fifth line lorlatinib begun 12/18/2018. Clinically stable after palliative left orbit radiation, feeling much better though still with decreased breath sounds on lung exam, and more dyspnea than prior baseline. The patient reports overall doing much better, however, and given palliative nature of current treatment and lack of other high-yield options, Joanne is happy to continue lorlatinib and restage after the second cycle. Overall, she is doing quite well with ECOG 1. PLAN: 1. Continue lorlatinib 100 mg daily. 2. Return to clinic 4 weeks, denosumab at that time. 3. Restaging CT chest, abdomen and pelvis with p.o. and IV contrast, CBC, CMP, CEA 1 week prior to next appointment. Electronically Signed by Norah Angelo MD 01/24/2019 07:07 P DD: Norah Angelo MD 01/22/2019 01:21 P DT: aml 01/23/2019 12:46 P CC: MD Michael Guo MD Gerald Weinstein, MD Jason White, MD
[2019-02-11 13:08] VITALS: BP 130/78
[2019-02-11 14:30] LABS: HEMATOCRIT 40.2 % (36.0-47.0); HEMOGLOBIN 12.7 g/dl (12.0-15.5); LYMPH % 11.2 % (24.0-44.0); MEAN CORPUSCULAR HEMOGLOBIN 25.9 pg (27.0-33.0); MEAN CORPUSCULAR HGB CONC 31.6 g/dl (32.0-36.5); NEUTROPHILS # 7.8 10^3/uL (1.8-7.7); NEUTROPHILS % 80.3 % (36.0-66.0); RED BLOOD COUNT 4.9 10^6/uL (4.00-5.40); WHITE BLOOD COUNT 9.7 10^3/uL (4.0-10.0)
[2019-02-11 14:37] LABS: ALBUMIN 4.1 GM/DL (3.5-5.2); BLOOD UREA NITROGEN 9 MG/DL (6-20); CARBON DIOXIDE LEVEL 30 MEQ/L (23-31); CHLORIDE LEVEL 98 MMOL/L (98-107); GLOMERULAR FILTRATION RATE > 60.0 (>45); GLUCOSE, FASTING 112 MG/DL (70-105); SODIUM LEVEL 133 MMOL/L (135-145); TOTAL PROTEIN 6.9 GM/DL (6.4-8.3)
--- NOTE | 2019-02-17 10:06 | MEDONC ---
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 Currently on fifth line treatment with lorlatinib begun December 2018 after disease progression involving left greater than right retroorbital masses, right lung progression, and GI bleed, now status post hospitalization for severe edema, and pneumonia but per preliminary evidence of response in the lung. CURRENT THERAPY: Lorlatinib 100 mg, 1/2 tablet per day (resumed approximately 02/08/2019). Day 1, cycle one 100 mg 12/18/2018. Furosemide 40 mg daily diuresis with attempt to begin taper. INTERVAL HISTORY: Joanne was hospitalized with progressive shortness of breath and near anasarca, extensive bilateral lower extremity edema despite increasing hydrochlorothiazide doses. CT angio 02/04/2019 showed small right and moderate to large left pleural effusions with adjacent atelectasis versus infiltrate and new patchy infiltrates in the left upper lobe with a small area of consolidation. A questionable anterior pleural-based mass in the right upper lung slightly smaller versus May study and with stable pleural parenchymal disease throughout the remainder of the right lung. No enlarged lymph nodes and extensive sclerotic bone metastases, slight progression. Joanne is feeling much better after hospitalization. She is on Lasix 40 mg daily. I cautioned her regarding getting over diuresed and we talked about possibly tapering down to once every other day now that she has off-loaded several pounds. Her energy is back. She is back to usual activities, appetite is back. She is completing an antibiotic course. We talked about resumption of lorlatinib. She is now on a 1/2 tablet daily since leaving the hospital, resumed on departure from the hospital. She would like me to speak to Dr. Hunter about the lorlatinib and her treatment, which at the time of this dictation I have now done. He is in support of resumption of lorlatinib at 75 mg (25% as reduction), as long as the edema is at bay for a while longer. Joanne and I discussed her returning in a month and in the interval she and I will talk, and as long as her edema is not returning on tapering diuretic doses, we could order a new set of pills at that 25 mg dose and she can start on 3 pills a day of lorlatinib. PHYSICAL EXAMINATION: Weight 61 kg (6 kg drop from 02/04/2019). Temperature 97, blood pressure 130/70, heart rate 99, respiratory 24, O2 sat 98%. Patient is a slender well-groomed older woman in no distress. RESPIRATORY: Coarse breath sounds and decreased breath sounds in the right lung, good air movement in the left with some decreased breath sounds at the left base. CARDIAC: S1-S2 regular rate and rhythm. No murmur nor gallop. ABDOMEN: Soft, nontender, nondistended. EXTREMITIES: 1+ pedal edema at the ankles, much improved versus of the 3+ edema she had in the hospital. LABORATORY DATA: WBC 9.7, hemoglobin 12, hematocrit 40, platelets 436, MCV 82, sodium 133. Remainder of electrolytes normal. Liver functions normal. IMPRESSION: Refractory recurrent ALK positive lung adenocarcinoma on fifth line treatment with lorlatinib complicated by pneumonia and edema/anasarca, now recovering, on diuretics and antibiotics. Evidence of response in one pleural-based mass, stability of remainder of pleural based disease. Left lung pneumonia. PLAN: 1. As discussed above, Joanne will continue on half dose lorlatinib for the time being. Once she is fully diuresed and nearly off diuretics will resume lorlatinib at three-quarters dose, 75 mg. This will require a new prescription. 2. Return to clinic [address] of the chest with contrast 1 week prior in addition to the usual labs. TIME STATEMENT: 30 minutes [id number] with the patient, more than 50% involving counseling regarding the issues outlined above. Electronically Signed by Norah Angelo MD 03/05/2019 05:02 P DD: Norah Angelo MD 02/13/2019 05:44 P DT: kalen 02/17/2019 09:25 A CC: MD Inocencio Guo MD
[2019-02-25 13:26] VITALS: BP 123/72
[2019-03-17 13:57] LABS: BASO # 0.1 10^3/uL (0.0-0.2); BASO % 0.8 % (0.0-1.0); EOS # 0.1 10^3/uL (0.0-0.50); EOS % 1.6 % (0.0-3.0); HEMATOCRIT 43.9 % (36.0-47.0); HEMOGLOBIN 13.9 g/dl (12.0-15.5); LYMPH # 1.1 10^3/uL (1.5-4.5); LYMPH % 12.5 % (24.0-44.0); MEAN CORPUSCULAR HEMOGLOBIN 26.4 pg (27.0-33.0); MEAN CORPUSCULAR HGB CONC 31.7 g/dl (32.0-36.5); MEAN CORPUSCULAR VOLUME 83.5 fl (80.0-96.0); MONO # 0.8 10^3/uL (0.0-0.8); MONO % 9.4 % (0.0-5.0); NEUTROPHILS # 6.6 10^3/uL (1.8-7.7); NEUTROPHILS % 75.5 % (36.0-66.0); PLATELET COUNT, AUTOMATED 348 10^3/uL (150-450); RED BLOOD COUNT 5.26 10^6/uL (4.00-5.40); WHITE BLOOD COUNT 8.8 10^3/uL (4.0-10.0)
[2019-03-17 14:31] LABS: ALBUMIN 3.3 GM/DL (3.2-5.2); ALT/SGPT 24 U/L (12-78); BILIRUBIN,TOTAL 0.2 MG/DL (0.2-1.0); BLOOD UREA NITROGEN 10 MG/DL (7-18); CALCIUM LEVEL 9.2 MG/DL (8.8-10.2); CARBON DIOXIDE LEVEL 33 MEQ/L (21-32); CHLORIDE LEVEL 95 MEQ/L (98-107); CREATININE FOR GFR 0.59 MG/DL (0.55-1.30); FERRITIN 66 NG/ML (8-252); GLOMERULAR FILTRATION RATE > 60.0 (>45); GLUCOSE, FASTING 114 MG/DL (70-100); IRON (FE) 33 UG/DL (50-170); PERCENT SATURATION 10.8 % (13.2-45.0); SODIUM LEVEL 134 MEQ/L (136-145); TOTAL IRON BINDING CAPACITY 306 UG/DL (250-450); TOTAL PROTEIN 6.6 GM/DL (6.4-8.2)
[2019-03-17 14:36] VITALS: BP 145/93
[2019-03-17 16:22] LABS: INR 0.94; PROTHROMBIN TIME 12.3 SECONDS (11.8-14.0)
[2019-03-17 16:23] LABS: PARTIAL THROMBOPLASTIN TIME 41.1 SECONDS (25.0-38.4)
--- NOTE | 2019-03-17 18:50 | MEDONC ---
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 Currently on fifth line treatment with lorlatinib begun December 2018 after disease progression involving left greater than right retro-orbital masses, lung progression GI bleed. Now status post orbital radiation and recent hospitalization for fluid overload and pneumonia. Currently struggling with dyspnea, the appearance of new left pleural effusion apparent stability or regression of right lung pleural-based metastases, and apparent progressive bone metastases asymptomatic. CURRENT THERAPY: Lorlatinib 75 mg daily. Resumed 02/08/2019. Original day one cycle one 12/18/2018. Lasix 40 mg daily for lorlatinib related diuresis. Denosumab q. 3 months. Most recent 02/25/2019. INTERVAL HISTORY: Joanne was hospitalized with progressive dyspnea in mid January, treated for pneumonia, diuresed and was doing better. She resumed lorlatinib initially at 50 mg, then went up 75, but unfortunately has again quite a bit of dyspnea. Restaging CTs show a mixed picture. Formally, they are read as progression of blastic metastases. On reviewing the images, it is clear the right lung pleural-based lesions have apparently either coalesced and flattened or partially resolved or the left lung has a new moderate pleural effusion. In the abdomen and pelvis, there is no intra-abdominal findings other than in the bone windows metastases. Joanne is now on oxygen using it intermittently. Her exercise tolerance has diminished. She asks if we can hold off on the medicine for now because she thinks it is causing her dyspnea. She closely reads side effects and is aware of all the possible adverse effects of medication. I have reviewed the images with her and we discussed holding the medicine and continuing Lasix, in addition to therapeutic thoracentesis of the left lung. If her breathing immediately improves after the thoracentesis, her dyspnea is more likely to be result of the fluid than the drug; if the fluid is negative for malignancy perhaps it is drug-related edema, if positive cytology then we can reasonably conclude her disease is progressing in the lungs. She asked me to speak with Dr. Hunter, which I will do, and we will also have her last images for the last year set up on a CD to be sent to Dr. Hunter for review. Whether or not she needs to go there I will leave to Dr. Hunter. I have reached out to him as of this dictation and waiting to hear back. PHYSICAL EXAMINATION: Weight 61 kg, stable. Temperature 98, blood pressure 145/93, heart rate 99, respiratory 17, O2 sat 94%. Respiratory: Clear to auscultation in the left lung, even at the bases. Decreased breath sounds with muffled air movement in the right base and better air movement in the right apex. Cardiac: S1, S2, regular rate and rhythm. No murmur. No gallop. Abdomen is soft, nontender. Extremities: 1+ pedal edema symmetric bilaterally. LABORATORY DATA: WBC 8.8, hemoglobin 13.9, hematocrit 43, platelets 348, MCV 83. Electrolytes unremarkable. Liver functions normal. Ferritin 66. CEA pending. 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 Clinically with decreased performance status now 1-2 decreased exercise tolerance due to dyspnea. PLAN: 1. Joanne would like a trial off lorlatinib to see if the drug itself is causing dyspnea. 2. Therapeutic left thoracentesis this week. Joanne requests Javon Ng. 3. Pre-procedure PT/PTT. 4. I reached out to Dr. Hunter of [facility] for discussion about next steps. Overall, I have outlined with Joanne if - then scenario based on thoracentesis, effects of stopping the drug, what will help us determine whether she is suffering drug-related side effects versus disease progression side effects. I have asked her to consider whether she be willing to take palliative chemotherapy. She said she would think about but she would like Dr. Hunter's input. TIME STATEMENT: 40 minutes [id number] the patient, more than 50% involving counseling regarding the above issues detailed. Electronically Signed by Norah Angelo MD 03/18/2019 05:46 P DD: Norah Angelo MD 03/17/2019 05:03 P DT: romana 03/17/2019 06:27 P CC: MD Inocencio Guo MD
[2019-04-02 15:24] VITALS: BP 129/85
[2019-04-02 17:22] LABS: BASO # 0.1 10^3/uL (0.0-0.2); EOS # 0.1 10^3/uL (0.0-0.5); EOS % 1.1 % (0.0-3.0); HEMATOCRIT 43.3 % (36.0-47.0); HEMOGLOBIN 13.6 g/dl (12.0-15.5); LYMPH # 0.5 10^3/uL (1.5-5.0); LYMPH % 7.3 % (24.0-44.0); MEAN CORPUSCULAR HEMOGLOBIN 25.5 pg (27.0-33.0); MEAN CORPUSCULAR HGB CONC 31.4 g/dl (32.0-36.5); MEAN CORPUSCULAR VOLUME 81.1 fl (80.0-96.0); MONO # 0.7 10^3/uL (0.0-0.8); MONO % 10.2 % (0.0-5.0); NEUTROPHILS # 5.8 10^3/uL (1.5-8.5); NEUTROPHILS % 80.1 % (36.0-66.0); PLATELET COUNT, AUTOMATED 343 10^3/uL (150-450); RED BLOOD COUNT 5.34 10^6/uL (4.00-5.40); WHITE BLOOD COUNT 7.2 10^3/uL (4.0-10.0)
[2019-04-02 17:30] LABS: ALBUMIN 3.1 GM/DL (3.2-5.2); ALT/SGPT 18 U/L (12-78); BILIRUBIN,TOTAL 0.3 MG/DL (0.2-1.0); BLOOD UREA NITROGEN 10 MG/DL (7-18); CALCIUM LEVEL 8.7 MG/DL (8.8-10.2); CARBON DIOXIDE LEVEL 29 MEQ/L (21-32); CHLORIDE LEVEL 97 MEQ/L (98-107); CREATININE FOR GFR 0.54 MG/DL (0.55-1.30); GLOMERULAR FILTRATION RATE > 60.0 (>45); GLUCOSE, FASTING 97 MG/DL (70-100); POTASSIUM SERUM 4.1 MEQ/L (3.5-5.1); SODIUM LEVEL 134 MEQ/L (136-145); TOTAL PROTEIN 6.3 GM/DL (6.4-8.2)
[2019-04-02 17:34] LABS: INR 1.02; PROTHROMBIN TIME 13.1 SECONDS (11.8-14.0)
[2019-04-02 17:36] LABS: PARTIAL THROMBOPLASTIN TIME 38.7 SECONDS (25.0-38.4)
--- NOTE | 2019-04-03 18:17 | MEDONC ---
MEDICAL ONCOLOGY FOLLOWUP: DATE OF SERVICE: 04/02/2019 DIAGNOSIS: Refractory recurrent alk mutation positive adenocarcinoma of lung, PD-L1 negative, TMB intermediate, overall unremarkable NGS from 2019 with bone, brain, lung, gastric, and retroorbital metastases, indolent disease over many years now on observation after progressing through fifth line treatment with lorlatinib which he was on between 12/2018 and 03/2019. Disease progression with recurrent left malignant pleural effusion status post thoracentesis 03/19/2019, status post orbital radiation. CURRENT THERAPY: Observation; plan is to begin carboplatin / pemetrexed / pembrolizumab this week on 04/04/2019 Lasix 40 mg as needed diuresis. Denosumab every 3 months. Most recent 02/25/2019. As needed O2 cannula oxygen 2 liters. INTERVAL HISTORY: Joanne was in the emergency room yesterday after she called complaining of worsening acute on chronic shortness of breath. Though plain chest x-ray did not show it, CT angio, negative for pulmonary embolism, demonstrated recurrence of both moderate left pleural effusion which she had drained in late February. This and some chronic what appears to be postobstructive consolidation in the right lung are likely cause of her shortness of breath. She may have a postobstructive pneumonia or simply disease progression in the right side where there is extensive pleural based disease. We reviewed the films today, I have spoken with Dr. Gold in radiology, overall we made a plan as follows. IMPRESSION: 1. Refractory recurrent alk mutation positive adenocarcinoma of lung, PD-L1 negative status post all available lines of oral ALK targeting therapy, now planning to begin combination chemo immunotherapy. 2. Recurrent left pleural effusion symptomatic. 3. Presumptive postobstructive pneumonia versus tumor consolidation. PLAN: 1. Begin levofloxacin 750 mg by mouth daily for 7 days. 2. A.s.a.p. Left thoracentesis tomorrow. 3. Will plan to keep Joanne on course to begin chemotherapy Sunday with carboplatin / pemetrexed / pembrolizumab. Normally suspecting pneumonia in treating for it I would not start someone on chemotherapy but we are in a salvage situation, Joanne is otherwise clinically stable and should her symptoms fail to improve after thoracentesis tomorrow will reconsider the start of chemotherapy. Otherwise I think in this case it is reasonable to overlap antibiotic treatment and start chemotherapy. I spent extensive time explaining to Joanne and her family the rationale for urgently draining the left lung. Pemetrexed at can increase to have significantly increased toxicity with accumulation of pleural fluid. Time statement 35 minutes [id number] with the patient more than 50% involving counseling regarding all of the issues above. Electronically Signed by Norah Angelo MD 04/04/2019 12:27 P DD: Norah Angelo MD 04/02/2019 04:07 P DT: edy 04/03/2019 05:51 P CC: MD Inocencio Guo MD
[2019-04-07 08:36] LABS: HEMATOCRIT 45.7 % (36.0-47.0); HEMOGLOBIN 14.7 g/dl (12.0-15.5); LYMPH % 9.5 % (24.0-44.0); MEAN CORPUSCULAR HEMOGLOBIN 26.7 pg (27.0-33.0); MEAN CORPUSCULAR HGB CONC 32.2 g/dl (32.0-36.5); MEAN CORPUSCULAR VOLUME 82.9 fl (80.0-96.0); NEUTROPHILS # 6.9 10^3/uL (1.8-7.7); NEUTROPHILS % 80.7 % (36.0-66.0); RED BLOOD COUNT 5.51 10^6/uL (4.00-5.40); WHITE BLOOD COUNT 8.6 10^3/uL (4.0-10.0)
[2019-04-07 08:56] LABS: ALBUMIN 3.8 GM/DL (3.5-5.2); BLOOD UREA NITROGEN 9 MG/DL (6-20); CARBON DIOXIDE LEVEL 31 MEQ/L (23-31); CHLORIDE LEVEL 96 MMOL/L (98-107); GLOMERULAR FILTRATION RATE > 60.0 (>45); GLUCOSE, FASTING 86 MG/DL (70-105); TOTAL PROTEIN 6.4 GM/DL (6.4-8.3)
[2019-04-07 08:57] LABS: SODIUM LEVEL 134 MMOL/L (135-145)
[2019-04-07 09:51] VITALS: BP 106/69
--- NOTE | 2019-04-07 13:18 | ONC.PHACK ---
CHEMO ADMIN CHECKLIST Order Contains Pt ID: Name, Order on Chemo Order Form?: Yes Order Form Includes ALL: Correct Tx Day, Correct Date, Correct Cycle Number Pt ID on Order form Matches: Pt ID on PHA Label Med on Chemo OrderForm Matches: PHA Label, Med Used for Preparation [facility] Apr 07, 2019 13:18
[2019-04-16 13:33] LABS: HEMOGLOBIN 15.4 g/dl (12.0-15.5); LYMPH % 4.8 % (24.0-44.0); MEAN CORPUSCULAR HEMOGLOBIN 27.4 pg (27.0-33.0); MEAN CORPUSCULAR HGB CONC 32.8 g/dl (32.0-36.5); MEAN CORPUSCULAR VOLUME 83.6 fl (80.0-96.0); NEUTROPHILS # 23.7 10^3/uL (1.8-7.7); NEUTROPHILS % 89.1 % (36.0-66.0); RED BLOOD COUNT 5.62 10^6/uL (4.00-5.40); WHITE BLOOD COUNT 26.6 10^3/uL (4.0-10.0)
[2019-04-16 13:47] VITALS: BP 138/86
[2019-04-16 13:58] LABS: ALBUMIN 4.5 GM/DL (3.5-5.2); BLOOD UREA NITROGEN 6 MG/DL (6-20); CARBON DIOXIDE LEVEL 32 MEQ/L (23-31); CHLORIDE LEVEL 93 MMOL/L (98-107); CREATININE FOR GFR 0.82 MG/DL (0.60-1.10); GLOMERULAR FILTRATION RATE > 60.0 (>45); GLUCOSE, FASTING 103 MG/DL (70-105); SODIUM LEVEL 133 MMOL/L (135-145); TOTAL PROTEIN 6.8 GM/DL (6.4-8.3)
--- NOTE | 2019-04-17 13:44 | MEDONC ---
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 Currently on first-line chemotherapy carboplatin/pemetrexed/pembrolizumab and status post third left malignant thoracentesis. Status post orbital radiation in Spring 2018. CURRENT THERAPY: Denosumab q. 3 months. Most recent 02/25/2019. As needed O2 nasal cannula 2 liters. Lasix 40 mg as needed for diuresis. Carboplatin/pemetrexed/pembrolizumab q. 21 days day one cycle one 04/07/2019 with pegfilgrastim support. INTERVAL HISTORY: Joanne was hospitalized again because of recurrent left pleural effusion symptomatic. She underwent thoracentesis. Cytology confirmed malignancy. She saw Dr. Milligan. He is planning PleurX placement the next time there is recurrence, but currently there is no target for tapping and PleurX placement. She reports feeling well in terms of breathing since the thoracentesis. She had several rough days between days three and six of chemotherapy. We reviewed her antiemetic medications, how to use them and when, we reviewed folic acid daily supplements. Overall Joanne feels like she is doing okay but chemotherapy was a lot different than oral targeted therapy. REVIEW OF SYSTEMS: No current fevers or chills. Breathing is much better, not at absolute baseline but better. No new rash or headache. No new pedal edema. PHYSICAL EXAMINATION: Weight 56 kg, stable. Temperature 97, blood pressure 138/86, heart rate 90, respiratory 97. Lungs are clear throughout the left lung dalton with some decreased breath sounds in right upper lung field and good air movement in the right lower lung field. This is consistent with prior optimal examined. Cardiac: S1, S2, regular rate and rhythm. No murmur. No gallop. LABORATORY DATA: WBC 26, 89% neutrophils, hemoglobin 15, hematocrit 47, platelets 314, MCV 83. Sodium 133. Remainder of electrolytes unremarkable. Normal renal and liver function. Alkaline phosphatase 169. CEA pending. 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 Leukocytosis secondary to Neulasta. PLAN: 1. Return to office 04/28/2019 for day one cycle two treatment. Clinical exam, CBC, stat CMP, TSH, CEA that day. 2. Joanne is an astute patient, tracks her symptoms carefully and she will report to Dr. Milligan any new shortness of breath indicating recurrence of the pleural effusion. 3. Continue daily folic acid. 4. Plan next B12 injection after cycle three. Electronically Signed by Norah Angelo MD 04/17/2019 06:12 P DD: Norah Angelo MD 04/16/2019 05:00 P DT: romana 04/17/2019 01:29 P CC: MD Inocencio Guo MD
[2019-04-28 09:39] LABS: HEMATOCRIT 44.9 % (36.0-47.0); HEMOGLOBIN 14.7 g/dl (12.0-15.5); LYMPH % 11.5 % (24.0-44.0); MEAN CORPUSCULAR HEMOGLOBIN 27.1 pg (27.0-33.0); MEAN CORPUSCULAR HGB CONC 32.7 g/dl (32.0-36.5); MEAN CORPUSCULAR VOLUME 82.7 fl (80.0-96.0); NEUTROPHILS # 8.1 10^3/uL (1.8-7.7); NEUTROPHILS % 80.8 % (36.0-66.0); RED BLOOD COUNT 5.43 10^6/uL (4.00-5.40)
[2019-04-28 10:14] VITALS: BP 124/80
[2019-04-28 10:50] LABS: ALBUMIN 4.2 GM/DL (3.5-5.2); BLOOD UREA NITROGEN < 3 MG/DL (6-20); CARBON DIOXIDE LEVEL 28 MEQ/L (23-31); CHLORIDE LEVEL 96 MMOL/L (98-107); CREATININE FOR GFR 0.68 MG/DL (0.60-1.10); GLOMERULAR FILTRATION RATE > 60.0 (>45); GLUCOSE, FASTING 104 MG/DL (70-105); SODIUM LEVEL 133 MMOL/L (135-145); TOTAL PROTEIN 6.2 GM/DL (6.4-8.3)
[2019-04-28 11:15] LABS: INR 1.07; PROTHROMBIN TIME 13.6 SECONDS (11.8-14.0)
[2019-04-28 11:16] LABS: PARTIAL THROMBOPLASTIN TIME 37.9 SECONDS (25.0-38.4)
--- NOTE | 2019-04-28 11:37 | ONC.PHACK ---
CHEMO ADMIN CHECKLIST Order Contains Pt ID: Name, Order on Chemo Order Form?: Yes Order Form Includes ALL: Correct Tx Day, Correct Date, Correct Cycle Number Pt ID on Order form Matches: Pt ID on PHA Label Med on Chemo OrderForm Matches: PHA Label, Med Used for Preparation [facility] Apr 28, 2019 11:37
--- NOTE | 2019-04-29 10:21 | MEDONC ---
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 Now on first-line chemotherapy in the palliative setting, here for cycle two. CURRENT THERAPY: Denosumab q. 3 months. Next due first week of May of 2019. As needed O2 nasal cannula 2 liters. Lasix 40 mg p.r.n. diuresis. Carboplatin/pemetrexed/pembrolizumab q. 21 days. Day 1, cycle one 04/07/2019 with pegfilgrastim support. Complicated by recurrent pleural effusion, status post drainage. INTERVAL HISTORY: Joanne is doing okay but is finding eating difficult. She has had a significant weight loss. She denies new shortness of breath. Can climb stairs. She is following her dyspnea symptoms closely, and we all anticipate PleurX should she have another effusion. She has a new lump in the left axilla noted by Dr. Milligan. She reports no new back pain, headache, visual disturbance, leg cramping or swelling but acknowledges fatigue. REVIEW OF SYSTEMS: Pertinent positives and negatives as noted above; remainder of 12-system review negative. PHYSICAL EXAMINATION: Weight 55 kg, temperature 97, blood pressure 124/80, heart rate 91, respiratory 18, O2 sat 95% room air. The patient is a thin older woman in no distress, well-groomed. Respiratory: Clear to auscultation in the upper lung dalton bilaterally, decreased breath sounds in the right base. Occasional coarse crackles in the left base. Cardiac: S1, S2, regular rate and rhythm. No murmur. No gallop. Abdomen: Soft, nontender, nondistended, no hepatosplenomegaly or mass. Extremities: No edema. Lymph nodes: No submandibular, cervical, or supraclavicular adenopathy. In the left axilla, there is a firm small 1-cm mobile lymph node palpable and a smaller perhaps 0.5-cm lymph node adjacent to it, either indurated and irregular. No other palpable axillary adenopathy. LABS: WBC 10, ANC 8100, hemoglobin 14.7, hematocrit 45, platelets 312. Electrolytes pending. IMPRESSION: Refractory recurrent ALK positive PD-L1 negative TMB intermediate adenocarcinoma of lung with dominant pleural and parenchymal involvement and a history of bone, brain, and retroorbital metastases, as well as gastric metastases with GI bleed. Now on first-line chemotherapy-based treatment, tolerating well. Unfortunately, palpable new left axillary node small concerning for disease progression. PLAN: 1. Will proceed with cycle two today. 2. Restaging CT chest, abdomen and pelvis 2-1/2 weeks. 3. Return in 3 weeks for potential cycle three treatment and results of scans. 4. MediPort placement at patient request a.s.a.p. 5. Jonatan Rubio, and I talked about what symptoms to watch for. She will go immediately to the emergency room for new shortness of breath; it should be noted her pleural effusions have loculated quality and are often not well shown on plain chest x-ray. Should she have progressive shortness of breath, CT angio is indicated in ER visit to rule out PE for which she is at significant risk and to rule out effusion not seen on chest x-ray. She is plugged in with Dr. Milligan, and his plan is placement of a PleurX at the next new recurrent effusion. Electronically Signed by Norah Angelo MD 04/29/2019 11:47 A DD: Norah Angelo MD 04/28/2019 10:49 A DT: aml 04/29/2019 10:00 A CC: MD Usama Guo MD Jason White, MD
[2019-05-19 09:51] LABS: HEMATOCRIT 43.2 % (36.0-47.0); HEMOGLOBIN 13.9 g/dl (12.0-15.5); LYMPH % 9.9 % (24.0-44.0); MEAN CORPUSCULAR HEMOGLOBIN 27.9 pg (27.0-33.0); MEAN CORPUSCULAR HGB CONC 32.2 g/dl (32.0-36.5); MEAN CORPUSCULAR VOLUME 86.7 fl (80.0-96.0); NEUTROPHILS % 83.9 % (36.0-66.0); RED BLOOD COUNT 4.98 10^6/uL (4.00-5.40); WHITE BLOOD COUNT 9.5 10^3/uL (4.0-10.0)
[2019-05-19 09:57] VITALS: BP 118/68
[2019-05-19 10:13] LABS: ALBUMIN 3.5 GM/DL (3.5-5.2); BLOOD UREA NITROGEN 10 MG/DL (6-20); CARBON DIOXIDE LEVEL 31 MEQ/L (23-31); CHLORIDE LEVEL 99 MMOL/L (98-107); CREATININE FOR GFR 0.61 MG/DL (0.60-1.10); GLOMERULAR FILTRATION RATE > 60.0 (>45); GLUCOSE, FASTING 102 MG/DL (70-105); SODIUM LEVEL 133 MMOL/L (135-145)
--- NOTE | 2019-05-19 10:47 | ONC.PHACK ---
CHEMO ADMIN CHECKLIST Order Contains Pt ID: Name, Order on Chemo Order Form?: Yes Order Form Includes ALL: Correct Tx Day, Correct Date, Correct Cycle Number Pt ID on Order form Matches: Pt ID on PHA Label Med on Chemo OrderForm Matches: PHA Label, Med Used for Preparation [facility] May 19, 2019 10:47
--- NOTE | 2019-05-20 08:48 | MEDONC ---
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 PD-L1 negative TMB intermediate with bone, brain, lung, gastric, and retroorbital metastases, indolent over many years with a significant progression in 2019. Now with dominant pleural involvement bilaterally. Status post recent left PleurX placement, on first-line chemotherapy in the metastatic / palliative setting, tolerating it well. Here for cycle three. CURRENT THERAPY: Carboplatin / pemetrexed / pembrolizumab q. 21 days. Day one cycle one 04/07/2019. Today will be day one cycle three. Denosumab q. 3 months, next due May 2019. As needed O2 nasal cannula 2 liters. Lasix 40 mg as needed. INTERVAL HISTORY Joanne had scans of chest, abdomen pelvis on 05/14/2019, these were read as stable. The most recent prior was 05/05/2019 for the lung and February for the abdomen and pelvis. Extensive bulky subcarinal adenopathy unchanged versus April, prominent bilateral hilar nodes, bilateral pleural effusions, left greater than right. All seen with diffuse widespread skeletal blastic lesions. However, in the interval, she has had a PleurX placed, feels much better. On viewing the images myself earlier today, there seemed possibly subtle decrease in the extent of right lung congestion and fissure thickening, as well as some of the pleural metastatic deposits, particular in the right pleural based upper lung area seemed very subtly smaller. Joanne feels good. She is draining about 700 to 800 mL every 3 days from her PleurX. Dr. Milligan says this is chylous fluid, suggesting there has been some sort of thoracic duct system rupture or communication. I explained this to Joanne Jonatan and their daughter that the lung lymph system is carried through the thoracic duct. Normally this is discrete from pleural effusion fluid and it is possible her tumor has eroded through and thoracic lymph is now oozing into the pleural space. This would be a sign of progression. On the other hand, she feels very good, is tolerating treatment fairly well. She has lost a few pounds again but is doing her best to eat well. Joanne would like to keep going forward with chemotherapy and immunotherapy. Overall, we should plan scans again after she has completed four cycles and at that point discuss either continuing combination pemetrexed plus immunotherapy or immunotherapy alone. REVIEW OF SYSTEMS: In addition to pertinent positives and negatives above, Joanne denies hemoptysis. She says her exercise tolerance is better this week versus last. Denies blood in the PleurX fluid. Denies leg swelling or cramping. She has not had to take any diuretic recently. Denies new headache, visual disturbance, chest pain, palpitations. Remainder of 12 system review negative. PHYSICAL EXAMINATION: Weight 54 kg, BMI 19. Vital signs: Reviewed, normal and stable. Respiratory: Coarse breath sounds throughout the lung dalton bilaterally. Cardiac: S1, S2 regular rate and rhythm. No murmur nor gallop. Abdomen is soft and nontender. No rebound. No hepatosplenomegaly. Extremities: No edema. Lymph nodes: No submandibular, cervical, supraclavicular or axillary adenopathy. Musculoskeletal: No vertebral tenderness to percussion. CBC today with normal WBC, hemoglobin, hematocrit and platelets. Chemistry notable for sodium 133. Remainder of electrolytes normal. Renal function and liver function normal. IMPRESSION: Refractory recurrent ALK mutation positive adenocarcinoma of lung with bone, brain, lung, gastric and retro orbital metastases, indolent over many years with significant progression in 2019 on first-line chemotherapy in the metastatic setting with carboplatin / pemetrexed / pembrolizumab, status post two cycles as well as new PleurX placement with much improved breathing and performance status, stable disease versus possible subtle improvement on CTs this month. PLAN: 1. Cycle three treatment today. 2. 3-week interval return for cycle four. 3. Denosumab on 05/27/2019 with stat CMP. 6. Plan restaging after two more cycles of treatment (i.e. after total of four carboplatin based cycles). Electronically Signed by Norah Angelo MD 05/21/2019 06:12 P DD: Norah Angelo MD 05/19/2019 05:13 P DT: [email or web address] 05/20/2019 08:12 A CC: MD Inocencio Thrasher MD
[2019-05-27 11:28] LABS: ALBUMIN 2.7 GM/DL (3.2-5.2); ALT/SGPT 21 U/L (12-78); BILIRUBIN,TOTAL 0.6 MG/DL (0.2-1.0); BLOOD UREA NITROGEN 10 MG/DL (7-18); CALCIUM LEVEL 8.4 MG/DL (8.8-10.2); CARBON DIOXIDE LEVEL 30 MEQ/L (21-32); CHLORIDE LEVEL 98 MEQ/L (98-107); CREATININE FOR GFR 0.49 MG/DL (0.55-1.30); GLOMERULAR FILTRATION RATE > 60.0 (>45); GLUCOSE, FASTING 111 MG/DL (70-100); POTASSIUM SERUM 4.3 MEQ/L (3.5-5.1); SODIUM LEVEL 134 MEQ/L (136-145)
[2019-06-09 09:18] VITALS: BP 121/73
[2019-06-09 09:21] LABS: BASO # 0.1 10^3/uL (0.0-0.2); BASO % 0.7 % (0.0-1.0); EOS % 0.1 % (0.0-3.0); HEMATOCRIT 39.9 % (36.0-47.0); HEMOGLOBIN 12.8 g/dl (12.0-15.5); LYMPH # 0.6 10^3/uL (1.5-5.0); LYMPH % 7.2 % (24.0-44.0); MEAN CORPUSCULAR HEMOGLOBIN 28.3 pg (27.0-33.0); MEAN CORPUSCULAR HGB CONC 32.1 g/dl (32.0-36.5); MEAN CORPUSCULAR VOLUME 88.3 fl (80.0-96.0); MONO # 0.7 10^3/uL (0.0-0.8); MONO % 7.9 % (0.0-5.0); NEUTROPHILS # 7.3 10^3/uL (1.5-8.5); NEUTROPHILS % 83.6 % (36.0-66.0); PLATELET COUNT, AUTOMATED 292 10^3/uL (150-450); RED BLOOD COUNT 4.52 10^6/uL (4.00-5.40); WHITE BLOOD COUNT 8.7 10^3/uL (4.0-10.0)
[2019-06-09 09:44] LABS: ALBUMIN 2.5 GM/DL (3.2-5.2); ALT/SGPT 18 U/L (12-78); BILIRUBIN,TOTAL 0.3 MG/DL (0.2-1.0); BLOOD UREA NITROGEN 8 MG/DL (7-18); CALCIUM LEVEL 8.6 MG/DL (8.8-10.2); CARBON DIOXIDE LEVEL 30 MEQ/L (21-32); CHLORIDE LEVEL 103 MEQ/L (98-107); GLOMERULAR FILTRATION RATE > 60.0 (>45); GLUCOSE, FASTING 101 MG/DL (70-100); POTASSIUM SERUM 4.3 MEQ/L (3.5-5.1); SODIUM LEVEL 136 MEQ/L (136-145); TOTAL PROTEIN 5.9 GM/DL (6.4-8.2)
--- NOTE | 2019-06-09 10:27 | ONC.PHACK ---
CHEMO ADMIN CHECKLIST Order Contains Pt ID: Name, Order on Chemo Order Form?: Yes Order Form Includes ALL: Correct Tx Day, Correct Date, Correct Cycle Number Pt ID on Order form Matches: Pt ID on PHA Label Med on Chemo OrderForm Matches: PHA Label, Med Used for Preparation [facility] Jun 09, 2019 10:27
[2019-06-26 14:45] VITALS: BP 100/70
--- NOTE | 2019-06-27 10:14 | MEDONC ---
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 Currently on first-line chemotherapy in the metastatic setting after progressing through all oral ALK targeted agents. CURRENT THERAPY: Carboplatin/pemetrexed/pembrolizumab q. 24. Status post four completed cycles, 04/07/2019 - 06/09/2019. Plan is to continue with maintenance pemetrexed/pembrolizumab beginning 06/30/2019. Response indicated by 50% drop in CEA. P.r.n. O2 nasal cannula. Status post PleurX placement. Lasix 40 mg as needed. INTERVAL HISTORY: Joanne is here on a nontreatment day to followup as my schedule had interfered with seeing her on treatment days. She continues to drain her PleurX every 3 days. Sometimes it is quite difficult to make the full 3 days. She is getting up to 700 mL of fluid. I pointed out the CEA drop from approximately 130 to 78. She is busy doing her usual things but says in general her breathing is an issue that needs constant managing with the PleurX. Her , Jonatan, counters she is up out of the house most of the day and very active with family and social obligations. REVIEW OF SYSTEMS: Joanne denies any new fevers, chills, headache. Weight is stable. Her appetite she says is okay. She consciously makes an effort to eat. Her appetite is not what it used to be. She denies any new shortness of breath. She denies hemoptysis. She has no new rash. No change in the fingers and skin of her hands or feet. No new leg cramping or swelling. No nausea or vomiting. She is troubled with constipation, which she is managing with [id number]. Remainder of 12 system review negative. Physical examination deferred. Vital signs reviewed, stable and within her normal range. Labs from 06/09/2019 showed WBC 8.7, hemoglobin 12, hematocrit 39, platelets 292, MCV 88. normal electrolytes. Normal renal and liver function. Albumin 2.5. CEA 78. IMPRESSION: ALK mutation positive, PD-L1 negative, TMB intermediate adenocarcinoma of lung refractory recurrent over many, many years, original diagnosis 2012, now on chemotherapy with pembrolizumab. Biochemical response following four cycles of carboplatin/pemetrexed/pembrolizumab. Restaging scans after two cycles showed stable to possibly improved findings in the right lung. Status post PleurX placement continuing every 3 days to empty up 700 mL of pleural fluid. ECOG performance status 0/1. Based on the lowering CEA and Joanne's continued fairly good performance status, I am recommending continuing pemetrexed with pembrolizumab. We spent a lot of time discussing whether or not to continue the pemetrexed in addition to pembrolizumab. I argued it is likely doing at least half the work given established sensitivity of ALK positive lung cancer to pemetrexed, in addition to her PD-L1 negative status. We clarified some of her medications. Joanne and Jonatan asked a number questions, talked about schedule and so forth. Quality of life is the top issue, but ultimately, she said she would like to go ahead and continue on maintenance treatment with the two drugs. We agreed she would be restaged following the first cycle given the holiday interrupting scheduled currently. PLAN: 1. Return to clinic 06/30/2019 for day 1 cycle 1 maintenance pemetrexed/pembrolizumab. 2. Restaging CT chest, abdomen and pelvis week of 07/09/2019 with early followup . TIME STATEMENT: 30 minutes [id number] with the patient; more than 50% involving counseling regarding all of the issues addressed above, management of her medications, Claritin or Neulasta, choices for maintenance chemotherapy, interval restaging. Electronically Signed by Norah Angelo MD 07/04/2019 07:34 P DD: Norah Angelo MD 06/26/2019 05:26 P DT: romana 06/27/2019 09:55 A CC: Inocencio Escamilla MD
[2019-06-30 08:35] VITALS: BP 126/78
[2019-06-30 08:56] LABS: BASO % 0.2 % (0.0-1.0); HEMATOCRIT 41.9 % (36.0-47.0); HEMOGLOBIN 13.5 g/dl (12.0-15.5); LYMPH # 0.8 10^3/uL (1.5-5.0); LYMPH % 5.8 % (24.0-44.0); MEAN CORPUSCULAR HEMOGLOBIN 30.3 pg (27.0-33.0); MEAN CORPUSCULAR HGB CONC 32.2 g/dl (32.0-36.5); MEAN CORPUSCULAR VOLUME 93.9 fl (80.0-96.0); MONO # 0.8 10^3/uL (0.0-0.8); MONO % 6.1 % (0.0-5.0); NEUTROPHILS # 11.8 10^3/uL (1.5-8.5); NEUTROPHILS % 87.4 % (36.0-66.0); PLATELET COUNT, AUTOMATED 301 10^3/uL (150-450); RED BLOOD COUNT 4.46 10^6/uL (4.00-5.40); WHITE BLOOD COUNT 13.5 10^3/uL (4.0-10.0)
[2019-06-30 09:25] LABS: ALBUMIN 2.8 GM/DL (3.2-5.2); ALT/SGPT 23 U/L (12-78); BILIRUBIN,TOTAL 0.4 MG/DL (0.2-1.0); BLOOD UREA NITROGEN 12 MG/DL (7-18); CALCIUM LEVEL 8.7 MG/DL (8.8-10.2); CARBON DIOXIDE LEVEL 28 MEQ/L (21-32); CHLORIDE LEVEL 100 MEQ/L (98-107); CREATININE FOR GFR 0.59 MG/DL (0.55-1.30); GLOMERULAR FILTRATION RATE > 60.0 (>45); GLUCOSE, FASTING 126 MG/DL (70-100); POTASSIUM SERUM 3.7 MEQ/L (3.5-5.1); SODIUM LEVEL 135 MEQ/L (136-145); TOTAL PROTEIN 6.6 GM/DL (6.4-8.2)
--- NOTE | 2019-06-30 09:38 | ONC.PHACK ---
CHEMO ADMIN CHECKLIST Order Contains Pt ID: Name, Order on Chemo Order Form?: Yes Order Form Includes ALL: Correct Tx Day, Correct Date, Correct Cycle Number Pt ID on Order form Matches: Pt ID on PHA Label Med on Chemo OrderForm Matches: PHA Label, Med Used for Preparation [facility] Jun 30, 2019 09:38
[2019-07-10 14:14] VITALS: BP 119/82
--- NOTE | 2019-07-17 13:14 | MEDONC ---
MEDICAL ONCOLOGY FOLLOWUP DATE OF SERVICE: 07/10/2019 DIAGNOSIS: Refractory recurrent ALK mutation positive adenocarcinoma of lung, PD-L1 negative, with bone, brain, lung, gastric, retroorbital metastases. Original diagnosis 2012. Indolent progression for many years with more involved visceral involvement as of 2018. Currently on first-line chemotherapy in the metastatic setting after progressing through all available oral ALK targeted agents. CURRENT THERAPY: Pemetrexed/pembrolizumab maintenance, day one cycle one maintenance 06/30/2019. Denosumab q. 3 months, next due August 2019. Lasix 40 mg daily p.r.n. for diuresis. TREATMENT HISTORY: Carboplatin/pemetrexed/pembrolizumab four cycle 04/07/2019-06/09/2019. Treatment complicated by recurrent malignant pleural effusion status post left PleurX. Clinically stable since PleurX. Mild partial response on current restaging. PRIOR ORAL THERAPY: Crizotinib 10/2012-12/2014. Ceritinib 12/2014-03/2016. Alectinib 03/2016-08/2016. Brigatinib 08/2016-10/2018. Lorlatinib 11/2018-02/2019. Foundation one testing 07/2016, PD-L1 20% tumor mutation, intermediate, no actionable mutations. Prior gamma radiation for intracranial metastases. INTERVAL HISTORY: Joanne had her first cycle of maintenance therapy on the . She will be due for the next on the . She reports generally feeling okay, but continues to drain up to 900 mL of fluid ever 3 days or so from her PleurX. She gets short of breath toward the end of the 3-day period. She nevertheless continues to be busy, exercises mostly daily on her exercycle, walks up stairs every day, and is busy with family activities. She does complain of a 2-3 day down period after each treatment. Restaging CT chest, abdomen and pelvis shows mostly stable disease with some mild improvement 07/07/2019. In the abdomen and pelvis diffuse skeletal metastases, no below the diaphragm disease, in the chest stable subcarinal adenopathy on the right, stable left small hilar nodes, decrease in left axillary adenopathy, stable pleural-based soft tissue right hemithorax sites, and adjacent right lung parenchymal opacities, decreased left pleural fluid. REVIEW OF SYSTEMS: In addition to pertinent positives and negatives above, Joanne denies any new musculoskeletal pain, new headache, visual disturbance, vomiting. Her appetite is so-so, but she is maintaining her weight. She gets occasional pedal edema. No new abdominal discomfort. No new back pain. Remainder of 12 system review negative. PHYSICAL EXAMINATION: Weight 57 kg, BMI 20, temperature 98.7, blood pressure 119/82, heart rate 99, respiratory 20, O2 sat 94% on room air. Full physical exam deferred. LABS: On 06/30/2019 showed WBC 13, hemoglobin 13, hematocrit 42, platelets 301. Differential unremarkable. Sodium 135, remainder of electrolytes unremarkable. Calcium 8.7, albumin 2.8. Normal liver functions. CEA 85, very subtle mild up tick. IMPRESSION: Metastatic ALK mutation positive adenocarcinoma, now on pemetrexed/pembrolizumab maintenance after four cycles of [place] based combination treatment, stable disease on current scans, mild improvement of some sites, clinically stable. ECOG performance status 1, limited by some shortness of breath at regular intervals requiring PleurX drainage. PLAN: 1. Continue current therapy. We discussed at length options, including dropping pemetrexed and continuing immunotherapy only or continuing with combination as well as there remains always the option of no active treatment. Joanne is generally doing very well, just experiencing more side effects than she has previously on oral medication, but elects to continue therapy. Return to clinic 07/21/2019 for cycle two maintenance treatment and again in 3 weeks from them for three. Will plan restaging as needed due to symptoms or q. three cycles. Stat CMP, CBC, CMP and CEA each treatment day. Electronically Signed by Norah Angelo MD 07/25/2019 07:15 P DD: Norah Angelo MD 07/11/2019 05:45 P DT: le 07/17/2019 12:22 P CC: Inocencio Escamilla MD
[2019-07-21 08:39] VITALS: BP 138/84
[2019-07-21 08:59] LABS: BASO % 0.2 % (0.0-1.0); EOS % 0.1 % (0.0-3.0); HEMATOCRIT 41.9 % (36.0-47.0); HEMOGLOBIN 13.3 g/dl (12.0-15.5); LYMPH # 0.6 10^3/uL (1.5-5.0); LYMPH % 5.9 % (24.0-44.0); MEAN CORPUSCULAR HEMOGLOBIN 30.6 pg (27.0-33.0); MEAN CORPUSCULAR HGB CONC 31.7 g/dl (32.0-36.5); MEAN CORPUSCULAR VOLUME 96.3 fl (80.0-96.0); MONO # 0.6 10^3/uL (0.0-0.8); MONO % 5.9 % (0.0-5.0); NEUTROPHILS # 8.9 10^3/uL (1.5-8.5); NEUTROPHILS % 87.2 % (36.0-66.0); PLATELET COUNT, AUTOMATED 426 10^3/uL (150-450); RED BLOOD COUNT 4.35 10^6/uL (4.00-5.40); WHITE BLOOD COUNT 10.2 10^3/uL (4.0-10.0)
[2019-07-21 09:21] LABS: ALT/SGPT 19 U/L (12-78); BILIRUBIN,TOTAL 0.3 MG/DL (0.2-1.0); BLOOD UREA NITROGEN 10 MG/DL (7-18); CALCIUM LEVEL 8.9 MG/DL (8.8-10.2); CARBON DIOXIDE LEVEL 27 MEQ/L (21-32); CHLORIDE LEVEL 99 MEQ/L (98-107); CREATININE FOR GFR 0.58 MG/DL (0.55-1.30); GLOMERULAR FILTRATION RATE > 60.0 (>45); GLUCOSE, FASTING 138 MG/DL (70-100); POTASSIUM SERUM 3.7 MEQ/L (3.5-5.1); SODIUM LEVEL 134 MEQ/L (136-145)
[2019-07-21 09:22] LABS: ALBUMIN 2.6 GM/DL (3.2-5.2); TOTAL PROTEIN 6.8 GM/DL (6.4-8.2)
--- NOTE | 2019-07-21 09:33 | ONC.PHACK ---
CHEMO ADMIN CHECKLIST Order Contains Pt ID: Name, Order on Chemo Order Form?: Yes Order Form Includes ALL: Correct Tx Day, Correct Date, Correct Cycle Number Pt ID on Order form Matches: Pt ID on PHA Label Med on Chemo OrderForm Matches: PHA Label, Med Used for Preparation [facility] Jul 21, 2019 09:33
[2019-07-21 09:43] LABS: FREE T4 1.22 NG/DL (0.76-1.46); THYROID STIMULATING HORMONE 1.49 uIU/ML (0.358-3.740)
[2019-08-11 10:47] VITALS: BP 127/78
[2019-08-11 10:58] LABS: BASO % 0.3 % (0.0-1.0); HEMOGLOBIN 13.2 g/dl (12.0-15.5); LYMPH # 0.4 10^3/uL (1.5-5.0); MEAN CORPUSCULAR HEMOGLOBIN 31.8 pg (27.0-33.0); MEAN CORPUSCULAR VOLUME 96.4 fl (80.0-96.0); MONO # 0.6 10^3/uL (0.0-0.8); NEUTROPHILS # 13.7 10^3/uL (1.5-8.5); NEUTROPHILS % 92.1 % (36.0-66.0); PLATELET COUNT, AUTOMATED 378 10^3/uL (150-450); RED BLOOD COUNT 4.15 10^6/uL (4.00-5.40); WHITE BLOOD COUNT 14.9 10^3/uL (4.0-10.0)
[2019-08-11 11:25] LABS: ALT/SGPT 20 U/L (12-78); BILIRUBIN,TOTAL 0.3 MG/DL (0.2-1.0); BLOOD UREA NITROGEN 11 MG/DL (7-18); CALCIUM LEVEL 8.8 MG/DL (8.8-10.2); CARBON DIOXIDE LEVEL 30 MEQ/L (21-32); CHLORIDE LEVEL 99 MEQ/L (98-107); CREATININE FOR GFR 0.55 MG/DL (0.55-1.30); GLOMERULAR FILTRATION RATE > 60.0 (>45); GLUCOSE, FASTING 127 MG/DL (70-100); POTASSIUM SERUM 4.1 MEQ/L (3.5-5.1); SODIUM LEVEL 134 MEQ/L (136-145); TOTAL PROTEIN 6.4 GM/DL (6.4-8.2)
--- NOTE | 2019-08-11 11:51 | ONC.PHACK ---
CHEMO ADMIN CHECKLIST Order Contains Pt ID: Name, Order on Chemo Order Form?: Yes Order Form Includes ALL: Correct Tx Day, Correct Date, Correct Cycle Number Pt ID on Order form Matches: Pt ID on PHA Label Med on Chemo OrderForm Matches: PHA Label, Med Used for Preparation [facility] Aug 11, 2019 11:51
[2019-08-12 08:52] LABS: FREE T4 1.1 NG/DL (0.76-1.46); THYROID STIMULATING HORMONE 1.3 uIU/ML (0.358-3.740)
--- NOTE | 2019-08-12 11:17 | MEDONC ---
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 Original diagnosis 2012. Indolent progression for many years with more involved visceral involvement as of 2018. Currently on first-line chemotherapy in the metastatic setting after progressing through all available oral ALK targeted agents. CURRENT THERAPY: Pemetrexed/pembrolizumab maintenance, day one cycle one maintenance 06/30/2019; today will be day 1 cycle 3 maintenance pemetrexed/pembrolizumab. Denosumab q. 3 months, next due August 2019. Lasix 40 mg daily p.r.n. for diuresis. TREATMENT HISTORY: Carboplatin/pemetrexed/pembrolizumab four cycle 04/07/2019-06/09/2019. Treatment complicated by recurrent malignant pleural effusion status post left PleurX. Clinically stable since PleurX. Mild partial response on current restaging. PRIOR ORAL THERAPY: Crizotinib 10/2012-12/2014. Ceritinib 12/2014-03/2016. Alectinib 03/2016-08/2016. Brigatinib 08/2016-10/2018. Lorlatinib 11/2018-02/2019. [facility] one testing 07/2016, PD-L1 20% tumor mutation, intermediate, no actionable mutations. Prior gamma radiation for intracranial metastases. INTERVAL HISTORY: Joanne is here accompanied by Jonatan. She looks well and says she feels great. She had a good New Year's. The drainage from her PleurX is diminishing somewhat draining 300-400 mL every 3 days in contrast to 600-700 mL previously. Her energy is good. She is exercising daily. Has an exercycle at home doing 25 minutes on it. She has no leg edema currently. REVIEW OF SYSTEMS: CONSTITUTIONAL: No fever, chills, sweats, fatigue, or weight loss. HEENT: No oral discomfort or mouth or lip ulcers. Hearing normal in both ears. RESPIRATORY: Denies dyspnea, hemoptysis, pleurisy; occasional cough, dry nonproductive. CARDIOVASCULAR: Denies chest pain, palpitations. MUSCULOSKELETAL: Denies skeletal pain, joint swelling, pain, or erythema. GENITOURINARY: No history of urinary frequency, burning, hematuria, or pain. GASTROINTESTINAL: No nausea, vomiting, constipation, diarrhea, dysphagia, bleeding, or anorexia. SKIN: Denies rash, ecchymosis, petechiae, jaundice. NEUROLOGICAL: No headache, visual difficulty, motor weakness, sensory deficits. No paresthesias. EXTREMITIES: No extremity edema. PHYSICAL EXAMINATION: Weight 58.4 kg. Temperature 98.1, blood pressure 127/78, heart rate 85, respiratory 18, O2 sat 97%. Patient is a well-groomed older woman in no distress. HEENT: No scleral icterus. Oropharynx clear. [place] dentition good repair. Respiratory: Clear breath sounds throughout the lung [place] anteriorly and posteriorly, save for the base of the right lung. No wheezes. No rales. No stridor. No rhonchi. Cardiac: S1, S2, regular rate and rhythm. Occasional ectopy. Abdomen is soft, nontender, nondistended. No hepatosplenomegaly. Extremities: No edema. No asymmetry. Lymph Nodes: No palpable submandibular, cervical, supraclavicular or axillary adenopathy bilaterally. Musculoskeletal: No vertebral tenderness to percussion. Skin: No ecchymoses, petechiae or rash. Psych: The patient is alert and oriented to person, place and time. Speech is fluent. Affect appropriate. LABS: WBC 14.9, hemoglobin 13.2, hematocrit 40, platelets 378, MCV 96. Sodium 134. Remainder of electrolytes unremarkable. Renal function normal. Glucose 127. Liver functions normal. Albumin 3.0. CEA pending. Most recent on 07/21/2019 74.6 continues to drop from peak 144 at start of current therapy. Most recent scan chest, abdomen and pelvis CT on 07/07/2019 approximately stable disease. 08/06/2019 mammogram benign. IMPRESSION: Metastatic ALK positive adenocarcinoma of lung with diffuse right thoracic involvement malignant pleural effusion status post PleurX oligometastatic involvement of left lung. No active current distant metastases but history of intracranial metastases on maintenance pemetrexed/pembrolizumab with stabilization of ECOG performance status diminishing CEA diminishing PleurX output clinically responding and stable disease on June 2019 scans. No evidence of cancer progression on today's exam. ECOG performance status 0/1 limited by exertional shortness of breath. PLAN: 1. Cycle 3 maintenance therapy today. 2. Return in 3 weeks for cycle 4 maintenance, denosumab. 3. Mid August to September for next restaging barring acute new symptoms. Electronically Signed by Norah Angelo MD 08/14/2019 07:35 P DD: Norah Angelo MD 08/11/2019 05:57 P DT: [email or web address] 08/12/2019 10:58 A CC: Inocencio Escamilla MD
[2019-09-01 09:04] VITALS: BP 126/88
[2019-09-01 09:08] LABS: BASO % 0.3 % (0.0-1.0); EOS % 0.1 % (0.0-3.0); HEMATOCRIT 42.1 % (36.0-47.0); HEMOGLOBIN 13.4 g/dl (12.0-15.5); LYMPH # 0.6 10^3/uL (1.5-5.0); LYMPH % 3.9 % (24.0-44.0); MEAN CORPUSCULAR HEMOGLOBIN 30.8 pg (27.0-33.0); MEAN CORPUSCULAR HGB CONC 31.8 g/dl (32.0-36.5); MEAN CORPUSCULAR VOLUME 96.8 fl (80.0-96.0); MONO % 6.7 % (0.0-5.0); NEUTROPHILS # 13.4 10^3/uL (1.5-8.5); NEUTROPHILS % 88.3 % (36.0-66.0); PLATELET COUNT, AUTOMATED 361 10^3/uL (150-450); RED BLOOD COUNT 4.35 10^6/uL (4.00-5.40); WHITE BLOOD COUNT 15.2 10^3/uL (4.0-10.0)
[2019-09-01 09:40] LABS: ALBUMIN 3.1 GM/DL (3.2-5.2); ALT/SGPT 22 U/L (12-78); BILIRUBIN,TOTAL 0.4 MG/DL (0.2-1.0); BLOOD UREA NITROGEN 12 MG/DL (7-18); CALCIUM LEVEL 9.5 MG/DL (8.8-10.2); CARBON DIOXIDE LEVEL 28 MEQ/L (21-32); CHLORIDE LEVEL 98 MEQ/L (98-107); CREATININE FOR GFR 0.59 MG/DL (0.55-1.30); GLOMERULAR FILTRATION RATE > 60.0 (>45); GLUCOSE, FASTING 106 MG/DL (70-100); SODIUM LEVEL 134 MEQ/L (136-145); TOTAL PROTEIN 6.7 GM/DL (6.4-8.2)
--- NOTE | 2019-09-01 10:23 | ONC.PHACK ---
CHEMO ADMIN CHECKLIST Order Contains Pt ID: Name, Order on Chemo Order Form?: Yes Order Form Includes ALL: Correct Tx Day, Correct Date, Correct Cycle Number Pt ID on Order form Matches: Pt ID on PHA Label Med on Chemo OrderForm Matches: PHA Label, Med Used for Preparation [facility] Sep 01, 2019 10:23
--- NOTE | 2019-09-02 09:35 | MEDONC ---
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 Original diagnosis 2012. Indolent progression for many years with more involved visceral involvement as of 2018. Currently on first-line chemotherapy in the metastatic setting after progressing through all available oral ALK targeted agents. CURRENT THERAPY: Pemetrexed/pembrolizumab maintenance, day one cycle one maintenance 06/30/2019; today will be day 1 cycle 3 maintenance pemetrexed/pembrolizumab. Denosumab q. 3 months, next due August 2019. Lasix 40 mg daily p.r.n. for diuresis. TREATMENT HISTORY: Carboplatin/pemetrexed/pembrolizumab four cycle 04/07/2019-06/09/2019. Treatment complicated by recurrent malignant pleural effusion status post left PleurX. Clinically stable since PleurX. Mild partial response on current restaging. PRIOR ORAL THERAPY: Crizotinib 10/2012-12/2014. Ceritinib 12/2014-03/2016. Alectinib 03/2016-08/2016. Brigatinib 08/2016-10/2018. Lorlatinib 11/2018-02/2019. [facility] one testing 07/2016, PD-L1 20% tumor mutation, intermediate, no actionable mutations. Prior gamma radiation for intracranial metastases. INTERVAL HISTORY: Joanne is here for cycle four maintenance treatment. She offers no new complaints. She is feeling pretty well. She notices lower and lower amounts of drainage from her PleurX, now about 200 mL versus 400 to 700 previously. She has some minor issues but does not want to work these up, for example a little bit of right hip pain, still she is bicycling and exercising daily, prefers not to pursue scans if not strictly needed. Surveillance CT chest, abdomen and pelvis 07/07/2019 stable disease. REVIEW OF SYSTEMS: CONSTITUTIONAL: No fever, chills, sweats, fatigue. Appetite is good. Weight gain. HEENT: No oral discomfort or mouth or lip ulcers. Hearing normal in both ears. RESPIRATORY: Denies cough, dyspnea, hemoptysis, pleurisy. CARDIOVASCULAR: Denies chest pain, palpitations. MUSCULOSKELETAL: Denies skeletal pain, joint swelling, pain, or erythema. GENITOURINARY: No history of urinary frequency, burning, hematuria, or pain. GASTROINTESTINAL: No nausea, vomiting, constipation, diarrhea, dysphagia, bleeding, or anorexia. SKIN: Denies rash, ecchymosis, petechiae, jaundice. NEUROLOGICAL: No headache, visual difficulty, motor weakness, sensory deficits. No paresthesias. EXTREMITIES: No extremity edema currently, up and down at times but uses pressure stockings. PHYSICAL EXAMINATION Weight 59 kg, BMI 21, temperature 97.8, blood pressure 126/88, heart rate 94, respiratory 22, O2 sat 96%. HEENT: No scleral icterus. Oral pharynx, oral mucous membranes normal. Conjunctivae normal. No thyroid enlargement or nodule. No jugular venous distention. Neck supple. Carotid upstrokes 1+; no bruits. Fundi normal bilaterally. RESPIRATORY: Decreased breath sounds on the right base, good air movement upper lung [place], left lung clear, no rhonchi, wheezes or rales. CARDIOVASCULAR: PMI 5th left intercostal space, midline. S1, S2 normal. No S3, S4, or murmurs. Regular rhythm. Femoral, dorsalis pedis pulses 2+ bilaterally. LYMPHATICS: No palpable lymphadenopathy. ABDOMEN: Soft, nontender. Bowel sounds normal. No tenderness, guarding, or rebound. No palpable masses or hepatosplenomegaly. GENITOURINARY: Pelvic exam deferred - not applicable. MUSCULOSKELETAL: No focal skeletal tenderness to percussion. No joint swelling, warmth, tenderness, or erythema. SKIN: No rash, ecchymosis, or petechiae. Normal turgor. EXTREMITIES: No edema, clubbing, cyanosis. No thigh or calf tenderness. Normal range of motion. LABORATORY DATA: WBC 15, hemoglobin 13, hematocrit 38, platelets 361, MCV 98. Electrolytes unremarkable. Renal function and liver function normal. Albumin 3.1. CEA pending, most recent was 78 on 08/11/2019. It is the kevin number so far 74 on 07/21/2019. IMPRESSION: 64-year-old female, refractory recurrent ALK mutation positive adenocarcinoma of lung with progression through five lines of oral treatment, original diagnosis in 2012. History of oligometastatic involvement, including intracranial and lung, now with moderately advanced involvement of right pleural based and partial bone involvement of the left, stable since starting pembrolizumab / pemetrexed / carboplatin, now on pembrolizumab / pemetrexed maintenance, doing well, stable disease on June restaging. PLAN: 1. Cycle four maintenance today. 2. Return in 3 weeks for cycle five, CBC, CMP, CEA and clinical exam. 3. Frequency and intervals between restaging scans will be depending on symptoms and Joanne's preference. Quality of life is our top goal. She is doing very well. We briefly discussed head imaging, but she declined this today. We can think about this the next time she has a CT. Electronically Signed by Norah Angelo MD 09/02/2019 04:24 P DD: Norah Angelo MD 09/01/2019 05:24 P DT: [email or web address] 09/02/2019 09:27 A CC: Christopher Matthew DO [facility] Inocencio Escamilla MD
[2019-09-22 08:28] VITALS: BP 138/88
[2019-09-22 08:44] LABS: BASO % 0.3 % (0.0-1.0); EOS % 0.1 % (0.0-3.0); HEMATOCRIT 41.1 % (36.0-47.0); HEMOGLOBIN 13.5 g/dl (12.0-15.5); LYMPH # 0.6 10^3/uL (1.5-5.0); LYMPH % 5.4 % (24.0-44.0); MEAN CORPUSCULAR HEMOGLOBIN 30.8 pg (27.0-33.0); MEAN CORPUSCULAR HGB CONC 32.8 g/dl (32.0-36.5); MEAN CORPUSCULAR VOLUME 93.8 fl (80.0-96.0); MONO # 1.3 10^3/uL (0.0-0.8); MONO % 11.1 % (0.0-5.0); NEUTROPHILS # 9.5 10^3/uL (1.5-8.5); NEUTROPHILS % 82.6 % (36.0-66.0); PLATELET COUNT, AUTOMATED 393 10^3/uL (150-450); RED BLOOD COUNT 4.38 10^6/uL (4.00-5.40); WHITE BLOOD COUNT 11.5 10^3/uL (4.0-10.0)
[2019-09-22 09:08] LABS: ALBUMIN 3.2 GM/DL (3.2-5.2); ALT/SGPT 23 U/L (12-78); BILIRUBIN,TOTAL 0.4 MG/DL (0.2-1.0); BLOOD UREA NITROGEN 11 MG/DL (7-18); CALCIUM LEVEL 8.9 MG/DL (8.8-10.2); CARBON DIOXIDE LEVEL 30 MEQ/L (21-32); CHLORIDE LEVEL 96 MEQ/L (98-107); CREATININE FOR GFR 0.59 MG/DL (0.55-1.30); GLOMERULAR FILTRATION RATE > 60.0 (>45); GLUCOSE, FASTING 99 MG/DL (70-100); SODIUM LEVEL 131 MEQ/L (136-145); TOTAL PROTEIN 6.8 GM/DL (6.4-8.2)
--- NOTE | 2019-09-22 09:44 | ONC.PHACK ---
CHEMO ADMIN CHECKLIST Order Contains Pt ID: Name, Order on Chemo Order Form?: Yes Order Form Includes ALL: Correct Tx Day, Correct Date, Correct Cycle Number Pt ID on Order form Matches: Pt ID on PHA Label Med on Chemo OrderForm Matches: PHA Label, Med Used for Preparation [facility] Sep 22, 2019 09:44
--- NOTE | 2019-09-26 07:46 | MEDONC ---
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 Original diagnosis 2012. Indolent progression for many years with more involved visceral involvement as of 2018. Currently on first-line chemotherapy in the metastatic setting after progressing through all available oral ALK targeted agents. CURRENT THERAPY: Pemetrexed/pembrolizumab maintenance, day one cycle one maintenance 06/30/2019; today will be day 1 cycle 3 maintenance pemetrexed/pembrolizumab. Denosumab q. 3 months, next due August 2019. Lasix 40 mg daily p.r.n. for diuresis. TREATMENT HISTORY: Carboplatin/pemetrexed/pembrolizumab four cycle 04/07/2019-06/09/2019. Treatment complicated by recurrent malignant pleural effusion status post left PleurX. Clinically stable since PleurX. Mild partial response on current restaging. PRIOR ORAL THERAPY: Crizotinib 10/2012-12/2014. Ceritinib 12/2014-03/2016. Alectinib 03/2016-08/2016. Brigatinib 08/2016-10/2018. Lorlatinib 11/2018-02/2019. [facility] one testing 07/2016, PD-L1 20% tumor mutation, intermediate, no actionable mutations. Prior gamma radiation for intracranial metastases. INTERVAL HISTORY: Joanne is here for day 1 cycle five maintenance. She is doing okay. She has a little more shortness of breath today. She thinks it is from anxiety. He goes on and off. She continues to get little drainage from the PleurX. She has one episode of very red fluid and shows me a photo on her phone. It looks serosanguineous. She did not have a recurrence of that episode. She is otherwise continuing her activities, riding her bicycle daily, keeping up with family engagements. We talked about the CEA which had risen slightly from 78-89, today's was pending during the visit. Overall she says she is feeling okay but does get tired occasionally. She had an appointment with [facility] for radiation as her right hip has begun to bother her somewhat. Electronically Signed by Norah Angelo MD 10/01/2019 08:24 P DD: Norah Angelo MD 09/23/2019 06:30 P DT: [email or web address] 09/26/2019 07:41 A CC:
--- NOTE | 2019-09-26 09:07 | MEDONC ---
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 Original diagnosis 2012. Indolent progression for many years with more involved visceral involvement as of 2018. Currently on first-line chemotherapy in the metastatic setting after progressing through all available oral ALK targeted agents. CURRENT THERAPY: Pemetrexed/pembrolizumab maintenance, day one cycle one maintenance 06/30/2019; today will be day 1 cycle 3 maintenance pemetrexed/pembrolizumab. Denosumab q. 3 months, next due August 2019. Lasix 40 mg daily p.r.n. for diuresis. TREATMENT HISTORY: Carboplatin/pemetrexed/pembrolizumab four cycle 04/07/2019-06/09/2019. Treatment complicated by recurrent malignant pleural effusion status post left PleurX. Clinically stable since PleurX. Mild partial response on current restaging. PRIOR ORAL THERAPY: Crizotinib 10/2012-12/2014. Ceritinib 12/2014-03/2016. Alectinib 03/2016-08/2016. Brigatinib 08/2016-10/2018. Lorlatinib 11/2018-02/2019. [facility] one testing 07/2016, PD-L1 20% tumor mutation, intermediate, no actionable mutations. Prior gamma radiation for intracranial metastases. INTERVAL HISTORY: Joanne is here for cycle five maintenance pemetrexed/pembrolizumab. The electronic chart mischaracterizes it as a cycle nine, I even follow suit with the mischaracterization and labeled this as cycle nine in my written order but in fact this is cycle five maintenance therapy, it is important to clarify. She has had a run-in of four cycles of carboplatin/pemetrexed/pembrolizumab and is now on maintenance pemetrexed/pembrolizumab the clock resetting as of the first non-carboplatin based cycle. That out of the way! Joanne is here reporting feeling okay. She is accompanied by Jonatan. She did have an episode of somewhat sanguinous pleural fluid in the PleurX, she shows a photo on her phone, but otherwise has continued to drain less and less fluid and the subsequent drainage was simply serous fluid. She has had no hemoptysis. No bruising, bleeding, no other episodes of bleeding of any kind. Her energy continues to be the same. She exercises on her exercycle every day and continues to keep up with a busy social schedule. She gets tired at times, rests, but otherwise is doing well. She has a low short of breath today she attributes to nerves. We reviewed the CEA which bumped up slightly on the last draw, today's is pending at the time of the visit. She is due for restaging in September. That would be a 3-month interval. She saw Dr. Gates about palliative radiation to her right hip which is bothering her more and the treatment is planned. REVIEW OF SYSTEMS: In addition to pertinent positives and negatives above to Joanne denies any unusual new headache, visual disturbance, change in appetite, new unintended weight loss, new shortness of breath, new back pain, abdominal pain, vomiting, new urinary or bowel changes. She denies blood in her stool, vaginal bleeding, blood in the urine. She denies leg swelling. She does use ANGELIKA stockings. Remainder of 12 system review notable for the right hip pain, occasional fatigue and a little breathlessness today. PHYSICAL EXAM: Vital signs: Temperature 98.4, blood pressure 138/88, heart rate 101, respiratory 22, O2 sat 96%. Patient is a well-groomed older woman in no obvious distress. HEENT: Left pupil greater than right, this is chronic, both reactive. Oropharynx is clear. Moist pink mucous membranes. [place] dentition good repair. Respiratory: Decreased breath sounds in the right with occasional coarse crackle or rub in the right base, clear to auscultation throughout the left lung, clear to auscultation in the upper lobe lungs bilaterally anteriorly. Cardiac: S1-S2 regular rate and rhythm. No murmur. No gallop. Abdomen: Soft. Nontender, nondistended, no hepatosplenomegaly or mass. Extremities: No palpable pitting edema symmetric. Lymph nodes: There is a mobile 1-2 cm irregular left axillary anterior axillary lymph node. No right axillary adenopathy. No supraclavicular or cervical adenopathy. Musculoskeletal: No vertebral tenderness to percussion. Skin: No ecchymoses, petechiae or rash. Psych: The patient is alert and oriented to person, place and time. Speech is fluent. Affect appropriate. LABORATORY DATA: WBC 11.5, hemoglobin 13, hematocrit 41, platelets 393, MCV 93, sodium 131, chloride 96. Remainder of electrolytes unremarkable. Liver functions normal. Tumor marker pending at time of visit, at time of dictation 145 elevated again. IMPRESSION: Refractory recurrent ALK mutation positive adenocarcinoma of lung with diffuse right thoracic involvement status post right thoracentesis and pleurodesis, low volume left thoracic involvement with malignant left pleural effusion status post PleurX with diminishing pleural fluid drainage; one episode of serosanguineous fluid uncertain clinical significance. ECOG performance status 0/1. But now the trend up with CEA. Otherwise tolerating pembrolizumab well along with pemetrexed as maintenance therapy first-line chemo/immunotherapy in this patient previously extensively treated with oral ALK targeting agents. PLAN: 1. Cycle five maintenance treatment today. 2. Restaging CT chest, abdomen, and pelvis with contrast mid September. 3. Return to clinic 3 weeks cycle six maintenance therapy depending on treatment on imaging results. 4. Joanne will proceed to palliative radiation to the right hip under Dr. Gates. 5. 3-week return for next cycle, we will look at the scans together and make further treatment plans. Quality of life and extension of live are Joanne's top twin goals. Electronically Signed by Norah Angelo MD 10/01/2019 08:24 P DD: Norah Angelo MD 09/23/2019 06:34 P DT: tj 09/26/2019 07:48 A CC: MD Christopher Posada DO [facility] Inocencio Escamilla MD
[2019-09-30 14:23] VITALS: BP 140/86
--- NOTE | 2019-09-30 15:20 | MEDONC ---
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 Original diagnosis 2012. Indolent progression for many years with more involved visceral involvement as of 2018. Currently on first-line chemotherapy in the metastatic setting after progressing through all available oral ALK targeted agents. CURRENT THERAPY: Pemetrexed/pembrolizumab maintenance, day one cycle one maintenance 06/30/2019; today will be day 1 cycle 3 maintenance pemetrexed/pembrolizumab. Denosumab q. 3 months, next due August 2019. Lasix 40 mg daily p.r.n. for diuresis. TREATMENT HISTORY: Carboplatin/pemetrexed/pembrolizumab four cycle 04/07/2019-06/09/2019. Treatment complicated by recurrent malignant pleural effusion status post left PleurX. Clinically stable since PleurX. Mild partial response on current restaging. PRIOR ORAL THERAPY: Crizotinib 10/2012-12/2014. Ceritinib 12/2014-03/2016. Alectinib 03/2016-08/2016. Brigatinib 08/2016-10/2018. Lorlatinib 11/2018-02/2019. [facility] one testing 07/2016, PD-L1 20% tumor mutation, intermediate, no actionable mutations. Prior gamma radiation for intracranial metastases. INTERVAL HISTORY: Joanne is here after developing headache for a couple of days, progressive, involving her left eye area. This is the site of prior radiation for orbital metastasis. She has anisocoria, but this is not new and has been noted on a few exams over time. She has no new swelling. She has had no vomiting. Tylenol is not helping the headache. We talked over pain relief. She does not want an opioid or even Ultram. She is willing to try gabapentin, and I suggested that if the pain gets significantly worse then dexamethasone. Meanwhile, we will get a stat MRI of brain and orbits with contrast. She was here on September 21 for cycle five maintenance pemetrexed / pembrolizumab. In the interval, she had CT chest, abdomen and pelvis on September 25. This shows a slight focus of progression in the right lung, otherwise stable disease, on CT unchanged skeletal metastases, but on bone scan evidence of progression versus July 2018 a year ago. Specifically, a progression involving the sternum and an area of the left intertrochanteric femur, the right femoral head, bilateral acetabular regions, upper L5 sacrum, right humeral head and new lower sternal region and multiple rib lesions. She sees Dr. Gates tomorrow. Other than the head pain, Joanne has no new symptoms. PHYSICAL EXAMINATION: Weight 50 kg, stable temperature 97, blood pressure 140/86, heart rate 94, respiratory rate 20, oxygen saturation 97%. The patient is a well-groomed, youthful older woman. HEENT: Mildly left greater than right pupil both reactive equally. Oropharynx is clear. Moist pink mucous membranes. [place] dentition in good repair. No scleral icterus. Respiratory: Clear lungs to auscultation throughout the lung dal[place]. No wheezes or rales. Neurologic: Cranial nerves II-XII grossly intact. Muscle strength 5/5 to flexion and extension, symmetric throughout the upper and lower extremities. Sensation is symmetric and intact. Deep tendon reflexes not tested. Yaoyeb-geby-jnsira is completely intact crossing midline. No difficulties whatsoever. No asymmetry. Laboratories from 09/22/2019 were overall unremarkable with slight leukocytosis, neutrophilia. No anemia or thrombocytopenia. Sodium 131. Remainder of electrolytes unremarkable but tumor marker CEA had gone up to 145 from 89 previously in IMPRESSION: 64-year-old woman with metastatic ALK mutation positive non-small cell lung carcinoma on maintenance pemetrexed / pembrolizumab after four cycles of [place] based triple therapy with progressive CEA, borderline progression / stable disease in the right and left lung, clearly progressive disease on skeleton versus 1 year prior. ECOG performance status 0. New left ocular headache with a known history of intracranial metastases. PLAN: 1. Stat brain MRI and orbital MRI with and without gadolinium. I will see Joanne back shortly after these studies. 2. I will coordinate with Dr. Gates regarding findings. Otherwise, I would plan to keep her on current therapy, though we will need to continue watching CEA 3. Gabapentin 100 mg 1-3 tablets up to three times a day as needed for pain. Time statement: 25 minutes [id number] with the patient, more than 50% involved in counseling, answering questions regarding the above issues. Electronically Signed by Norah Angelo MD 10/01/2019 08:24 P DD: Norah Angelo MD 09/30/2019 02:56 P DT: juanita 09/30/2019 03:11 P CC: MD Inocencio Posada MD
--- NOTE | 2019-10-02 08:48 | MEDONC ---
MEDICAL ONCOLOGY TELEPHONE NOTE DATE OF SERVICE: 10/01/2019 Joanne's brain MRI and orbit MRI with contrast is negative for evidence of intracranial or orbital metastases. I reviewed the films with Dr. Gold as well. I have alerted Joanne, who meanwhile feels much better. She had a good night's sleep with gabapentin. We canceled her urgent followup for today. She does have followup tied to her next chemotherapy treatment. She will call with any new problems. Electronically Signed by Norah Angelo MD 10/03/2019 06:31 P DD: Norah Angelo MD 10/01/2019 09:15 A DT: le 10/02/2019 08:46 A CC:
[2019-10-13 08:41] VITALS: BP 136/85
[2019-10-13 08:49] LABS: BASO % 0.3 % (0.0-1.0); HEMATOCRIT 41.7 % (36.0-47.0); HEMOGLOBIN 13.6 g/dl (12.0-15.5); LYMPH # 0.4 10^3/uL (1.5-5.0); LYMPH % 2.6 % (24.0-44.0); MEAN CORPUSCULAR HEMOGLOBIN 30.2 pg (27.0-33.0); MEAN CORPUSCULAR HGB CONC 32.6 g/dl (32.0-36.5); MEAN CORPUSCULAR VOLUME 92.7 fl (80.0-96.0); MONO # 0.7 10^3/uL (0.0-0.8); MONO % 4.5 % (0.0-5.0); NEUTROPHILS % 92.1 % (36.0-66.0); PLATELET COUNT, AUTOMATED 393 10^3/uL (150-450); WHITE BLOOD COUNT 15.2 10^3/uL (4.0-10.0)
[2019-10-13 09:10] LABS: ALBUMIN 3.3 GM/DL (3.2-5.2); ALT/SGPT 21 U/L (12-78); BILIRUBIN,TOTAL 0.5 MG/DL (0.2-1.0); BLOOD UREA NITROGEN 14 MG/DL (7-18); CARBON DIOXIDE LEVEL 30 MEQ/L (21-32); CHLORIDE LEVEL 97 MEQ/L (98-107); CREATININE FOR GFR 0.61 MG/DL (0.55-1.30); GLOMERULAR FILTRATION RATE > 60.0 (>45); GLUCOSE, FASTING 107 MG/DL (70-100); POTASSIUM SERUM 4.3 MEQ/L (3.5-5.1); SODIUM LEVEL 132 MEQ/L (136-145)
--- NOTE | 2019-10-13 09:40 | MEDONC ---
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 Original diagnosis 2012. Indolent progression for many years with more involved visceral involvement as of 2018. Currently on first-line chemotherapy in the metastatic setting after progressing through all available oral ALK targeted agents. CURRENT THERAPY: Pemetrexed/pembrolizumab maintenance, day one cycle one maintenance 06/30/2019; today will be day 1 cycle 3 maintenance pemetrexed/pembrolizumab. Denosumab q. 3 months, next due August 2019. Lasix 40 mg daily p.r.n. for diuresis. TREATMENT HISTORY: Carboplatin/pemetrexed/pembrolizumab four cycle 04/07/2019-06/09/2019. Treatment complicated by recurrent malignant pleural effusion status post left PleurX. Clinically stable since PleurX. Mild partial response on current restaging. PRIOR ORAL THERAPY: Crizotinib 10/2012-12/2014. Ceritinib 12/2014-03/2016. Alectinib 03/2016-08/2016. Brigatinib 08/2016-10/2018. Lorlatinib 11/2018-02/2019. [facility] testing 07/2016, PD-L1 20% tumor mutation, intermediate, no actionable mutations. Prior gamma radiation for intracranial metastases. Today, Joanne is here for cycle six maintenance. In the interval she had a brain MRI which showed post-treatment changes. No evidence of new metastases. She continues to have about 100 mL at most drainage from PleurX which is serosanguineous with a little more sanguinous features. She has exertional shortness of breath and shortness of breath nonexertional which she insists is most likely anxiety, not progressive, not worsening. CEA [place] in early September versus the prior. Today's is pending. The September 21 number was 145 versus 90 previously. Last chest, abdomen pelvis imaging on 09/26/2019 showed stable skeletal metastases widespread, increased right upper lobe pleural-based 2.9 cm nodule, stable right lung volume loss, stable multifocal right lung consolidation, increased left lung interstitial thickening and multiple stable nonspecific subcentimeter nodules, mildly increased left pleural effusion with indwelling drainage catheter, stable subcarinal adenopathy. Today, we discussed COVID-19 precautions including minimizing visits unless Joanne has new symptoms. She will come in for maintenance treatment with labs and if no new complaints or problems, proceed to treatment for the next several cycles. Vital signs reviewed. Weight 58 kg, temperature 97.8, blood pressure 136/85, heart rate 93, respiratory 18, O2 sat 97%. Patient is a well-groomed youthful older woman in no distress. Some slight truncation of sentences, but essentially able to conduct full conversation, no obvious labored breathing. LABORATORY DATA: WBC 15, hemoglobin 13, hematocrit 42, platelets 393, MCV 92, CMP, CEA pending. IMPRESSION: Metastatic ALK fusion protein positive non-small cell lung carcinoma status post all standard oral therapy is now on first-line chemotherapy continuing on maintenance pemetrexed/pembrolizumab. Stable disease on most recent scans early September. PLAN: 1. Cycle six pemetrexed/pembrolizumab today. 2. Return to clinic in 3, 5 and 9 weeks for cycle 7, 8 and 9 with CBC, stat CMP, thyroid labs each visit. 3. Joanne is on denosumab q. 3 months, next due in November coinciding with cycle nine maintenance. 4. We talked about her letting me know of any new concerning symptoms which will prompt imaging and/or physical exam reevaluation in order to minimize cancer center traffic time, time in waiting room, etc. Joanne and Jonatan agreed with this plan. Electronically Signed by Norah Angelo MD 10/15/2019 09:59 A DD: Norah Angelo MD 10/13/2019 09:10 A DT: kalen 10/13/2019 09:20 A CC: Inocencio Escamilla MD
--- NOTE | 2019-10-13 13:34 | ONC.PHACK ---
CHEMO ADMIN CHECKLIST Order Contains Pt ID: Name, Order on Chemo Order Form?: Yes Order Form Includes ALL: Correct Tx Day, Correct Date, Correct Cycle Number Pt ID on Order form Matches: Pt ID on PHA Label Med on Chemo OrderForm Matches: PHA Label, Med Used for Preparation [facility] Oct 13, 2019 13:34
[2019-11-03 10:26] VITALS: BP 142/88
[2019-11-03 10:32] LABS: BASO % 0.2 % (0.0-1.0); HEMATOCRIT 40.2 % (36.0-47.0); LYMPH # 0.3 10^3/uL (1.5-5.0); LYMPH % 2.2 % (24.0-44.0); MEAN CORPUSCULAR HEMOGLOBIN 29.9 pg (27.0-33.0); MEAN CORPUSCULAR HGB CONC 32.3 g/dl (32.0-36.5); MEAN CORPUSCULAR VOLUME 92.4 fl (80.0-96.0); MONO # 0.8 10^3/uL (0.0-0.8); MONO % 5.4 % (0.0-5.0); NEUTROPHILS # 14.4 10^3/uL (1.5-8.5); NEUTROPHILS % 91.8 % (36.0-66.0); PLATELET COUNT, AUTOMATED 404 10^3/uL (150-450); RED BLOOD COUNT 4.35 10^6/uL (4.00-5.40); WHITE BLOOD COUNT 15.6 10^3/uL (4.0-10.0)
[2019-11-03 11:05] LABS: ALBUMIN 3.3 GM/DL (3.2-5.2); ALT/SGPT 22 U/L (12-78); BILIRUBIN,TOTAL 0.4 MG/DL (0.2-1.0); BLOOD UREA NITROGEN 10 MG/DL (7-18); CARBON DIOXIDE LEVEL 29 MEQ/L (21-32); CHLORIDE LEVEL 95 MEQ/L (98-107); CREATININE FOR GFR 0.53 MG/DL (0.55-1.30); GLOMERULAR FILTRATION RATE > 60.0 (>45); GLUCOSE, FASTING 121 MG/DL (70-100); POTASSIUM SERUM 4.1 MEQ/L (3.5-5.1); SODIUM LEVEL 131 MEQ/L (136-145); TOTAL PROTEIN 6.7 GM/DL (6.4-8.2)
[2019-11-03 11:27] LABS: FREE T4 1.32 NG/DL (0.76-1.46); THYROID STIMULATING HORMONE 1.18 uIU/ML (0.358-3.740)
--- NOTE | 2019-11-03 11:29 | ONC.PHACK ---
CHEMO ADMIN CHECKLIST Order Contains Pt ID: Name, Order on Chemo Order Form?: Yes Order Form Includes ALL: Correct Tx Day, Correct Date, Correct Cycle Number Pt ID on Order form Matches: Pt ID on PHA Label Med on Chemo OrderForm Matches: PHA Label, Med Used for Preparation [facility] Nov 03, 2019 11:29
[2019-11-21 15:09] VITALS: BP 158/70
[2019-11-21 15:15] LABS: BASO # 0.1 10^3/uL (0.0-0.2); BASO % 0.4 % (0.0-1.0); EOS % 0.1 % (0.0-3.0); HEMATOCRIT 39.5 % (36.0-47.0); HEMOGLOBIN 13.4 g/dl (12.0-15.5); LYMPH # 0.5 10^3/uL (1.5-5.0); MEAN CORPUSCULAR HGB CONC 33.9 g/dl (32.0-36.5); MEAN CORPUSCULAR VOLUME 88.6 fl (80.0-96.0); MONO # 1.1 10^3/uL (0.0-0.8); MONO % 7.4 % (0.0-5.0); NEUTROPHILS # 13.6 10^3/uL (1.5-8.5); NEUTROPHILS % 88.3 % (36.0-66.0); PLATELET COUNT, AUTOMATED 398 10^3/uL (150-450); RED BLOOD COUNT 4.46 10^6/uL (4.00-5.40); WHITE BLOOD COUNT 15.5 10^3/uL (4.0-10.0)
[2019-11-21 15:52] LABS: ALBUMIN 3.2 GM/DL (3.2-5.2); ALT/SGPT 23 U/L (12-78); BILIRUBIN,TOTAL 0.5 MG/DL (0.2-1.0); BLOOD UREA NITROGEN 14 MG/DL (7-18); CARBON DIOXIDE LEVEL 31 MEQ/L (21-32); CHLORIDE LEVEL 81 MEQ/L (98-107); CREATININE FOR GFR 0.38 MG/DL (0.55-1.30); GLOMERULAR FILTRATION RATE > 60.0 (>45); GLUCOSE, FASTING 111 MG/DL (70-100); POTASSIUM SERUM 4.1 MEQ/L (3.5-5.1); SODIUM LEVEL 117 MEQ/L (136-145); TOTAL PROTEIN 6.8 GM/DL (6.4-8.2)
--- NOTE | 2019-11-21 17:39 | REP ---
REASON: Dyspnea and chest pain, assess for pulmonary embolism. COMPARISON: Multiple, all reviewed, the latest 09/26/2019 a standard contrast-enhanced exam. CONTRAST TODAY: 100 mL [id number]. Patient also has a history of stage IV non-small cell lung carcinoma. There is excellent visualization of the pulmonary arterial vasculature. There are no focal filling defects present that would be considered consistent with pulmonary emboli. There is mediastinal adenopathy, status quo. There is no pericardial effusion. There are very small bilateral pleural effusions. Evaluation of the imaged upper abdomen is unchanged. Evaluation of the osseous structures again shows widespread diffuse skeletal metastasis. There is a left-sided thoracotomy tube. The tip of the central venous catheter is at the SVC/right atrial junction. Evaluation of the lung dalton again shows pulmonary metastasis and extensive chronic bibasilar curvilinear densities with abnormal right pleural irregular thickening and mass densities, all essentially unchanged from 09/26/2019, possibly slightly increased. IMPRESSION: 1. There is no evidence of an acute pulmonary embolus. 2. There is metastatic disease with adenopathy and chronic lung field changes, as described above. 3. There is diffuse skeletal metastasis. Electronically Signed by Fransisco Chirinos DO 11/24/2019 08:42 A
[2019-11-24 10:32] VITALS: BP 158/97
[2019-11-24 10:40] LABS: BASO % 0.2 % (0.0-1.0); HEMATOCRIT 40.4 % (36.0-47.0); HEMOGLOBIN 13.5 g/dl (12.0-15.5); LYMPH # 0.2 10^3/uL (1.5-5.0); LYMPH % 1.5 % (24.0-44.0); MEAN CORPUSCULAR HEMOGLOBIN 29.4 pg (27.0-33.0); MEAN CORPUSCULAR HGB CONC 33.4 g/dl (32.0-36.5); MONO # 1.1 10^3/uL (0.0-0.8); MONO % 7.4 % (0.0-5.0); NEUTROPHILS # 13.5 10^3/uL (1.5-8.5); NEUTROPHILS % 90.2 % (36.0-66.0); PLATELET COUNT, AUTOMATED 443 10^3/uL (150-450); RED BLOOD COUNT 4.59 10^6/uL (4.00-5.40); WHITE BLOOD COUNT 14.9 10^3/uL (4.0-10.0)
[2019-11-24 11:07] LABS: ALBUMIN 3.3 GM/DL (3.2-5.2); ALT/SGPT 24 U/L (12-78); BILIRUBIN,TOTAL 0.5 MG/DL (0.2-1.0); BLOOD UREA NITROGEN 13 MG/DL (7-18); CALCIUM LEVEL 8.7 MG/DL (8.8-10.2); CARBON DIOXIDE LEVEL 32 MEQ/L (21-32); CHLORIDE LEVEL 85 MEQ/L (98-107); CREATININE FOR GFR 0.45 MG/DL (0.55-1.30); GLOMERULAR FILTRATION RATE > 60.0 (>45); GLUCOSE, FASTING 98 MG/DL (70-100); POTASSIUM SERUM 4.6 MEQ/L (3.5-5.1); SODIUM LEVEL 123 MEQ/L (136-145); TOTAL PROTEIN 6.8 GM/DL (6.4-8.2)
[2019-11-24 11:23] LABS: FREE T4 1.4 NG/DL (0.76-1.46); THYROID STIMULATING HORMONE 1.89 uIU/ML (0.358-3.740)
[2019-11-27 08:07] LABS: ADRENOCORTICOTROPHIC HORMONE 2.1 pg/mL (7.2-63.3); RENIN LEVEL 0.83 ng/mL/hr (0.167-5.380)
--- NOTE | 2019-11-27 17:12 | MEDONC ---
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 Original diagnosis 2012. Indolent progression for many years with more involved visceral involvement as of 2018. Currently on first-line chemotherapy in the metastatic setting after progressing through all available oral ALK targeted agents. CURRENT THERAPY: Pemetrexed/pembrolizumab maintenance, day one cycle one maintenance 06/30/2019; today will be day 1 cycle 3 maintenance pemetrexed/pembrolizumab. Denosumab q. 3 months, next due August 2019. Lasix 40 mg daily p.r.n. for diuresis. TREATMENT HISTORY: Carboplatin/pemetrexed/pembrolizumab four cycle 04/07/2019-06/09/2019. Treatment complicated by recurrent malignant pleural effusion status post left PleurX. Clinically stable since PleurX. Mild partial response on current restaging. PRIOR ORAL THERAPY: Crizotinib 10/2012-12/2014. Ceritinib 12/2014-03/2016. Alectinib 03/2016-08/2016. Brigatinib 08/2016-10/2018. Lorlatinib 11/2018-02/2019. Foundation one testing 07/2016, PD-L1 20% tumor mutation, intermediate, no actionable mutations. Prior gamma radiation for intracranial metastases. INTERVAL HISTORY: Joanne called complaining of generalized malaise since her last treatment. She had day one, cycle seven maintenance pembrolizumab/pemetrexed on 11/03/2019. Restaging scans in September were essentially stable versus very mild progression and those included brain imaging which was stable. Her CEA most recently had dropped slightly to 128 from the 140s. Today Joanne complains of just a generalized malaise. She denies any new breathing symptoms. She reports being always anxious when she comes to the cancer center and her breathing gets worse then. She has had a little nausea since her last treatment. She just says instead of bouncing back, she is generally having more malaise. REVIEW OF SYSTEMS: In addition to pertinent positives and negatives above, Joanne denies any new fevers, chills, chest pain, palpitations, not coughing up any blood. She has mild orthopnea, has to sleep on a particular side but not specifically short of breath with lying flat. She has some mild pedal edema, not new. No new abdominal pain. No new diarrhea. She recently took Ultram but felt very nauseous taking that and quickly abandoned it. PHYSICAL EXAM: Weight 58 kg, BMI 21, temperature 97.8, blood pressure 158/70, heart rate 108, respiratory rate 22, O2 sat 91% room air. Respiratory: Decreased breath sounds throughout the right upper lung and lower lung dalton but air movement audible in the right upper posterior lung field. Left lung with good air movement. Slight basilar dry sounding crackles at the very base. Cardiac: S1, S2, regular rate and rhythm. No murmur, no gallop. Abdomen is soft, nontender, nondistended. Extremities: Trace/1+ pitting edema at the ankles. Lymph nodes: No palpable submandibular, cervical, supraclavicular or axillary adenopathy bilaterally. LABS: WBC 15.5, hemoglobin 13, hematocrit 40, platelets 398, neutrophil percent 88, MCV 88, sodium 117, potassium 4.1, chloride 81, bicarb 31, BUN 14, creatinine 0.8, GFR greater than 60. Liver functions normal, alk phos 120, CEA 136. IMPRESSION: 1. New severe hyponatremia, uncertain etiology. Suspect SIADH secondary to either intrathoracic or intracranial disease progression. 2. Generalized malaise, likely associated with hyponatremia. 3. Concern for disease progression based on hyponatremia and malaise, though notably CEA decreased somewhat. PLAN: 1. Joanen underwent CT angio of the chest. No pulmonary embolism was seen, and on review of the images myself, there is mild progression of right lung pleural-based masses but resolution of left-sided pleural effusion. 2. Based on hyponatremia, current CT angio findings, I am recommending fluid restriction to 1 liter and demeclocycline 300 mg twice daily with return in 3 days, recheck labs and reassess. 3. I talked to Joanne and Jonatan about brain imaging. Joanne is very fed up and does not want to do anymore imaging today. She just had brain imaging in September. Unfortunately she is at risk for [employer] recurrence having developed periorbital recurrence early in 2019; she did undergo whole brain radiation many years ago and had stable findings on September brain imaging. Joanne and I discussed all of the above. Jonatan listened on the phone and both had an opportunity to ask questions, all of which I answered to their apparent satisfaction. Joanne and I figured out that 1 liter is about 4.2 cups. She will try her best over the weekend to restrict her fluids to this amount and start demeclocycline. She already is scheduled to return on Sunday. Will reassess electrolytes at that time. Will also need to reassess whether she should continue on current therapy or hold further. Among other considerations of the cause of her new hypernatremia could be endocrine derangement secondary to checkpoint inhibitor therapy and/or intracranial metastases or non-SIADH related endocrinopathy. I discussed with Joanne entering the hospital today because of the severity of her hyponatremia. She flatly dismissed this as something she would be willing to do and thus made the plan as above. TIME STATEMENT: 40 minutes [id number] with the patient, more than 50% involved in counseling, reviewing results, reviewing plan of action, answering questions. Electronically Signed by Norah Angelo MD 12/04/2019 07:34 A DD: Norah Angelo MD 11/21/2019 04:43 P DT: vega 11/25/2019 11:05 P CC: Inocencio Escamilla MD
--- NOTE | 2019-11-30 10:45 | MEDONC ---
MEDICAL ONCOLOGY FOLLOWUP DATE OF SERVICE: 11/24/2019 DIAGNOSES: 1. 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 Original diagnosis 2012. Indolent progression for many years with more involved visceral involvement as of 2019. Currently on first-line chemotherapy in the metastatic setting after progressing through all available oral ALK targeted agents. 2. New hyponatremia in the setting of borderline progression on interval scan. CURRENT THERAPY: Pemetrexed/pembrolizumab maintenance, day one cycle one maintenance 06/30/2019; today will be day 1 cycle 3 maintenance pemetrexed/pembrolizumab. Denosumab q. 3 months, next due August 2019. Lasix 40 mg daily p.r.n. for diuresis. Demeclocycline 300 mg b.i.d. begun 11/21/2019. TREATMENT HISTORY: Carboplatin/pemetrexed/pembrolizumab four cycle 04/07/2019-06/09/2019. Treatment complicated by recurrent malignant pleural effusion status post left PleurX. Clinically stable since PleurX. Mild partial response on current restaging. PRIOR ORAL THERAPY: Crizotinib 10/2012-12/2014. Ceritinib 12/2014-03/2016. Alectinib 03/2016-08/2016. Brigatinib 08/2016-10/2018. Lorlatinib 11/2018-02/2019. Foundation one testing 07/2016, PD-L1 20% tumor mutation, intermediate, no actionable mutations. Prior gamma radiation for intracranial metastases. INTERVAL HISTORY: This is a rapid followup after I saw Joanne last Sunday for generalized malaise. Her sodium was 117, renal function normal. No evidence of prerenal azotemia. CBC essentially unchanged. Clinically, she complained of generalized malaise. No vomiting per se. Some nausea, some headache, but just a general malaise and fatigue. She continues to have exertional dyspnea but reports this is anxiety-related as much as anything and continues to use her exercycle at home. She started on fluid restriction and [id number] mg b.i.d. In the interval, Joanne had CT chest/angio which was negative for pulmonary embolus. Showed the extensive lung disease as previously seen, which was overall felt stable. There was no evidence of new loculated effusion. Over the weekend, she did her best with fluid restriction. Today, sodium is 123, improved. She reports feeling a little bit better exercising and just struggling with the restrictions on fluid intake. No major new changes. 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 PLAN: 1. Continue demeclocycline; can ease off on fluid restriction as long as demeclocycline being taken. 2. Additional labs were drawn today to evaluate for possible adrenal insufficiency as a potential autoimmune side effect of pembrolizumab. 3. Brain MRI with Gadolinium, rule out pituitary enhancement, rule out new intracranial or periorbital involvement. 4. Return to clinic 1-2 days after MRI for office visit and recheck of sodium. 5. I encouraged Joanne to reach out to me for any issues in the interval and, of course, to go to the emergency room should she develop any acute decompensation. TIME STATEMENT: 25 minutes [id number] with the patient, more than 50% involving counseling regarding SIADH, differential diagnoses which can includes hypophysitis related immune therapy, answering questions, and together forming the above plan. Electronically Signed by Norah Angelo MD 12/02/2019 12:01 P DD: Norah Angelo MD 11/26/2019 04:53 P DT: aml 11/30/2019 10:28 A CC: MD Inocencio Thrasher MD
[2019-12-01 14:03] VITALS: BP 140/80
[2019-12-01 14:39] LABS: ALBUMIN 3.2 GM/DL (3.2-5.2); ALT/SGPT 21 U/L (12-78); BILIRUBIN,TOTAL 0.4 MG/DL (0.2-1.0); BLOOD UREA NITROGEN 16 MG/DL (7-18); CALCIUM LEVEL 8.4 MG/DL (8.8-10.2); CARBON DIOXIDE LEVEL 33 MEQ/L (21-32); CHLORIDE LEVEL 89 MEQ/L (98-107); CREATININE FOR GFR 0.41 MG/DL (0.55-1.30); GLOMERULAR FILTRATION RATE > 60.0 (>45); GLUCOSE, FASTING 100 MG/DL (70-100); POTASSIUM SERUM 4.4 MEQ/L (3.5-5.1); SODIUM LEVEL 127 MEQ/L (136-145); TOTAL PROTEIN 6.5 GM/DL (6.4-8.2)
--- NOTE | 2019-12-04 09:55 | MEDONC ---
MEDICAL ONCOLOGY FOLLOWUP/TREATMENT VISIT DATE OF SERVICE: 12/01/2019 DIAGNOSES: 1. 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 Original diagnosis 2012. Indolent progression for many years with more involved visceral involvement as of 2018. Currently on first-line chemotherapy in the metastatic setting after progressing through all available oral ALK targeted agents. 2. New hyponatremia November 2019 in the setting of borderline progression on interval scan. CURRENT THERAPY: Pemetrexed/pembrolizumab maintenance, day one cycle one maintenance 06/30/2019; today will be day 1 cycle 3 maintenance pemetrexed/pembrolizumab. Denosumab q. 3 months, next due August 2019. Lasix 40 mg daily p.r.n. for diuresis. Demeclocycline 300 mg b.i.d. begun 11/21/2019. TREATMENT HISTORY: Carboplatin/pemetrexed/pembrolizumab four cycle 04/07/2019-06/09/2019. Treatment complicated by recurrent malignant pleural effusion status post left PleurX. Clinically stable since PleurX. Mild partial response on current restaging. PRIOR ORAL THERAPY: Crizotinib 10/2012-12/2014. Ceritinib 12/2014-03/2016. Alectinib 03/2016-08/2016. Brigatinib 08/2016-10/2018. Lorlatinib 11/2018-02/2019. Foundation one testing 07/2016, PD-L1 20% tumor mutation, intermediate, no actionable mutations. Prior gamma radiation for intracranial metastases. INTERVAL HISTORY: Joanne is back now on the meclizine but not on fluid restriction. Her sodium continues to improve currently 127 up from kevin 117 on November 20. She does not like the meclizine and it requires an elaborate timing to avoid her other medications and eating and so forth. We talked over potentially getting her on a one a day regimen once her sodium gets up a little bit higher. We did have a long wait today waiting for results as we have no active lab service in the afternoon and it took about 30-35 minutes to get her sodium result. She was somewhat dismayed at this. During that hiatus she asked a number of questions about that the meclizine, cause of SIADH. In addition, other labs have come back working up to hypophysitis. Brain image was negative for evidence of pituitary stalk inflammation or intracranial metastases, ACTH came back low but we do not have a serum cortisol though it was ordered, aldosterone, renin are both normal. Urine cortisol pending. Prolactin is normal. Thus, hypophysitis much, much less likely. I briefly spoke with Dr. Nohemi Parham who recommended that if serum cortisol is above 6 the chance of hypophysitis is very unlikely. I also informed Joanne at the end of January I would be leaving [facility]. She was crestfallen but I assured her she will be in good hands. Dr. Monique Mccoy returns, Dr. Mcmahon also joins us and we will be fully staffed and ready to go. I invited her to include Jonatan on the next visit and I will ask if the COVID restriction to one family member can be relieved at least for one visit so that together Jonatan, Joanne and I can review the current findings and Jonatan will have an opportunity to ask any questions about the transition of care. REVIEW OF SYSTEMS: Joanne overall is feeling better. She feels more alert. Her appetite is okay. She is generally improved since starting the meclizine. She has had no falls. LABORATORY DATA: Sodium 127. Chloride 89. Bicarb 33. BUN 16. Creatinine 0.4. GFR greater than 60. Glucose 100. Liver functions normal. Calcium 8.4. Albumin 3.2. 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 New hyponatremia likely SIADH though fairly sudden in onset unexplained by brain imaging, endocrine labs to date; hypophysitis being ruled out. PLAN: 1. Early a.m. serum cortisol on 12/02/2019. 2. Return to clinic 12/08/2019 for possible restart of pemetrexed/pembrolizumab maintenance. At that point, Jonatan Rubio and I will discuss her preference whether she would like to be on pemetrexed in addition to the pembrolizumab or just pembrolizumab as the side effect profile will be easier on her. 3. Of course will followup the cortisol and is severely low below 6 the concern would be high for immune mediated hypophysitis and I would hold pembrolizumab. 4. CBC, STAT CMP, TSH. and free T4 on 12/08/2019 visit. Will also try to give denosumab that day. TIME STATEMENT: 40 minutes [id number] with the patient; more than 50% involving counseling, answering questions, reviewing the difference between autoimmune hypophysitis and SIADH and the treatment of both, discussing the possibilities in terms of continuing or not the immunotherapy. Electronically Signed by Norah Angelo MD 12/08/2019 04:58 P DD: Norah Angelo MD 12/01/2019 06:00 P DT: [email or web address] 12/04/2019 09:31 A CC: Inocencio Escamilla MD
[2019-12-08 10:24] VITALS: BP 146/91
[2019-12-08 10:43] LABS: BASO # 0.1 10^3/uL (0.0-0.2); BASO % 0.7 % (0.0-1.0); EOS % 0.1 % (0.0-3.0); HEMATOCRIT 39.4 % (36.0-47.0); HEMOGLOBIN 12.7 g/dl (12.0-15.5); LYMPH # 0.4 10^3/uL (1.5-5.0); LYMPH % 4.7 % (24.0-44.0); MEAN CORPUSCULAR HGB CONC 32.2 g/dl (32.0-36.5); MONO # 0.9 10^3/uL (0.0-0.8); MONO % 11.6 % (0.0-5.0); NEUTROPHILS # 6.6 10^3/uL (1.5-8.5); NEUTROPHILS % 82.5 % (36.0-66.0); PLATELET COUNT, AUTOMATED 340 10^3/uL (150-450); RED BLOOD COUNT 4.38 10^6/uL (4.00-5.40)
[2019-12-08 11:04] LABS: ALBUMIN 3.3 GM/DL (3.2-5.2); ALT/SGPT 22 U/L (12-78); BILIRUBIN,TOTAL 0.5 MG/DL (0.2-1.0); BLOOD UREA NITROGEN 12 MG/DL (7-18); CALCIUM LEVEL 8.8 MG/DL (8.8-10.2); CARBON DIOXIDE LEVEL 33 MEQ/L (21-32); CHLORIDE LEVEL 90 MEQ/L (98-107); CREATININE FOR GFR 0.43 MG/DL (0.55-1.30); GLOMERULAR FILTRATION RATE > 60.0 (>45); GLUCOSE, FASTING 102 MG/DL (70-100); POTASSIUM SERUM 4.3 MEQ/L (3.5-5.1); SODIUM LEVEL 128 MEQ/L (136-145); TOTAL PROTEIN 6.5 GM/DL (6.4-8.2)
[2019-12-08 11:32] LABS: FREE T4 1.37 NG/DL (0.76-1.46); THYROID STIMULATING HORMONE 2.56 uIU/ML (0.358-3.740)
--- NOTE | 2019-12-10 09:25 | MEDONC ---
MEDICAL ONCOLOGY FOLLOWUP: DATE OF SERVICE: 12/08/2019 DIAGNOSES: 1. 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 Original diagnosis 2012. Indolent progression for many years with more involved visceral involvement as of 2019. Currently on first-line chemotherapy in the metastatic setting after progressing through all available oral ALK targeted agents. 2. New hyponatremia in the setting of borderline progression on interval scan. CURRENT THERAPY: Pemetrexed/pembrolizumab maintenance, day one cycle one maintenance 06/30/2019; today will be day 1 cycle 3 maintenance pemetrexed/pembrolizumab. Denosumab q. 3 months, next due August 2019. Lasix 40 mg daily p.r.n. for diuresis. Demeclocycline 300 mg b.i.d. begun 11/21/2019. Oxycodone 5 mg 1 tab every 4 hour as needed severe pain. TREATMENT HISTORY: Carboplatin/pemetrexed/pembrolizumab four cycle 04/07/2019-06/09/2019. Treatment complicated by recurrent malignant pleural effusion status post left PleurX. Clinically stable since PleurX. Mild partial response on current restaging. PRIOR ORAL THERAPY: Crizotinib 10/2012-12/2014. Ceritinib 12/2014-03/2016. Alectinib 03/2016-08/2016. Brigatinib 08/2016-10/2018. Lorlatinib 11/2018-02/2019. Foundation one testing 07/2016, PD-L1 20% tumor mutation, intermediate, no actionable mutations. Prior gamma radiation for intracranial metastases. INTERVAL HISTORY: Joanne is here after calling over the weekend with severe right scapular pain. I called in oxycodone. She is taking much less than prescribed. Said it helps but it takes a while to help. She asked for an earlier than already scheduled visit for radiation oncology. During the visit I asked Dr. Gates and his nurse Jd to see her; this was done. They will get her set up for simulation and start of palliative treatment. Bone scan 10/10/2019 has a right scapular focus very obvious, which she is the most immediate cause of her pain though there is pleural involvement in the right posterior lung which could also be causing the pain. Today's sodium not yet available. Joanne says she will not take more than once a day, the demeclocycline. Therefore, I recommended I simply call her with today's results rather than trying to titrate the medicine. She is not very able to switch gears with different new meds, fluid restrictions and so forth and quality of life, our chief goal, means we will modify things to match her needs. Weight today is stable vital signs are normal and stable. Joanne has trouble sitting down. That is when the pain starts most in her scapula. LABS: WBC 80, hemoglobin 12.7, hematocrit 39, platelets 340, MCV 998. CMP pending. IMPRESSION: - Refractory recurrent alk mutation positive adenocarcinoma now on maintenance pemetrexed/pembrolizumab after triple therapy with [place] based doublet with partial response. - Symptomatic right scapular metastasis. - Hyponatremia/SIADH. Updated brain imaging negative, lung imaging essentially stable. PLAN 1. Extend oxycodone prescription to provide Joanne a of few more weeks of drug if needed. 2. Radiation oncology referral for palliative radiation. 3. Hold cycle eight maintenance pembrolizumab/pemetrexed until December 28; at that time discontinue pemetrexed. 4. I cautioned Joanne to continue folic acid for another several weeks up to a month. As the pemetrexed abates. 5. Continue demeclocycline 300 mg once a day. Joanne is not able to take it more than that; unless sodium significantly lower we will not insists on fluid restriction. TIME STATEMENT: 15 minutes [id number] with the patient. More than 50% involving counseling, formulating the above plan. Electronically Signed by Norah Angelo MD 12/10/2019 03:56 P DD: Norah Angelo MD 12/08/2019 11:02 A DT: [email or web address] 12/10/2019 08:41 A CC: MD Inocencio Posada MD
[2019-12-17 12:29] LABS: ALBUMIN 3.3 GM/DL (3.2-5.2); ALT/SGPT 23 U/L (12-78); BILIRUBIN,TOTAL 0.6 MG/DL (0.2-1.0); BLOOD UREA NITROGEN 11 MG/DL (7-18); CALCIUM LEVEL 8.7 MG/DL (8.8-10.2); CARBON DIOXIDE LEVEL 33 MEQ/L (21-32); CHLORIDE LEVEL 89 MEQ/L (98-107); CREATININE FOR GFR 0.44 MG/DL (0.55-1.30); GLOMERULAR FILTRATION RATE > 60.0 (>45); GLUCOSE, FASTING 101 MG/DL (70-100); POTASSIUM SERUM 4.1 MEQ/L (3.5-5.1); SODIUM LEVEL 128 MEQ/L (136-145); TOTAL PROTEIN 6.6 GM/DL (6.4-8.2)
[2019-12-29 10:41] VITALS: BP 128/85
[2019-12-29 10:50] LABS: BASO % 0.5 % (0.0-1.0); EOS % 0.1 % (0.0-3.0); HEMATOCRIT 40.4 % (36.0-47.0); HEMOGLOBIN 12.9 g/dl (12.0-15.5); LYMPH # 0.3 10^3/uL (1.5-5.0); LYMPH % 4.4 % (24.0-44.0); MEAN CORPUSCULAR HEMOGLOBIN 27.6 pg (27.0-33.0); MEAN CORPUSCULAR HGB CONC 31.9 g/dl (32.0-36.5); MEAN CORPUSCULAR VOLUME 86.5 fl (80.0-96.0); MONO # 0.8 10^3/uL (0.0-0.8); NEUTROPHILS # 6.3 10^3/uL (1.5-8.5); NEUTROPHILS % 84.6 % (36.0-66.0); PLATELET COUNT, AUTOMATED 329 10^3/uL (150-450); RED BLOOD COUNT 4.67 10^6/uL (4.00-5.40); WHITE BLOOD COUNT 7.5 10^3/uL (4.0-10.0)
[2019-12-29 11:14] LABS: ALBUMIN 3.1 GM/DL (3.2-5.2); ALT/SGPT 19 U/L (12-78); BILIRUBIN,TOTAL 0.4 MG/DL (0.2-1.0); BLOOD UREA NITROGEN 12 MG/DL (7-18); CALCIUM LEVEL 8.7 MG/DL (8.8-10.2); CARBON DIOXIDE LEVEL 33 MEQ/L (21-32); CHLORIDE LEVEL 89 MEQ/L (98-107); CREATININE FOR GFR 0.46 MG/DL (0.55-1.30); GLOMERULAR FILTRATION RATE > 60.0 (>45); GLUCOSE, FASTING 98 MG/DL (70-100); POTASSIUM SERUM 4.3 MEQ/L (3.5-5.1); SODIUM LEVEL 127 MEQ/L (136-145); TOTAL PROTEIN 6.6 GM/DL (6.4-8.2)
[2019-12-29 12:04] LABS: FREE T4 1.3 NG/DL (0.76-1.46); THYROID STIMULATING HORMONE 1.59 uIU/ML (0.358-3.740)
--- NOTE | 2019-12-29 13:21 | ONC.PHACK ---
CHEMO ADMIN CHECKLIST Order Contains Pt ID: Name, Order on Chemo Order Form?: Yes Order Form Includes ALL: Correct Tx Day, Correct Date, Correct Cycle Number Pt ID on Order form Matches: Pt ID on PHA Label Med on Chemo OrderForm Matches: PHA Label, Med Used for Preparation [facility] Dec 29, 2019 13:21
--- NOTE | 2020-01-02 06:49 | MEDONC ---
MEDICAL ONCOLOGY FOLLOWUP/TREATMENT VISIT: DATE OF SERVICE: 12/29/2019 DIAGNOSES: 1. 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 Original diagnosis 2012. Indolent progression for many years with more involved visceral involvement as of 2019. Currently on first-line chemotherapy in the metastatic setting after progressing through all available oral ALK targeted agents. 2. New hyponatremia in the setting of borderline progression on interval scan. CURRENT THERAPY: Pembrolizumab maintenance. Pemetrexed/pembrolizumab maintenance begun 06/30/2019; pemetrexed dropped as of cycle #8. Lasix 40 mg daily as needed for diuresis. 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 Oxycodone 5 mg up to q. 4 hours p.r.n. severe pain. Currently undergoing palliative radiation to symptomatic right scapula metastasis. TREATMENT HISTORY: Please see the treatment history and prior oral therapy sections from 12/08/2019 note. INTERVAL HISTORY: Joanne is undergoing radiation and feels okay. She takes oxycodone once a day. She is taking demeclocycline about once a day and, to minimize complications, is simply taking it when convenient rather than avoiding food, taking Tums, etc., etc., and she overall says she feels about the same. She and Jonatan are concerned she has not been on treatment for while. She is correct in that we have had to hold off treatment as her sodium was very dangerously low several weeks ago and in the interval, we have been managing various symptoms and issues around the sodium and pain. Today, we discussed resumption of maintenance therapy with single-agent pembrolizumab. I explained there is a new schedule available up to every 6 weeks. We can reconsider this on her next cycle. I also spoke with Dr. Eugene Hunter at [facility], whom she considers her primary oncologist, who recommended as second-line therapy docetaxel/ramucirumab. I explained to Joanne overall she is much more symptomatic currently in terms of pain, SIADH despite relative stability of the pleural findings on scans and absence of evidence of intracranial progression. She was a little confused why I was bringing up another line of therapy, but I explained if we find over the next weeks and months her disease is progressing in a bravo obvious way, the next choice for treatment would likely be docetaxel with or without ramucirumab. Jonatan and Joanne ask about clinical trials. I can run this by Dr. Hunter, as well. This would involve travel. VITAL SIGNS: Reviewed. Weight is stable, 55 kg. BMI 20. Vital signs reviewed, stable and normal. LABS: WBC 7.5, hemoglobin 12.9, hematocrit 40, platelets 329, MCV 86. Sodium 127, slight decrease from 131 previously. Potassium 4.3, chloride 89, bicarbonate 33, BUN 12, creatinine 0.4. GFR is normal. Liver functions normal. Albumin 3.1, TSH 1.5. CEA pending. Prior CEA 160, a significant rise versus July of this year when it was 78 and representing a steady increase. IMPRESSION: Refractory recurrent ALK mutation positive adenocarcinoma of lung with dominant right pleural and partial left pleural-based masses, status post left PleurX, no longer draining. Rising CEA and persistent SIADH but stable measurable disease by scans. Symptomatic right scapula metastases, undergoing palliative radiation. PLAN: 1. Addressing the SIADH, Joanne said she would try taking that the demeclocycline twice daily. 2. She will continue oxycodone as needed for pain; palliative care referral for medical marijuana at patient request 3. Cycle #8 maintenance pembrolizumab today. Discontinue pemetrexed. Joanne will continue folic acid a few more days and then she can stop. 4. A 3-week interval return for cycle #9 pembrolizumab. At that point, we may switch to a q. 6-week schedule. 5. Joanne expressed a preference for Dr. Mccoy if possible as her next oncologist, which I conveyed in writing to our staff via today's orders. 6. Followup clinical trial options at [place] with Dr. Hunter. 7. On progression, consider docetaxel/ramucirumab if clinical trial is not feasible or available. TIME STATEMENT: 40 minutes [id number] with the patient, more than 50% involving counseling, reviewing the issues above, answering questions. Electronically Signed by Norah Angelo MD 01/05/2020 12:58 P DD: Norah Angelo MD 12/29/2019 01:02 P DT: kobi 01/02/2020 06:27 A CC: MD Michael Guo MD Jason White MD
[2020-01-20] MEDS: SODIUM CHLORIDE 0.9% INJ 10 ML SYR IV PRN ×2 (10:25→12:20)
[2020-01-20 10:28] VITALS: BP 143/94
[2020-01-20 10:35] LABS: BASO % 0.6 % (0.0-1.0); EOS % 0.3 % (0.0-3.0); HEMATOCRIT 45.3 % (36.0-47.0); HEMOGLOBIN 14.3 g/dl (12.0-15.5); LYMPH # 0.4 10^3/uL (1.5-5.0); LYMPH % 5.4 % (24.0-44.0); MEAN CORPUSCULAR HEMOGLOBIN 27.5 pg (27.0-33.0); MEAN CORPUSCULAR HGB CONC 31.6 g/dl (32.0-36.5); MEAN CORPUSCULAR VOLUME 87.1 fl (80.0-96.0); MONO # 0.7 10^3/uL (0.0-0.8); NEUTROPHILS # 5.4 10^3/uL (1.5-8.5); NEUTROPHILS % 83.4 % (36.0-66.0); PLATELET COUNT, AUTOMATED 290 10^3/uL (150-450); WHITE BLOOD COUNT 6.5 10^3/uL (4.0-10.0)
[2020-01-20 10:56] LABS: ALBUMIN 3.3 GM/DL (3.2-5.2); ALT/SGPT 20 U/L (12-78); BILIRUBIN,TOTAL 0.5 MG/DL (0.2-1.0); BLOOD UREA NITROGEN 13 MG/DL (7-18); CALCIUM LEVEL 8.7 MG/DL (8.8-10.2); CARBON DIOXIDE LEVEL 33 MEQ/L (21-32); CHLORIDE LEVEL 94 MEQ/L (98-107); CREATININE FOR GFR 0.45 MG/DL (0.55-1.30); GLOMERULAR FILTRATION RATE > 60.0 (>45); GLUCOSE, FASTING 98 MG/DL (70-100); POTASSIUM SERUM 3.9 MEQ/L (3.5-5.1); SODIUM LEVEL 132 MEQ/L (136-145); TOTAL PROTEIN 6.8 GM/DL (6.4-8.2)
--- NOTE | 2020-01-20 11:22 | ONC.PHACK ---
CHEMO ADMIN CHECKLIST Order Contains Pt ID: Name, Order on Chemo Order Form?: Yes Order Form Includes ALL: Correct Tx Day, Correct Date, Correct Cycle Number Pt ID on Order form Matches: Pt ID on PHA Label Med on Chemo OrderForm Matches: PHA Label, Med Used for Preparation [facility] Jan 20, 2020 11:22
[2020-01-20 11:26] LABS: FREE T4 1.45 NG/DL (0.76-1.46); THYROID STIMULATING HORMONE 1.88 uIU/ML (0.358-3.740)
--- NOTE | 2020-01-23 21:04 | MEDONC ---
MEDICAL ONCOLOGY FOLLOWUP DATE OF SERVICE: 01/20/2020 DIAGNOSES: 1. 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 Original diagnosis 2012. Indolent progression for many years with more involved visceral involvement as of 2019. Currently on first-line chemotherapy in the metastatic setting after progressing through all available oral ALK targeted agents. 2. New hyponatremia in the setting of borderline progression on interval scan. CURRENT THERAPY: Pembrolizumab maintenance. Pemetrexed/pembrolizumab maintenance begun 06/30/2019; pemetrexed dropped as of cycle #8. Lasix 40 mg daily as needed for diuresis. 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 Oxycodone 5 mg up to q. 4 hours p.r.n. severe pain. TREATMENT HISTORY: Carboplatin/pemetrexed/pembrolizumab four cycle 04/07/2019-06/09/2019. Treatment complicated by recurrent malignant pleural effusion status post left PleurX. Clinically stable since PleurX. Mild partial response on current restaging. Palliative scapula radiation December 2019. PRIOR ORAL THERAPY: Crizotinib 10/2012-12/2014. Ceritinib 12/2014-03/2016. Alectinib 03/2016-08/2016. Brigatinib 08/2016-10/2018. Lorlatinib 11/2018-02/2019. Foundation one testing 07/2016, PD-L1 20% tumor mutation, intermediate, no actionable mutations. Prior gamma radiation for intracranial metastases. INTERVAL HISTORY: Joanne has had her PleurX removed. She reports feeling okay. No new shortness of breath, but when she is anxious as she is during office visits, she is more short of breath. Her skin temperature was cool today. Pulse ox could not be obtained accurately. She has not been taking demeclocycline for SIADH as her p.o. liquid intake has decreased due to swallowing problems. She is being worked up by Dr. Villaseñor for these. They may or may not be related to radiation. She is able to swallow solids. I suggested she mix her pill perhaps with some food as she has done for at least one of her other medicines. Meanwhile today, her sodium is 132, and she can omit the demeclocycline for now. REVIEW OF SYSTEMS - FOCUSED: No fever, chills; positive for mild unintended weight loss of about 4 pounds; no new shortness of breath but persistent exertional dyspnea; no nausea, vomiting; positive for difficulty with swallowing liquids but not solids; no mouth sores, no diarrhea; positive for constipation managed with over the counters; no blood in stool. No leg swelling, hand swelling, arm swelling, face or neck swelling. No new lumps or bumps. No new rash. VITAL SIGNS: Reviewed. Weight 52 kg, BMI 19. Remainder of vital signs normal. LABORATORY DATA: WBC 6.5, hemoglobin 14, hematocrit 45, platelets 298, MCV 87. Sodium 132, remainder of electrolytes unremarkable. GFR greater than 60. Liver functions normal. TSH 1.8. Refractory recurrent ALK mutation positive adenocarcinoma originally diagnosed in 2012, status post treatment for intracranial metastases, retroorbital metastases, skeletal metastases, gastric metastases with gradually progressive pleural-based disease, largely involving right lung. Small volume lymph node involvement left lung, status post PleurX removal after diminished drainage of malignant pleural effusion no longer accumulating, now on maintenance pembrolizumab after dropping pemetrexed due to poor tolerance of chemotherapy and mild decline of performance status, as well as new SIADH, currently stable. ECOG performance status: One. The majority of today's visit was spent discussing my impending departure, goals of care, overall plan. Joanne would like her care transferred to perhaps to Dr. Galo who will be a long-term physician here. She would like Dr. Galo, if possible, to confer with Eugene Hunter MD at [facility] as needed for recommendations regarding change of therapy. I reminded Joanne I had spoken with Dr. Hunter at least twice in the last month regarding her case, and his current recommendation is as next line therapy docetaxel/ramucirumab in the absence of a pertinent clinical trial. Her extensive pleural involvement performance status may be limiting in terms of clinical trial currently. Dr. Hunter's office number is [phone]. In general, we outlined a plan in which Joanne would have restaging scans early February. She declined having them earlier, and if disease progression and/or if her performance status on current therapy diminishes due to symptom progression, she could consider next line treatment with docetaxel/ramucirumab. And in the past, we have also discussed hospice and palliative care. She is involved with palliative care now for medical marijuana but is not trying it. Joanne has been a cancer patient now for 7 years on active treatment for metastatic disease, is an astute patient, has her own personal goals for quality of life and will be the chief guide to choices and preferences PLAN: 1. Cycle nine pembrolizumab today. 2. 3-week interval return for cycle 10. 3. CT chest, abdomen and pelvis with contrast first week of February. 4. Joanne and Renu will stay in touch weekly during these next few weeks as she transitions to a new physician until that transition is complete at least, but this staying in touch will be at her discretion. Electronically Signed by Norah Angelo MD 01/27/2020 04:30 P DD: Norah Angelo MD 01/20/2020 12:56 P DT: vega 01/23/2020 08:18 P CC: MD Michael Guo MD Jason White, MD
[2020-02-09 10:32] LABS: BASO % 0.3 % (0.0-1.0); EOS % 0.3 % (0.0-3.0); HEMATOCRIT 43.1 % (36.0-47.0); LYMPH # 0.3 10^3/uL (1.5-5.0); LYMPH % 4.8 % (24.0-44.0); MEAN CORPUSCULAR HEMOGLOBIN 27.4 pg (27.0-33.0); MEAN CORPUSCULAR HGB CONC 32.5 g/dl (32.0-36.5); MEAN CORPUSCULAR VOLUME 84.3 fl (80.0-96.0); MONO # 0.7 10^3/uL (0.0-0.8); MONO % 10.2 % (0.0-5.0); NEUTROPHILS % 84.1 % (36.0-66.0); PLATELET COUNT, AUTOMATED 291 10^3/uL (150-450); RED BLOOD COUNT 5.11 10^6/uL (4.00-5.40); WHITE BLOOD COUNT 7.1 10^3/uL (4.0-10.0)
[2020-02-09 10:42] VITALS: BP 148/90
[2020-02-09 11:01] LABS: ALBUMIN 3.4 GM/DL (3.2-5.2); ALT/SGPT 19 U/L (12-78); BILIRUBIN,TOTAL 0.6 MG/DL (0.2-1.0); BLOOD UREA NITROGEN 13 MG/DL (7-18); CALCIUM LEVEL 8.9 MG/DL (8.8-10.2); CARBON DIOXIDE LEVEL 35 MEQ/L (21-32); CHLORIDE LEVEL 88 MEQ/L (98-107); CREATININE FOR GFR 0.45 MG/DL (0.55-1.30); GLOMERULAR FILTRATION RATE > 60.0 (>45); GLUCOSE, FASTING 99 MG/DL (70-100); POTASSIUM SERUM 4.1 MEQ/L (3.5-5.1); SODIUM LEVEL 125 MEQ/L (136-145)
[2020-02-09 11:09] LABS: FREE T4 1.28 NG/DL (0.76-1.46); THYROID STIMULATING HORMONE 2.44 uIU/ML (0.358-3.740)
--- NOTE | 2020-02-09 11:55 | MEDONCPDOC ---
Medical Oncology Office Note Date of Service: Feb 09, 2020 Diagnosis/Treatment History DIAGNOSES: 1. 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 Original diagnosis 2012. Indolent progression for many years with more involved visceral involvement as of 2019. Currently on first-line chemotherapy in the metastatic setting after progressing through all available oral ALK targeted agents. 2. New hyponatremia in the setting of borderline progression on interval scan. CURRENT THERAPY: Pembrolizumab maintenance. Pemetrexed/pembrolizumab maintenance begun 06/30/2019; pemetrexed dropped as of cycle #8. Lasix 40 mg daily as needed for diuresis. 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 Oxycodone 5 mg up to q. 4 hours p.r.n. severe pain. TREATMENT HISTORY: Carboplatin/pemetrexed/pembrolizumab four cycle 04/07/2019-06/09/2019. Treatment complicated by recurrent malignant pleural effusion status post left PleurX. Clinically stable since PleurX. Mild partial response on current restaging. Palliative scapula radiation December 2019. PRIOR ORAL THERAPY: Crizotinib 10/2012-12/2014. Ceritinib 12/2014-03/2016. Alectinib 03/2016-08/2016. Brigatinib 08/2016-10/2018. Lorlatinib 11/2018-02/2019. Foundation one testing 07/2016, PD-L1 20% tumor mutation, intermediate, no actionable mutations. Prior gamma radiation for intracranial metastases Interval History Anh is coming today for a follow-up visit and next dose of Keytruda. She is here with her Jonatan was very supportive. She is doing well. Her Pleurx chest tube on the left side of the chest has been taken out on December. She is breathing well. She has some mucoid phlegm although she does not have major cough. She is going to see her GI doctor Dr. Uribe who was planning to do an EGD. Patient is not in acute pain. She has some degree of dysphagia that restricted her intake. Patient is able to walk without a walker or cane although she is slow. She is not in acute pain and she had radiation to the upper spine 2 months ago and then radiation were given. Since then she has some dysphagia since radiation was given in front of the upper chest. Patient also had some radiation to the brain in 2015. She is eating although her appetite is down. She does not have chest pain palpitations PND or orthopnea. She does not have headache dizziness or blackouts. She has no urinary symptoms. She is due for a CT scan which is scheduled already and February 2020. Allergies Coded Allergies: vancomycin (Verified Adverse Reaction, Severe, BECOMES VIOLENTLY ILL, NAUSEA/VOMITING. , 01/05/20) Home Medications Active Scripts Prochlorperazine Maleate (Prochlorperazine Maleate) 10 Mg Tablet, 10 MG PO Q8HP PRN for NAUSEA, #30 TAB 3 Refills Take one tab by mouth every 8 hours as needed for nausea Prov:Norah Angelo MD 04/07/19 Ondansetron (Ondansetron Odt) 8 Mg Tab.rapdis, 8 MG PO Q6H PRN for NAUSEA, #30 TAB 3 Refills Take one tab by mouth every 6 hours as needed for nausea Prov:Norah Angelo MD 04/07/19 Reported Medications Cholecalciferol (Vitamin D3) (Vitamin D3) 1,000 Unit Tablet, 2000 UNITS PO DAILY, TAB 01/05/20 Omeprazole (Omeprazole) 20 Mg Capsule.dr, 20 MG PO BID 02/04/19 Acetaminophen (Acetaminophen) 500 Mg Tablet, 500 MG PO Q6H PRN for PAIN 12/03/18 Calcium Carbonate (Tums) 500 Mg Chw, 500 MG PO DAILY, CHW 10/21/18 Denosumab Injection (Xgeva) 120 Mg/1.7 Ml Inj, 120 MG SC [id number] 04/24/18 Multivitamin (Multivitamins) 1 Cap Cap, 1 CAP PO DAILY, CAP 05/04/14 Discontinued Reported Medications Alprazolam (Alprazolam) 0.25 Mg Tablet, 0.25 MG PO BID PRN for ANXIETY 04/01/19 Discontinued Scripts Demeclocycline HCl (Demeclocycline HCl) 300 Mg Tablet, 1 TAB PO BID for 30 Days, #60 TAB 3 Refills Prov:Norah Angelo MD 11/21/19 Review of Systems General: Reports: Fatigue (feels fatigued out although able to walk without any support.), Normal Appetite (appetite is decreased although she forces herself to eat.) Constitutional: Reports: Weakness (complains of weakness and fatigue), Fatigue, Normal appetite (appetite is decreased although she tries to eat 3 meals a day.); Denies: ROS Unabtainable, Chills, Fever, Malaise, Night Sweats, Weight Loss, Lethargy, Other symptoms Eyes: Denies: Pain, Vision change, Conjunctivae inflammation, Eyelid inflammation, Redness, Other HEENT: Reports: Dysphagia (dysphagia present since she has radiation); Denies: Head Aches, Ear Pain, Sinus Congestion, Post Nasal Drip, Sore Throat, Epistaxis, Other Symptoms Skin: Denies: Rash, Lesions, Jaundice, Bruising, Other Pulmonary: Reports: Dyspnea (shortness of breath on mild exertion.), Pleuritic Chest Pain (chest pain is under good control); Denies: Cough, Other Symptoms Cardiovascular: Denies: Chest Pain, Palpitations, Orthopnea, Paroxysmal Noc. Dyspnea, Edema, Lt Headedness, Other Symptoms Breast: Denies: New Breast Lumps / Masses, Nipple Retraction, Nipple Discharge, Breast Skin Changes, Breast Pain or Tenderness, Other Breast Complaints Gastrointestinal: Reports: Constipation (has constipation although is able to move her bowels every day.); Denies: Nausea, Vomiting, Abdominal Pain, Diarrhea, Melena, Hematochezia, Other Symptoms Genitourinary: Denies: Dysuria, Frequency, Incontinence, Hematuria, Retention, Other Symptoms Hematologic: Denies: Bruising, Bleeding Excessively, Petecchia, Purpura, Enlarged Lymph Nodes, Other Hematologic Endocrine: Denies: Polydipsia, Polyphagia, Polyuria, Heat Intolerance, Cold Intolerance, Other Endocrine Sx Musculoskeletal: Denies: Neck pain, Shoulder pain, Arm pain, Back pain, Hand pain, Leg pain, Foot pain, Joint pain, Muscle pain, Spasms, Gout, Joint sweling, Muscle stiffness, Midthoracic pain, Other Neurological: Denies: Weakness, Numbness, Incoordination, Change in Speech, Confusion, Seizures, Other Symptoms Psych: Reports: Anxiety (he'll cells anxious but able to perform her daily function without disability.); Denies: Mood Normal, Depression, Memory Issues, Thoughts of Self Harm, Anger, Thoughts of harming Other, Other Psych Physical Examination General Exam: Negative: Alert, Cooperative, No Acute Distress, Mild Distress, Moderate Distress, Severe Distress, Oriented Times Three, Other Eye Exam: Negative: PERRLA, Conjunctiva & lids normal, EOMI, Sclera icteric, Ptosis, Other Eye Symptoms ENT EXAM: Negative: Atraumatic, Mucous membr. moist/pink, Pharynx Normal, Tongue Midline, Pharyngeal Edema, Nares Patent, Tympanic Membranes Normal, Ext Auditory Canal Nml, Pinna Normal, Other ENT Neck Exam: Negative: Supple, JVD, Thyromegaly, +2 carotid pulse wo bruit, Lymphadenopathy, Other Chest Exam: Negative: Clear to auscultation, Normal air movement, Rales, Rhonchi, Wheezing, Diminished, Other Heart Exam: Negative: Rate Normal, Tachycardic, Bradycardic, Regular Rhythm, Irregular Rhythm, Normal S1, Normal S2, Gallops, Murmurs, Rubs, Other Abdomen Exam: Negative: Normal bowel sounds, BS Hyperactive, BS Hypoactive, Soft, Tenderness, Hepatospenomegaly, Mass, Hernia, Other Extremity Exam: Negative: Clubbing, Cyanosis, Edema, Normal pulses, Tenderness, Swelling, Other Skin Exam: Negative: Nl turgor and temperature, Rash, Breakdown, Lesion, Pruritus, Other skin issue Neuro Exam: Negative: Normal Gait, Normal Speech, Strength at 5/5 X4 ext, Normal Tone, Sensation Intact, Cranial Nerves 3-12 NL, Reflexes 2+, Other Psych Exam: Positive: Anxiety (this anxiety since this is her first visit with me.); Negative: Mental status NL, Mood NL, Memory Intact, Oriented x 3, Other Ht / Wt Ht / Wt Height:5 Feet 5 Inches Weight: 52.900 Kg Vital Signs Vital Signs Date Time Temp Pulse Resp B/P (MAP) Pulse Ox O2 Delivery O2 Flow Rate FiO2 02/09/20 10:42 97.0 80 18 148/90 (109) 96 Room Air Laboratory Data Laboratory Tests Test 02/09/20 10:03 Blood Urea Nitrogen 13 MG/DL (7-18) Creatinine 0.45 MG/DL (0.55-1.30) L Glomerular Filtration Rate > 60.0 (>45) Fasting Glucose 99 MG/DL (70-100) Calcium Level 8.9 MG/DL (8.8-10.2) Total Bilirubin 0.6 MG/DL (0.2-1.0) Aspartate Amino Transf (AST/SGOT) 16 U/L (7-37) Alanine Aminotransferase (ALT/SGPT) 19 U/L (12-78) Total Protein 7.0 GM/DL (6.4-8.2) Sodium Level 125 MEQ/L (136-145) L Albumin 3.4 GM/DL (3.2-5.2) Alkaline Phosphatase 55 U/L (45-117) Potassium Level 4.1 MEQ/L (3.5-5.1) Thyroid Stimulating Hormone (TSH) 2.440 uIU/ML (0.358-3.740) Chloride Level 88 MEQ/L (98-107) L Carbon Dioxide Level 35 MEQ/L (21-32) H Anion Gap 2 MEQ/L (8-16) L Laboratory Tests 02/09/20 10:03 Assessment/Plan Joanne is doing well and her disease is under good control. She has a history of refractory recurrent ALK mutation positive adenocarcinoma diagnosed 2012 and had radiation to intracranial metastatic disease, retro-orbital metastases and skeletal metastases. Patient also had gastric metastasis is with progressive pleural-based disease largely involving the right lung. Patient Pleurx tube has been removed from the left lung and is there is no more drainage. Patient is on maintenance PEMBROLIZUMAB and is not on pemetrexed because of intolerance. Patient has dropping sodium level and she is going to restart demeclocycline 300 mg twice daily. Patient's sodium level will be checked. Her TSH is slowly rising so we need to watch that closely. Patient will be having CT scan on 02/24/2020. As long as her disease remains under control she will be staying on PEMBROLIZUMAB every 3 weeks. If disease showed progression she will be switched to Taxotere and ramucirumab. We'll see the patient in 3 weeks for further decision making and next dose of Keytruda. Her sodium level will be watched closely. Patient is advised to avoid free water drinking and may use some Gatorade or lemonade if she feels thirsty. CC TO: CC TO: Primary Care Provider: Inocencio Escamilla M.D. Referring Provider: ANTIONE AGUILERA MD Feb 09, 2020 11:55
--- NOTE | 2020-02-09 12:00 | ONC.PHACK ---
CHEMO ADMIN CHECKLIST Order Contains Pt ID: Name, Order on Chemo Order Form?: Yes Order Form Includes ALL: Correct Tx Day, Correct Date, Correct Cycle Number Pt ID on Order form Matches: Pt ID on PHA Label Med on Chemo OrderForm Matches: PHA Label, Med Used for Preparation [facility] Feb 09, 2020 12:00
[2020-03-22 09:19] VITALS: BP 118/70
[2020-03-22 10:12] LABS: BASO % 0.5 % (0.0-1.0); EOS % 0.5 % (0.0-3.0); HEMATOCRIT 40.1 % (36.0-47.0); HEMOGLOBIN 12.8 g/dl (12.0-15.5); LYMPH # 0.3 10^3/uL (1.5-5.0); LYMPH % 4.3 % (24.0-44.0); MEAN CORPUSCULAR HEMOGLOBIN 26.5 pg (27.0-33.0); MEAN CORPUSCULAR HGB CONC 31.9 g/dl (32.0-36.5); MONO # 0.8 10^3/uL (0.0-0.8); MONO % 10.3 % (0.0-5.0); NEUTROPHILS # 6.2 10^3/uL (1.5-8.5); PLATELET COUNT, AUTOMATED 352 10^3/uL (150-450); RED BLOOD COUNT 4.83 10^6/uL (4.00-5.40); WHITE BLOOD COUNT 7.4 10^3/uL (4.0-10.0)
[2020-03-22 10:38] LABS: ALT/SGPT 17 U/L (12-78); BILIRUBIN,TOTAL 0.6 MG/DL (0.2-1.0); BLOOD UREA NITROGEN 13 MG/DL (7-18); CALCIUM LEVEL 8.5 MG/DL (8.8-10.2); CARBON DIOXIDE LEVEL 33 MEQ/L (21-32); CHLORIDE LEVEL 87 MEQ/L (98-107); CREATININE FOR GFR 0.42 MG/DL (0.55-1.30); GLOMERULAR FILTRATION RATE > 60.0 (>45); GLUCOSE, FASTING 94 MG/DL (70-100); POTASSIUM SERUM 4.2 MEQ/L (3.5-5.1); SODIUM LEVEL 125 MEQ/L (136-145); TOTAL PROTEIN 6.5 GM/DL (6.4-8.2)
[2020-03-22 10:44] LABS: FREE T4 1.32 NG/DL (0.76-1.46); THYROID STIMULATING HORMONE 2.88 uIU/ML (0.358-3.740)
[~2020-03-24] VITALS: Ht 165.1 cm; Wt 54.5 kg
[~2020-03-24 11:00] MED LIST changes: +ACETAMINOPHEN 650 MG PO PO ONE; +BSS IRR 500ML/OMIDRIA 4ML IRR BAG (OR ONLY) (J1097 PER ML) As Ordered ONE; +CARBOPLATIN IV ONE; +CEFUROXIME 1MG/0.1ML INTRACAMERAL INJ As Ordered ONE; +CYANOCOBALAMIN 1,000MCG/ML VIAL (J3420) IM ONE; +DENOSUMAB (XGEVA) 120MG/1.7ML VIAL (J0897 PER 1MG) (FOR ONCOLOGY) SC ONE; +DENOSUMAB 60MG/1ML SYRINGE (PROLIA) (J0897 PER 1MG) SC ONE; +DOCETAXEL IV ONE; +DUOVISC (0.50ML VISCOAT/0.55ML PROVISC) OPHTH KIT As Ordered ONE; +FOSAPREPITANT PERIPHERAL LINE 30 MIN INFUSION (PREMIX) IV ONE; +FOSAPREPITANT PERIPHERAL LINE 30 MIN INFUSION IV ONE; +IRON SUCROSE 200 MG in NS 100 ML OVER 1 HR IV ONE; +IRON SUCROSE 200 MG in NS 100 ML OVER 1HR IV ONE; +ISOVUE-370 76% 100ML VIAL As Ordered ONE; +NS IV ONE; +OVER IV ONE; +PALONOSETRON 250 MCG IV IV ONE; +PEGFILGRASTIM 6MG/0.6ML ONPRO KIT (J2505 PER 6MG) (FOR ONCOLOGY) SC ONE; +PEMBROLIZUMAB 100MG/4ML VIAL (KEYTRUDA) (J9271 PER 1MG) (FOR ONCOLOGY) ONE; +PEMBROLIZUMAB OVER 30 MINUTES IV ONE; +PEMETREXED DISODIUM IV ONE; +POVIDONE-IODINE 5% OPHTH PREP SOL 30ML As Ordered ONE; +RAMUCIRUMAB IV ONE; +SODIUM CHLORIDE 0.9% INJ 10 ML SYR IV PRN; +dexameTHASONE 10 MG IV IV ONE; +dexameTHASONE 12 MG IV IV ONE; +diphenhydrAMINE 25 MG IV IV ONE; +diphenhydrAMINE 50 MG IV IV ONE
[2020-03-24 11:15] VITALS: BP 132/78
[2020-03-24 17:11] LABS: POTASSIUM RANDOM URINE 13.1 MEQ/L
--- NOTE | 2020-03-25 08:02 | ONC.PHACK ---
CHEMO ADMIN CHECKLIST Order Contains Pt ID: Name, Order on Chemo Order Form?: Yes Order Form Includes ALL: Correct Tx Day, Correct Date, Correct Cycle Number Pt ID on Order form Matches: Pt ID on PHA Label Med on Chemo OrderForm Matches: PHA Label, Med Used for Preparation [facility] Mar 25, 2020 08:02
[2020-04-02 12:15] LABS: BASO % 0.4 % (0.0-1.0); EOS % 0.4 % (0.0-3.0); HEMATOCRIT 41.5 % (36.0-47.0); HEMOGLOBIN 13.3 g/dl (12.0-15.5); LYMPH # 0.3 10^3/uL (1.5-5.0); LYMPH % 4.6 % (24.0-44.0); MEAN CORPUSCULAR VOLUME 84.2 fl (80.0-96.0); MONO # 0.7 10^3/uL (0.0-0.8); MONO % 10.3 % (0.0-5.0); NEUTROPHILS # 5.8 10^3/uL (1.5-8.5); NEUTROPHILS % 83.7 % (36.0-66.0); PLATELET COUNT, AUTOMATED 340 10^3/uL (150-450); RED BLOOD COUNT 4.93 10^6/uL (4.00-5.40); WHITE BLOOD COUNT 6.9 10^3/uL (4.0-10.0)
[2020-04-15 12:50] LABS: ALBUMIN 3.1 GM/DL (3.2-5.2); ALT/SGPT 17 U/L (12-78); BILIRUBIN,TOTAL 0.5 MG/DL (0.2-1.0); BLOOD UREA NITROGEN 12 MG/DL (7-18); CALCIUM LEVEL 8.5 MG/DL (8.8-10.2); CARBON DIOXIDE LEVEL 33 MEQ/L (21-32); CHLORIDE LEVEL 91 MEQ/L (98-107); CREATININE FOR GFR 0.46 MG/DL (0.55-1.30); FREE T4 1.22 NG/DL (0.76-1.46); GLOMERULAR FILTRATION RATE > 60.0 (>45); GLUCOSE, FASTING 82 MG/DL (70-100); POTASSIUM SERUM 4.3 MEQ/L (3.5-5.1); SODIUM LEVEL 129 MEQ/L (136-145); TOTAL PROTEIN 6.3 GM/DL (6.4-8.2)
--- NOTE | 2020-04-26 11:52 | MEDONC ---
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 Original x 2012. Indolent progression for many years with more involved visceral involvement as of 2019. The patient has been on ALK targeted agent orally and uses all of the options of ALK positive targeted therapy. * New hyponatremia in the setting of borderline progression on interval scan. Most recent therapy pembrolizumab maintenance. Current therapy Cyramza and Taxotere will be started in the near future. PAST THERAPY: Pemetrexed/pembrolizumab maintenance begun 07/10/2019. Pemetrexed dropped as of cycle eight, demeclocycline 300 mg up to twice a day begun 11/21/2019 for SIADH, Oxycodone 5 mg up to every 4 hours p.r.n. severe pain. TREATMENT HISTORY: Carboplatin/pemetrexed/pembrolizumab four cycles 04/07/2019 to 06/09/2019. Treatment complicated by recurrent pleural effusion status post left PleurX tube and PleurX tube has been taken out in January 2020. Clinically stable but progression on CT scan. MOST RECENT IMAGING: CT chest 02/24/2020: Evidence of interval progression in the right chest with multifactorial pleural and parenchymal changes. Widespread blastic skeletal metastatic disease stable. CT of the abdomen and pelvis: Stable widespread skeletal blastic metastatic disease. No evidence of mass or adenopathy within the abdomen. CURRENT STATUS: The patient is coming in for a followup visit along with her . She is also due for maintenance dose of pembrolizumab. She underwent CT scan of the chest, abdomen, and pelvis February 2020 which revealed extensive heterogeneously enhancing multifactorial pleural nodularity, pleural thickening with tumor deposits bilaterally. Left much less involved than right. Previous study showed PleurX catheter but no longer visible. On the right several pleural-based enhancing masses have progressed in size since 11/21/2019 study. In the right upper lobe there is a lesion measuring 3.6 cm and in November it measured 2.7 cm. Perihilar nodular opacity increased in the interval from 1.6 to 2.0 cm. There is a larger lesion posteriorly in the right which appears to extend into the intercostal soft tissue of the chest wall. There is a peripherally enhancing lesion crossing the right hemidiaphragm and extending to the capsular surface of the underlying liver. This is a new finding. There are two small parenchymal nodules in the right lung which have increased in size. There is interstitial pattern in the left base which could be lymphangitic spread although it is unchanged. No new hilar or mediastinal mass or adenopathy is appreciated. There was widespread blastic skeletal metastatic disease again noted. The patient was told about all these findings and she was told that pembrolizumab is not holding these things down, and she is offered to start Taxotere and Cyramza every three weeks. Details were discussed about the benefits and side effects. She knows this is not a curable disease although current treatment is not holding it down and we need to change it to Cyramza and Taxotere which may help to keep it under control for a limited time. The patient was told about possible side effects. Taxotere may cause myelosuppression which may lead to anemia and leukopenia with thrombocytopenia. The patients immune system may go down and the patient has a high risk of infection like pneumonia or may need hospitalization for any serious complications. Cyramza is not a chemo although it is antigenic and will prevent growth of blood vessels when the tumor is growing. There is a risk of some bleeding tendency, kidney issues. Literature of these two medicines is given to the patient and I advised her to read it carefully and ask questions if she has any. Currently the patient is feeling no pain although she is using Oxycodone whenever she develops pain. She has extensive bony metastases. She is not having any major cough, phlegm, or wheezing. She does not have fever, chills or rigors. She denies headaches, dizziness, or blackouts. She has no urinary symptoms. She is here with her who is very supportive. PHYSICAL EXAMINATION: Vital signs: Weight 54.5 kg, temperature 97.9 degrees Fahrenheit, respiratory rate 18, blood pressure 118/70, pulse oximetry 97%. General: A pleasant female looking slightly anxious although not in acute distress. She is pale-looking but no jaundice or cyanosis, no clubbing or koilonychia. HEENT: WNL. EOMI. Oral cavity clear without mucositis or thrush. Cardiac: RRR. Normal S1, S2. Lungs: Diminished air entry in the right base, otherwise no crackles or wheezing. Musculoskeletal: Normal without joint deformity. Extremities: Normal without any edema. Abdomen soft without hepatosplenomegaly. Neurologic: No focal sensory or motor deficits. CN II-XII intact. Lymph node survey: Nonpalpable in the cervical, supraclavicular, axillary, or inguinal regions. LABS: CBC from today 03/22/2020: WBC 7.4, hemoglobin 12.8, hematocrit 40.1, platelet count 352. Absolute neutrophil count 6.2. ASSESSMENT AND PLAN: Ms. Joanne Vance is a 65-year-old white female who has extensive non-small cell lung carcinoma and current CT scan is showing progression of disease. The patient needs to change her medicines. I offered her to start Taxotere with Cyramza. After detailed discussed she agrees to go ahead. We will get the approval from her insurance company and as soon as approval is obtained, she will be started on these two medicines every three weeks. She knows that this is not a curable disease and our aim is to keep it under control as long as feasible. The patient is given enough time to ask questions which were answered to her satisfaction. She has extensive disease in the bones, and she will need Xgeva more often and we will make it every two months instead of every three months. The patient will be seen again as soon as we get the approval from her insurance for the above-mentioned medications. Literature of these two medicines are given to the patient to study it extensively and ask questions at her next visit. DARIELAD
--- NOTE | 2020-04-30 13:52 | MEDONC ---
DATE: 03/01/2020 CURRENT DIAGNOSIS: Nonsmall lung carcinoma stage IV on maintenance pembrolizumab. HISTORY OF PRESENT ILLNESS: Ms. Vance is a 66-year-old white female who has a history of nonsmall cell lung carcinoma with left-sided pleural effusion. She used to have a PleurX tube, which had been taken out on 02/09/2020. Patient has a history of a lesion to the spine two months ago and received 10 radiations. Her dysesthesia is getting better. She does not have EGD appointment with Dr. Villaseñor yet. She is able to swallow with the help of water. Her weight is stable. She had a CT scan of the chest on 02/24/2020, results are still pending. Patient does not complain of any pain anywhere and she is not on any pain medicine. She is taking the demeclocycline morning and evening for her hyponatremia and for syndrome of inappropriate antidiuretic hormone secretion (SIADH). Patient denies any other major complaint. Her breathing is good. She denies cough, phlegm, or wheezing. Does not have chest pain, palpitations, paroxysmal nocturnal dyspnea (PND), or orthopnea. Denies dizziness or blackouts. She has no urinary symptoms. She is using CBD (cannabidiol) cream at nighttime and that helps her appetite and feels better with that. MEDICATIONS: Include multivitamin, Tums, omeprazole, vitamin D, XGEVA, and demeclocycline. PHYSICAL EXAMINATION: VITAL SIGNS: Weight 53.8 pounds, blood pressure 134/88, pulse 81, temperature 97.9 degrees Fahrenheit. GENERAL: A pleasant white female in no acute distress. HEENT: Within normal limits (WNL). Extraocular muscles are intact (EOMI). Oral cavity clear without mucositis or thrush. CARDIAC: Regular rate and rhythm (RRR). Normal S1, S2. LUNGS: Clear to auscultation and percussion. ABDOMEN: Soft. Bowel sounds present. No hepatosplenomegaly. MUSCULOSKELETAL: Normal without any deformity. EXTREMITIES: Normal without any edema. SKIN: Clear and dry without rash or lesions. LYMPH NODE SURVEY: Nonpalpable in the cervical, supraclavicular, axillary, or inguinal region. NEUROLOGIC: No focal, sensory, or motor deficits. CN II-XII intact. IMAGING/LABORATORY DATA: CBC and chemistry are drawn today and a CT scan of the chest from 02/24/2020, results are pending. ASSESSMENT AND PLAN: Ms. Vance is a 65-year-old white female who is getting treated with maintenance dose of pembrolizumab. She is tolerating it well and her disease seems to be under good control. Her CT scan results from 02/24/2020 are pending. If her counts are adequate today, she will be getting her next dose of pembrolizumab. She is going to stay on the pembrolizumab as long as this is effective and as long as there are no major side effects. We will see her back in three weeks for further follow-up and next dose of pembrolizumab. MTDD
== END | disposition home or self-care (01) ==
LOC: M ONCM 04-24 13:03
PROVIDERS: ATTEND Specialist
DX: Z51.11 Encounter for antineoplastic chemotherapy (principal); C34.11 Malignant neoplasm of upper lobe, right bronchus or lung; C79.51 Secondary malignant neoplasm of bone; C77.2 Secondary and unspecified malignant neoplasm of intra-abdominal lymph nodes; C79.31 Secondary malignant neoplasm of brain; E87.1 Hypo-osmolality and hyponatremia; K25.0 Acute gastric ulcer with hemorrhage; Z87.19 Personal history of other diseases of the digestive system; Z79.899 Other long term (current) drug therapy; H02.402 Unspecified ptosis of left eyelid; R60.0 Localized edema
CPT/HCPCS: 36415; 36591; 70543; 70553; 71275; 80053; 80061; 82024; 82088; 82378; 82436; 82530; 82533; 82728; 83550; 84133; 84146; 84244; 84300; 84439; 84443; 85025; 85027; 85610; 85730; 88300; 96365; 96366; 96367; 96372; 96375; 96377; 96411; 96413; 96415; 96417; A9576; G0101; G0463; J0897; J1097; J1100; J1200; J1453; J1642; J1756; J2469; J2505; J3420; J9045; J9171; J9271; J9305; J9308; Q9967

== ENCOUNTER 2020-03-30 07:45 | Inpatient (IN) | payer MEDICARE ==
[~2020-03-30] VITALS: Ht 167.6 cm; Wt 56.9 kg
[~2020-03-30 07:45] MED LIST changes: -ACETAMINOPHEN 650 MG PO PO ONE; -BSS IRR 500ML/OMIDRIA 4ML IRR BAG (OR ONLY) (J1097 PER ML) As Ordered ONE; -CARBOPLATIN IV ONE; -CEFUROXIME 1MG/0.1ML INTRACAMERAL INJ As Ordered ONE; -CYANOCOBALAMIN 1,000MCG/ML VIAL (J3420) IM ONE; -DENOSUMAB (XGEVA) 120MG/1.7ML VIAL (J0897 PER 1MG) (FOR ONCOLOGY) SC ONE; -DENOSUMAB 60MG/1ML SYRINGE (PROLIA) (J0897 PER 1MG) SC ONE; -DOCETAXEL IV ONE; -DUOVISC (0.50ML VISCOAT/0.55ML PROVISC) OPHTH KIT As Ordered ONE; -FOSAPREPITANT PERIPHERAL LINE 30 MIN INFUSION (PREMIX) IV ONE; -FOSAPREPITANT PERIPHERAL LINE 30 MIN INFUSION IV ONE; -IRON SUCROSE 200 MG in NS 100 ML OVER 1 HR IV ONE; -IRON SUCROSE 200 MG in NS 100 ML OVER 1HR IV ONE; -ISOVUE-370 76% 100ML VIAL As Ordered ONE; -MULT1CHW29 PO; -NS IV ONE; -OVER IV ONE; -PALONOSETRON 250 MCG IV IV ONE; -PEGFILGRASTIM 6MG/0.6ML ONPRO KIT (J2505 PER 6MG) (FOR ONCOLOGY) SC ONE; -PEMBROLIZUMAB 100MG/4ML VIAL (KEYTRUDA) (J9271 PER 1MG) (FOR ONCOLOGY) ONE; -PEMBROLIZUMAB OVER 30 MINUTES IV ONE; -PEMETREXED DISODIUM IV ONE; -POVIDONE-IODINE 5% OPHTH PREP SOL 30ML As Ordered ONE; -RAMUCIRUMAB IV ONE; -SODIUM CHLORIDE 0.9% INJ 10 ML SYR IV PRN; -dexameTHASONE 10 MG IV IV ONE; -dexameTHASONE 12 MG IV IV ONE; -diphenhydrAMINE 25 MG IV IV ONE; -diphenhydrAMINE 50 MG IV IV ONE
[2020-03-30] MEDS ORDERED: FUROSEMIDE 40MG/4ML VIAL (J1940) IV ONE (10:30)
[2020-03-30] MEDS ORDERED: MULT1CHW29 PO (10:30)
[2020-03-30 10:32] LABS: HEMATOCRIT 37.8 % (36.0-47.0); HEMOGLOBIN 12.2 g/dl (12.0-15.5); MEAN CORPUSCULAR HEMOGLOBIN 26.9 pg (27.0-33.0); MEAN CORPUSCULAR HGB CONC 32.3 g/dl (32.0-36.5); MEAN CORPUSCULAR VOLUME 83.3 fl (80.0-96.0); PLATELET COUNT, AUTOMATED 207 10^3/uL (150-450); RED BLOOD COUNT 4.54 10^6/uL (4.00-5.40); WHITE BLOOD COUNT 16.9 10^3/uL (4.0-10.0)
[2020-03-30 10:34] LABS: ANISOCYTOSIS 1+; LYMPHOCYTES 2 % (16-44); MONOCYTES 5 % (0-5); NEUTROPHILS 92 % (28-66); PLATELET ESTIMATE NORMAL (NORMAL)
[2020-03-30 10:35] LABS: INR 1.04; PROTHROMBIN TIME 13.8 SECONDS (11.8-14.0)
[2020-03-30 10:37] LABS: PARTIAL THROMBOPLASTIN TIME 173.5 SECONDS (25.0-38.4)
[2020-03-30] MEDS ORDERED: ISOVUE-370 76% 100ML VIAL As Ordered ONE (10:41)
[2020-03-30 11:10] LABS: APPEARANCE, URINE HAZY (CLEAR); BACTERIA, URINE AUTO NEGATIVE (NEGATIVE); BILIRUBIN, URINE AUTO NEGATIVE (NEGATIVE); BLOOD, URINE BLOOD NEGATIVE (NEGATIVE); COLOR, URINE YELLOW (YELLOW); GLUCOSE, URINE (UA) AUTO NEGATIVE (NEGATIVE); KETONE, URINE AUTO 1+ mg/dL (NEGATIVE); LEUKOCYTE ESTERASE, URINE AUTO NEGATIVE (NEGATIVE); MUCUS, URINE SMALL (NEGATIVE); NITRITE, URINE AUTO NEGATIVE (NEGATIVE); PROTEIN, URINE AUTO NEGATIVE (NEGATIVE); RBC, URINE AUTO 1 /HPF (0-3); SPECIFIC GRAVITY URINE AUTO 1.018 (1.002-1.035); SQUAMOUS EPITHELIAL CELL UR AU 1 /HPF (0-6); UROBILINOGEN, URINE AUTO 0.2 mg/dL (0.0-2.0); WBC, URINE AUTO 2 /HPF (0-3)
--- NOTE | 2020-03-30 11:12 | REPVR ---
PROCEDURE INFORMATION: Exam: US Duplex Lower Extremity Veins, Bilateral Exam date and time: 03/30/2020 11:04 AM Age: 65 years old Clinical indication: Edema, localized; Lower extremity, bilateral; Additional info: Bl le edema lung CA R/O dvt TECHNIQUE: Imaging protocol: Real-time duplex ultrasound of the extremities with 2-D adair scale, color Doppler flow and spectral waveform analysis with image documentation. Complete exam focused on the bilateral lower extremity veins. COMPARISON: No relevant prior studies available. FINDINGS: Right deep veins: Unremarkable. The common femoral, femoral, proximal profunda femoral and popliteal veins are patent without thrombus. Normal Doppler waveforms. Normal compressibility and/or augmentation response. Right superficial veins: Saphenofemoral junction is patent without thrombus. Left deep veins: Unremarkable. The common femoral, femoral, proximal profunda femoral and popliteal veins are patent without thrombus. Normal Doppler waveforms. Normal compressibility and/or augmentation response. Left superficial veins: Saphenofemoral junction is patent without thrombus. Soft tissues: Unremarkable. IMPRESSION: No evidence of deep vein thrombosis. Electronically signed by: Dale Garcia On 03/30/2020 11:11:56 AM
[2020-03-30 11:29] LABS: SODIUM,RANDOM URINE 59 MEQ/L
[2020-03-30 11:30] LABS: OSMOLALITY URINE 706 MOSM/KG (500-800)
[2020-03-30] MEDS ORDERED: DOXYCYCLINE HYCLATE 100 MG in D5W MINI-BAG PLUS 100 ML IV ONE (11:30)
[2020-03-30] MEDS ORDERED: cefTRIAXone SOD 2 GM in D5W MINI-BAG PLUS 50 ML IV ONE (11:30)
[2020-03-30 11:57] LABS: ALBUMIN 2.7 GM/DL (3.2-5.2); ALT/SGPT 22 U/L (12-78); BILIRUBIN,TOTAL 0.6 MG/DL (0.2-1.0); BLOOD UREA NITROGEN 13 MG/DL (7-18); CARBON DIOXIDE LEVEL 34 MEQ/L (21-32); CHLORIDE LEVEL 82 MEQ/L (98-107); CK-MB VALUE MASS 3.5 NG/ML (<3.6); CPK CREATINE PHOSPHOKINASE 33 U/L (26-192); CREATININE FOR GFR 0.31 MG/DL (0.55-1.30); GLOMERULAR FILTRATION RATE > 60.0 (>45); GLUCOSE, FASTING 75 MG/DL (70-100); MB/CK RELATIVE INDEX 10.61 (< OR =4); NT-PRO BNP 4293 PG/ML (<125); POTASSIUM SERUM 4.8 MEQ/L (3.5-5.1); SODIUM LEVEL 122 MEQ/L (136-145); TOTAL PROTEIN 5.3 GM/DL (6.4-8.2); TROPONIN I < 0.02 NG/ML (< 0.10)
--- NOTE | 2020-03-30 12:30 | REPVR ---
PROCEDURE INFORMATION: Exam: CT Chest With Contrast Exam date and time: 03/30/2020 11:32 AM Age: 65 years old Clinical indication: Shortness of breath; Additional info: SOB lung CA ? malignant effusion TECHNIQUE: Imaging protocol: Computed tomography of the chest with intravenous contrast. Radiation optimization: All CT scans at this facility use at least one of these dose optimization techniques: automated exposure control; mA and/or kV adjustment per patient size (includes targeted exams where dose is matched to clinical indication); or iterative reconstruction. Contrast material: ISOVUE 370; Contrast volume: 75 ml; Contrast route: INTRAVENOUS (IV); COMPARISON: CT Chest with contrast 02/24/2020 2:53 PM FINDINGS: Thyroid: The partially imaged bilateral thyroid lobes are unremarkable. Lungs: Mild nonspecific interval increase in anterior left lung interlobular septal thickening. Pleural space: Interval mild increase in size of small-moderate partially loculated left pleural effusion. Heart: Cardiac right atrium and right ventricular enlargement redemonstrated, stable. Aorta: Unremarkable. No aortic aneurysm. Lymph nodes: No enlarged lymph nodes, comparable to prior study. Liver: Previously hyperenhancing right lobe hepatic segment 7 subdiaphragmatic 17 mm lesion is now partially hypoenhancing, similar size. Bones/joints: Extensive osteoblastic skeletal metastatic disease, comparable to prior study. Soft tissues: Extensive right pleural metastatic disease which appears relatively stable, including a superior anterior lesion extending through the 1st intercostal space into the anterior chest wall soft tissues (series 205, image 34). Other findings: Click right IJ distal; Right anterior inferior pleural metastatic focus transgressing the diaphragm into the subdiaphragmatic space redemonstrated, stable. IMPRESSION: 1. No pulmonary embolism identified. 2. Extensive right pleural metastatic disease which appears relatively stable. 3. Interval mild increase in size of small-moderate partially loculated left pleural effusion. 4. Extensive osteoblastic skeletal metastatic disease, comparable to prior study. 5. Mild nonspecific interval increase in anterior left lung interlobular septal thickening. 6. Previous hepatic lesion, nonspecific interval change in enhancement pattern, similar size. Electronically signed by: Dale Garcia On 03/30/2020 12:29:56 PM
[2020-03-30] MEDS ORDERED: FUROSEMIDE 40MG/4ML VIAL (J1940) As Ordered ONE (12:59)
[2020-03-30 13:10] VITALS: BP 122/80
[2020-03-30 13:18] LABS: C REACTIVE PROTEIN QUANTITATIV 6.21 MG/DL (0.00-0.30); URIC ACID 1.9 MG/DL (2.6-6.0)
[2020-03-30 13:18] LABS: PROTHROMBIN TIME 13.4 SECONDS (11.8-14.0)
[2020-03-30 13:19] LABS: PARTIAL THROMBOPLASTIN TIME 43.8 SECONDS (25.0-38.4)
[2020-03-30 13:26] LABS: BLOOD UREA NITROGEN 10 MG/DL (7-18); CALCIUM LEVEL 8.1 MG/DL (8.8-10.2); CARBON DIOXIDE LEVEL 34 MEQ/L (21-32); CHLORIDE LEVEL 83 MEQ/L (98-107); GLOMERULAR FILTRATION RATE > 60.0 (>45); GLUCOSE, FASTING 68 MG/DL (70-100); POTASSIUM SERUM 4.8 MEQ/L (3.5-5.1); SODIUM LEVEL 119 MEQ/L (136-145)
[2020-03-30 14:17] LABS: D-DIMER QUANT 598.59 ng/ml (<500)
[2020-03-30] MEDS ORDERED: cefTRIAXone SOD 2 GM in D5W MINI-BAG PLUS 50 ML IV SCH (15:00)
[2020-03-30 16:00] VITALS: BP 133/81
[2020-03-30] MEDS: DOXYCYCLINE HYCLATE 100 MG in D5W MINI-BAG PLUS 100 ML IV SCH (16:20)
[2020-03-30 19:08] LABS: BLOOD UREA NITROGEN 9 MG/DL (7-18); CALCIUM LEVEL 7.6 MG/DL (8.8-10.2); CARBON DIOXIDE LEVEL 35 MEQ/L (21-32); CHLORIDE LEVEL 82 MEQ/L (98-107); CREATININE FOR GFR 0.38 MG/DL (0.55-1.30); GLOMERULAR FILTRATION RATE > 60.0 (>45); GLUCOSE, FASTING 83 MG/DL (70-100); POTASSIUM SERUM 4.2 MEQ/L (3.5-5.1); SODIUM LEVEL 124 MEQ/L (136-145)
[2020-03-30 20:00] VITALS: BP 123/78
[2020-03-30] MEDS ORDERED: ACETAMINOPHEN 325 MG/10.15 ML UDC PO ONE (20:30)
[2020-03-31] VITALS: BP 108/60
[2020-03-31] MEDS ORDERED: SODIUM CHLORIDE 0.9% INJ 10 ML SYR IV PRN (00:15)
[2020-03-31] MEDS: ONDANSETRON 4MG/2ML VIAL IV SCH ×3 (00:39→12:00)
[2020-03-31 01:28] LABS: BLOOD UREA NITROGEN 9 MG/DL (7-18); CALCIUM LEVEL 7.6 MG/DL (8.8-10.2); CARBON DIOXIDE LEVEL 37 MEQ/L (21-32); CHLORIDE LEVEL 84 MEQ/L (98-107); CREATININE FOR GFR 0.36 MG/DL (0.55-1.30); GLOMERULAR FILTRATION RATE > 60.0 (>45); GLUCOSE, FASTING 78 MG/DL (70-100); POTASSIUM SERUM 3.9 MEQ/L (3.5-5.1); SODIUM LEVEL 124 MEQ/L (136-145)
[2020-03-31 04:00] VITALS: BP 95/52
[2020-03-31] MEDS: DOXYCYCLINE HYCLATE 100 MG in D5W MINI-BAG PLUS 100 ML IV SCH (05:03)
[2020-03-31 05:40] LABS: HEMATOCRIT 37.7 % (36.0-47.0); HEMOGLOBIN 11.8 g/dl (12.0-15.5); MEAN CORPUSCULAR HEMOGLOBIN 26.9 pg (27.0-33.0); MEAN CORPUSCULAR HGB CONC 31.3 g/dl (32.0-36.5); MEAN CORPUSCULAR VOLUME 85.9 fl (80.0-96.0); PLATELET COUNT, AUTOMATED 211 10^3/uL (150-450); RED BLOOD COUNT 4.39 10^6/uL (4.00-5.40); WHITE BLOOD COUNT 24.8 10^3/uL (4.0-10.0)
[2020-03-31 05:57] LABS: BLOOD UREA NITROGEN 9 MG/DL (7-18); CALCIUM LEVEL 7.6 MG/DL (8.8-10.2); CARBON DIOXIDE LEVEL 39 MEQ/L (21-32); CHLORIDE LEVEL 83 MEQ/L (98-107); GLOMERULAR FILTRATION RATE > 60.0 (>45); GLUCOSE, FASTING 75 MG/DL (70-100); POTASSIUM SERUM 3.9 MEQ/L (3.5-5.1); SODIUM LEVEL 122 MEQ/L (136-145)
[2020-03-31 06:10] LABS: LYMPHOCYTES 3 % (16-44); MONOCYTES 3 % (0-5); NEUTROPHILS 84 % (28-66)
[2020-03-31 06:11] LABS: PLATELET ESTIMATE NORMAL (NORMAL)
[2020-03-31] MEDS ORDERED: ACETAMINOPHEN 500 MG TAB PO PRN (07:45)
[2020-03-31] MEDS ORDERED: PROCHLORPERAZINE 5 MG TAB (S0183) PO PRN (07:45)
[2020-03-31 07:54] VITALS: BP 97/57
--- NOTE | 2020-03-31 08:01 | IPNPDOC ---
Date Seen The patient was seen on 03/31/20. Progress Note MEDICALLY UNSTABLE TO UNDERGO EGD/DILATION/STENT PLACEMENT FOR DYSPHAGIA. PLAN: PT IS UNSTABLE, AND WILL NEED RESPIRATORY STATUS, HYPONATREMIA TO BE STABILIZED. NOT MEDICALLY OPTIMIZED POSTPONE ANY INVASIVE PROCEDURES DR WHIPPLE WILL BE NOTIFIED WHEN THE PATIENT IS STABLE FOR EGD/DILATION/STENT PLACEMENT CONTINUE SUPPORTIVE CARE UNTIL CLINICALLY IMPROVES. VS, I&O, 24H, Fishbone Vital Signs/I&O Vital Signs Date Time Temp Pulse Resp B/P (MAP) Pulse Ox O2 Delivery O2 Flow Rate FiO2 03/31/20 07:54 97.7 90 16 97/57 (70) 91 Nasal Cannula 2.0 I&O- Last 24 Hours up to 6 AM 03/31/20 06:00 Intake Total 150 ml Output Total 2200 ml Balance -2050 ml Laboratory Data 24H LABS Laboratory Tests 2 03/30/20 08:45: Neutrophils (%) (Auto) , Nucleated Red Blood Cells % (auto) 0.0, Neutrophils 92H, Band Neutrophils 1, Lymphocytes (Manual) 2L, Monocytes (Manual) 5, Anisocytosis 1+, Platelet Estimate NORMAL, Prothrombin Time 13.8, Prothromb Time International Ratio 1.04, Activated Partial Thromboplast Time 173.5*H, Anion Gap 6L, Glomerular Filtration Rate > 60.0, Calcium Level 8.0L, Magnesium Level 2.0, Total Bilirubin 0.6, Aspartate Amino Transf (AST/SGOT) 19, Alanine Aminotransferase (ALT/SGPT) 22, Alkaline Phosphatase 100, Total Creatine Kinase 33, Creatine Kinase MB 3.5, Creatine Kinase MB Relative Index 10.61H, Troponin I < 0.02, ZH-Bjw-Z-Type Natriuretic Peptide 4293H, Total Protein 5.3L, Albumin 2.7L, Albumin/Globulin Ratio 1.0L, Thyroid Stimulating Hormone (TSH) 2.120 03/30/20 10:10: Urine Random Osmolality 706, Urine Random Sodium 59 03/30/20 10:12: Urine Color YELLOW, Urine Appearance HAZY, Urine pH 8.0, Urine Specific Crescent 1.018, Urine Protein NEGATIVE, Urine Glucose (Auto)(UA) NEGATIVE, Urine Ketones (Auto) 1+H, Urine Blood NEGATIVE, Urine Nitrite NEGATIVE, Urine Bilirubin NEGA TIVE, Urine Urobilinogen 0.2, Urine Leukocyte Esterase (Auto) NEGATIVE, Urine WBC (Auto) 2, Urine RBC (Auto) 1, Urine Hyaline Casts (Auto) 0, Urine Bacteria (Auto) NEGATIVE, Urine Squamous Epithelial Cells 1, Urine Mucus (Auto) SMALL, Urine Sperm (Auto) 03/30/20 11:15: Erythrocyte Sedimentation Rate 6, Osmolality 251L, Lactic Acid Level 0.8, Uric Acid 1.9L, C-Reactive Protein, Quantitative 6.21H 03/30/20 11:19: Prothrombin Time 13.4, Prothromb Time International Ratio 1.00, Activated Partial Thromboplast Time 43.8H, Fibrinogen 431, D-Dimer, Quantitative 598.59H 03/30/20 12:30: Anion Gap 2L, Glomerular Filtration Rate > 60.0, Calcium Level 8.1L 03/30/20 18:19: Anion Gap 7L, Glomerular Filtration Rate > 60.0, Calcium Level 7.6L, Methicillin-Resist S.aureus DNA PCR NOT DETECTED 03/31/20 00:45: Anion Gap 3L, Glomerular Filtration Rate > 60.0, Calcium Level 7.6L 03/31/20 05:13: Neutrophils (%) (Auto) , Nucleated Red Blood Cells % (auto) 0.0, Neutrophils 84H, Band Neutrophils 10, Lymphocytes (Manual) 3L, Monocytes (Manual) 3, Red Blood Cell Morphology NORMAL, Platelet Estimate NORMAL, Anion Gap 0L, Glomerular Filtration Rate > 60.0, Calcium Level 7.6L CBC/BMP Laboratory Tests 03/30/20 08:45 03/30/20 11:19 03/30/20 12:30 03/30/20 18:19 03/31/20 00:45 03/31/20 05:13 Microbiology Microbiology 03/30/20 Respiratory Virus Panel (PCR) ([facility]) - Final, Complete 03/30/20 Urine Culture, Received Pending 03/30/20 Blood Culture, Received Pending 03/30/20 Blood Culture, Received Pending SHIKHA ROBERTO MD Mar 31, 2020 08:01
[2020-03-31] MEDS ORDERED: VITAMIN D 1,000 INTERNATIONAL UNITS TABLET PO SCH (09:00)
[2020-03-31] MEDS ORDERED: OMEPRAZOLE 20 MG CAP PO SCH (09:00)
[2020-03-31] MEDS ORDERED: SODIUM CHLORIDE 0.9% INJ 10 ML SYR IV SCH (09:00)
[2020-03-31] MEDS ORDERED: CALCIUM CARBONATE 500 MG CHEW U/D PO SCH (09:00)
[2020-03-31 11:36] VITALS: BP 112/68
--- NOTE | 2020-03-31 17:13 | HPE ---
DATE OF ADMISSION: 03/30/2020 PRIMARY CARE PHYSICIAN: Dr. Inocencio Escamilla ONCOLOGIST: Dr. Galo CHIEF COMPLAINT: Shortness of breath, dysphagia. 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 After progressing through oral ALK target agent, patient was found to have a new hyponatremia, sodium level of 125 with progression on interval scans, noted first only 02/09/2020. Patient has a port for pembrolizumab maintenance therapy, on chronic demeclocycline 300 twice a day and currently on Keytruda, presented to the emergency room with worsening shortness of breath since yesterday as well as complaints of persistent dysphagia to solid. Able to drink liquids. She complained of some constipation yesterday. Had taken multiple bowel regimen with worsening shortness of breath with no medications or nebulizers taken and presented to the emergency room. She has chronic lower extremity edema, left worse than the right, with some erythema in the left lower extremity and was seen to the emergency room for further evaluation and was found to be in respiratory distress. Blood pressure was well maintained at 125. CT chest still pending. MEDICAL HISTORY: 1. Adenocarcinoma of the lung, refractory recurrent ALK mutation with metastatic lesions to bone, brain, lung, gastric, and retro-orbital area with progression and visceral involvement. 2. Hyponatremia. 3. Palliative scapula radiation. 4. Iron deficiency anemia. 5. Gastrointestinal (GI) bleed. 6. Malignant pleural effusion requiring PleurX catheter. Discontinued 01/19/2020. 7. Ulcerated metastatic mucosal implants from lung cancer (CA) with GI bleed. 8. Pneumonia. 9. Radiation pneumonitis. 10. Oral thrush. PAST SURGICAL HISTORY: 1. Port placement for chemotherapy. 2. Talc pleurodesis. 3. section. 4. Cataract extraction 5. PleurX catheter placement. FAMILY HISTORY: Diabetes in the father. Bladder CA in the mother. ALLERGIES: VANCOMYCIN. HOME MEDICATIONS: - prochlorperazine 10 every 8 as needed - Zofran 8 every 6 as needed - vitamin D 2000 units daily - Prilosec 20 twice a day - acetaminophen 500 every 6 as needed - Tums 500 daily - denosumab injection - multivitamin one tablet daily SOCIAL HISTORY: Lives with . Healthcare proxy is the . Full code. No alcohol, polysubstance use, or tobacco use currently. PHYSICAL EXAMINATION: Blood pressure 125/80, respiratory rate 22, pulse oximetry 92% on 2 liters nasal cannula. Afebrile. GENERAL: Cachectic. Appears older than her stated age. Conversational dyspnea, five to six words. Speech is fluent. Anicteric. No jaundice. Moist mucous membranes. Right port noted. No erythema to tenderness. No jugular venous distention (JVD), thyromegaly, or cervical lymphadenopathy. LUNGS: Diminished. Bibasilar crackles. HEART: S1, S2, sinus rhythm. ABDOMEN: Soft, nontender, nondistended. EXTREMITIES: Pitting edema 1+ bilaterally. Left lower extremity has some erythema on the smith. No calf tenderness bilaterally. LABORATORY DATA: White count 16, hemoglobin 12, hematocrit 37, platelet count 207. One bandemia. INR 1, PTT 172, PT 13.8. Urinalysis (UA) is pending. Sodium 122, potassium 4.8, chloride 82, bicarbonate 34, BUN 13, creatinine 0.3, glucose 75. BNP 4293. Troponin less than 0.02. CT chest pending. ASSESSMENT AND PLAN: A 65-year-old female with recurrent adenocarcinoma of the lung with bone, brain, lung, gastric, retro-orbital metastases with progressive disease involving the viscera with GI bleed, prior pneumonia, radiation pneumonitis, iron deficiency anemia, oral thrush, and history of hyponatremia. Sodium of 122, 117 previous, and malignant pleural effusions on the left status post PleurX catheter and removal 01/19/2020. Presents with worsening shortness of breath, constipation, and dysphagia. IMPRESSION: 1. Metastatic adenocarcinoma of the lung, PD-1 negative with bone, brain, lung, gastric, retro-orbital metastases with progressive visceral involvement with ulcerated metastatic mucosal implants and GI bleed, recurrent malignant pleural effusions on the left, status post pigtail catheter, removed 01/19/2020. 2. Hyponatremia, acute on chronic. 3. Radiation pneumonitis. 4. Acute hypoxic respiratory failure due to radiation pneumonitis and widely metastatic progressive adenocarcinoma of the lung. 5. Chronic iron deficiency anemia. 6. Oral thrush. 7. Coagulopathy with elevated PTT. 8. Bandemia with leukocytosis, rule out acute postobstructive pneumonia. PLAN: Patient will be admitted to the progressive care unit (PCU) with every 6 hours metabolic panel. Nephrology has been consulted to assist in correction of patient's fluid balance and sodium level. Serum osmolarity, urine osmolarity will be checked, TSH and uric acid. Monitor for clinical symptoms. Obtain sputum culture and sensitivity, UA, CT chest. Patient has bandemia. May benefit from empiric antibiotics for possible pneumonia. Continue on titration of oxygen to keep saturations above 90%. Medical oncology consultation for prognosis. She remains a full code. Continue on home medications. Deep venous thrombosis (DVT) prophylaxis with compression stockings. Obtain venous Doppler, bilateral lower extremities, to rule out deep venous thrombosis (DVT). Empiric antibiotics with ceftriaxone, azithromycin. Possible respiratory infection with shortness of breath, elevated white count. MTDD
--- NOTE | 2020-03-31 18:32 | CR ---
NEPHROLOGY CONSULTATION DATE OF CONSULTATION: 03/30/2020 CONSULTATION REQUESTED BY: Bindu Maciel M.D. REASON FOR CONSULTATION: Hyponatremia. HISTORY OF PRESENT ILLNESS: Ms. Vance is a 65-year-old lady who was admitted with shortness of breath and cough. She was found to have sodium level of 122. She has known history of stage 4 lung cancer with widespread metastases and has been on chemotherapy. Nephrology consultation was requested and patient is seen in the Emergency Room. PAST MEDICAL HISTORY: Significant for: 1. History of metastatic lung cancer with recurrent pleural effusions; status post pleurodesis. 2. History of anemia. 3. History of GI bleed. PAST SURGICAL HISTORY: Significant for: 1. Infusaport placement. 2. Cataract surgery. 3. . 4. Thoracentesis. 5. Talc pleurodesis. FAMILY HISTORY: Father with diabetes and mother had bladder cancer. PERSONAL AND SOCIAL HISTORY: Patient denies any tobacco, alcohol or drug use. MEDICATIONS: She is currently receiving chemotherapy. She has received two cycles of chemo. Other medications include: 1. Tylenol as needed. 2. Calcium carbonate 500 mg daily. 3. Vitamin D 1,000 units daily. 4. Demeclocycline 300 mg b.i.d. 5. Xgeva 120 mg subcutaneously every three months. 6. Dexamethasone 8 mg two tablets p.o. daily the day before chemo. 7. Multivitamin with minerals one daily. 8. Omeprazole 20 mg b.i.d. 9. Zofran 8 mg every 6 hours p.r.n. nausea. ALLERGIES: Patient has allergy to Vancomycin. REVIEW OF SYSTEMS: She has been feeling weak. Shortness of breath reported. She also has some leg edema. Denies any fever or chills. Ears, nose and throat unremarkable. Cardiovascular system significant for shortness of breath and leg edema. She denies any chest pain. Respiratory system is significant for widespread pleural metastases and pleural effusions. She denies any hemoptysis at present. GI system is significant for prior history of GI bleed. She denies any rectal bleeding or black colored stools. system is negative for dysuria or hematuria. Endocrine system is negative for diabetes or thyroid problems. Hematological system is significant for anemia. Psychosocial system is negative for depression or anxiety. Skin is negative for rash or ulcers. Musculoskeletal system is significant for bone metastases and leg edema. PHYSICAL EXAMINATION: Temperature 97.9 degrees Fahrenheit, heart rate 105 per minute, respiratory rate 20 per minute, blood pressure 122/80 mmHg and oxygen saturation 92% on 3 liters of oxygen. Head is atraumatic. She is emaciated and looks chronically ill. Neck veins are mildly distended. She has an Infusaport on the right upper chest. Heart sounds are tachycardic without a pericardial friction rub. Lungs have diminished breath sounds at bases and coarse crepitations mostly on the right side. There is minimal expiratory wheezing. Abdomen is soft and nontender. bowel sounds are normal. Extremities without any cyanosis or clubbing. Lower extremity edema is 2+ bilaterally. Neurologically, she is awake, alert, and without focal deficit. Skin is dry and without any rash or ulcers. LABORATORY DATA: WBC 16.9, hemoglobin 12.2, hematocrit 37.8, platelets 207,000. Sodium 122, potassium 4.8, chloride 82, CO2 34, BUN 13, creatinine 0.31, glucose 75 and osmolality 251. Uric acid 1.9 and calcium 8.0. Lactic acid level 0.8. C- reactive protein 6.21. Troponin less than 0.02. PROBLEMS: 1. Hyponatremia: She is obviously volume overloaded with pleural effusions, peripheral edema and elevated neck veins. I am going to give her one dose of intravenous Lasix 40 mg now and will monitor her urine output. Electrolytes should be repeated again in about six hours. 2. Pleural effusions: She has history of pleural effusions with prior pleurodesis. Clinically, she seems to have bilateral pleural effusions even now. Will try to diurese her and see how she does. She has malignancy and her effusions might be malignant. 3. Metastatic lung cancer: She seems to have widespread metastatic disease. She is not doing very well with chemo. Her prognosis remains guarded at best. Thank you for involving me in the care of Ms. Vance. I will follow her along with you. KYMBERLY
--- NOTE | 2020-03-31 20:58 | ECHO ---
DATE OF PROCEDURE: 03/30/2020 Height: 162 cm Weight: 59 kg REFERRING PHYSICIAN: Dr. Maciel INDICATION: Dyspnea. MEASUREMENTS: IVS 1.0 cm LV 2.8 cm LVPW 0.9 cm LA 2.7 cm Aorta 2.3 cm IVC 2.3 cm Mitral E-wave velocity 59, A-wave 69, E prime septal 12.6, E prime lateral 13.8. FINDINGS: The study is of limited technical quality with difficult visualization. Patient is in sinus rhythm. Left ventricle is normal size and overall normal LV systolic function is noted. I estimate EF around 60% to 65%. No distinct segmental wall motion abnormalities are appreciated. Right ventricle appears grossly normal size and systolic function. Both atria appear normal. Aortic valve appears mildly sclerotic, but mobility of cusp is preserved. Mitral, tricuspid, and pulmonic valves appear normal. No pericardial effusion is noted. Inferior vena cava is dilated and there is no appreciable collapse with inspiration indicative of elevated CVP. Aortic root is normal. Aortic arch and abdominal aorta were poorly seen. Doppler interrogation of the aortic valve reveals no significant stenosis or insufficiency. The same applies for mitral valve. Mild tricuspid insufficiency is seen. Calculated pulmonary artery pressure is in the 60s, corresponding to moderately severe pulmonary hypertension. Pulmonic valve is functionally component. Mitral inflow pattern and tissue Doppler imaging of the mitral annulus reveal grade 1 diastolic dysfunction. CONCLUSIONS: 1. Study is of limited technical quality, patient is in sinus rhythm. 2. Normal LV size with preserved LV systolic and grade 1 diastolic dysfunction. 3. Right ventricle does not appear dilated and is normally contractile. 4. No hemodynamically significant valvular disease. 5. Elevated central venous pressure and moderately severe pulmonary hypertension. COMMENTS: The study does not provide explanation for etiology of pulmonary hypertension, but it seems unlikely that it would be related to left-sided congestive heart failure. Alternative etiologies should be pursued. [facility]
[2020-04-01] MEDS ORDERED: FLUBLOK(EGG FREE)(QUAD)INFLUENZA VACC 0.5ML SYRINGE 18YRS & OLDER IM ONE (09:00)
--- NOTE | 2020-04-01 11:19 | IPN ---
DATE: 03/31/2020 Patient remains on 2 liters nasal cannula. Shortness of breath is slightly improved. Due to bandemia, patient was empirically treated for possible respiratory infection. COVID-19 and methicillin-resistant Staphylococcus aureus (MRSA) obtained. Negative for MRSA. Patient denies any headaches, changes in vision. States that "I'm done." Requesting all imaging studies to be done and to go home with hospice. OBJECTIVE: PHYSICAL EXAMINATION: VITAL SIGNS: Temperature 98.1, pulse 90, respiratory rate 18, blood pressure 112/68, 100% on 2 liters nasal cannula. GENERAL: Awake, alert, oriented to person, place, and time, answering questions appropriately. LUNGS: Diminished with bibasilar crackles. HEART: S1, S2, sinus rhythm. ABDOMEN: Soft, nontender, nondistended. Positive bowel sounds. EXTREMITIES: No cyanosis, clubbing, or pitting edema. LABORATORY DATA: White count 24.8, hemoglobin 11, hematocrit 37, platelet count 211, 10 bands. Sodium 122, potassium 3.9, chloride 83, bicarbonate 39, BUN 9, creatinine 0.3, glucose 75, calcium 7.6. Microbiology: Respiratory panel, COVID negative. CT chest: No pulmonary embolus (PE). Extensive right pleural metastatic disease, relatively stable. Interval increase in size with small to moderate, partially loculated left pleural effusion. Extensive osteoblastic skeletal metastatic disease comparable to prior study. Mild nonspecific interval increase in anterior left lung, interlobular septal thickening. Previous hepatic lesion, nonspecific interval change in enhancement patter, similar size. ASSESSMENT AND PLAN: This is a 65-year-old female with prior history of recurrent refractor ALK mutation positive adenocarcinoma of the lung, PD-L1 negative with bone, brain, lung, gastric, retro-orbital metastases, which was diagnosed in 2013 with progression and now involving visceral metastasis in 2019. Received first-line chemotherapy with new hyponatremia. 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 Presented to the emergency room with worsening shortness of breath after PleurX catheter had been removed in December 2019. CURRENT ISSUES: 1. Loculated pleural effusion. Patient had history of malignant pleural effusion in the past requiring PleurX catheter. 2. Bandemia with possible infected pleural effusion with parapneumonic effusion versus abscess. 3. Recurrent lung adenocarcinoma with metastatic lesions to the bone, viscera, retro-orbital. 4. Hyponatremia secondary to SIADH. 5. Failure to thrive. Body mass index (BMI) of 20.2. 6. Dysphagia secondary to possible radiation induced versus tumor compression. PLAN: At this time patient is refusing further evaluation and management. She was originally planned to be monitored with every 6-hour metabolic panel. Regarding her SIADH and just started demeclocycline, nephrology was consulted. Patient was also planned to have her breathing improved by treating with antibiotics, possible removal of the loculated effusion with chest tube placement and PleurX catheter and to have dysphagia evaluated by doing endoscopy with possible stent placement verus dilation, depending on where the obstruction was; however, at this time patient is refusing further management and evaluation, refused blood tests and imaging studies. She has requested hospice. Patient and family services (PFS) has been consulted. KYMBERLY
[2020-04-01 14:08] LABS: BODY FLUID CULTURE Not indicated. (.); LEGIONELLA ANTIGEN URINE Negative (Negative); ORGANISM ID Not indicated. (.); SPECIMEN SOURCE Urine (.); URINE STREP PNEUMONIAE ANTIGEN Negative (Negative)
--- NOTE | 2020-04-02 12:18 | IPN ---
DATE: 03/31/2020 SUBJECTIVE: Mrs. Vance is seen this morning at her bedside. The nursing staff has informed me that the patient has decided to stop all acute care and consider Hospice care and comfort care. She was noticed to have advanced metastatic lung cancer with mets to liver, bones, and probably other organs. She was admitted to generalized weakness and shortness of breath. She was also found to be hyponatremic. She was volume overloaded with significant peripheral edema and did respond to diuretics yesterday, however, her sodium level remains low at 122. Late yesterday her sodium level was up to 124 but this morning it went down to 122 again. PHYSICAL EXAMINATION: VITAL SIGNS: Temperature is 98 degrees Fahrenheit, heart rate is 90 per minute and respiratory rate is 18 per minute. Blood pressure is 112/68 mmHg and oxygen saturation 100%. HEENT: Head is atraumatic. NECK: Supple without JVD or thyroid enlargement. HEART: Heart sounds are regular. LUNGS: Bilateral rhonchi and slightly diminished breath sounds at bases. ABDOMEN: Soft and nontender. EXTREMITIES: Without any cyanosis or clubbing. NEUROLOGICAL: She is awake, alert and oriented x3. LABS: Todays labs showed a WBC count of 24.8, hemoglobin 11.8 and hematocrit 37.7. Sodium 122 and potassium 3.9. BUN is 9 and creatinine is 0.30. PROBLEMS: 1. Hyponatremia. This is most likely related to her advanced metastatic lung disease. She also has some peripheral edema and most likely has inappropriate ADH. At this point the patient has already decided for comfort care and does not wish acute care. I think this is very appropriate. We will not give her any medications at this point. 2. Metastatic lung disease. The patient has clearly stated that she does not wish acute care. She wants to go home with comfort care and Hospice. I think it is appropriate considering advanced metastatic disease and poor response to chemo. 3. Disposition: Nephrology Service is signing off and the patient can be discharged to home with comfort care. KYMBERLY
--- NOTE | 2020-04-05 12:07 | ECGEPIP ---
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
== END 2020-03-31 14:50 | disposition home or self-care (01) | DRG 640 ==
LOC: M ED 07:45 → M ED INP 09:51 → M PCU 13:30
PROVIDERS: ADMIT General Practice; ATTEND General Practice
DX: E87.1 Hypo-osmolality and hyponatremia (principal); J96.01 Acute respiratory failure with hypoxia; J18.9 Pneumonia, unspecified organism; B37.0 Candidal stomatitis; J70.0 Acute pulmonary manifestations due to radiation; C34.90 Malignant neoplasm of unspecified part of unspecified bronchus or lung; C79.51 Secondary malignant neoplasm of bone; C79.31 Secondary malignant neoplasm of brain; C78.89 Secondary malignant neoplasm of other digestive organs; C79.89 Secondary malignant neoplasm of other specified sites; D50.9 Iron deficiency anemia, unspecified; Z79.899 Other long term (current) drug therapy; R62.7 Adult failure to thrive; Z68.20 Body mass index [BMI] 20.0-20.9, adult